=== PATIENT | male | born 1945 | race Caucasian/White ===

== ENCOUNTER 2017-07-13 17:01 | Emergency (ER) | payer MEDICARE, SELFPAY ==
[2017-07-13 17:13] VITALS: BP 105/83; PULSE 63; RESP 18; TEMP 36.6; O2SAT 96; BMI 29.0
--- NOTE | 2017-07-13 17:17 | HMH.EDUTC ---
[facility] [place] Impression: Upper respiratory infection Qualifiers: URI type: unspecified URI Qualified Code(s): J06.9 - Acute upper respiratory infection, unspecified Disposition: Home, Self-Care Condition on Discharge: Good Instructions: Sore Throat, Cough, DI for Nasal Congestion Additional Instructions: * Monitor Temp. Tylenol and/or Ibuprofen as needed. ER if fever is no less than 101 despite alternating Tylenol and Ibuprofen * Encourage fluids, water, Gatorade, powerade, pedialyte if infant/toddler/or child * Warm salt water gargles for throat irritation *Warm fluids *Sore throat lozenges *Sleep elevated *humidifier or vaporizer Lots of rest Increase fluids, water, Gatorade, powerade *Your throat swab was sent to lab for culture. Those results area typically sent to your primary care physician. Be sure to follow up in 2-3 days if no improvement so they can review those results and treat if necessary If you dont have primary care I recommend you get one, but in the mean time you will have to return to a walk in clinic Follow up IMMEDIATELY for new or worsening of symptoms OR no noticeable improvement over the next 48-72 hours. 911 immediately for any life threatening symptoms such as chest pain or difficulty breathing Prescriptions: Dextromethorphan Polistirex [Delsym] 10 ml PO Q12H #250 mary ann.er.12h Referrals: Sawyer Avina MD [Primary Care Provider] - Time of Disposition: 17:35 Medical Decision Making - Medical Records Medical records reviewed: Yes: I reviewed the patient's medical records. Vital Signs: 07/13/17 17:13 Temperature 97.9 F Temperature Source Temporal Artery Scan Pulse Rate [Left Brachial] 63 Respiratory Rate 18 Blood Pressure [Left Arm] 105/83 Blood Pressure Mean [Left Arm] 90 Blood Pressure Source [Left Arm] Automatic Cuff Blood Pressure Position [Left Arm] Sitting 02 Sat by Pulse Oximetry 96 Oxygen Delivery Method Room Air - Lab Data Lab Results 07/13/17 17:13: Influenza Type A Ag Negative, Influenza Type B Ag Negative, Strep Scn Rapid Clinic Negative Orders (Tests/Meds): ED MEDICATIONS Discontinued Medications Generic Name Dose Route Start Last Admin Trade Name Freq PRN Reason Stop Dose Admin Ceftriaxone Sodium 1 gm 07/13/17 17:21 07/13/17 17:34 Rocephin 1gm Vial IM 07/13/17 17:22 1 gm ONCE ONE Administration Lidocaine HCl 0 ml 07/13/17 17:21 07/13/17 17:34 Lidocaine 1% 10ml Mdv IM 07/13/17 17:22 2.1 ml ONCE ONE Administration ORDERS Category Date Time Status Strep Screen Confirmation Stat Micro 07/13/17 17:13 Received - Manny Inquiry Pt receiving controlled substance: No Manny was queried for this patient: No [facility] [place] - General Stated complaint: Fever, Congestion, Shaking Mode of Arrival: Ambulatory Source of Information: Patient Limitations: No Limitations Description of Symptoms (Recalled from Triage Doc. by RN): C/O aches, chills, congestion HEENT Symptoms (Recalled from RN notes): No Resp Symptoms (Recalled from RN notes): Yes (congestion, cough) Skin Symptoms (Recalled from RN notes): No MS Symptoms (Recalled from RN notes): Yes (aches) Functional Status (Recalled from RN notes): n/a - History of Present Illness Provider Complaint: Patient state that he has not felt well for several days but today he feels worse State that he is having sore throat, chills, body aches and nasal congestion State that he is having sinus pain and pressure and feeling like it is running down his throat State that he is coughing but not coughing anything up - Related Data Previous Rx's Medication Instructions Recorded Dextromethorphan Polistirex 10 ml PO Q12H #250 mary ann.er.12h 07/13/17 [Delsym] Allergies Allergy/AdvReac Type Severity Reaction Status Date / Time No Known Allergies Allergy Verified 07/13/17 17:17 - Worker's Comp Is this a Worker's Comp case?: No [facility] History I have reviewed the p
--- NOTE | 2017-07-13 17:20 | ED_ITS ---
[facility] [place] Disposition Clinical Impression: Upper respiratory infection Qualifiers: URI type: unspecified URI Qualified Code(s): J06.9 - Acute upper respiratory infection, unspecified Disposition: Home, Self-Care Condition on Discharge: Good Instructions: Sore Throat, Cough, DI for Nasal Congestion Additional Instructions: * Monitor Temp. Tylenol and/or Ibuprofen as needed. ER if fever is no less than 101 despite alternating Tylenol and Ibuprofen * Encourage fluids, water, Gatorade, powerade, pedialyte if infant/toddler/or child * Warm salt water gargles for throat irritation *Warm fluids *Sore throat lozenges *Sleep elevated *humidifier or vaporizer Lots of rest Increase fluids, water, Gatorade, powerade *Your throat swab was sent to lab for culture. Those results area typically sent to your primary care physician. Be sure to follow up in 2-3 days if no improvement so they can review those results and treat if necessary If you don? t have primary care I recommend you get one, but in the mean time you will have to return to a walk in clinic Follow up IMMEDIATELY for new or worsening of symptoms OR no noticeable improvement over the next 48-72 hours. 911 immediately for any life threatening symptoms such as chest pain or difficulty breathing Prescriptions: Dextromethorphan Polistirex [Delsym] 10 ml PO Q12H #250 mary ann.er.12h Referrals: Sawyer Avina MD [Primary Care Provider] - Time of Disposition: 17:35 Medical Decision Making - Medical Records Medical records reviewed: Yes: I reviewed the patient's medical records. Vital Signs: 07/13/17 17:13 Temperature 97.9 F Temperature Source Temporal Artery Scan Pulse Rate [Left Brachial] 63 Respiratory Rate 18 Blood Pressure [Left Arm] 105/83 Blood Pressure Mean [Left Arm] 90 Blood Pressure Source [Left Arm] Automatic Cuff Blood Pressure Position [Left Arm] Sitting 02 Sat by Pulse Oximetry 96 Oxygen Delivery Method Room Air - Lab Data Lab Results 07/13/17 17:13: Influenza Type A Ag Negative, Influenza Type B Ag Negative, Strep Scn Rapid Clinic Negative Orders (Tests/Meds): ED MEDICATIONS Discontinued Medications Generic Name Dose Route Start Last Admin Trade Name Freq PRN Reason Stop Dose Admin Ceftriaxone Sodium 1 gm 07/13/17 17:21 07/13/17 17:34 Rocephin 1gm Vial IM 07/13/17 17:22 1 gm ONCE ONE Administration Lidocaine HCl 0 ml 07/13/17 17:21 07/13/17 17:34 Lidocaine 1% 10ml Mdv IM 07/13/17 17:22 2.1 ml ONCE ONE Administration ORDERS Category Date Time Status Strep Screen Confirmation Stat Micro 07/13/17 17:13 Received - Manny Inquiry Pt receiving controlled substance: No Manny was queried for this patient: No [facility] [place] HPI - General Stated complaint: Fever, Congestion, Shaking Mode of Arrival: Ambulatory Source of Information: Patient Limitations: No Limitations Description of Symptoms (Recalled from Triage Doc. by RN): C/O aches, chills, congestion HEENT Symptoms (Recalled from RN notes): No Resp Symptoms (Recalled from RN notes): Yes (congestion, cough) Skin Symptoms (Recalled from RN notes): No MS Symptoms (Recalled from RN notes): Yes (aches) Functional Status (Recalled from RN notes): n/a - History of Present Illness Provider Complaint: Patient state that he has not felt well for several days
[2017-07-13 17:22] LABS: UTC Influenza A Antigen Negative (Negative); UTC Influenza B Antigen Negative (Negative); UTC Strep Screen (Rapid) Negative (Negative)
[2017-07-13 17:38] VITALS: BP 105/83; PULSE 63; RESP 18; TEMP 36.6; O2SAT 96
== END 2017-07-13 17:39 | disposition home or self-care (01) ==
PROVIDERS: Emergency Provider Nurse Practitioner; Family Provider Internal Medicine Adolescent Medicine; PCP Internal Medicine Adolescent Medicine
DX: J06.9 Acute upper respiratory infection, unspecified (principal); E78.5 Hyperlipidemia, unspecified; I10 Essential (primary) hypertension; Z90.49 Acquired absence of other specified parts of digestive tract; F17.210 Nicotine dependence, cigarettes, uncomplicated
CPT/HCPCS: G0463; 87804; 87880; 96372; 99201; 99202

== ENCOUNTER 2017-07-15 17:19 | Emergency (ER) | payer MEDICARE, SELFPAY ==
[2017-07-15 18:38] VITALS: BP 182/89; PULSE 106; RESP 20; TEMP 36.6; O2SAT 96; BMI 29.0
--- NOTE | 2017-07-15 19:09 | HMH.EDUTC ---
[facility] [place] Clinical Impression: Bleeding nose Sinusitis Qualifiers: Sinusitis location: maxillary Chronicity: acute Recurrence: not specified as recurrent Qualified Code(s): J01.00 - Acute maxillary sinusitis, unspecified Disposition: Home, Self-Care Condition on Discharge: Good Additional Instructions: Follow-up with Dr. Santoro If nosebleed returns or worsens return or be seen in the ER Antibiotics as ordered Afrin as ordered Prescriptions: cephALEXin [Keflex 500mg Cap] 500 mg PO BID 10 Days cap Oxymetazoline HCl [Afrin Nasal [place] 15mL] 0 ml IH Q12 3 Days #1 spray Referrals: Delmar Santoro MD [Staff Physician] - (call tomorrow for appointment) Time of Disposition: 19:15 Medical Decision Making Vital Signs: 07/15/17 18:38 Temperature 97.9 F Temperature Source Temporal Artery Scan Pulse Rate [Brachial] 106 H Respiratory Rate 20 Blood Pressure [Right Arm] 182/89 Blood Pressure Mean [Right Arm] 120 Blood Pressure Source [Right Arm] Automatic Cuff Blood Pressure Position [Right Arm] Sitting 02 Sat by Pulse Oximetry 96 Oxygen Delivery Method Room Air - Manny Inquiry Pt receiving controlled substance: No [facility] [place] H[place] - General Chief complaint: Urgent Treatment Center Stated complaint: nose bleed twice in two days Time Seen by Provider: 07/15/17 19:10 Mode of Arrival: Ambulatory Source of Information: Patient Limitations: No Limitations Description of Symptoms (Recalled from Triage Doc. by RN): BLEW HIS NOSE YESTERDAY AND IT STARTED BLEEDING AND TODAY WHEN HE BENT OVER IT STARTED BLEEDING AGAIN. HEENT Symptoms (Recalled from RN notes): Yes Resp Symptoms (Recalled from RN notes): No Skin Symptoms (Recalled from RN notes): No MS Symptoms (Recalled from RN notes): No Functional Status (Recalled from RN notes): NA - History of Present Illness Provider Complaint: 71-year-old male presents for nosebleed. Patient states he had a note yesterday but was able to have stopped and today bent over in nosebleed started. Was seen on Saturday diagnosed with a sinus infection was 2 shots and states he is no better. - Related Data Previous Rx's Medication Instructions Recorded Dextromethorphan Polistirex 10 ml PO Q12H #250 mary ann.er.12h 07/13/17 [Delsym] Oxymetazoline HCl [Afrin Nasal 0 ml IH Q12 3 Days #1 spray 07/15/17 [place] 15mL] cephALEXin [Keflex 500mg Cap] 500 mg PO BID 10 Days cap 07/15/17 Allergies Allergy/AdvReac Type Severity Reaction Status Date / Time No Known Allergies Allergy Verified 07/13/17 17:17 - Worker's Comp Is this a Worker's Comp case?: No [facility] History I have reviewed the patient's past medical history: Yes Medical History: Denies:: Cancer, Diabetes Mellitus Type 1, Diabetes Mellitus Type 2, MRSA Amputation: No Fractures: No - *Social History Smoking Status: Current every day smoker Tobacco Type: cigarettes Alcohol Intake: never - Psychiatric History Expresses thoughts of harming self/others: None Suicide Plan Description: No Plan ROS Obtained: Yes All systems reviewed & no additional complaints - Constitutional Constitutional: Reports system reviewed and no additional complaints, except as docu - Eyes Eyes: Reports system reviewed and no additional complaints, except as docu - ENT Ears, Nose, Mouth, and Throat: Reports system reviewed and no additional complaints, except as docu, Reports as per HPI, Reports epistaxis, Reports nasal discharge, Reports sinus pressure - Cardiovascular Cardiovascular: Reports system reviewed and no additional complaints, except as docu - Respiratory Respiratory: Yes system reviewed and no additional complaints, except as docu - Gastrointestinal Gastrointestingal: Reports: system reviewed and no additional complaints, except as docu - Musculoskeletal Musculoskeletal: Reports system reviewed and no additional complaints, except as docu - Integumentary/Breasts Skin/Breast: Reports system reviewed and no addit
--- NOTE | 2017-07-15 19:12 | ED_ITS ---
[facility] [place] Clinical Impression: Bleeding nose Sinusitis Qualifiers: Sinusitis location: maxillary Chronicity: acute Recurrence: not specified as recurrent Qualified Code(s): J01.00 - Acute maxillary sinusitis, unspecified Disposition: Home, Self-Care Condition on Discharge: Good Additional Instructions: Follow-up with Dr. Santoro If nosebleed returns or worsens return or be seen in the ER Antibiotics as ordered Afrin as ordered Prescriptions: cephALEXin [Keflex 500mg Cap] 500 mg PO BID 10 Days cap Oxymetazoline HCl [Afrin Nasal [place] 15mL] 0 ml IH Q12 3 Days #1 spray Referrals: Delmar Santoro MD [Staff Physician] - (call tomorrow for appointment) Time of Disposition: 19:15 Medical Decision Making Vital Signs: 07/15/17 18:38 Temperature 97.9 F Temperature Source Temporal Artery Scan Pulse Rate [Brachial] 106 H Respiratory Rate 20 Blood Pressure [Right Arm] 182/89 Blood Pressure Mean [Right Arm] 120 Blood Pressure Source [Right Arm] Automatic Cuff Blood Pressure Position [Right Arm] Sitting 02 Sat by Pulse Oximetry 96 Oxygen Delivery Method Room Air - Manny Inquiry Pt receiving controlled substance: No [facility] [place] - General Chief complaint: Urgent Treatment Center Stated complaint: nose bleed twice in two days Time Seen by Provider: 07/15/17 19:10 Mode of Arrival: Ambulatory Source of Information: Patient Limitations: No Limitations Description of Symptoms (Recalled from Triage Doc. by RN): BLEW HIS NOSE YESTERDAY AND IT STARTED BLEEDING AND TODAY WHEN HE BENT OVER IT STARTED BLEEDING AGAIN. HEENT Symptoms (Recalled from RN notes): Yes Resp Symptoms (Recalled from RN notes): No Skin Symptoms (Recalled from RN notes): No MS Symptoms (Recalled from RN notes): No Functional Status (Recalled from RN notes): NA - History of Present Illness Provider Complaint: 71-year-old male presents for nosebleed. Patient states he had a note yesterday but was able to have stopped and today bent over in nosebleed started. Was seen on Saturday diagnosed with a sinus infection was 2 shots and states he is no better. - Related Data Previous Rx's Medication Instructions Recorded Dextromethorphan Polistirex 10 ml PO Q12H #250 mary ann.er.12h 07/13/17 [Delsym] Oxymetazoline HCl [Afrin Nasal 0 ml IH Q12 3 Days #1 spray 07/15/17 [place] 15mL] cephALEXin [Keflex 500mg Cap] 500 mg PO BID 10 Days cap 07/15/17 Allergies Allergy/AdvReac Type Severity Reaction Status Date / Time No Known Allergies Allergy Verified 07/13/17 17:17 - Worker's Comp Is this a Worker's Comp case?: No H History I have reviewed the patient's past medical history: Yes Medical History: Denies:: Cancer, Diabetes Mellitus Type 1, Diabetes Mellitus Type 2, MRSA Amputation: No Fractures: No - *Social History Smoking Status: Current every day smoker Tobacco Type: cigarettes Alcohol Intake: never - Psychiatric History Expresses thoughts of harming self/others: None Suicide Plan Description: No Plan ROS Obtained: Yes All systems reviewed & no additional complaints - Constitutional Constitutional: Reports system reviewed and no additional complaints, except as docu - Eyes Eyes: Reports system reviewed and no additional complaints, except as docu - ENT Ears, Nose, Mouth, and Throat: Reports system r
== END 2017-07-15 19:23 | disposition home or self-care (01) ==
PROVIDERS: Emergency Provider Nurse Practitioner Family; Family Provider Internal Medicine Adolescent Medicine; PCP Internal Medicine Adolescent Medicine
DX: J45.901 Unspecified asthma with (acute) exacerbation (principal)
CPT/HCPCS: G0463; 99201

== ENCOUNTER → 2017-07-19 12:19 | Outpatient (CLI) | payer MEDICARE, SELFPAY ==
[2017-07-19 12:46] LABS: Basophils # 0.1 K/mm3 (0-0.2); Basophils % 0.6 % (0.1-2.0); Eosinophils # 0.1 K/mm3 (0.0-0.4); Eosinophils % 1.8 % (0.1-12.0); Hemoglobin 15.5 g/dL (14.1-18.0); Lymphocytes # 1.2 K/mm3 (0.7-4.5); Lymphocytes % 15.8 K/mm3 (10-50); Mean Corpuscular HGB Conc 34.5 g/dL (31.8-35.4); Mean Corpuscular Hemoglobin 30.6 pg (27.0-31.2); Mean Corpuscular Volume 88.8 fl (80-94); Mean Platelet Volume 8.1 fl (7.4-10.4); Monocytes # 0.5 K/mm3 (0.1-1.0); Monocytes % 5.9 % (1.7-9.3); Neutrophils # 5.7 K/mm3 (1.8-7.8); Neutrophils % 75.9 % (37.0-80.0); Platelet Count 233 K/mm3 (142-424); Red Blood Count 5.06 M/mm3 (4.60-6.20); Red Cell Distribution Width 12.2 % (11.5-17.5); White Blood Count 7.6 K/mm3 (4.8-10.8)
[2017-07-19 12:55] LABS: Activated Partial Thrombo Time 24.5 seconds (23.6-34.0); Prothrombin Time 10.8 seconds (9.4-11.8)
[2017-07-19 14:38] LABS: Alanine Aminotransferase 101 U/L (12-78); Albumin Level 3.7 gm/dL (3.4-5.0); Albumin/Globulin Ratio 1.3 (1.1-1.8); Alkaline Phosphatase 83 U/L (46-116); Anion Gap 14.8 mEq/L (5-15); Aspartate Amino Transferase 36 U/L (15-37); Bilirubin,Total 0.5 mg/dL (0.2-1.0); Blood Urea Nitrogen 22 mg/dL (7-18); Calcium 8.9 mg/dL (8.5-10.1); Carbon Dioxide 26 mmol/L (21.0-32.0); Chloride 101 mmol/L (98-107); Creatinine,Serum 1.63 mg/dL (0.70-1.30); Estimated Glomerular Filt Rate 42 ml/min (>60); GFR (African American) 51 ML/MIN (>60); Globulin 2.9 gm/dl (1.3-3.2); Glucose 150 mg/dL (74-106); Potassium 3.8 mmoL/L (3.5-5.1); Sodium 138 mmol/L (136-145); Total Protein,Serum 6.6 gm/dL (6.4-8.2)
== END ==
PROVIDERS: Family Provider Internal Medicine Adolescent Medicine; PCP Internal Medicine Adolescent Medicine; Visit Provider Otolaryngology
DX: R04.0 Epistaxis (principal)
CPT/HCPCS: 36415; 80053; 85025; 85610; 85730

== ENCOUNTER → 2017-07-26 07:57 | Outpatient (CLI) | payer MEDICARE, SELFPAY ==
[2017-07-26 09:34] LABS: Alanine Aminotransferase 72 U/L (12-78); Albumin Level 3.8 gm/dL (3.4-5.0); Albumin/Globulin Ratio 1.3 (1.1-1.8); Alkaline Phosphatase 78 U/L (46-116); Anion Gap 12.5 mEq/L (5-15); Aspartate Amino Transferase 27 U/L (15-37); Bilirubin,Total 0.5 mg/dL (0.2-1.0); Blood Urea Nitrogen 18 mg/dL (7-18); Calcium 9.3 mg/dL (8.5-10.1); Carbon Dioxide 31 mmol/L (21.0-32.0); Chloride 106 mmol/L (98-107); Creatinine,Serum 1.55 mg/dL (0.70-1.30); Estimated Glomerular Filt Rate 45 ml/min (>60); GFR (African American) 54 ML/MIN (>60); Globulin 2.9 gm/dl (1.3-3.2); Glucose 103 mg/dL (74-106); Phosphorous 3.2 mg/dL (2.4-4.9); Potassium 4.5 mmoL/L (3.5-5.1); Sodium 145 mmol/L (136-145); Total Protein,Serum 6.7 gm/dL (6.4-8.2)
[2017-07-26 11:32] LABS: Red Blood Count 4.59 M/mm3 (4.60-6.20)
[2017-07-26 11:33] LABS: Basophils % 0.9 % (0.1-2.0); Eosinophils # 0.3 K/mm3 (0.0-0.4); Eosinophils % 3.7 % (0.1-12.0); Hematocrit 41.5 % (42.0-52.0); Hemoglobin 14.2 g/dL (14.1-18.0); Lymphocytes # 1.9 K/mm3 (0.7-4.5); Mean Corpuscular HGB Conc 34.3 g/dL (31.8-35.4); Mean Corpuscular Volume 90.4 fl (80-94); Mean Platelet Volume 8.4 fl (7.4-10.4); Monocytes # 0.5 K/mm3 (0.1-1.0); Monocytes % 6.8 % (1.7-9.3); Neutrophils % 62.6 % (37.0-80.0); Platelet Count 271 K/mm3 (142-424); Red Cell Distribution Width 12.3 % (11.5-17.5)
[2017-07-26 11:34] LABS: Basophils # 0.1 K/mm3 (0-0.2)
[2017-07-26 13:54] LABS: Patient Height,Urine 75; Patient Weight,Urine 232
[2017-07-26 14:02] LABS: Collection Time,Urine 12 hours; Total Volume,Urine 1000 mL (250-2400)
[2017-07-26 15:01] LABS: Creatinine 24 Hour,Urine 1010 mg/24hr (630-2500); Creatinine,Urine Random 101 mg/dL (20-320)
[2017-07-27 19:10] LABS: Vitamin D 25 Hydroxy 34.7 ng/mL (30.0-100.0)
== END ==
PROVIDERS: PCP Internal Medicine Adolescent Medicine; Visit Provider Internal Medicine Adolescent Medicine
DX: R79.89 Other specified abnormal findings of blood chemistry (principal); N18.1 Chronic kidney disease, stage 1
CPT/HCPCS: 36415; 80053; 82575; 82652; 84100; 85025

== ENCOUNTER → 2017-07-30 13:12 | Outpatient (CLI) | payer MEDICARE, SELFPAY ==
--- NOTE | 2017-07-30 13:16 | US_ITS ---
US retroperitoneal comp HISTORY: ITS.REASON: STAGE 1 CHRONIC KIDNEY DISEASE ORDERING PHYSICIAN: Sawyer Avina MD PATIENT AGE: 71 years COMPARISON: None FINDINGS: The right kidney is 11 x 6 x 7 cm. No hydronephrosis. Small focus of increased echogenicity is present in the mid lower pole the right kidney with some posterior shadowing and could be due to a small nonobstructing stone. There is mild cortical thinning. The left kidney is 10 x 6 x 6 cm it has an unremarkable appearance. IMPRESSION: Possible right nephrolithiasis with mild right renal cortical thinning. No hydronephrosis
== END ==
PROVIDERS: Family Provider Internal Medicine Adolescent Medicine; PCP Internal Medicine Adolescent Medicine; Visit Provider Internal Medicine Adolescent Medicine
DX: N18.1 Chronic kidney disease, stage 1 (principal)
CPT/HCPCS: 76770

== ENCOUNTER → 2017-08-09 10:08 | Outpatient (CLI) | payer MEDICARE, SELFPAY ==
--- NOTE | 2017-08-09 10:09 | MR_ITS ---
MR lumbar spine wo con, MR 3-d myelogram/MRCP HISTORY: Low back pain with tingling and numbness in the left leg and hip ITS.REASON: LUMBAR RADICULOPATHY ORDERING PHYSICIAN: Ehsan Chua PATIENT AGE: 71 years COMPARISON: MRI of 08/21/2016 TECHNIQUE: Standard multiplanar multiecho sequences are performed without contrast. 3-D MIP and myelographic images are also rendered and reviewed FINDINGS: There is normal alignment. The spinal cord ends at the L1 level. There is mild disc desiccation from T12 to L5. T12-L1, L1-L2, and L2-L3 have an unremarkable appearance. L3-L4: There is minimal concentric bulging disc with mild facet and ligamentous hypertrophy with mild bilateral foraminal narrowing. L4-L5: Degenerative disc disease which is moderate to severe in nature with a Schmorl's node along the inferior endplate of L4 and type II endplate changes anteriorly. There is bulging disc disc with moderate right-sided foraminal narrowing and mild left-sided foraminal narrowing. The degenerative disc disease is slightly worse on today's exam with increasing bone marrow edema along the anterior endplates with a type II changes. There is mild facet and ligamentum flavum hypertrophy which contributes to the foraminal narrowing. L5-S1: Mild concentric bulging disc with minimal central disc protrusion with borderline canal stenosis. This is similar compared to the previous exam. IMPRESSION: 1. Mild spondylosis of the lumbar spine as described above with degenerative disc disease, bulging disc, and facet ligamentum flavum hypertrophy. Please above for detail. There is borderline canal stenosis at L5-S1 2. Degenerative disc disease with bulging disc at L4-5 with facet and ligamentum hypertrophy. There is moderate right-sided foraminal narrowing and mild left foraminal narrowing. The degenerative disc disease is slightly worse on today's exam compared to the previous study with increasing bone marrow edema of the anterior endplates. 3. Bulging disc with minimal central disc protrusion and borderline canal stenosis at L5-S1
--- NOTE | 2017-12-10 14:53 | PC.NURSE ---
Diclofenac 75mg po bid faxed with 2 refills to clinic pharmacy
== END ==
PROVIDERS: Family Provider Internal Medicine Adolescent Medicine; PCP Internal Medicine Adolescent Medicine; Visit Provider Neurological Surgery
DX: M54.16 Radiculopathy, lumbar region (principal)
CPT/HCPCS: 72148; 76376

== ENCOUNTER → 2017-08-21 11:56 | Outpatient (CLI) | payer MEDICARE, SELFPAY ==
[2017-08-21 14:39] LABS: Alanine Aminotransferase 63 U/L (12-78); Albumin Level 3.9 gm/dL (3.4-5.0); Albumin/Globulin Ratio 1.3 (1.1-1.8); Alkaline Phosphatase 75 U/L (46-116); Anion Gap 12.7 mEq/L (5-15); Aspartate Amino Transferase 31 U/L (15-37); Bilirubin,Total 0.5 mg/dL (0.2-1.0); Blood Urea Nitrogen 13 mg/dL (7-18); Calcium 9.3 mg/dL (8.5-10.1); Carbon Dioxide 27 mmol/L (21.0-32.0); Chloride 104 mmol/L (98-107); Creatinine,Serum 1.19 mg/dL (0.70-1.30); Estimated Glomerular Filt Rate 61 ml/min (>60); GFR (African American) 73 ML/MIN (>60); Glucose 106 mg/dL (74-106); Potassium 3.7 mmoL/L (3.5-5.1); Sodium 140 mmol/L (136-145); Total Protein,Serum 6.9 gm/dL (6.4-8.2)
== END ==
PROVIDERS: Visit Provider Internal Medicine Adolescent Medicine
DX: R97.20 Elevated prostate specific antigen [PSA] (principal); R79.89 Other specified abnormal findings of blood chemistry
CPT/HCPCS: 36415; 80053; 84153

== ENCOUNTER → 2017-09-11 07:18 | Outpatient (CLI) | payer MEDICARE, SELFPAY ==
[2017-09-11 08:40] LABS: Chol/HDL Ratio 3.2 (1-3.5); Cholesterol 194 mg/dL (140-200); HDL Cholesterol 60 mg/dL (27-67); LDL Cholesterol 110 mg/dL (0-130); Triglycerides 122 mg/dL (30-200); VLDL Cholesterol 24 mg/dL (0-40)
== END ==
PROVIDERS: Visit Provider Internal Medicine
DX: I11.9 Hypertensive heart disease without heart failure (principal); E78.5 Hyperlipidemia, unspecified; Z72.0 Tobacco use
CPT/HCPCS: 36415; 80061

== ENCOUNTER → 2017-09-16 08:56 | Outpatient (POV) | payer MEDICARE, SELFPAY ==
[2017-09-16 09:16] VITALS: BP 137/75; PULSE 79; RESP 16; O2SAT 95; BMI 29.0
--- NOTE | 2017-09-16 11:47 | HMH.PAINSOAP ---
[facility] Pain Management SOAP Note Subjective:: Patient is a 71-year-old white male who presents in our pain clinic for discussion on his low back pain. Patient has recently been seen by Dr. Chua in determined not to be a surgical candidate. Patient has already prepared for a second opinion from Dr. Chavez on September 26. Patient states that he is injective therapy has not been beneficial. Patient's gabapentin he is unable to take due to side effects. Patient is an avid golfer and wants to become more functional. Patient and I discussed intrathecal pain pump. Patient currently is not on any pain medication. Patient rates his pain a 7 out of 10 today. Patient's tried and failed physical therapy, medications, injections. ROS General: no recent weight change, no fever, no sleep disturbances Respiratory: no cough, no shortness of air, no recurring pulmonary infections Cardiovascular/Peripheral Vascular: No chest pain, No palpitations, no edema, no shortness of breath. Gastrointestinal: no incontinence, normal bowel movements reported Genitourinary: no incontinence Musculoskeletal: Back pain, bilateral leg pain Psychiatric: normal mood/ affect Neurological: [denies weakness in extremities], [denies balance issues] Objective:: Physical Exam General: Alert and oriented x3, no acute distress, pleasant and cooperative, [on room air] Lungs: Resps E/U, Symmetrical chest expansion, Eyes: PERRL Musculoskeletal: Flexion and extension of lumbar spine somewhat guarded secondary to pain, deep tendon reflexes normal, strength in upper and lower extremities [5/5], slightly antalgic gait noted, positive straight leg test bilaterally at 30? Neurological: speech clear, building carpenter equal, no gross sensory deficits Assessment:: Degenerative disc disease of the lumbar spine, lumbar spondylosis, disc bulge, lumbar radiculopathy Plan:: I gave this patient information on intrathecal pain pump. If patient would like to proceed with this after his consultation with Dr. Chavez we will go ahead and start the process of getting a psychological evaluation for him. This note was dictated using voice recognition software and may contain errors or omissions
--- NOTE | 2017-09-16 11:50 | P.CONS_ITS ---
[facility] Pain Management SOAP Note Subjective:: Patient is a 71-year-old white male who presents in our pain clinic for discussion on his low back pain. Patient has recently been seen by Dr. Chua in determined not to be a surgical candidate. Patient has already prepared for a second opinion from Dr. Chavez on September 26. Patient states that he is injective therapy has not been beneficial. Patient's gabapentin he is unable to take due to side effects. Patient is an avid golfer and wants to become more functional. Patient and I discussed intrathecal pain pump. Patient currently is not on any pain medication. Patient rates his pain a 7 out of 10 today. Patient's tried and failed physical therapy, medications, injections. ROS General: no recent weight change, no fever, no sleep disturbances Respiratory: no cough, no shortness of air, no recurring pulmonary infections Cardiovascular/Peripheral Vascular: No chest pain, No palpitations, no edema, no shortness of breath. Gastrointestinal: no incontinence, normal bowel movements reported Genitourinary: no incontinence Musculoskeletal: Back pain, bilateral leg pain Psychiatric: normal mood/ affect Neurological: [denies weakness in extremities], [denies balance issues] Objective:: Physical Exam General: Alert and oriented x3, no acute distress, pleasant and cooperative, [ on room air] Lungs: Resps E/U, Symmetrical chest expansion, Eyes: PERRL Musculoskeletal: Flexion and extension of lumbar spine somewhat guarded secondary to pain, deep tendon reflexes normal, strength in upper and lower extremities [5/5], slightly antalgic gait noted, positive straight leg test bilaterally at 30? Neurological: speech clear, manager asset management equal, no gross sensory deficits Assessment:: Degenerative disc disease of the lumbar spine, lumbar spondylosis, disc bulge, lumbar radiculopathy Plan:: I gave this patient information on intrathecal pain pump. If patient would like to proceed with this after his consultation with Dr. Chavez we will go ahead and start the process of getting a psychological evaluation for him. This note was dictated using voice recognition software and may contain errors or omissions
== END ==
PROVIDERS: Family Provider Internal Medicine Adolescent Medicine; PCP Internal Medicine Adolescent Medicine; Visit Provider Clinical Nurse Specialist Family Health
DX: M47.26 Other spondylosis with radiculopathy, lumbar region (principal)
CPT/HCPCS: 99212

== ENCOUNTER 2017-10-01 09:00 | Outpatient (RCR) | payer MEDICARE, SELFPAY ==
--- NOTE | 2017-09-17 08:50 | HMH.RHREAS ---
Rehab Reassessment Rehab OP Re-assessment Start: 09/17/17 08:05 Freq: Status: Active Protocol: Document 09/17/17 08:05 MJ (Rec: 09/17/17 08:50 MJ [id number]) Electronically Signed By Magdiel Zaidi, PT 09/17/17 08:05 Rehab Re-assessment Subjective Subjective Pt reports 3/10 L SH pain on VAS, and feels 80% better overall w/ L SH function since I EVAL. Pt reports no changes in LBP or L LE s/s, and has follow-up appts w/pain mngt and neurosx. Objective Objective Notes MMT:L SH FLX 4+/5, ABD 4-4+/5, IR 5/5, ER 4+/5 TTP: L SH ANT RTC 0/4, L SH POST RTC 0/4, LHB 1/4 MMT: L HIP FLX 4/5, HIP ABD 4- /5, HIP EXT AND ADD 4-/5 TTP: L VASTUS LATERALIS 3/4, L RECTUS FERMORIS 3/4 Assessment Progress Assessment Progressing as Expected Assessment Notes PT W/MARKED IMPROVEMENT W/ L SH STRENGTH AND TTP, HOWEVER, L LE S/S ARE RADICULAR IN NATURE AND HAVE NOT PROGRESSED SINCE I EVAL Patient goals met STGS 4/5 LTGS 3/7 Goals Not Met STGS 1/5, LTGS 4/7 Plan Plan Pt to continue w/skilled PT to make further improvements with strength and TTP to allow for optimal function Frequency of Therapy 1-2x/wk Duration of therapy 2-4 wks Time and Billing Re-Eval Time 15 Re-Eval Billing Units 1 PHYSICIAN CERTIFICATION: I certify the specified therapy services for Bobby Maddox are required, authorized, and reviewed every 30 days.
== END 2017-10-01 09:01 | disposition home or self-care (01) ==
LOC: PT 09:00
PROVIDERS: Family Provider Internal Medicine Adolescent Medicine; PCP Internal Medicine Adolescent Medicine; Visit Provider Internal Medicine Adolescent Medicine
DX: M54.5 Low back pain (principal); M25.512 Pain in left shoulder; S76.112A Strain of left quadriceps muscle, fascia and tendon, initial encounter
CPT/HCPCS: 97010; 97014; 97033; 97035; 97110; 97140; 97164; G0283

== ENCOUNTER → 2017-10-01 10:10 | Outpatient (POV) | payer MEDICARE, SELFPAY ==
[2017-10-01 10:28] VITALS: BP 118/61; PULSE 109; RESP 20; BMI 29.5
--- NOTE | 2017-10-01 12:47 | HMH.PAINSOAP ---
[facility] Pain Management SOAP Note Subjective:: Patient is a 71-year-old white male who presents today for follow-up after a second opinion from Dr. Chavez. Patient states that means that he is not a surgical candidate. Patient and I had talked about intrathecal pain pump in the past he is not interested in moving forward with this at this time. Patient states that his pain is a 7 out of 10 today. Patient's tried and failed physical therapy, medications, inflammatories. Patient is currently on Mobic and is wondering if he should try new anti-inflammatory. Patient would like to try a another lumbar epidural steroid injection after his recent visit with Dr. Chavez. Patient is having left leg pain stemming from his back. ROS General: no recent weight change, no fever, no sleep disturbances Respiratory: no cough, no shortness of air, no recurring pulmonary infections Cardiovascular/Peripheral Vascular: No chest pain, No palpitations, no edema, no shortness of breath. Gastrointestinal: no incontinence, normal bowel movements reported Genitourinary: no incontinence Musculoskeletal: Back pain, left leg pain Psychiatric: normal mood/ affect Neurological: [denies weakness in extremities], [denies balance issues] Objective:: Physical Exam General: Alert and oriented x3, no acute distress, pleasant and cooperative, [on room air] Lungs: Resps E/U, Symmetrical chest expansion, Eyes: PERRL Musculoskeletal: Flexion and extension of lumbar spine somewhat guarded secondary to pain, deep tendon reflexes normal, strength in upper and lower extremities [5/5], slightly antalgic gait noted, positive straight leg test on the left side at 30?. 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 I believe given his symptomology that this would be beneficial. Patient's tried and failed physical therapy, stretching therapy, medications, anti-inflammatories. We will also change his anti-inflammatory to diclofenac 75 mg 1 p.o. twice daily. Patient is that he cannot take this along with any other NSAIDs. At this time we will explore injective therapies prior to deciding on intrathecal pain pump. This note was dictated using voice recognition software and may contain errors or omissions
--- NOTE | 2017-10-01 12:50 | P.CONS_ITS ---
[facility] Pain Management SOAP Note Subjective:: Patient is a 71-year-old white male who presents today for follow-up after a second opinion from Dr. Chavez. Patient states that means that he is not a surgical candidate. Patient and I had talked about intrathecal pain pump in the past he is not interested in moving forward with this at this time. Patient states that his pain is a 7 out of 10 today. Patient's tried and failed physical therapy, medications, inflammatories. Patient is currently on Mobic and is wondering if he should try new anti-inflammatory. Patient would like to try a another lumbar epidural steroid injection after his recent visit with Dr. Chavez. Patient is having left leg pain stemming from his back. ROS General: no recent weight change, no fever, no sleep disturbances Respiratory: no cough, no shortness of air, no recurring pulmonary infections Cardiovascular/Peripheral Vascular: No chest pain, No palpitations, no edema, no shortness of breath. Gastrointestinal: no incontinence, normal bowel movements reported Genitourinary: no incontinence Musculoskeletal: Back pain, left leg pain Psychiatric: normal mood/ affect Neurological: [denies weakness in extremities], [denies balance issues] Objective:: Physical Exam General: Alert and oriented x3, no acute distress, pleasant and cooperative, [ on room air] Lungs: Resps E/U, Symmetrical chest expansion, Eyes: PERRL Musculoskeletal: Flexion and extension of lumbar spine somewhat guarded secondary to pain, deep tendon reflexes normal, strength in upper and lower extremities [5/5], slightly antalgic gait noted, positive straight leg test on the left side at 30?. 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 I believe given his symptomology that this would be beneficial. Patient's tried and failed physical therapy, stretching therapy, medications, anti-inflammatories. We will also change his anti-inflammatory to diclofenac 75 mg 1 p.o. twice daily. Patient is that he cannot take this along with any other NSAIDs. At this time we will explore injective therapies prior to deciding on intrathecal pain pump. This note was dictated using voice recognition software and may contain errors or omissions
--- NOTE | 2017-10-01 12:59 | PC.PHONENOTE ---
called in Rx for Diclofenac 75mg BID with 2 refills to pt's pharmacy
== END ==
PROVIDERS: Family Provider Internal Medicine Adolescent Medicine; PCP Internal Medicine Adolescent Medicine; Visit Provider Clinical Nurse Specialist Family Health
DX: M47.26 Other spondylosis with radiculopathy, lumbar region (principal)
CPT/HCPCS: 99212

== ENCOUNTER → 2017-10-21 14:39 | Outpatient (POV) | payer MEDICARE, SELFPAY ==
[2017-10-21 15:00] VITALS: BP 139/72; PULSE 91; RESP 18; TEMP 36.7; O2SAT 99; BMI 31.4
--- NOTE | 2017-10-21 15:30 | HMH.PAINSOAP ---
[facility] Pain Management SOAP Note Subjective:: This patient is a pleasant 71-year-old white male who presents today for follow-up after lumbar epidural steroid injection at the L4-L5. Patient states he is 90% better. Patient rates his pain a 1 out of 10 today. He also still taking his diclofenac 75 mg 1 p.o. twice daily. He states that this helps 60-70%. Patient is more active after his injection. Patient would like to go on a golf trip. ROS General: no recent weight change, no fever, no sleep disturbances Respiratory: no cough, no shortness of air, no recurring pulmonary infections Cardiovascular/Peripheral Vascular: No chest pain, No palpitations, no edema, no shortness of breath. Gastrointestinal: no incontinence, normal bowel movements reported Genitourinary: no incontinence Musculoskeletal: Back pain, bilateral leg pain Psychiatric: normal mood/ affect Neurological: [denies weakness in extremities], [denies balance issues] Objective:: Physical Exam General: Alert and oriented x3, no acute distress, pleasant and cooperative, [on room air] Lungs: Resps E/U, Symmetrical chest expansion, Eyes: PERRL Musculoskeletal: Flexion and extension of lumbar spine somewhat guarded secondary to pain, deep tendon reflexes normal, strength in upper and lower extremities [5/5], antalgic gait noted, positive straight leg raise test bilaterally at 30? Neurological: speech clear, staff radiologist equal, no gross sensory deficits Assessment:: degenerative disc disease of the lumbar spine with lumbar radiculopathy Plan:: We will follow-up with this patient and plan to do at L4-L5 lumbar epidural steroid injection in January. Patient is going to call if he needs assistance prior to this. Patient is to continue on his diclofenac. I will follow-up with the patient after his next injection. This note was dictated using voice recognition software and may contain errors or omissions
--- NOTE | 2017-10-21 15:33 | P.CONS_ITS ---
[facility] Pain Management SOAP Note Subjective:: This patient is a pleasant 71-year-old white male who presents today for follow- up after lumbar epidural steroid injection at the L4-L5. Patient states he is 90% better. Patient rates his pain a 1 out of 10 today. He also still taking his diclofenac 75 mg 1 p.o. twice daily. He states that this helps 60-70%. Patient is more active after his injection. Patient would like to go on a golf trip. ROS General: no recent weight change, no fever, no sleep disturbances Respiratory: no cough, no shortness of air, no recurring pulmonary infections Cardiovascular/Peripheral Vascular: No chest pain, No palpitations, no edema, no shortness of breath. Gastrointestinal: no incontinence, normal bowel movements reported Genitourinary: no incontinence Musculoskeletal: Back pain, bilateral leg pain Psychiatric: normal mood/ affect Neurological: [denies weakness in extremities], [denies balance issues] Objective:: Physical Exam General: Alert and oriented x3, no acute distress, pleasant and cooperative, [ on room air] Lungs: Resps E/U, Symmetrical chest expansion, Eyes: PERRL Musculoskeletal: Flexion and extension of lumbar spine somewhat guarded secondary to pain, deep tendon reflexes normal, strength in upper and lower extremities [5/5], antalgic gait noted, positive straight leg raise test bilaterally at 30? Neurological: speech clear, business control manager equal, no gross sensory deficits Assessment:: degenerative disc disease of the lumbar spine with lumbar radiculopathy Plan:: We will follow-up with this patient and plan to do at L4-L5 lumbar epidural steroid injection in January. Patient is going to call if he needs assistance prior to this. Patient is to continue on his diclofenac. I will follow-up with the patient after his next injection. This note was dictated using voice recognition software and may contain errors or omissions
== END ==
PROVIDERS: Family Provider Internal Medicine Adolescent Medicine; PCP Internal Medicine Adolescent Medicine; Visit Provider Clinical Nurse Specialist Family Health
DX: M54.16 Radiculopathy, lumbar region (principal)
CPT/HCPCS: 99212

== ENCOUNTER → 2017-11-20 11:45 | Outpatient (CLI) | payer MEDICARE, SELFPAY ==
[2017-11-20 12:20] LABS: Basophils # 0.1 K/mm3 (0-0.2); Basophils % 0.8 % (0.1-2.0); Eosinophils # 0.4 K/mm3 (0.0-0.4); Eosinophils % 5.3 % (0.1-12.0); Hematocrit 45.4 % (42.0-52.0); Hemoglobin 14.7 g/dL (14.1-18.0); Lymphocytes # 1.8 K/mm3 (0.7-4.5); Lymphocytes % 22.1 K/mm3 (10-50); Mean Corpuscular HGB Conc 32.5 g/dL (31.8-35.4); Mean Corpuscular Hemoglobin 29.9 pg (27.0-31.2); Mean Corpuscular Volume 92.2 fl (80-94); Mean Platelet Volume 8.1 fl (7.4-10.4); Monocytes # 0.4 K/mm3 (0.1-1.0); Monocytes % 4.3 % (1.7-9.3); Neutrophils # 5.5 K/mm3 (1.8-7.8); Neutrophils % 67.5 % (37.0-80.0); Platelet Count 273 K/mm3 (142-424); Red Blood Count 4.92 M/mm3 (4.60-6.20); Red Cell Distribution Width 12.8 % (11.5-17.5); White Blood Count 8.2 K/mm3 (4.8-10.8)
[2017-11-20 13:34] LABS: Alanine Aminotransferase 50 U/L (12-78); Albumin/Globulin Ratio 1.4 (1.1-1.8); Alkaline Phosphatase 77 U/L (46-116); Aspartate Amino Transferase 28 U/L (15-37); Bilirubin,Total 0.6 mg/dL (0.2-1.0); Blood Urea Nitrogen 15 mg/dL (7-18); Calcium 9.7 mg/dL (8.5-10.1); Carbon Dioxide 25 mmol/L (21.0-32.0); Chloride 105 mmol/L (98-107); Cholesterol 205 mg/dL (140-200); Creatinine,Serum 1.24 mg/dL (0.70-1.30); Estimated Glomerular Filt Rate 58 ml/min (>60); GFR (African American) 70 ML/MIN (>60); Globulin 2.9 gm/dl (1.3-3.2); Glucose 102 mg/dL (74-106); HDL Cholesterol 51 mg/dL (27-67); LDL Cholesterol 127 mg/dL (0-130); Magnesium 1.8 mg/dL (1.4-2.2); Sodium 141 mmol/L (136-145); Thyroid Stimulating Hormone 1.81 uIU/ml (0.358-3.740); Total Protein,Serum 6.9 gm/dL (6.4-8.2); Triglycerides 135 mg/dL (30-200); VLDL Cholesterol 27 mg/dL (0-40)
== END ==
PROVIDERS: Visit Provider Internal Medicine Adolescent Medicine
DX: E78.5 Hyperlipidemia, unspecified (principal); R00.0 Tachycardia, unspecified
CPT/HCPCS: 36415; 80053; 80061; 83735; 84443; 85025

== ENCOUNTER → 2018-02-03 10:06 | Outpatient (POV) | payer MEDICARE, SELFPAY ==
[2018-02-03 10:19] VITALS: BP 138/67; PULSE 71; RESP 18; O2SAT 97; BMI 29.3
--- NOTE | 2018-02-03 10:34 | P.CONS_ITS ---
[facility] Pain Management SOAP Note Subjective:: Patient is a pleasant 72-year-old white male who we are treating for low back pain with lumbar radiculopathy symptoms. Patient's following up after lumbar epidural steroid injection. Patient is doing extremely well. His pain a 1 out of 10 today. He states that the injections help him up to 90%. Patient still on diclofenac 75 mg 1 p.o. twice daily. Patient states that he has not had any side effects to this. ROS General: no recent weight change, no fever, no sleep disturbances Respiratory: no cough, no shortness of air, no recurring pulmonary infections Cardiovascular/Peripheral Vascular: No chest pain, No palpitations, no edema, no shortness of breath. Gastrointestinal: no incontinence, normal bowel movements reported Genitourinary: no incontinence Musculoskeletal: Back pain, leg pain Psychiatric: normal mood/ affect Neurological: [denies weakness in extremities], [denies balance issues] Objective:: Physical Exam General: Alert and oriented x3, no acute distress, pleasant and cooperative, [ on room air] Lungs: Resps E/U, Symmetrical chest expansion, Eyes: PERRL Musculoskeletal: Flexion and extension of lumbar spine somewhat guarded secondary to pain, deep tendon reflexes normal, strength in upper and lower extremities [5/5], slightly antalgic gait noted Neurological: speech clear, inventory accountant equal, no gross sensory deficits Assessment:: Degenerative disc disease lumbar spine with lumbar radiculopathy symptoms Plan:: We will follow-up with this patient on an as needed basis. He will continue on his diclofenac. Patient is going to call us if he wants any further injections. Patient is done extremely well with these. This note was dictated using voice recognition software and may contain errors or omissions
== END ==
PROVIDERS: Family Provider Internal Medicine Adolescent Medicine; PCP Internal Medicine Adolescent Medicine; Visit Provider Clinical Nurse Specialist Family Health
DX: M51.16 Intervertebral disc disorders with radiculopathy, lumbar region (principal)
CPT/HCPCS: 99213

== ENCOUNTER → 2018-03-18 10:43 | Outpatient (POV) | payer MEDICARE, SELFPAY ==
--- NOTE | 2018-03-18 11:15 | HMH.PAINSOAP ---
[facility] Pain Management SOAP Note Subjective:: Patient is a pleasant 72-year-old white male who presents today for follow-up. Patient has had a set of 3 epidurals in his back is doing better however today his main complaint is bilateral shoulder pain. Patient is having some decreased range of motion. Patient is interested in injective therapy. Patient's been treated by chiropractor with minimal relief. Patient on an anti-inflammatory daily. Patient is continuing a home stretching regimen. ROS General: no recent weight change, no fever, no sleep disturbances Respiratory: no cough, no shortness of air, no recurring pulmonary infections Cardiovascular/Peripheral Vascular: No chest pain, No palpitations, no edema, no shortness of breath. Gastrointestinal: no incontinence, normal bowel movements reported Genitourinary: no incontinence Musculoskeletal: Bilateral shoulder pain Psychiatric: normal mood/ affect Neurological: [denies weakness in extremities], [denies balance issues] Objective:: Physical Exam General: Alert and oriented x3, no acute distress, pleasant and cooperative, [on room air] Lungs: Resps E/U, Symmetrical chest expansion, Eyes: PERRL Musculoskeletal: Range of motion bilateral shoulders somewhat guarded secondary to pain, deep tendon reflexes normal, strength in upper and lower extremities [5/5], normal gait noted Neurological: speech clear, fluxer equal, no gross sensory deficits Assessment:: Bilateral shoulder pain, arthritis bilateral shoulders, degenerative disc disease of the lumbar spine with lumbar radiculopathy Plan:: We will set up bilateral intra-articular injections for the patient. I will follow-up with him after these injections. He is not on any anticoagulation therapy. This note was dictated using voice recognition software and may contain errors or omissions
[2018-03-18 11:16] VITALS: BP 137/72; PULSE 66; RESP 18; O2SAT 98; BMI 29.0
--- NOTE | 2018-03-18 11:18 | P.CONS_ITS ---
[facility] Pain Management SOAP Note Subjective:: Patient is a pleasant 72-year-old white male who presents today for follow-up. Patient has had a set of 3 epidurals in his back is doing better however today his main complaint is bilateral shoulder pain. Patient is having some decreased range of motion. Patient is interested in injective therapy. Patient's been treated by chiropractor with minimal relief. Patient on an anti-inflammatory daily. Patient is continuing a home stretching regimen. ROS General: no recent weight change, no fever, no sleep disturbances Respiratory: no cough, no shortness of air, no recurring pulmonary infections Cardiovascular/Peripheral Vascular: No chest pain, No palpitations, no edema, no shortness of breath. Gastrointestinal: no incontinence, normal bowel movements reported Genitourinary: no incontinence Musculoskeletal: Bilateral shoulder pain Psychiatric: normal mood/ affect Neurological: [denies weakness in extremities], [denies balance issues] Objective:: Physical Exam General: Alert and oriented x3, no acute distress, pleasant and cooperative, [on room air] Lungs: Resps E/U, Symmetrical chest expansion, Eyes: PERRL Musculoskeletal: Range of motion bilateral shoulders somewhat guarded secondary to pain, deep tendon reflexes normal, strength in upper and lower extremities [5/5], normal gait noted Neurological: speech clear, line assigner equal, no gross sensory deficits Assessment:: Bilateral shoulder pain, arthritis bilateral shoulders, degenerative disc disease of the lumbar spine with lumbar radiculopathy Plan:: We will set up bilateral intra-articular injections for the patient. I will fol low-up with him after these injections. He is not on any anticoagulation therapy. This note was dictated using voice recognition software and may contain errors or omissions
== END ==
PROVIDERS: Family Provider Internal Medicine Adolescent Medicine; PCP Internal Medicine Adolescent Medicine; Visit Provider Clinical Nurse Specialist Family Health
DX: M19.012 Primary osteoarthritis, left shoulder (principal); M19.011 Primary osteoarthritis, right shoulder; M51.16 Intervertebral disc disorders with radiculopathy, lumbar region
CPT/HCPCS: 99213

== ENCOUNTER → 2018-04-21 14:40 | Outpatient (POV) | payer MEDICARE, SELFPAY ==
[2018-04-21 15:00] VITALS: BP 152/89; PULSE 79; RESP 18; O2SAT 98; BMI 28.7
--- NOTE | 2018-04-22 08:19 | HMH.PAINSOAP ---
[facility] Pain Management SOAP Note Subjective:: Patient is a pleasant 72-year-old white male who presents today for follow-up after bilateral shoulder injection. Patient states he is gotten 85% relief of his symptoms. Patient states he is feeling great and does well at this time. Patient is asking me today about naltrexone cream. I discussed with him that I am not as familiar with this. Patient states he has a friend who receives it and it has helped. Patient is going to look into this. Patient rates in a 4 out of 10. ROS General: no recent weight change, no fever, no sleep disturbances Respiratory: no cough, no shortness of air, no recurring pulmonary infections Cardiovascular/Peripheral Vascular: No chest pain, No palpitations, no edema, no shortness of breath. Gastrointestinal: no incontinence, normal bowel movements reported Genitourinary: no incontinence Musculoskeletal: Shoulder pain at times, pain at times Psychiatric: normal mood/ affect, Neurological: [denies weakness in extremities], [denies balance issues] Objective:: Physical Exam General: Alert and oriented x3, no acute distress, pleasant and cooperative, [on room air] Lungs: Resps E/U, Symmetrical chest expansion, Eyes: PERRL Musculoskeletal: Flexion and extension of lumbar spine somewhat guarded secondary to pain, deep tendon reflexes normal, strength in upper and lower extremities [5/5], slightly antalgic gait noted Neurological: speech clear, dinkey locomotive operator equal, no gross sensory deficits Assessment:: Degenerative disc disease lumbar spine with lumbar radiculopathy along with bilateral shoulder pain and degenerative osteoarthritis bilateral shoulders Plan:: We will follow-up with the patient in 3 months and reassess his symptoms at that time. Patient's been in instructed to call the office if any issues prior to his next appointment. Patient is in a look into the naltrexone cream and provide the information to the office if he is interested in pursuing. This note was dictated using voice recognition software and may contain errors or omissions
== END ==
PROVIDERS: PCP Internal Medicine Adolescent Medicine; Visit Provider Clinical Nurse Specialist Family Health
DX: M51.16 Intervertebral disc disorders with radiculopathy, lumbar region (principal); M19.012 Primary osteoarthritis, left shoulder; M19.011 Primary osteoarthritis, right shoulder
CPT/HCPCS: 99213

== ENCOUNTER → 2018-05-15 06:13 | Outpatient (CLI) | payer MEDICARE, SELFPAY ==
--- NOTE | 2018-05-15 06:16 | NM_ITS ---
History and Indications: Hypertension, hyperlipidemia, tobacco use, chest pain and shortness of breath Procedure: Patient received 0.4 mg of intravenous Lexiscan, resting heart rate was 64 bpm resting blood pressure 135/77, with Lexiscan maximum heart rate achieved was 93 bpm which is less than 85% of the maximum predicted heart rate and a blood pressure was 140/73. With Lexiscan patient complained of shortness of breath and chest pressure. Electrocardiogram: Resting echocardiogram showed sinus rhythm, with Lexiscan there is less than 1.[address] segment depression noted from the baseline EKG. The EKG portion of the Lexiscan Myoview is nondiagnostic. Cardiac stress and resting SPECT images: Cardiac stress and resting SPECT images were obtained using technetium 99 Myoview 31.0 at stress and 10.8 mCi at rest, gated SPECT further analysis of segmental wall motion and calculation of the ejection fraction also done. Cardiac stress and rest SPECT images show uniform myocardial activity without segmental perfusion abnormality, computer derived ejection fraction is 59% with no regional wall motion abnormality, right ventricle is normal size and contractility. Conclusion: 1. The EKG portion of the Lexiscan Myoview is nondiagnostic. 2. No scintigraphic evidence of reversible ischemia seen, either derived ejection fraction is 39% with no regional wall motion abnormality, right ventricle is normal size and contractility. 3. Normal Lexiscan Myoview study.
--- NOTE | 2018-05-15 09:06 | HMH.ITSHM ---
Current Home Medications as stated by this patient Bobby Maddox or risk control field representative. [micardis metoprolol livalo diclofenac alfuzosin omeprazole asa trazodone ]
== END ==
PROVIDERS: PCP Internal Medicine Adolescent Medicine; Visit Provider Internal Medicine
DX: I20.9 Angina pectoris, unspecified (principal); R06.02 Shortness of breath; I11.9 Hypertensive heart disease without heart failure; E78.5 Hyperlipidemia, unspecified; F17.200 Nicotine dependence, unspecified, uncomplicated
CPT/HCPCS: 78452; 93017; A9502; J2785

== ENCOUNTER → 2018-05-26 12:42 | Outpatient (CLI) | payer MEDICARE, OTHER, SELFPAY ==
--- NOTE | 2018-05-26 12:43 | CA_ITS ---
PROCEDURE: 2-D M-mode and color Doppler study INDICATIONS FOR THE TEST: Chest pain COPD Heart Murmur Tobacco SmokingX Palpitations Fatigue Syncope Edema HypertensionXDiabetes Mellitus Rheumatic Fever SOBXDOEXObesity HyperlipidemiaX Family History HD Additional History CAD, ABN NUC GXT EF 39% PATIENT INFORMATION HEIGHT: 77 WEIGHT:240 GENDER: Male B/P:141/83 2-D/M-MODE INTERPRETATION: 2-D MEASUREMENTS OBSERVED VALUES IN CMS Right Ventricular Dimension (RVDd) 2.7 Interventricular Septum (Thickness)(IVsd) .9 Left Ventricular Internal Dimensions(LVIDd) 5.0 Left Ventricular Posterior Wall (Thickness)(LVPWd) 1.1 Aortic Root 3.5 Aortic Cusp Separation 2.1 Left Atrial Dimensions (LAD) 3.0 2D 1. Left atrium is mildly enlarged, left ventricle is normal size, there is mild concentric left ventricular hypertrophy, visually estimated ejection fraction 55% with no regional wall motion abnormality. 2. The right atrium and right ventricle are normal size and contractility. 3. The aortic valve is minimally thickened and fibrosed. 4. The mitral and tricuspid valve leaflets are minimally thickened. 5. The pulmonic valve is poorly visualized. 6. No significant pericardial effusion noted. DOPPLER INTERROGATION: Doppler interrogation of the aortic, mitral and tricuspid valvular presence of mild mitral and tricuspid regurgitation, tricuspid regurgitant velocity is inadequate for calculation of the right ventricular systolic pressure, grade 1 diastolic dysfunction seen without tissue Doppler evidence of raised left atrial pressure. CONCLUSION: 1. Mildly enlarged left atrium, normal left ventricular size, mild concentric left ventricular hypertrophy, visually estimated ejection fraction 55% with no regional wall motion abnormality. Grade 1 diastolic dysfunction seen without tissue Doppler evidence of raised left atrial pressure. 2. Mild mitral and tricuspid regurgitation 3. No significant pericardial effusion noted.
--- NOTE | 2018-05-26 12:43 | XR_ITS ---
XR chest 2V HISTORY: Shortness of air, cough, bronchitis ITS.REASON: x ORDERING PHYSICIAN: Ehsan Travis MD PATIENT AGE: 72 years COMPARISON: 01/02/2017 FINDINGS: The cardiomediastinal silhouette and pulmonary vascularity are within normal limits. The lungs are clear without infiltrates, suspicious nodules, or pleural effusions. There is a 6 mm nodular opacity overlying the right lower lung zone which may be due to nipple shadow No acute bony abnormalities. IMPRESSION: No change no acute finding
== END ==
PROVIDERS: PCP Internal Medicine Adolescent Medicine; Visit Provider Internal Medicine
DX: I25.10 Atherosclerotic heart disease of native coronary artery without angina pectoris (principal)
CPT/HCPCS: 71046; 93306

== ENCOUNTER → 2018-06-13 12:20 | Outpatient (CLI) | payer MEDICARE, OTHER, SELFPAY ==
[2018-06-13 13:43] LABS: Blood Urea Nitrogen 16 mg/dL (7-18); Creatinine,Serum 1.62 mg/dL (0.70-1.30); Estimated Glomerular Filt Rate 42 ml/min (>60); GFR (African American) 51 ML/MIN (>60)
== END ==
PROVIDERS: Urology; Visit Provider Internal Medicine
DX: R91.1 Solitary pulmonary nodule (principal)
CPT/HCPCS: 36415; 82565; 84520

== ENCOUNTER → 2018-06-18 14:20 | Outpatient (CLI) | payer MEDICARE, OTHER, SELFPAY ==
[2018-06-18 14:47] LABS: Blood Urea Nitrogen 10 mg/dL (7-18); Creatinine,Serum 1.35 mg/dL (0.70-1.30); Estimated Glomerular Filt Rate 52 ml/min (>60); GFR (African American) 63 ML/MIN (>60)
--- NOTE | 2018-06-18 15:30 | CT_ITS ---
CT chest w con HISTORY: Shortness of air, cough, pulmonary nodule, current smoker ITS.REASON: lung nodule ORDERING PHYSICIAN: Ehsan Travis MD PATIENT AGE: 72 years COMPARISON: 05/26/2018 TECHNIQUE: Axial images obtained following the administration of 75 mL of Isovue 370 . Sagittal, and coronal reformatted images are also generated and reviewed. All CT scans at the facility use one or more dose reduction, viz: automated exposure control, ma/kV adjustment per patient size (including targeted exams where dose is matched to indication, i.e. head), or iterative reconstruction technique. FINDINGS: No mediastinal or hilar mass or adenopathy. Coronary artery calcifications are present. Normal heart size. There is a 3 mm noncalcified nodule in the right lower lobe posteriorly image #61. Mild hyperinflation with attenuation of the peripheral pulmonary vessels. A calcified granuloma is present in the left lower lobe. No central obstructing lesions. No lobar consolidation or collapse. No effusions. No acute finding in the upper abdomen. No acute bony anomalies. No aortic aneurysm or central pulmonary embolus. There is some calcification of the aortic arch IMPRESSION: 1. No acute findings. No suspicious pulmonary nodules 2. Mild COPD. 3. Coronary artery calcifications
== END ==
PROVIDERS: Visit Provider Internal Medicine
DX: E78.5 Hyperlipidemia, unspecified (principal); F17.200 Nicotine dependence, unspecified, uncomplicated; I11.9 Hypertensive heart disease without heart failure; I25.10 Atherosclerotic heart disease of native coronary artery without angina pectoris; R20.0 Anesthesia of skin; R20.2 Paresthesia of skin; R53.83 Other fatigue; R91.1 Solitary pulmonary nodule; E78.49 Other hyperlipidemia
CPT/HCPCS: 36415; 71260; 82565; 84520; Q9967

== ENCOUNTER → 2018-07-21 10:43 | Outpatient (POV) | payer MEDICARE, OTHER, SELFPAY ==
[2018-07-21 11:14] VITALS: BP 151/76; PULSE 59; RESP 18; O2SAT 98; BMI 29.9
--- NOTE | 2018-07-21 12:25 | P.CONS_ITS ---
[facility] Pain Management SOAP Note Subjective:: 72-year-old white male who presents today for follow-up. Patient is doing very well rating his pain a 2 out of 10. Patient would like to set up a lumbar epidural steroid injection in September for himself. I do believe it would be beneficial he is gotten up to 85% relief of his symptoms for 3-4 months in the past. He is not on any anticoagulation therapy. Patient is continuing a home stretching program. Patient does have some arthritic pain. ROS General: no recent weight change, no fever, no sleep disturbances Respiratory: no cough, no shortness of air, no recurring pulmonary infections Cardiovascular/Peripheral Vascular: No chest pain, No palpitations, no edema, no shortness of breath. Gastrointestinal: no incontinence, normal bowel movements reported Genitourinary: no incontinence Musculoskeletal: Back pain, shoulder pain, joint pain Psychiatric: normal mood/ affect, Neurological: [denies weakness in extremities], [denies balance issues] Objective:: Physical Exam General: Alert and oriented x3, no acute distress, pleasant and cooperative, [on room air] Lungs: Resps E/U, Symmetrical chest expansion, Eyes: PERRL Musculoskeletal: Flexion and extension of lumbar spine somewhat guarded secondary to pain, deep tendon reflexes normal, strength in upper and lower extremities [5/5], [abnormal gait noted] Neurological: speech clear, solutions specialist equal, no gross sensory deficits Assessment:: Degenerative disc disease lumbar spine with lumbar radiculopathy, arthritis Plan:: We will set the patient up for an L4-L5 lumbar epidural steroid injection in September. Patient also requesting shoulder injections after this. I do believe that would be beneficial he is gotten relief from these in the past. We will set one up 2 weeks after his lumbar epidural steroid injection. We will also start him on a compounded pain cream to help with his arthritic joint pain. Patient has been instructed to call the office if he has any issues prior to his next appointment. Dr. Bassett has reviewed this note and agrees with this plan of care. This note was dictated using voice recognition software and may contain errors or omissions
== END ==
PROVIDERS: PCP Internal Medicine Adolescent Medicine; Visit Provider Clinical Nurse Specialist Family Health
DX: M51.16 Intervertebral disc disorders with radiculopathy, lumbar region (principal); M19.90 Unspecified osteoarthritis, unspecified site
CPT/HCPCS: 99213

== ENCOUNTER → 2018-10-08 08:24 | Outpatient (CLI) | payer MEDICARE, OTHER, SELFPAY ==
[2018-10-08 08:48] LABS: Basophils # 0.1 K/mm3 (0-0.2); Basophils % 0.6 % (0.1-2.0); Eosinophils # 0.3 K/mm3 (0.0-0.4); Eosinophils % 3.3 % (0.1-12.0); Hematocrit 43.3 % (42.0-52.0); Hemoglobin 14.7 g/dL (14.1-18.0); Lymphocytes # 2.6 K/mm3 (0.7-4.5); Lymphocytes % 30.5 % (10-50); Mean Corpuscular HGB Conc 33.9 g/dL (31.8-35.4); Mean Corpuscular Hemoglobin 30.8 pg (27.0-31.2); Mean Corpuscular Volume 91.1 fl (80-94); Mean Platelet Volume 7.6 fl (7.4-10.4); Monocytes # 0.5 K/mm3 (0.1-1.0); Monocytes % 5.5 % (1.7-9.3); Neutrophils # 5.1 K/mm3 (1.8-7.8); Neutrophils % 60.1 % (37.0-80.0); Platelet Count 253 K/mm3 (142-424); Red Blood Count 4.76 M/mm3 (4.60-6.20); Red Cell Distribution Width 12.8 % (11.5-17.5); White Blood Count 8.4 K/mm3 (4.8-10.8)
[2018-10-08 13:58] LABS: Alanine Aminotransferase 39 U/L (12-78); Albumin Level 3.6 gm/dL (3.4-5.0); Albumin/Globulin Ratio 1.2 (1.1-1.8); Alkaline Phosphatase 58 U/L (46-116); Anion Gap 13.4 mEq/L (5-15); Aspartate Amino Transferase 11 U/L (15-37); Bilirubin,Total 0.6 mg/dL (0.2-1.0); Blood Urea Nitrogen 19 mg/dL (7-18); Calcium 9.4 mg/dL (8.5-10.1); Carbon Dioxide 27 mmol/L (21.0-32.0); Chloride 103 mmol/L (98-107); Chol/HDL Ratio 3.4 (1-3.5); Cholesterol 193 mg/dL (140-200); Creatinine,Serum 1.45 mg/dL (0.70-1.30); Estimated Glomerular Filt Rate 48 ml/min (>60); GFR (African American) 58 ML/MIN (>60); Glucose 88 mg/dL (74-106); HDL Cholesterol 56 mg/dL (27-67); LDL Cholesterol 107 mg/dL (0-130); Potassium 4.4 mmoL/L (3.5-5.1); Prostate Specific Ag Screen 3.1 ng/mL (0.0-4.0); Sodium 139 mmol/L (136-145); Total Protein,Serum 6.6 gm/dL (6.4-8.2); Triglycerides 148 mg/dL (30-200); VLDL Cholesterol 30 mg/dL (0-40)
== END ==
PROVIDERS: Visit Provider Internal Medicine Adolescent Medicine
DX: E78.5 Hyperlipidemia, unspecified (principal); Z12.5 Encounter for screening for malignant neoplasm of prostate; M19.90 Unspecified osteoarthritis, unspecified site
CPT/HCPCS: 36415; 80053; 80061; 85025; G0103

== ENCOUNTER → 2018-10-14 13:55 | Outpatient (POV) | payer MEDICARE, OTHER, SELFPAY | PROVIDERS: Visit Provider Dermatology | DX: Z00.00 Encounter for general adult medical examination without abnormal findings (principal) ==

== ENCOUNTER → 2018-11-04 08:54 | Outpatient (POV) | payer MEDICARE, OTHER, SELFPAY ==
--- NOTE | 2018-11-04 09:15 | HMH.PAINSOAP ---
[facility] Pain Management SOAP Note Subjective:: This patient is a pleasant 72-year-old white male who is here today for follow-up for epidural injections and bilateral shoulder injections. He does report 80% relief from previous epidural injections. He rates his pain a 4 out of 10. The patient has had recent blood work done with his primary care, for which his physician has stopped his oral diclofenac due to concerns for renal function. He is currently complaining of bilateral knee pain. We will do topical diclofenac until he is able to resume his oral. We will schedule him for another epidural injection. ROS General: no recent weight change, no fever, no sleep disturbances Respiratory: no cough, no shortness of air, no recurring pulmonary infections Cardiovascular/Peripheral Vascular: No chest pain, No palpitations, no edema, no shortness of breath. Gastrointestinal: no incontinence, normal bowel movements reported Genitourinary: no incontinence Musculoskeletal: Back pain, leg pain Psychiatric: normal mood/ affect Neurological: [denies weakness in extremities], [denies balance issues] Objective:: Physical Exam General: Alert and oriented x3, no acute distress, pleasant and cooperative, [on room air] Lungs: Resps E/U, Symmetrical chest expansion, Eyes: PERRL Musculoskeletal: Flexion and extension of lumbar spine somewhat guarded secondary to pain, deep tendon reflexes normal, strength in upper and lower extremities [5/5], slightly antalgic gait noted Neurological: speech clear, insurance loss adjuster equal, no gross sensory deficits Assessment:: Degenerative disc disease lumbar spine with lumbar radiculopathy Plan:: We will schedule an L4-L5 lumbar epidural steroid injection for the end of November. Patient is continuing to golf as much as possible he is much more functional with his injections. Patient is not on any anticoagulation therapy. We will try him on topical anti-inflammatories. Patient continues a home stretching program. I will follow-up with the patient after his injection reassess his symptoms at that time. Dr. Bassett has reviewed this note and agrees with this plan of care. This note was dictated using voice recognition software and may contain errors or omissions
--- NOTE | 2018-11-04 09:21 | P.CONS_ITS ---
[facility] Pain Management SOAP Note Subjective:: This patient is a pleasant 72-year-old white male who is here today for follow- up for epidural injections and bilateral shoulder injections. He does report 80% relief from previous epidural injections. He rates his pain a 4 out of 10. The patient has had recent blood work done with his primary care, for which his physician has stopped his oral diclofenac due to concerns for renal function. He is currently complaining of bilateral knee pain. We will do topical diclofenac until he is able to resume his oral. We will schedule him for another epidural injection. ROS General: no recent weight change, no fever, no sleep disturbances Respiratory: no cough, no shortness of air, no recurring pulmonary infections Cardiovascular/Peripheral Vascular: No chest pain, No palpitations, no edema, no shortness of breath. Gastrointestinal: no incontinence, normal bowel movements reported Genitourinary: no incontinence Musculoskeletal: Back pain, leg pain Psychiatric: normal mood/ affect Neurological: [denies weakness in extremities], [denies balance issues] Objective:: Physical Exam General: Alert and oriented x3, no acute distress, pleasant and cooperative, [on room air] Lungs: Resps E/U, Symmetrical chest expansion, Eyes: PERRL Musculoskeletal: Flexion and extension of lumbar spine somewhat guarded secondary to pain, deep tendon reflexes normal, strength in upper and lower extremities [5/5], slightly antalgic gait noted Neurological: speech clear, mottler machine feeder equal, no gross sensory deficits Assessment:: Degenerative disc disease lumbar spine with lumbar radiculopathy Plan:: We will schedule an L4-L5 lumbar epidural steroid injection for the end of November. Patient is continuing to golf as much as possible he is much more functional with his injections. Patient is not on any anticoagulation therapy. We will try him on topical anti-inflammatories. Patient continues a home stretching program. I will follow-up with the patient after his injection reassess his symptoms at that time. Dr. Bassett has reviewed this note and agrees with this plan of care. This note was dictated using voice recognition software and may contain errors or omissions
[2018-11-04 09:27] VITALS: BP 185/85; PULSE 53; RESP 18; O2SAT 98; BMI 29.8
== END ==
PROVIDERS: PCP Internal Medicine Adolescent Medicine; Visit Provider Clinical Nurse Specialist Family Health
DX: M51.16 Intervertebral disc disorders with radiculopathy, lumbar region (principal)
CPT/HCPCS: 99212

== ENCOUNTER → 2018-11-11 15:16 | Outpatient (CLI) | payer MEDICARE, OTHER, SELFPAY ==
[2018-11-11 16:41] LABS: Anion Gap 15.8 mEq/L (5-15); Blood Urea Nitrogen 11 mg/dL (7-18); Calcium 9.2 mg/dL (8.5-10.1); Carbon Dioxide 24 mmol/L (21.0-32.0); Chloride 109 mmol/L (98-107); Creatinine,Serum 1.31 mg/dL (0.70-1.30); Estimated Glomerular Filt Rate 54 ml/min (>60); GFR (African American) 65 ML/MIN (>60); Glucose 109 mg/dL (74-106); Potassium 3.8 mmoL/L (3.5-5.1); Sodium 145 mmol/L (136-145)
== END ==
PROVIDERS: Visit Provider Internal Medicine Adolescent Medicine
DX: I10 Essential (primary) hypertension (principal)
CPT/HCPCS: 36415; 80048

== ENCOUNTER → 2019-01-02 09:00 | Outpatient (CLI) | payer MEDICARE, OTHER, SELFPAY ==
[2019-01-02 11:35] LABS: Anion Gap 13.7 mEq/L (5-15); Blood Urea Nitrogen 11 mg/dL (7-18); Calcium 9.3 mg/dL (8.5-10.1); Carbon Dioxide 25 mmol/L (21.0-32.0); Chloride 106 mmol/L (98-107); Estimated Glomerular Filt Rate 54 ml/min (>60); GFR (African American) 66 ML/MIN (>60); Glucose 95 mg/dL (74-106); Potassium 3.7 mmoL/L (3.5-5.1); Sodium 141 mmol/L (136-145)
== END ==
PROVIDERS: Visit Provider Internal Medicine Adolescent Medicine
DX: R79.89 Other specified abnormal findings of blood chemistry (principal)
CPT/HCPCS: 36415; 80048

== ENCOUNTER → 2019-01-12 14:36 | Outpatient (POV) | payer MEDICARE, SELFPAY ==
[2019-01-12 14:44] VITALS: BP 107/61; PULSE 73; RESP 19; O2SAT 94; BMI 29.0
--- NOTE | 2019-01-13 08:31 | P.CONS_ITS ---
[facility] Pain Management SOAP Note Subjective:: Patient is a pleasant 73-year-old white male who presents today for follow-up after lumbar epidural steroid injection. He states that his back pain is 90% relieved. Patient has been well maintained on a rotation of injections both in his shoulders and his low back. Overall doing well has not much more functional. He rates his pain a 3 out of 10 today. Patient does have a golf trip planned for February. He would like to have his another lumbar epidural steroid injection prior to this and prior to that a bilateral intra-articular shoulder injection. ROS General: no recent weight change, no fever, no sleep disturbances Respiratory: no cough, no shortness of air, no recurring pulmonary infections Cardiovascular/Peripheral Vascular: No chest pain, No palpitations, no edema, no shortness of breath. Gastrointestinal: no incontinence, normal bowel movements reported Genitourinary: no incontinence Musculoskeletal: Back pain, leg pain, shoulder pain Psychiatric: normal mood/ affect Neurological: [denies weakness in extremities], [denies balance issues] Objective:: Physical Exam General: Alert and oriented x3, no acute distress, pleasant and cooperative, [on room air] Lungs: Resps E/U, Symmetrical chest expansion, Eyes: PERRL Musculoskeletal: Flexion and extension of lumbar spine somewhat guarded secondary to pain, deep tendon reflexes normal, strength in upper and lower extremities [5/5], antalgic gait noted, limited range of motion bilateral shoulder secondary to pain Neurological: speech clear, international organizer equal, no gross sensory deficits Assessment:: Degenerative disc disease lumbar spine with lumbar radiculopathy, osteoarthritis bilateral shoulders Plan:: We will schedule the patient for bilateral shoulder injections beginning of February we will then also schedule an L4-L5 lumbar epidural steroid injection given the efficacy of this in the past. Patient is not on any anticoagulation therapy and is continuing a home stretching program. Dr. Bassett has reviewed this note and agrees with this plan of care. This note was dictated using voice recognition software and may contain errors or omissions
== END ==
PROVIDERS: PCP Internal Medicine Adolescent Medicine; Visit Provider Clinical Nurse Specialist Family Health
DX: M51.16 Intervertebral disc disorders with radiculopathy, lumbar region (principal); M19.011 Primary osteoarthritis, right shoulder; M19.012 Primary osteoarthritis, left shoulder
CPT/HCPCS: 99212

== ENCOUNTER → 2019-03-16 15:06 | Outpatient (POV) | payer MEDICARE, SELFPAY ==
[2019-03-16 15:20] VITALS: BP 157/65; PULSE 66; RESP 18; O2SAT 98; BMI 28.7
--- NOTE | 2019-03-17 08:18 | P.CONS_ITS ---
[facility] Pain Management SOAP Note Subjective:: Patient is a pleasant 73-year-old white male who we are treating for low back pain with lumbar radiculopathy. Patient is following up after epidural steroid injection. Patient denies any pain today he is doing extremely well. Patient gets about 90% relief with these injections up to 3 months. He would like to move forward with setting up an injection in September. He would also like to set up an injection for his shoulders at that time. ROS General: no recent weight change, no fever, no sleep disturbances Respiratory: no cough, no shortness of air, no recurring pulmonary infections Cardiovascular/Peripheral Vascular: No chest pain, No palpitations, no edema, no shortness of breath. Gastrointestinal: no incontinence, normal bowel movements reported Genitourinary: no incontinence Musculoskeletal: Back pain, leg pain, shoulder pain at times Psychiatric: normal mood/ affect Neurological: [denies weakness in extremities], [denies balance issues] Objective:: Physical Exam General: Alert and oriented x3, no acute distress, pleasant and cooperative, [on room air] Lungs: Resps E/U, Symmetrical chest expansion, Eyes: PERRL Musculoskeletal: Flexion and extension of lumbar spine somewhat guarded secondary to pain, deep tendon reflexes normal, strength in upper and lower extremities [5/5], antalgic gait noted Neurological: speech clear, triage licensed practical nurse equal, no gross sensory deficits Assessment:: Degenerative disc disease lumbar spine with lumbar radiculopathy along with bilateral osteoarthritis of the shoulders Plan:: We will follow-up with the patient in July reassess his symptoms at that time he is been instructed to call the office if he has any issues prior to his next appointment. Dr. Bassett has reviewed this note and agrees with this plan of care. This note was dictated using voice recognition software and may contain errors or omissions [facility] History I have reviewed the patient's past medical history: Yes Medical History: Reports:: Atherosclerotic Heart Disease, Coronary Artery Disease, Gastroesophageal Reflux Disease(GERD), Hyperlipidemia, Hypertension, Lung Disease (mild COPD) Denies:: Cancer, Diabetes Mellitus Type 1, Diabetes Mellitus Type 2, Internal Pacemaker, MRSA, Seizures *Have you ever received a pneumonia vaccine?: Yes *Have you received a flu vaccine this season?: Yes Other Medical History: Reports: Arthritis. Denies: Blood Transfusion Reaction Laterality Cases: Bilateral: Carpal Tunnel Release Other Surgeries: Yes: Angioplasty (2016), Appendectomy, Colonoscopy, Skin Cancer Excision. No: Pacemaker Amputation: No Fractures: No - *Social History Smoking Status: Current every day smoker Tobacco Type: cigarettes # Packs/Day (cigarettes): 1 Alcohol Intake: never Alcohol Intake Frequency:: holidays/special occasions only Substance Use Type: denies use *Occupational Status:: other Housing: house Household Members: significant other *Travel in the last 8 weeks: None Family Hx:: Cancer
== END ==
PROVIDERS: PCP Internal Medicine Adolescent Medicine; Visit Provider Clinical Nurse Specialist Family Health
DX: M51.16 Intervertebral disc disorders with radiculopathy, lumbar region (principal); M19.012 Primary osteoarthritis, left shoulder; M19.011 Primary osteoarthritis, right shoulder
CPT/HCPCS: 99212

== ENCOUNTER → 2019-05-04 09:36 | Outpatient (CLI) | payer MEDICARE, SELFPAY ==
[2019-05-04 10:33] LABS: Basophils # 0.1 K/mm3 (0-0.2); Basophils % 0.9 % (0.1-2.0); Eosinophils # 0.4 K/mm3 (0.0-0.4); Eosinophils % 4.6 % (0.1-12.0); Hematocrit 46.8 % (42.0-52.0); Hemoglobin 15.2 g/dL (14.1-18.0); Lymphocytes # 1.8 K/mm3 (0.7-4.5); Lymphocytes % 20.1 % (10-50); Mean Corpuscular HGB Conc 32.5 g/dL (31.8-35.4); Mean Corpuscular Hemoglobin 31.4 pg (27.0-31.2); Mean Corpuscular Volume 96.4 fl (80-94); Mean Platelet Volume 8.4 fl (7.4-10.4); Monocytes # 0.5 K/mm3 (0.1-1.0); Monocytes % 5.5 % (1.7-9.3); Neutrophils # 6.2 K/mm3 (1.8-7.8); Neutrophils % 68.7 % (37.0-80.0); Platelet Count 294 K/mm3 (142-424); Red Blood Count 4.85 M/mm3 (4.60-6.20); Red Cell Distribution Width 12.7 % (11.5-17.5)
[2019-05-04 11:51] LABS: Alanine Aminotransferase 25 U/L (12-78); Albumin Level 3.5 gm/dL (3.4-5.0); Albumin/Globulin Ratio 1.2 (1.1-1.8); Alkaline Phosphatase 80 U/L (46-116); Aspartate Amino Transferase 10 U/L (15-37); Bilirubin,Total 0.4 mg/dL (0.2-1.0); Blood Urea Nitrogen 9 mg/dL (7-18); Calcium 9.5 mg/dL (8.5-10.1); Carbon Dioxide 26 mmol/L (21.0-32.0); Chloride 105 mmol/L (98-107); Cholesterol 208 mg/dL (140-200); Creatinine,Serum 1.23 mg/dL (0.70-1.30); Estimated Glomerular Filt Rate 58 ml/min (>60); GFR (African American) 70 ML/MIN (>60); Glucose 116 mg/dL (74-106); HDL Cholesterol 52 mg/dL (27-67); LDL Cholesterol 108 mg/dL (0-130); Sodium 142 mmol/L (136-145); Total Protein,Serum 6.5 gm/dL (6.4-8.2); Triglycerides 239 mg/dL (30-200); VLDL Cholesterol 48 mg/dL (0-40)
== END ==
PROVIDERS: Visit Provider Internal Medicine Adolescent Medicine
DX: E78.5 Hyperlipidemia, unspecified (principal); M19.90 Unspecified osteoarthritis, unspecified site
CPT/HCPCS: 36415; 80053; 80061; 85025

== ENCOUNTER → 2019-08-10 14:49 | Outpatient (POV) | payer MEDICARE, SELFPAY ==
[2019-08-10 15:24] VITALS: BP 133/65; PULSE 68; RESP 18; O2SAT 99; BMI 41.5
--- NOTE | 2019-08-11 09:12 | P.CONS_ITS ---
[facility] Pain Management SOAP Note Subjective:: Patient is a pleasant 73-year-old white male who presents today for follow-up. Patient gets epidural injections with great relief of over 80%. Patient notices some differences in his pain where he begins to have a lot more weakness in his legs when standing. Patient notices that he has to bend forward to get relief. He has difficulty standing and walking for long periods of time. 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 We discussed doing an epidurogram at his next epidural to determine if he is a candidate for a mild procedure. Patient is interested in this. He rates his pain today a 6 out of 10. ROS General: no recent weight change, no fever, no sleep disturbances Respiratory: no cough, no shortness of air, no recurring pulmonary infections Cardiovascular/Peripheral Vascular: No chest pain, No palpitations, no edema, no shortness of breath. Gastrointestinal: no new onset incontinence, normal bowel movements reported Genitourinary: no new onset incontinence Musculoskeletal: Back pain, leg pain Psychiatric: normal mood/ affect, Neurological: [denies new onset weakness in extremities], [denies new onset balance issues] Objective:: Physical Exam General: Alert and oriented x3, no acute distress, pleasant and cooperative, [on room air] Lungs: Resps E/U, Symmetrical chest expansion, Eyes: PERRL Musculoskeletal: Flexion and extension of lumbar spine somewhat guarded secondary to pain, deep tendon reflexes normal, strength in upper and lower extremities [5/5], slightly antalgic gait noted Neurological: speech clear, speech lang path therapist equal, no gross sensory deficits Assessment:: Degenerative disc disease lumbar spine with lumbar radiculopathy along with 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 He has been instructed to call the office if he has any issues prior to his next appointment. He is not on any anticoagulation therapy. Dr. Bassett has reviewed this note and agrees with this plan of care. This note was dictated using voice recognition software and may contain errors or omissions [facility] History I have reviewed the patient's past medical history: Yes Medical History: Reports:: Atherosclerotic Heart Disease, Cancer, Coronary Artery Disease, Gastroesophageal Reflux Disease(GERD), Hyperlipidemia, Hypertension, Lung Disease (mild COPD) Denies:: Diabetes Mellitus Type 1, Diabetes Mellitus Type 2, Internal Pacemaker, MRSA, Seizures *Have you ever received a pneumonia vaccine?: Yes *Have you received a flu vaccine this season?: Yes Other Medical History: Reports: Arthritis. Denies: Blood Transfusion Reaction Laterality Cases: Bilateral: Carpal Tunnel Release Other Surgeries: Yes: Angioplasty (2016), Appendectomy, Colonoscopy, Skin Cancer Excision. No: Pacemaker Amputation: No Fractures: No - *Social History Smoking Status: Current every day smoker Tobacco Type: cigarettes # Packs/Day (cigarettes): 1 Alcohol Intake: never Alcohol Intake Frequency:: holidays/special occasions only Substance Use Type: denies use *Occupational Status:: other Housing: house Household Members: significant other *Travel in the last 8 weeks: None Family Hx:: Cancer
== END ==
PROVIDERS: PCP Internal Medicine Adolescent Medicine; Visit Provider Clinical Nurse Specialist Family Health
DX: M48.062 Spinal stenosis, lumbar region with neurogenic claudication (principal); M51.16 Intervertebral disc disorders with radiculopathy, lumbar region; M46.06 Spinal enthesopathy, lumbar region; Z85.820 Personal history of malignant melanoma of skin; I25.10 Atherosclerotic heart disease of native coronary artery without angina pectoris; E78.5 Hyperlipidemia, unspecified; I10 Essential (primary) hypertension; J44.9 Chronic obstructive pulmonary disease, unspecified; K21.9 Gastro-esophageal reflux disease without esophagitis; M19.90 Unspecified osteoarthritis, unspecified site; Z72.0 Tobacco use
CPT/HCPCS: 99212

== ENCOUNTER 2019-09-25 09:37 | Day surgery (SDC) | payer MEDICARE, SELFPAY ==
[2019-09-25 10:05] VITALS: BP 115/58; PULSE 78; RESP 18; TEMP 36.8; O2SAT 96; BMI 28.7
--- NOTE | 2019-09-25 10:28 | P.PCN_ITS ---
- Procedure Date: 09/25/19 Time: 10:29 Anesthesiologist:: aJnes Bassett MD Complications:: None Pre-procedure Diagnosis:: Active disc disease of the lumbar spine with lumbar spinal stenosis and neurogenic claudication symptoms Post-procedure Diagnosis:: Same Indications for Procedure:: This patient is a pleasant 73-year-old white male who we are treating for low back pain with lumbar spondylosis and neurogenic claudication with spinal stenosis of lumbar spine. Patient noticed that he has to bend forward to get relief. He has significant issues at the L4-L5 region. We will do a lumbar epidural steroid injection and epidurogram to assess stenosis. Patient is having some increasing pain which is affecting activities of daily living and his functionality. We will do an injection today to keep him out of the emergency room and off oral opioids. Procedure Details:: Lumbar epidural steroid injection under fluoroscopy Informed consent was obtained and the risk and benefits of the procedure was explained to the patient. The patient was taken to the procedure room. The patient was placed prone on the procedure table. The patient was prepped and dr aped in sterile fashion. C-arm fluoroscopy was used to view the lumbar spine. Skin and subcutaneous tissues were anesthetized using lidocaine. I placed an 18-gauge epidural needle and advanced into the L4-L5 interspace using fluoroscopic guidance and [id number] to air. After confirmation of needle placement in the epidural space with dye I injected 2 mL of lidocaine 1.5% with Depo-Medrol 80 mg. Patient tolerated the procedure well with no complications. Plan and Disposition:: We will follow-up with him in 2 months for a repeat lumbar epidural steroid inj ection. He does get significant relief for several months. We did do an epidurogram and did not see much stenosis at the L4-L5 region. I would like to assess how he does with a series of lumbar epidural steroid injections prior to pursuing minimally invasive lumbar decompression.
[2019-09-25 10:31] VITALS: BP 159/82; PULSE 82; RESP 18
[2019-09-25 10:33] VITALS: BP 158/85; PULSE 82; RESP 18; O2SAT 98
[2019-09-25 10:44] VITALS: BP 124/73; PULSE 89; RESP 20; O2SAT 96
== END 2019-09-25 10:45 | disposition home or self-care (01) ==
LOC: SC.PAINP 09:39
PROVIDERS: PCP Internal Medicine Adolescent Medicine; Visit Provider Anesthesiology
DX: M48.062 Spinal stenosis, lumbar region with neurogenic claudication (principal)
CPT/HCPCS: 62323; J1040; Q9966

== ENCOUNTER 2019-11-02 17:51 | Observation (INO) | payer MEDICARE, SELFPAY ==
--- NOTE | 2019-11-02 17:51 | ECG_ITS ---
APPROVED REPORT Exam: Resting ECG HR:83 bpm ECG Measurements Heart Rate 83 AXES IA 162 P 58 QRSd 80 QRS 69 QT 376 T 36 QTc 441 <Conclusion> Normal sinus rhythm Minor Non-specific ST Changes Otherwise a Normal ECG Electronically signed by : Bharat Zaman, 11/03/2019 08:51:59
[2019-11-02 17:52] VITALS: BP 171/79; PULSE 87; RESP 18; TEMP 37.4; O2SAT 96; BMI 28.7
--- NOTE | 2019-11-02 18:00 | XR_ITS ---
PROCEDURE: XR CHEST 2V CLINICAL HISTORY: cp Chest pain the a and long bone near the the COMPARISON: 07/13/2019 FINDINGS: The cardiomediastinal silhouette and pulmonary vascularity are within normal limits. The lungs are clear without infiltrates, suspicious nodules, or pleural effusions. No acute bony abnormalities. IMPRESSION: No acute findings. Dictated by: Abdulkadir Leary MD 11/02/2019 19:45 Electronically signed by Abdulkadir Leary MD in [place] 11/02/2019 19:45
--- NOTE | 2019-11-02 18:08 | PC.NURSE ---
pt to xray
[2019-11-02 18:22] LABS: Basophils # 0.1 K/mm3 (0-0.2); Eosinophils # 0.3 K/mm3 (0.0-0.4); Eosinophils % 3.5 % (0.1-12.0); Hematocrit 41.7 % (42.0-52.0); Lymphocytes # 2.8 K/mm3 (0.7-4.5); Lymphocytes % 30.7 % (10-50); Mean Corpuscular HGB Conc 33.6 g/dL (31.8-35.4); Mean Corpuscular Hemoglobin 30.2 pg (27.0-31.2); Mean Corpuscular Volume 89.8 fl (80-94); Mean Platelet Volume 8.1 fl (7.4-10.4); Monocytes # 0.6 K/mm3 (0.1-1.0); Monocytes % 6.1 % (1.7-9.3); Neutrophils # 5.4 K/mm3 (1.8-7.8); Neutrophils % 58.7 % (37.0-80.0); Platelet Count 292 K/mm3 (142-424); Red Blood Count 4.64 M/mm3 (4.60-6.20); Red Cell Distribution Width 13.1 % (11.5-17.5); White Blood Count 9.1 K/mm3 (4.8-10.8)
[2019-11-02 18:29] LABS: Alanine Aminotransferase 20 U/L (12-78); Albumin Level 4.3 g/dl (3.5-5.0); Albumin/Globulin Ratio 1.4 (1.1-1.8); Alkaline Phosphatase 81 U/L (38-126); Anion Gap 6.4 mEq/L (5-15); Aspartate Amino Transferase 22 U/L (17-59); Blood Urea Nitrogen 19 mg/dl (9-20); Calcium 9.9 mg/dl (8.4-10.2); Carbon Dioxide 28 mmol/L (22.0-30.0); Chloride 105 mmol/L (98-107); Creatinine Clearance Estimated 71 mL/min (50-200); Estimated Glomerular Filt Rate 50 ml/min (>60); GFR (African American) 60 ML/MIN (>60); Glucose 116 mg/dl (74-100); Potassium 3.4 mmoL/L (3.5-5.1); Sodium 136 mmol/L (136-145); Total Protein,Serum 7.3 g/dl (6.3-8.2)
[2019-11-02 18:40] LABS: Bilirubin,Total 0.1 mg/dl (0.2-1.3)
--- NOTE | 2019-11-02 18:46 | HMH.EDCP ---
ED Disposition Clinical Impression: Stable angina Clinical Impression: (Ruled Out): COPD with exacerbation Disposition: Admitted as Observation Condition on Discharge: Good Referrals: Provider,Referral, [Primary Care Provider] - - Critical Care Critical Care Time: No Attestation: On 11/02/19, the high probability of a clinically significant, sudden or life threatening deterioration of the following system(s) required my full and direct attention, intervention and personal management. The time I documented below is in addition to time spent performing reported procedures but includes the following listed in this critical care notation. Medical Decision Making - Medical Records Medical records reviewed: Yes: I reviewed the patient's medical records. - Manny Inquiry Pt receiving controlled substance: No Vital Signs: 11/02/19 17:52 11/02/19 18:52 Temperature 99.3 F Temperature Source Oral Pulse Rate [Right] 87 57 L Respiratory Rate 18 Blood Pressure [Right Arm] 171/79 H 146/70 H Blood Pressure Mean [Right Arm] 109 95 Blood Pressure Source [Right Arm] Automatic Cuff Blood Pressure Position [Right Arm] Supine 02 Sat by Pulse Oximetry 96 94 L Oxygen Delivery Method Room Air - Lab Data Lab results reviewed: Yes: I reviewed the patient's lab results. Lab Results 11/02/19 18:00: WBC 9.1, RBC 4.64, Hgb 14.0 L, Hct 41.7 L, MCV 89.8, MCH 30.2, MCHC 33.6, RDW 13.1, Plt Count 292, MPV 8.1, Neut % (Auto) 58.7, Lymph % (Auto) 30.7, [place] % (Auto) 6.1, Eos % (Auto) 3.5, Baso % (Auto) 1.0, Neut # (Auto) 5.4, Lymph # (Auto) 2.8, [place] # (Auto) 0.6, Eos # (Auto) 0.3, Baso # (Auto) 0.1 11/02/19 18:00: Sodium 136, Potassium 3.4 L, Chloride 105, Carbon Dioxide 28, Anion Gap 6.4, BUN 19, Creatinine 1.40 H, Estimated Creat Clear 71, Estimated GFR 50 L, Est GFR ( Amer) 60, Glucose 116 H, Calcium 9.9, Total Bilirubin 0.1 L, AST 22, ALT 20, Alkaline Phosphatase 81, Troponin I 0.01, Total Protein 7.3, Albumin 4.3, Globulin 3.0, Albumin/Globulin Ratio 1.4 Result diagrams: 11/02/19 18:00 11/02/19 18:00 Orders (Tests/Meds): ED MEDICATIONS Discontinued Medications Generic Name Dose Route Start Last Admin Trade Name Emiliano PRN Reason Stop Dose Admin Aspirin 324 mg 11/02/19 18:00 11/02/19 18:06 Aspirin 81mg Chewable Tablet PO 11/02/19 18:01 324 mg ONCE ONE Administration ORDERS Category Date Time Status XR chest 2V Stat Exams 11/02/19 18:00 Taken Troponin I Q3H Lab 11/02/19 21:00 Ordered Troponin I Q3H Lab 11/03/19 00:00 Ordered ECG Request by /Jasmin Stat Y 11/02/19 18:00 Ordered - Radiology Data #1 Image(s): Chest Preliminary Findings: Normal/NAD - ECG Data Tracing #1 I reviewed this ECG and interpreted as documented below: Normal Sinus Rhythm: Yes Medical Decision Narrative: Spoke to Dr. Zamarripa for admission Dr. Travis will consult and cath in the morning n.p.o. after midnight Chest Pain HPI - General Chief Complaint: Chest Pain Stated Complaint: chest pain Time Seen by Provider: 11/02/19 18:30 Mode of Arrival: Ambulatory Source of Information: Patient Limitations: No Limitations Description of Symptoms (Recalled from ER Triage Doc. by RN): C/O CP in the center of his chest when he has to any kind of physical avitivty, also c/o soa. - History of Present Illness HPI narrative: 73-year-old male comes in with acute onset of chest pain. He states that he is been having the chest pain for about 2 weeks but is progressively gotten worse with exertion really over the last 24 hours. He stated that when he was walking up his steps last night to go to bed he had sudden onset of chest pain which was relieved with rest. He describes the chest pain as substernal radiating to the left shoulder and complains of the pain at its crescendo at 6 out of 10 as a sharp pressure-like sensation. Exacerbating factors include movement alleviating factors include rest. Pa
--- NOTE | 2019-11-02 18:50 | PC.NURSE ---
DR AMARILYS KING
[2019-11-02 18:51] LABS: Troponin I 0.01 ng/ml (0.00-0.034)
[2019-11-02 18:52] VITALS: BP 146/70; PULSE 57; O2SAT 94
[2019-11-02 19:00] VITALS: BP 138/58; PULSE 74; RESP 17; O2SAT 95
[2019-11-02 19:35] VITALS: BP 138/58; PULSE 60; RESP 14; TEMP 37.4; O2SAT 95
--- NOTE | 2019-11-02 19:49 | PC.NURSE ---
PT ARRIVED TO FLOOR VIA W/C FROM ED @ 1950
[2019-11-02 19:50] VITALS: BP 156/72; PULSE 69; RESP 18; TEMP 36.9; O2SAT 96; BMI 30.7
[2019-11-02 20:00] VITALS: PULSE 70; O2SAT 95
[2019-11-02 21:29] LABS: Troponin I 0.01 ng/ml (0.00-0.034)
[2019-11-03] VITALS (17 sets, daily range): BP systolic 125–170; BP diastolic 56–81; PULSE 54–77; RESP 16–20; TEMP 36.6–37; O2SAT 90–96; BMI 30.7
[2019-11-03 00:50] LABS: Troponin I 0.01 ng/ml (0.00-0.034)
--- NOTE | 2019-11-03 01:30 | HMH.HP ---
*Admission Date: 11/02/19 *Chief complaint: chest pain *History of present illness: Mr. Maddox is a 73-year-old male comes in to the ER with acute onset of chest pain. He states that he is been having the chest pain for about 2 weeks but it has progressively gotten worse with exertion really over the last 24 hours. He stated that when he was walking up his steps last night to go to bed he had sudden onset of chest pain which was relieved with rest. He describes the chest pain as substernal radiating to the left shoulder and complains of the pain at its crescendo at 6 out of 10 as a sharp pressure-like sensation. Exacerbating factors include movement alleviating factors include rest. Patient had a cath done by Dr. Travis 4 years ago no intervention was done at that time due to mild CAD. In ER, initial troponin was negative. Cardiology was consulted. Given patient's risk for CAD, unstable Angina, recommended admission and assessment in AM for possible left heart cath in the morning. Admitted to Medicine for further management. Patient has smoked at least a pack a day for over 50 years. Had a cath 4 years ago with mild disease but nothing necessitating intervention. Other risk factors include hypertension, hyperlipidemia H History I have reviewed the patient's past medical history: Yes Medical History: Reports:: Atherosclerotic Heart Disease, Coronary Artery Disease, Gastroesophageal Reflux Disease(GERD), Hyperlipidemia, Hypertension, Lung Disease (mild COPD), Palpitations Denies:: Cancer, Diabetes Mellitus Type 1, Diabetes Mellitus Type 2, Internal Pacemaker, MRSA, Seizures *Have you ever received a pneumonia vaccine?: Yes *Have you received a flu vaccine this season?: Yes Other Medical History: Reports: Arthritis, Cataracts. Denies: Blood Transfusion Reaction Laterality Cases: Bilateral: Carpal Tunnel Release Other Surgeries: Yes: Angioplasty (2016), Appendectomy, Cardiac Catheterization, Cholecystectomy, Colonoscopy, EGD, Skin Cancer Excision. No: Pacemaker Amputation: No Fractures: No - *Social History Educational Level: Attended College Smoking Status: Current every day smoker Tobacco Type: cigarettes # Packs/Day (cigarettes): 1 Alcohol Intake: never Alcohol Intake Frequency:: holidays/special occasions only Substance Use Type: denies use *Occupational Status:: retired Housing: house Household Members: none *Travel in the last 8 weeks: None Family Hx:: Cancer Review of Systems - Review of Systems Review of systems:: pertinent systems reviewed and negative unless documented below (14 point review of systems performed, pertinent positives and negatives as per HPI) Meds Home Medications Medication Instructions Recorded Confirmed Type aspirin 81 mg tablet,delayed 81 mg PO DAILY tab 09/06/17 11/02/19 History release pitavastatin calcium 4 mg tablet 4 mg PO HS 02/04/18 11/03/19 History Albuterol Sulfate [Albuterol HFA 2 puffs IH Q6HP PRN #1 inh 09/19/18 11/02/19 Rx Inhaler] Zolpidem Tartrate [Ambien 10mg 10 mg PO HS 12/19/18 11/02/19 History tablet] bisoprolol fumarate 10 mg tablet 5 mg PO DAILY #45 tab 06/01/19 11/02/19 Rx Diclofenac Potassium [Diclofenac 50 mg PO BID 11/02/19 11/02/19 History 50mg Tab] Tamsulosin HCl [Flomax 0.4mg 0.4 mg PO HS 11/02/19 11/02/19 History capsule] Trazodone HCl [Desyrel 50mg tablet] 50 mg PO NEEDED PRN 11/02/19 11/02/19 History hydroCHLOROthiazide [HCTZ 25mg 12.5 mg PO DAILY 11/02/19 11/02/19 History tab] Telmisartan 80 mg PO DAILY 11/03/19 11/03/19 History Umeclidinium Brm/Vilanterol Tr 1 inh IH DAILY 11/03/19 11/03/19 History [Anoro Ellipta 62.5-25 Mcg INH] Allergies Allergy/AdvReac Type Severity Reaction Status Date / Time No Known Allergies Allergy Verified 06/03/19 10:37 Exam Vital signs and Labs for Last 24 Hours: Temp Pulse Resp BP Pulse Ox 98.4 F 60 18 132/56 L 95 11/03/19 00:00 11/03/19 00:00 05
--- NOTE | 2019-11-03 06:06 | PC.NURSE ---
BARON CANO NOTIFIED OF CONSULT
[2019-11-03 06:08] LABS: Basophils # 0.1 K/mm3 (0-0.2); Basophils % 0.7 % (0.1-2.0); Eosinophils # 0.3 K/mm3 (0.0-0.4); Hematocrit 39.7 % (42.0-52.0); Hemoglobin 12.8 g/dL (14.1-18.0); Lymphocytes # 2.9 K/mm3 (0.7-4.5); Lymphocytes % 33.3 % (10-50); Mean Corpuscular HGB Conc 32.3 g/dL (31.8-35.4); Mean Corpuscular Hemoglobin 29.5 pg (27.0-31.2); Mean Corpuscular Volume 91.2 fl (80-94); Monocytes # 0.6 K/mm3 (0.1-1.0); Monocytes % 6.8 % (1.7-9.3); Neutrophils # 4.7 K/mm3 (1.8-7.8); Neutrophils % 55.2 % (37.0-80.0); Platelet Count 254 K/mm3 (142-424); Red Blood Count 4.35 M/mm3 (4.60-6.20); Red Cell Distribution Width 13.1 % (11.5-17.5); White Blood Count 8.6 K/mm3 (4.8-10.8)
[2019-11-03 06:36] LABS: Alanine Aminotransferase 18 U/L (12-78); Albumin Level 3.6 g/dl (3.5-5.0); Albumin/Globulin Ratio 1.4 (1.1-1.8); Alkaline Phosphatase 64 U/L (38-126); Anion Gap 6.4 mEq/L (5-15); Aspartate Amino Transferase 31 U/L (17-59); Bilirubin,Total 0.2 mg/dl (0.2-1.3); Blood Urea Nitrogen 16 mg/dl (9-20); Calcium 9.4 mg/dl (8.4-10.2); Carbon Dioxide 27 mmol/L (22.0-30.0); Chloride 108 mmol/L (98-107); Creatinine Clearance Estimated 90 mL/min (50-200); Estimated Glomerular Filt Rate 60 ml/min (>60); GFR (African American) 72 ML/MIN (>60); Globulin 2.6 g/dL (1.3-3.2); Glucose 102 mg/dl (74-100); Potassium 3.4 mmoL/L (3.5-5.1); Sodium 138 mmol/L (136-145); Total Protein,Serum 6.2 g/dl (6.3-8.2)
--- NOTE | 2019-11-03 07:25 | HMH.PHAVTE ---
[facility] Pharmacy VTE Monitoring - Patient Demographics Admission date: 11/02/19 Report Date: 11/03/19 Time: 07:25 Allergies/Adverse Reactions: Patient Allergies No Known Allergies Allergy (Verified 06/03/19 10:37) Height: 1.91 m Weight: 112.122 kg Patient Problems: Current Active Problems COPD with exacerbation (Acute) Stable angina (Acute) - VTE Risk Labs: VTE Related Lab Results Hgb 12.8 g/dL (14.1-18.0) L 11/03/19 05:38 Hct 39.7 % (42.0-52.0) L 11/03/19 05:38 Plt Count 254 K/mm3 (142-424) 11/03/19 05:38 BUN 16 mg/dl (9-20) 11/03/19 05:38 Creatinine 1.20 mg/dl (0.66-1.25) 11/03/19 05:38 Estimated Creat Clear 90 mL/min (50-200) 11/03/19 05:38 Was VTE Risk Assessment Performed: Yes VTE Score: 5 VTE Risk Level: Low Risk Clinical Trial Participant: No - Prophylaxis VTE Prophylaxis Ordered?: Yes Types of VTE Prophylaxis: TEDS Knee High
--- NOTE | 2019-11-03 07:53 | PC.NURSE ---
Pt slept well over night. No complaints reported to staff. Pt was prepped and trimmed for cardiology consult in am. IV in left forearm infiltrated during the night, new access to left ac by ALVA Bella. Tele reads NISHA. TOM.
--- NOTE | 2019-11-03 08:28 | HMH.CNCARD ---
History of Present Illness Consult date: 11/03/19 Requesting physician: Yariel Zamarripa Consult reason: chest pain Chief complaint: chest pain Additional Medical History:: 1. Hypertension 2. Hyperlipidemia 3. Tobacco use, greater than 85-[id number] history A. Mild COPD 4. Coronary artery disease A. [facility], 2016, ostial proximal LAD 20 to 30% stenosis, nondominant circumflex is first OM with proximal 40% stenosis, RCA is dominant with proximal 50 to 60% stenosis followed by mid vessel 40 to 50% stenosis. LVEF, 75% LVEDP is 10 mmHg. 5. GERD History of present illness: Mr. Maddox is a 73-year-old male comes in to the ER with acute onset of chest pain. He states that he is been having the chest pain for about 2 weeks but it has progressively gotten worse with exertion really over the last 24 hours. He stated that when he was walking up his steps last night to go to bed he had sudden onset of chest pain which was relieved with rest. He describes the chest pain as substernal radiating to the left shoulder and complains of the pain at its crescendo at 6 out of 10 as a sharp pressure-like sensation. Exacerbating factors include movement alleviating factors include rest. Patient had a cath done by Dr. Travis 4 years ago no intervention was done at that time due to mild CAD. In ER, initial troponin was negative. Cardiology was consulted. Given patient's risk for CAD, unstable Angina, recommended admission and assessment in AM for possible left heart cath in the morning. Admitted to Medicine for further management. Patient has smoked at least a pack a day for over 50 years. Had a cath 4 years ago with mild to moderate disease but nothing necessitating intervention. Other risk factors include hypertension, hyperlipidemia. The above per Dr. Zamarripa Patient confirms 2 weeks of progressive exertional shortness of breath and substernal chest discomfort without radiation, diaphoresis, nausea, vomiting or diarrhea. He denies any recent fever, chills or productive cough. Patient does continue to smoke slightly less than a pack per day. Yesterday while taking the trash out (less than 50 yards) he developed the most significant episode of chest pain that took longer to resolve than normal. This prompted his visit to the emergency department and subsequent admission. Troponins overnight have returned normal. EKG is sinus with no acute ST segment changes. [facility] History Medical History: Reports:: Atherosclerotic Heart Disease, Coronary Artery Disease, Gastroesophageal Reflux Disease(GERD), Hyperlipidemia, Hypertension, Lung Disease (mild COPD), Palpitations Denies:: Cancer, Diabetes Mellitus Type 1, Diabetes Mellitus Type 2, Internal Pacemaker, MRSA, Seizures *Have you ever received a pneumonia vaccine?: Yes *Have you received a flu vaccine this season?: Yes Other Medical History: Reports: Arthritis, Cataracts. Denies: Blood Transfusion Reaction Laterality Cases: Bilateral: Carpal Tunnel Release Other Surgeries: Yes: Angioplasty (2016), Appendectomy, Cardiac Catheterization, Cholecystectomy, Colonoscopy, EGD, Skin Cancer Excision. No: Pacemaker Amputation: No Fractures: No - *Social History Educational Level: Attended College Smoking Status: Current every day smoker Tobacco Type: cigarettes # Packs/Day (cigarettes): 1 Alcohol Intake: never Alcohol Intake Frequency:: holidays/special occasions only Substance Use Type: denies use *Occupational Status:: retired Housing: house Household Members: none *Travel in the last 8 weeks: None Family Hx:: Cancer Meds Home Medications Medication Instructions Recorded Confirmed Type aspirin 81 mg tablet,delayed 81 mg PO DAILY tab 09/06/17 11/02/19 History release pitavastatin calcium 4 mg tablet 4 mg PO HS 02/04/18 11/03/19 History Albuterol Sulfate [Albuterol HFA 2 puffs IH Q6HP PRN #1 inh 09/19/18 11/02/19 Rx Inhaler] Zolpidem Tartrate [Ambien 10mg 10 mg PO HS 12/19/18 11/02/19 History table
--- NOTE | 2019-11-03 08:29 | IR_ITS ---
APPROVED REPORT [facility] Director: BUDDY Rodriguez RT (R) PROCEDURES Left heart catheterization Left ventriculogram Selective coronary angiogram Drug-eluting stent deployment to the proximal and mid dominant right coronary INDICATION Unstable angina, Coronary artery disease, Informed consent was obtained prior to the procedure. COMPLICATIONS None Estimated Blood Loss: Less than 10ml TECHNIQUE One percent lidocaine used to anesthetize the right anterior aspect of the wrist. The right radial artery was accessed via the Seldinger technique. A 6 Argentine sheath was placed in the right radial artery. 2.5 mg of verapamil, 800 mcg of nitroglycerin, 1mg Lidocaine and 5000 U Heparin were given through the arterial sheath. The trap catheter was also used to perform left heart catheterization, left ventriculogram and selective coronary angiogram. At the end of the diagnostic angiogram therapeutic heparin was administered giving a therapeutic ACT. And I Neisha right guide catheter was used to intubate the right coronary artery and a BMW wire was used to traverse the stenosis in the right coronary. A 3 mm x 38 mm resolute alberto stent was deployed at 30 sheba reducing the stenosis. A 3.5 x 30 mm resolute alberto stent was placed proximal to this first stent yet still overlapping it and deployed at 20 sheba. The balloon was advanced on 2 occasions into the mid right coronary artery and dilated at 20 sheba in order to post dilate the proximal and midportion of the 3 mm stent. Excellent angiographic results were obtained with BHAVYA-3 flow being present before and after the procedure. At the end of the procedure the apparatus was removed the sheath was removed good hemostasis was achieved using TR banding patient was transferred to the postop holding in stable condition ANGIOGRAPHIC RESULTS The left main artery Normal The left anterior descending artery Has proximal and mid vessel mild 10 to 20% stenoses The circumflex artery Is nondominant and has a 30 to 40% stenosis in the proximal 2.75 mm first obtuse marginal artery The right coronary artery Is a large dominant vessel and has proximal 50% stenosis in mid vessel 80% stenosis followed by a long 50% stenosis. The MEJIA ventriculogram reveals Normal 65% The left ventricular end-diastolic pressure 10 mmHg IMPRESSION Severe single-vessel coronary disease involving the proximal and mid dominant right coronary Successful stenting of the proximal and mid dominant right coronary artery severe disease reduced to 0% with 2 drug-eluting stents placed in a contiguous manner Normal ejection fraction Normal left ventricular end-diastolic pressure PLAN 1. Dual antiplatelet therapy 2. LDL less than 55 3. Cardiac rehabilitation 4. Avoidance of tobacco products 5. Risk factor modification Electronically signed by : Ehsan Travis, 11/03/2019 12:36:30
[2019-11-03 08:56] LABS: Chol/HDL Ratio 4.5 (1-3.5); Cholesterol 167 mg/dl (140-200); HDL Cholesterol 37 mg/dl (40-60); Triglycerides 222 mg/dl (30-150); VLDL Cholesterol 44 mg/dL (0-40)
[2019-11-03 09:07] LABS: Direct LDL Cholesterol 108.35 mg/dL (100-129)
--- NOTE | 2019-11-03 13:23 | HMH.DCSUM ---
General - General Admission date:: 11/02/19 Discharge date: 11/03/19 HPI HPI: Mr. Maddox is a 73-year-old male comes in to the ER with acute onset of chest pain. He states that he is been having the chest pain for about 2 weeks but it has progressively gotten worse with exertion really over the last 24 hours. He stated that when he was walking up his steps last night to go to bed he had sudden onset of chest pain which was relieved with rest. He describes the chest pain as substernal radiating to the left shoulder and complains of the pain at its crescendo at 6 out of 10 as a sharp pressure-like sensation. Exacerbating factors include movement alleviating factors include rest. Patient had a cath done by Dr. Travis 4 years ago no intervention was done at that time due to mild CAD. In ER, initial troponin was negative. Cardiology was consulted. Given patient's risk for CAD, unstable Angina, recommended admission and assessment in AM for possible left heart cath in the morning. Admitted to Medicine for further management. Patient has smoked at least a pack a day for over 50 years. Had a cath 4 years ago with mild disease but nothing necessitating intervention. Other risk factors include hypertension, hyperlipidemia Hospital Course Hospital Course: Patient admitted with unstable angina. Monitored overnight on telemetry with no events. Serial troponins within normal range. Cardiology consulted and given that angina was worse with exertion, known history of coronary artery disease, hyperlipidemia, extensive smoking history, patient was taken to the Executive Vice President Of Sales for further assessment. Required 2 stents in the RCA. Initiated on Brilinta. Tolerated procedure well with resolution of chest pain. Hemodynamically stable during admission and medically stable for discharge home on adjustment of his medical therapy. Will transition from a tab a statin to a high intensity statin. Initiate Lipitor 40 mg once a day. Will assess for tolerance in the outpatient setting prior to increasing to 80 mg. Counseled on tobacco cessation as this continues to complicate his risk factors. Treated with nicotine patch while admitted. Close follow-up in the outpatient setting in the next week. Objective Vital signs: Temp Pulse Resp BP Pulse Ox 97.9 F 62 17 146/72 H 95 11/03/19 08:00 11/03/19 13:10 11/03/19 13:10 11/03/19 13:10 11/03/19 13:10 Narrative: - Constitutional no acute distress, obese - *Routine HEENT Exam Head: Present: normocephalic Eye: Present: EOMI, PERRL ENT: Present: mucous membranes moist - *Routine Neck Exam Present: supple. Absent: lymphadenopathy - *Routine Respiratory Exam Present: CTA bilaterally. Absent: wheezes, crackles - *Routine Cardiovascular Exam Present: RRR - *Routine Abdominal Exam Present: soft, normoactive bowel sounds. Absent: tenderness - *Routine Extremities Exam Absent: cyanosis, clubbing, edema - *Routine Skin Exam Present: warm. Absent: rash - *Routine Neurological Exam Present: alert, oriented X3 Results Labs on day of discharge: Labs from last 24 hours 11/03/19 11/03/19 11/03/19 05:38 05:38 05:38 WBC 8.6 RBC 4.35 L Hgb 12.8 L Hct 39.7 L MCV 91.2 MCH 29.5 MCHC 32.3 RDW 13.1 Plt Count 254 MPV 8.0 Neut % (Auto) 55.2 Lymph % (Auto) 33.3 [place] % (Auto) 6.8 Eos % (Auto) 4.0 Baso % (Auto) 0.7 Neut # (Auto) 4.7 Lymph # (Auto) 2.9 [place] # (Auto) 0.6 Eos # (Auto) 0.3 Baso # (Auto) 0.1 Sodium 138 Potassium 3.4 L Chloride 108 H Carbon Dioxide 27 Anion Gap 6.4 BUN 16 Creatinine 1.20 Estimated Creat Clear 90 Estimated GFR 60 Est GFR ( Amer) 72 Glucose 102 H Calcium 9.4 Total Bilirubin 0.2 AST 31 D ALT 18 Alkaline Phosphatase 64 Troponin I Total Protein 6.2 L Albumin 3.6 D Globulin 2.6 Albumin/Globul
[2019-11-03 13:42] LABS: CATHL Activated Clotting Time 357 SEC (74-125)
--- NOTE | 2019-11-03 15:50 | HMH.PHACLD ---
Bobby Maddox has received discharge medication counseling on the following medications: PATIENT HAS ALREADY BEEN TAKING ASPIRIN 81 MG DAILY, BISOPROLOL 5 MG DAILY, TELMISARTAN 80 MG DAILY. MD ADDED BRILINTA 90 MG BID TO REGIMEN. ALSO MD STOPPING PITAVASTATIN 4 MG HS AND SWITCHING TO ATORVASTATIN 40 MG HS. PATIENT HAS PRESCRIPTIONS ALREADY FILLED FOR THE ATORVASTATIN AND BRILINTA IN HIS POSSESSION.
--- NOTE | 2019-11-03 16:52 | PC.NURSE ---
at 1530 per Cristina DRAPER, pt able to be d/c today on cardiology stand point.
== END 2019-11-03 16:40 | disposition home or self-care (01) ==
LOC: ER 18:50 → 2ND 19:51
PROVIDERS: Internal Medicine; Physician Assistant; Admitting Provider Internal Medicine Adolescent Medicine; Emergency Provider Family Medicine; PCP Internal Medicine Adolescent Medicine; Visit Provider Internal Medicine Adolescent Medicine
DX: I25.110 Atherosclerotic heart disease of native coronary artery with unstable angina pectoris (principal); I11.9 Hypertensive heart disease without heart failure; Z72.0 Tobacco use; J44.9 Chronic obstructive pulmonary disease, unspecified; Z79.899 Other long term (current) drug therapy; Z79.51 Long term (current) use of inhaled steroids; Z79.82 Long term (current) use of aspirin
CPT/HCPCS: 36415; 71046; 80053; 80061; 84484; 85025; 85347; 92928; 93005; 93458; 99152; 99153; 99284; C1725; C1769; C1876; C9600; G0378; J1644; Q9967

== ENCOUNTER → 2019-11-12 07:52 | Outpatient (CLI) | payer MEDICARE, SELFPAY ==
[2019-11-12 08:12] LABS: Hematocrit 42.8 % (42.0-52.0)
[2019-11-12 08:16] LABS: Chloride 105 mmol/L (98-107)
[2019-11-12 08:17] LABS: Anion Gap 9.8 mEq/L (5-15); Blood Urea Nitrogen 14 mg/dl (9-20); Calcium 9.7 mg/dl (8.4-10.2); Carbon Dioxide 28 mmol/L (22.0-30.0); Estimated Glomerular Filt Rate 54 ml/min (>60); GFR (African American) 66 ML/MIN (>60); Glucose 109 mg/dl (74-100); Potassium 3.8 mmoL/L (3.5-5.1); Sodium 139 mmol/L (136-145)
== END ==
PROVIDERS: Visit Provider Internal Medicine Adolescent Medicine
DX: I25.10 Atherosclerotic heart disease of native coronary artery without angina pectoris (principal); R06.09 Other forms of dyspnea
CPT/HCPCS: 36415; 80048; 85014; 85018

== ENCOUNTER → 2019-11-18 12:56 | Outpatient (CLI) | payer MEDICARE, SELFPAY ==
--- NOTE | 2019-11-18 13:01 | CA_ITS ---
APPROVED REPORT EXAM: Comprehensive 2D, Doppler, and color-flow Echocardiogram Professor Of Apologetics: Leslie Dwyer RVT Ht: 6 ft 4 in Wt: 243lbs BSA: 2.41 BP: 110/53 mmHg Indications: CAD,STENTS,SOA,SMOKER,HUNT,HLD,HTN 2D Dimensions LVOT 2.07 cm (M/F) 1.5-2.5 M-Mode Dimensions RVDd 3.19 cm (0.9-2.6) LVDd 5.18 cm (3.5-5.7) LVDs 2.76 cm (3.5-5.7) IVSd 0.81 cm (0.6-1.1) PWd 0.68 cm (0.6-1.1) EF (Teich) 77.80% FS 46.70% EDV (Teich) 128.40 mL ESV (Teich) 28.50 mL LV Diastology E/A Ratio 1.60 Mitral Valve MV A Velocity 62.00 (40-130 cm/s) Left Ventricle Left atrium is mildly enlarged, left ventricle is normal size, mild concentric left ventricular hypertrophy, visually estimated ejection fraction 55% with no regional wall motion abnormality. Grade 1 diastolic dysfunction seen without tissue Doppler evidence of raise left atrial pressure. Right Ventricle Right atrium and right ventricle are mildly enlarged with normal contractility. Aortic Valve Aortic valve is minimally thickened and fibrosed. There is no aortic stenosis or aortic insufficiency. Mitral Valve Mitral valve leaflets are minimally thickened, there is mild mitral regurgitation. Tricuspid Valve Tricuspid valve is grossly normal, there is mild tricuspid regurgitation. Tricuspid regurgitation jet velocity is inadequate for calculation of the right ventricular systolic pressure. Pulmonic Valve Pulmonic valve is poorly visualized. Great Vessels Aortic root is normal size. Pericardium No significant pericardial effusion noted. Conclusion 1. Mild biatrial enlargement, normal left ventricular size, visually estimated ejection fraction 55% with no regional wall motion abnormality, grade 1 diastolic dysfunction seen without tissue Doppler evidence of raise left atrial pressure. 2. Mildly enlarged right ventricle with normal contractility. 3. Mild mitral and tricuspid regurgitation. 4. No significant pericardial effusion noted. Electronically signed by : Julius Moss, 11/19/2019 11:47:28
== END ==
PROVIDERS: PCP Internal Medicine Adolescent Medicine; Visit Provider Internal Medicine Cardiovascular Disease
DX: I25.10 Atherosclerotic heart disease of native coronary artery without angina pectoris (principal)
CPT/HCPCS: 93306

== ENCOUNTER 2019-11-20 09:25 | Day surgery (SDC) | payer MEDICARE, SELFPAY ==
[2019-11-20 09:39] VITALS: BP 142/68; PULSE 71; RESP 18; O2SAT 97; BMI 29.0
[2019-11-20 10:11] VITALS: BP 135/78; PULSE 88
[2019-11-20 10:12] VITALS: BP 135/78; PULSE 88; RESP 18; O2SAT 99
--- NOTE | 2019-11-20 10:18 | HMH.PMPROC ---
- Procedure Date: 11/20/19 Time: 10:18 Anesthesiologist:: Janes Bassett MD Complications:: None Pre-procedure Diagnosis:: Degenerative disc disease of lumbar spine with lumbar radiculopathy symptoms and increasing low back pain myofascial in origin Post-procedure Diagnosis:: Same Indications for Procedure:: This patient is a pleasant 33-year-old white male who we have been treating for low back pain with lumbar radiculopathy symptoms. He previously had a lumbar epidural steroid injection with 80 to 90% relief in his pain symptoms. He was doing very well and was actually scheduled for repeat lumbar epidural steroid injection today however he had a cardiac cath done with stent placement approximately 2 weeks ago. He was placed on Plavix which he is not able to come off of. Says he does have some increasing low back pain we will plan on a series of trigger point injections to the lumbar paraspinous muscles bilaterally to help with his residual pain symptoms. Procedure Details:: Bilateral lumbar paraspinous trigger point injections x8 Informed consent was obtained risk and benefits of the procedure were explained to the patient. Patient was taken to the procedure room. The back was prepped using ChloraPrep. Approximately 8 trigger points were palpated and marked., 4 on each side. Each of these trigger points were injected with bupivacaine 0.25% 3 mL and Depo-Medrol 10 mg. We used a total of 80 mg Depo-Medrol for all 8 trigger points again 4 of these trigger points were on each side. The patient tolerated the procedure well with no complications. Plan and Disposition:: Patient is leaving for a golf trip tomorrow. We will follow-up with him in approximately 2 weeks when he returns
[2019-11-20 10:24] VITALS: BP 155/68; PULSE 62; RESP 18; O2SAT 97
== END 2019-11-20 10:25 | disposition home or self-care (01) ==
LOC: SC.PAINP 09:25
PROVIDERS: PCP Internal Medicine Adolescent Medicine; Visit Provider Anesthesiology
DX: M51.16 Intervertebral disc disorders with radiculopathy, lumbar region (principal); M79.18 Myalgia, other site; I25.10 Atherosclerotic heart disease of native coronary artery without angina pectoris; J44.9 Chronic obstructive pulmonary disease, unspecified; G43.909 Migraine, unspecified, not intractable, without status migrainosus; Z87.39 Personal history of other diseases of the musculoskeletal system and connective tissue; Z90.49 Acquired absence of other specified parts of digestive tract; Z85.828 Personal history of other malignant neoplasm of skin; I11.9 Hypertensive heart disease without heart failure; E78.5 Hyperlipidemia, unspecified; Z79.899 Other long term (current) drug therapy; Z79.82 Long term (current) use of aspirin
CPT/HCPCS: 20552; J1030

== ENCOUNTER 2019-12-07 12:56 | Outpatient (RCR) | payer MEDICARE, SELFPAY | END 2020-01-18 11:10 | disposition home or self-care (01) | LOC: PT 12:56 | PROVIDERS: Visit Provider Internal Medicine | DX: I25.10 Atherosclerotic heart disease of native coronary artery without angina pectoris (principal); I10 Essential (primary) hypertension; R06.00 Dyspnea, unspecified | CPT/HCPCS: 93798 ==

== ENCOUNTER → 2019-12-08 10:07 | Outpatient (POV) | payer MEDICARE, SELFPAY ==
[2019-12-08 11:02] VITALS: BP 164/78; PULSE 62; RESP 18; O2SAT 99; BMI 31.4
--- NOTE | 2019-12-08 12:56 | P.CONS_ITS ---
[facility] Pain Management SOAP Note Subjective:: Patient is a pleasant 74-year-old white male who presents today for follow-up after trigger point injections. He did get some relief with this. Patient states is not as beneficial as an epidural injection however he is recently been put on Plavix due to cardiac stent placement. He is unable to come off of this for 6 months. Patient and I had a discussion in regards to intrathecal therapy and neuro stimulation. Patient wants to hold off on any implantable devices at this time. Patient would like to repeat his trigger point prior to his next golf tournament in February. ROS General: no recent weight change, no fever, no sleep disturbances Respiratory: no cough, no shortness of air, no recurring pulmonary infections Cardiovascular/Peripheral Vascular: No chest pain, No palpitations, no edema, no shortness of breath. Gastrointestinal: no new onset incontinence, normal bowel movements reported Genitourinary: no new onset incontinence Musculoskeletal: Back pain, leg pain Psychiatric: normal mood/ affect Neurological: [denies new onset weakness in extremities], [denies new onset balance issues] Objective:: Physical Exam General: Alert and oriented x3, no acute distress, pleasant and cooperative, [on room air] Lungs: Resps E/U, Symmetrical chest expansion, Eyes: PERRL Musculoskeletal: Flexion and extension of lumbar spine somewhat guarded secondary to pain, deep tendon reflexes normal, strength in upper and lower extremities [5/5], [abnormal gait noted] palpable trigger points bilateral lumbar paraspinous muscles Neurological: speech clear, 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 We will follow-up with him after this reassess his symptoms at that time. He has been instructed to call the office if he has any issues prior to his next appointment. Dr. Bassett has reviewed this note and agrees with this plan of care. This note was dictated using voice recognition software and may contain errors or omissions [facility] History I have reviewed the patient's past medical history: Yes Medical History: Reports:: Atherosclerotic Heart Disease, Coronary Artery Disease, Gastroesophageal Reflux Disease(GERD), Hyperlipidemia, Hypertension, Lung Disease (mild COPD), Palpitations Denies:: Cancer, Diabetes Mellitus Type 1, Diabetes Mellitus Type 2, Internal Pacemaker, MRSA, Seizures *Have you ever received a pneumonia vaccine?: Yes *Have you received a flu vaccine this season?: Yes Other Medical History: Reports: Arthritis, Cataracts. Denies: Blood Transfusion Reaction Laterality Cases: Bilateral: Carpal Tunnel Release Other Surgeries: Yes: Angioplasty (2016), Appendectomy, Cardiac Catheterization, Cholecystectomy, Colonoscopy, EGD, Skin Cancer Excision. No: Pacemaker Amputation: No Fractures: No - *Social History Smoking Status: Current every day smoker Tobacco Type: cigarettes # Packs/Day (cigarettes): 1 Alcohol Intake: current Alcohol Intake Frequency:: holidays/special occasions only Substance Use Type: denies use *Occupational Status:: other Housing: house Household Members: none *Travel in the last 8 weeks: None Family Hx:: Cancer
== END ==
PROVIDERS: PCP Internal Medicine Adolescent Medicine; Visit Provider Clinical Nurse Specialist Family Health
DX: M51.16 Intervertebral disc disorders with radiculopathy, lumbar region (principal); M79.18 Myalgia, other site
CPT/HCPCS: 99212

== ENCOUNTER 2020-02-19 11:05 | Day surgery (SDC) | payer MEDICARE, SELFPAY ==
[2020-02-19 11:40] VITALS: BP 147/70; PULSE 60; RESP 18; TEMP 36.6; O2SAT 96; BMI 29.0
[2020-02-19 12:00] VITALS: BP 132/85; PULSE 85; RESP 18; O2SAT 98
[2020-02-19 12:01] VITALS: BP 138/89; PULSE 79; RESP 18; O2SAT 98
[2020-02-19 12:08] VITALS: BP 151/84; PULSE 63; RESP 18; O2SAT 96
--- NOTE | 2020-02-19 12:17 | HMH.PMPROC ---
- Procedure Date: 02/19/20 Time: 12:17 Anesthesiologist:: Janes Bassett MD Complications:: None Pre-procedure Diagnosis:: Degenerative disc disease of lumbar spine with lumbar radiculopathy symptoms and lumbago with myofascial pain bilateral lumbar paraspinous muscles Post-procedure Diagnosis:: Same Indications for Procedure:: Patient is a pleasant 74-year-old white male who we are treating for bilateral low back pain with lumbago and myofascial pain over both lumbar paraspinous muscles. He is currently on Plavix and not able to come off of his Plavix because of recent cardiac stent placement. This was done back in October. We have done trigger point injections to the lumbar paraspinous muscles in the past which gave him significant relief. This was done prior to the golf trip. He is leaving on another golf trip. He does have some increasing low back pain. We will do repeat bilateral lumbar paraspinous muscle trigger points again. Procedure Details:: Trigger point injections x8 to bilateral lumbar paraspinous muscles Informed consent was obtained the risk and benefits of the procedure were explained to the patient. Patient was taken to the procedure room. The back is prepped using ChloraPrep. A total of 8 trigger points, 4 on each side were injected with bupivacaine 0.25% 3 mL and Depo-Medrol 10 mg. We used a total of 80 mg Depo-Medrol for all 8 trigger points on both sides. The patient tolerated the procedure well with no complications. Plan and Disposition:: We will follow-up with him in 1 month. Will reevaluate symptoms at that time.
== END 2020-02-19 12:09 | disposition home or self-care (01) ==
LOC: SC.PAINP 11:06
PROVIDERS: PCP Internal Medicine Adolescent Medicine; Visit Provider Anesthesiology
DX: M51.16 Intervertebral disc disorders with radiculopathy, lumbar region (principal); M79.18 Myalgia, other site; I10 Essential (primary) hypertension; I25.10 Atherosclerotic heart disease of native coronary artery without angina pectoris; J44.9 Chronic obstructive pulmonary disease, unspecified; G43.909 Migraine, unspecified, not intractable, without status migrainosus; Z95.818 Presence of other cardiac implants and grafts; Z72.0 Tobacco use; Z79.82 Long term (current) use of aspirin; Z79.899 Other long term (current) drug therapy
CPT/HCPCS: 20552; J1030

== ENCOUNTER → 2020-03-10 12:59 | Outpatient (POV) | payer MEDICARE, SELFPAY ==
[2020-03-10 13:23] VITALS: BP 142/71; PULSE 87; RESP 18; O2SAT 98; BMI 28.5
--- NOTE | 2020-03-10 13:53 | HMH.PAINSOAP ---
[facility] Pain Management SOAP Note Subjective:: Patient is a pleasant 74-year-old white male who presents today for follow-up after trigger point injections to his bilateral lumbar paraspinous muscles. He has been treated for chronic low back pain with lumbar radiculopathy symptoms and lumbago with myofascial pain to his bilateral lumbar paraspinous muscles. Patient says he got about 80% relief following his injections. He says he was able to be more functional and enjoy golf following the injections. His pain is a 2 out of 10 today. He does feel that the pain is progressively coming back. Patient has had epidural steroid injections in the past, however, he is currently on Plavix therapy for recent cardiac stent placement. This was performed in October 2019. Patient would like to schedule repeat trigger point injections to his bilateral lumbar paraspinous muscles. Review of Systems General: No recent weight changes, no fever, no sleep disturbances Respiratory: No cough, no shortness of air, no recurring pulmonary infections Cardiovascular/peripheral vascular: No chest pain, no palpitations, no edema, no shortness of breath Gastrointestinal: No new onset incontinence, normal bowel movements reported Genitourinary: No new onset incontinence Musculoskeletal: Low back pain Psychiatric: Normal mood/affect Neurological: [Denies weakness in extremities], [denies balance issues] Objective:: Physical exam General: Alert and oriented x3, no acute distress, pleasant and cooperative, [on room air] Lungs: Respirations even and unlabored, symmetrical chest expansion Eyes: PERRL Musculoskeletal: Flexion and extension of lumbar spine somewhat guarded secondary to pain, deep tendon reflexes normal, strength in upper and lower extremities [5/5], [abnormal gait noted] Neurological: Speech clear, echocardiograph technician equal, no gross sensory deficit Assessment:: Degenerative disc disease lumbar spine with lumbar radiculopathy symptoms, lumbago with myofascial pain lumbar paraspinous muscles bilaterally Plan:: We will schedule the for repeat trigger point injections to his bilateral lumbar paraspinous muscles. We will see him back in the clinic afterwards to reassess his symptoms. Patient has been instructed to contact clinic if he has any concerns before his next appointment. The patient and I specifically discussed risk factors for COVID19. These risks include, but are not limited to age greater than 60, heart or lung disease, diabetes, immunosuppression, and travel. We also discussed NSAIDs may worsen COVID19 infection or symptoms. Patient should not use NSAIDs to treat COVID19 signs or symptoms. Patient was also informed that any type of corticosteroid of any form (oral or injection) will decrease the patient's immune system response and may increase the likelihood of COVID19 infection and symptoms[address] Dr. Bassett has reviewed this note and agrees with this plan of care. This note was dictated using voice recognition software and make contain errors or omissions. [facility] History I have reviewed the patient's past medical history: Yes Medical History: Reports:: Atherosclerotic Heart Disease, Cancer (skin), Coronary Artery Disease, Gastroesophageal Reflux Disease(GERD), Hyperlipidemia, Hypertension, Lung Disease (mild COPD), Palpitations Denies:: Diabetes Mellitus Type 1, Diabetes Mellitus Type 2, Internal Pacemaker, MRSA, Seizures *Have you ever received a pneumonia vaccine?: Yes *Have you received a flu vaccine this season?: Yes Other Medical History: Reports: Arthritis, Cataracts. Denies: Blood Transfusion Reaction Laterality Cases: Bilateral: Carpal Tunnel Release Other Surgeries: Yes: Angioplasty (2016), Appendectomy, Cardiac Catheterization, Cholecystectomy, Colonoscopy, EGD, Skin Cancer Excision. No: Pacemaker Amputation: No Fractures: No - *Social History Smoking Status: Current every day smoker Tobacco Type: cigarettes # Packs/Day (cigarettes): 1 Alcoho
== END ==
PROVIDERS: PCP Internal Medicine Adolescent Medicine; Visit Provider Clinical Nurse Specialist Family Health
DX: M51.16 Intervertebral disc disorders with radiculopathy, lumbar region (principal)
CPT/HCPCS: 99212

== ENCOUNTER → 2020-03-22 09:35 | Outpatient (CLI) | payer MEDICARE, SELFPAY ==
[2020-03-22 09:56] LABS: Basophils # 0.1 K/mm3 (0-0.2); Basophils % 0.9 % (0.1-2.0); Eosinophils # 0.4 K/mm3 (0.0-0.4); Hemoglobin 16.1 g/dL (14.1-18.0); Lymphocytes # 2.1 K/mm3 (0.7-4.5); Lymphocytes % 25.2 % (10-50); Mean Corpuscular HGB Conc 32.9 g/dL (31.8-35.4); Mean Corpuscular Hemoglobin 30.4 pg (27.0-31.2); Mean Corpuscular Volume 92.6 fl (80-94); Mean Platelet Volume 7.7 fl (7.4-10.4); Monocytes # 0.4 K/mm3 (0.1-1.0); Monocytes % 5.1 % (1.7-9.3); Neutrophils # 5.5 K/mm3 (1.8-7.8); Neutrophils % 63.9 % (37.0-80.0); Platelet Count 262 K/mm3 (142-424); Red Blood Count 5.29 M/mm3 (4.60-6.20); Red Cell Distribution Width 13.3 % (11.5-17.5); White Blood Count 8.5 K/mm3 (4.8-10.8)
[2020-03-22 11:06] LABS: Chloride 106 mmol/L (98-107); Sodium 140 mmol/L (136-145)
[2020-03-22 11:09] LABS: Alanine Aminotransferase 18 U/L (12-78); Albumin Level 3.9 g/dl (3.5-5.0); Albumin/Globulin Ratio 1.5 (1.1-1.8); Alkaline Phosphatase 71 U/L (38-126); Aspartate Amino Transferase 18 U/L (17-59); Bilirubin,Total 0.7 mg/dl (0.2-1.3); Blood Urea Nitrogen 12 mg/dl (9-20); Carbon Dioxide 28 mmol/L (22.0-30.0); Cholesterol 167 mg/dl (140-200); Estimated Glomerular Filt Rate 60 ml/min (>60); GFR (African American) 72 ML/MIN (>60); Globulin 2.6 g/dL (1.3-3.2); Glucose 108 mg/dl (74-100); Total Protein,Serum 6.5 g/dl (6.3-8.2); Triglycerides 146 mg/dl (30-150); VLDL Cholesterol 29 mg/dL (0-40)
[2020-03-22 11:10] LABS: Calcium 9.8 mg/dl (8.4-10.2); Chol/HDL Ratio 3.3 (1-3.5); HDL Cholesterol 50 mg/dl (40-60)
[2020-03-22 11:20] LABS: Direct LDL Cholesterol 92.74 mg/dL (100-129)
== END ==
PROVIDERS: Visit Provider Internal Medicine Adolescent Medicine
DX: I25.10 Atherosclerotic heart disease of native coronary artery without angina pectoris; R79.89 Other specified abnormal findings of blood chemistry
CPT/HCPCS: 36415; 80053; 80061; 85025

== ENCOUNTER 2020-06-03 09:31 | Day surgery (SDC) | payer MEDICARE, SELFPAY ==
[2020-06-03 09:57] VITALS: BP 159/76; PULSE 64; RESP 18; TEMP 36.6; O2SAT 98; BMI 28.7
[2020-06-03 10:47] VITALS: BP 142/74; PULSE 84; RESP 18; O2SAT 98
[2020-06-03 10:50] VITALS: BP 146/74; PULSE 85; RESP 18; O2SAT 98
--- NOTE | 2020-06-03 10:57 | HMH.PMPROC ---
- Procedure Date: 06/03/20 Time: 10:57 Anesthesiologist:: Janes Bassett MD Complications:: None Pre-procedure Diagnosis:: Degenerative disc disease of lumbar spine with low back pain and lumbago with myofascial pain lumbar paraspinous muscles Post-procedure Diagnosis:: Same Indications for Procedure:: This patient is a pleasant 74-year-old white male who we are treating for low back pain with lumbago and myofascial pain throughout the lumbar paraspinous area. He did very well after his last round of trigger point injections. He was able to play golf and this lasted several weeks. We will do repeat bilateral lumbar paraspinous trigger point injections today to help him with his returning pain symptoms. He continues to be on Plavix and we are unable to do epidural steroid injections. Procedure Details:: Bilateral lumbar paraspinous muscle trigger point injections x8 Form consent was obtained the risk and benefits of the procedure were explained to the patient. The back was prepped using ChloraPrep. Trigger points were palpated marked. Each of these trigger points were injected with bupivacaine 0.25% and Depo-Medrol 13 mg. Total of 8 mg Depo-Medrol for trigger point on both sides. Patient tolerated procedure well with no complications. Plan and Disposition:: We will follow-up with him in a month. Will reevaluate symptoms at that time. 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
[2020-06-03 11:04] VITALS: BP 157/69; PULSE 60; RESP 18; O2SAT 98
== END 2020-06-03 11:05 | disposition home or self-care (01) ==
LOC: SC.PAINP 09:33
PROVIDERS: PCP Internal Medicine Adolescent Medicine; Visit Provider Anesthesiology
DX: M79.18 Myalgia, other site (principal); M51.36 Other intervertebral disc degeneration, lumbar region; I10 Essential (primary) hypertension; I25.10 Atherosclerotic heart disease of native coronary artery without angina pectoris; J44.9 Chronic obstructive pulmonary disease, unspecified; E78.5 Hyperlipidemia, unspecified; N40.0 Benign prostatic hyperplasia without lower urinary tract symptoms; F41.9 Anxiety disorder, unspecified; G43.909 Migraine, unspecified, not intractable, without status migrainosus; Z85.828 Personal history of other malignant neoplasm of skin; Z79.82 Long term (current) use of aspirin; Z79.899 Other long term (current) drug therapy; Z72.0 Tobacco use
CPT/HCPCS: 20552; J1030

== ENCOUNTER → 2020-06-27 11:01 | Outpatient (POV) | payer MEDICARE, SELFPAY ==
[2020-06-27 11:29] VITALS: BP 133/79; PULSE 75; RESP 18; O2SAT 98; BMI 29.2
--- NOTE | 2020-06-27 11:38 | HMH.PAINSOAP ---
[facility] Pain Management SOAP Note Subjective:: Patient is a pleasant 74-year-old white male we are treating for low back pain with lumbar radicular symptoms. Patient does extremely well with lumbar epidural steroid injections. He gets up to 80% relief for several months. Patient would like to schedule a lumbar epidural steroid injection prior to a trip in October. Patient is on Plavix however he does have permission to come off prior to injection therapy. He rates his pain today 3 out of 10. Mostly in his low back and bilateral legs. ROS General: no recent weight change, no fever, no sleep disturbances Respiratory: no cough, no shortness of air, no recurring pulmonary infections Cardiovascular/Peripheral Vascular: No chest pain, No palpitations, no edema, no shortness of breath. Gastrointestinal: no new onset incontinence, normal bowel movements reported Genitourinary: no new onset incontinence Musculoskeletal: Back pain, leg pain Psychiatric: normal mood/ affect Neurological: [denies new onset weakness in extremities], [denies new onset balance issues] Objective:: Physical Exam General: Alert and oriented x3, no acute distress, pleasant and cooperative, [on room air] Lungs: Resps E/U, Symmetrical chest expansion, Eyes: PERRL Musculoskeletal: Flexion and extension of lumbar spine somewhat guarded secondary to pain, deep tendon reflexes normal, strength in upper and lower extremities [5/5], antalgic gait noted Neurological: speech clear, inspector metal fabricating equal, no gross sensory deficits Assessment:: Degenerative disc disease lumbar spine lumbar radiculopathy Plan:: We will schedule the patient for an L4-L5 lumbar epidural. We will ensure that we have permission for him to come off of his Plavix prior to this. I will follow-up with him after the injection reassess his symptoms at that time he has been instructed to call the office if he has any issues prior to his next appointment. Dr. Bassett has reviewed this note and agrees with this plan of care. This note was dictated using voice recognition software and may contain errors or omissions [facility] History I have reviewed the patient's past medical history: Yes Medical History: Reports:: Atherosclerotic Heart Disease, Coronary Artery Disease, Gastroesophageal Reflux Disease(GERD), Hyperlipidemia, Hypertension, Lung Disease, Palpitations Denies:: Cancer, Diabetes Mellitus Type 1, Diabetes Mellitus Type 2, Internal Pacemaker, MRSA, Seizures *Have you ever received a pneumonia vaccine?: Yes *Have you received a flu vaccine this season?: Yes Other Medical History: Reports: Arthritis, Cataracts. Denies: Blood Transfusion Reaction Laterality Cases: Bilateral: Carpal Tunnel Release Other Surgeries: Yes: Angioplasty (2016), Appendectomy, Cardiac Catheterization, Cholecystectomy, Colonoscopy, EGD, Skin Cancer Excision. No: Pacemaker Amputation: No Fractures: No - *Social History Smoking Status: Current every day smoker Tobacco Type: cigarettes # Packs/Day (cigarettes): 1 Alcohol Intake: never Alcohol Intake Frequency:: holidays/special occasions only Substance Use Type: denies use *Occupational Status:: other Housing: house Household Members: none *Travel in the last 8 weeks: None Family Hx:: Cancer
== END ==
PROVIDERS: PCP Internal Medicine Adolescent Medicine; Visit Provider Clinical Nurse Specialist Family Health
DX: M51.16 Intervertebral disc disorders with radiculopathy, lumbar region (principal)
CPT/HCPCS: 99212; G0463

== ENCOUNTER → 2020-09-30 08:10 | Outpatient (CLI) | payer MEDICARE, SELFPAY ==
[2020-09-30 08:16] LABS: MANUAL DIFFERENTIAL MANUAL DIFFERENTIAL (MANUAL DIFF)
[2020-09-30 08:36] LABS: Basophils # 0.1 K/mm3 (0-0.2); Basophils % 1.2 % (0.1-2.0); Eosinophils # 0.5 K/mm3 (0.0-0.4); Eosinophils % 4.8 % (0.1-12.0); Hematocrit 44.9 % (42.0-52.0); Hemoglobin 15.4 g/dL (14.1-18.0); Lymphocytes # 2.6 K/mm3 (0.7-4.5); Lymphocytes % 27.5 % (10-50); Mean Corpuscular HGB Conc 34.3 g/dL (31.8-35.4); Mean Corpuscular Hemoglobin 30.4 pg (27.0-31.2); Mean Corpuscular Volume 88.6 fl (80-94); Mean Platelet Volume 7.9 fl (7.4-10.4); Monocytes # 0.5 K/mm3 (0.1-1.0); Monocytes % 5.4 % (1.7-9.3); Neutrophils # 5.9 K/mm3 (1.8-7.8); Neutrophils % 61.1 % (37.0-80.0); Platelet Count 269 K/mm3 (142-424); Red Blood Count 5.07 M/mm3 (4.60-6.20); Red Cell Distribution Width 13.3 % (11.5-17.5); White Blood Count 9.6 K/mm3 (4.8-10.8)
[2020-09-30 10:04] LABS: Alanine Aminotransferase 17 U/L (12-78); Albumin Level 3.9 g/dl (3.5-5.0); Albumin/Globulin Ratio 1.6 (1.1-1.8); Alkaline Phosphatase 73 U/L (38-126); Anion Gap 9.9 mEq/L (5-15); Aspartate Amino Transferase 18 U/L (17-59); Bilirubin,Total 0.5 mg/dl (0.2-1.3); Blood Urea Nitrogen 13 mg/dl (9-20); Calcium 9.7 mg/dl (8.4-10.2); Carbon Dioxide 25 mmol/L (22.0-30.0); Chloride 109 mmol/L (98-107); Chol/HDL Ratio 4.1 (1-3.5); Cholesterol 180 mg/dl (140-200); Estimated Glomerular Filt Rate 60 ml/min (>60); GFR (African American) 72 ML/MIN (>60); Globulin 2.4 g/dL (1.3-3.2); Glucose 104 mg/dl (74-100); HDL Cholesterol 44 mg/dl (40-60); Potassium 3.9 mmoL/L (3.5-5.1); Sodium 140 mmol/L (136-145); Total Protein,Serum 6.3 g/dl (6.3-8.2); Triglycerides 197 mg/dl (30-150); VLDL Cholesterol 39 mg/dL (0-40)
[2020-09-30 10:15] LABS: Direct LDL Cholesterol 98.93 mg/dL (100-129)
[2020-09-30 10:36] LABS: Prostate Specific Ag Screen 2.4 ng/ml (0.0-4.0)
[2020-09-30 12:23] LABS: Eosinophils % 2 % (0-3); Lymphocytes % 29 % (10-50); Monocytes % 7 % (2-9); Neutrophils % 62 % (42-76); Platelet Estimate Normal; RBC Morphology Normal; Total Cells Counted 100
== END ==
PROVIDERS: Visit Provider Internal Medicine Adolescent Medicine
DX: I25.10 Atherosclerotic heart disease of native coronary artery without angina pectoris (principal); E78.5 Hyperlipidemia, unspecified; Z12.5 Encounter for screening for malignant neoplasm of prostate
CPT/HCPCS: 36415; 80053; 80061; 85007; 85014; 85018; 85048; 85049; G0103

== ENCOUNTER 2020-10-14 08:42 | Day surgery (SDC) | payer MEDICARE, SELFPAY ==
[2020-10-14 08:54] VITALS: BP 144/72; PULSE 79; RESP 18; TEMP 36.5; O2SAT 98; BMI 29.0
[2020-10-14 09:25] VITALS: BP 185/85; PULSE 78; RESP 18; O2SAT 98
[2020-10-14 09:26] VITALS: BP 180/82; PULSE 78; RESP 18; O2SAT 98
--- NOTE | 2020-10-14 09:33 | HMH.PMPROC ---
- Procedure Date: 10/14/20 Time: 09:45 Anesthesiologist:: Janes Bassett MD Complications:: None Pre-procedure Diagnosis:: Degenerative disc disease of lumbar spine with lumbar radiculopathy symptoms Post-procedure Diagnosis:: Same Indications for Procedure:: Patient is a pleasant 74-year-old white male who we have been treating for low back pain with lumbar radiculopathy symptoms. He has done very well with lumbar epidural steroid injections in the past. He gets up to 80% relief for several months. We were unable to do these injections because he was unable to come off of his blood thinners. Now he is able to be off of his Plavix. Is been off for 9 days. We will do a lumbar epidural steroid injection to help him with his pain symptoms. He is scheduled to go on another golf trip next week. Procedure Details:: Lumbar epidural steroid injection under fluoroscopy Informed consent was obtained and the risk and benefits of the procedure was explained to the patient. The patient was taken to the procedure room. The patient was placed prone on the procedure table. The patient was prepped and draped in sterile fashion. C-arm fluoroscopy was used to view the lumbar spine. Skin and subcutaneous tissues were anesthetized using lidocaine. I placed an 18-gauge epidural needle and advanced into the L4-L5 interspace using fluoroscopic guidance and [id number] to air. After confirmation of needle placement in the epidural space with dye I injected 2 mL of lidocaine 1.5% with Depo-Medrol 80 mg. Patient tolerated the procedure well with no complications. Plan and Disposition:: We will follow-up with him in 2 weeks. Will reevaluate his symptoms at that time.
[2020-10-14 09:45] VITALS: BP 148/69; PULSE 60; RESP 18; O2SAT 97
== END 2020-10-14 09:45 | disposition home or self-care (01) ==
LOC: SC.PAINP 08:43
PROVIDERS: PCP Internal Medicine Adolescent Medicine; Visit Provider Anesthesiology
DX: M51.16 Intervertebral disc disorders with radiculopathy, lumbar region (principal); E78.5 Hyperlipidemia, unspecified; I10 Essential (primary) hypertension; I25.10 Atherosclerotic heart disease of native coronary artery without angina pectoris; M19.90 Unspecified osteoarthritis, unspecified site; K21.9 Gastro-esophageal reflux disease without esophagitis; J44.9 Chronic obstructive pulmonary disease, unspecified; Z72.0 Tobacco use; Z85.828 Personal history of other malignant neoplasm of skin; Z79.02 Long term (current) use of antithrombotics/antiplatelets
CPT/HCPCS: 62323; J1040; Q9966

== ENCOUNTER → 2020-11-07 08:42 | Outpatient (POV) | payer MEDICARE, SELFPAY ==
[2020-11-07 08:54] VITALS: BP 152/72; PULSE 57; RESP 18; O2SAT 97; BMI 25.7
--- NOTE | 2020-11-07 09:02 | HMH.PAINSOAP ---
[facility] Pain Management SOAP Note Subjective:: Patient is a pleasant 74-year-old white male who presents today for follow-up after lumbar epidural steroid injection. He is being treated for pain secondary to degenerative disc disease lumbar spine and lumbar radiculopathy. Patient gets up to 3 months of 80% relief of his symptomology. He rates his pain a 3 out of 10 today. He is currently on Plavix however he is able to stop prior to injective therapy. He would like to schedule a return epidural steroid injection at the end of January. ROS General: no recent weight change, no fever, no sleep disturbances Respiratory: no cough, no shortness of air, no recurring pulmonary infections Cardiovascular/Peripheral Vascular: No chest pain, No palpitations, no edema, no shortness of breath. Gastrointestinal: no new onset incontinence, normal bowel movements reported Genitourinary: no new onset incontinence Musculoskeletal: Back pain, leg pain Psychiatric: normal mood/ affect, [denies depression], [denies anxiety] Neurological: [denies new onset weakness in extremities], [denies new onset balance issues] Objective:: Physical Exam General: Alert and oriented x3, no acute distress, pleasant and cooperative, [on room air] Lungs: Resps E/U, Symmetrical chest expansion, Eyes: PERRL Musculoskeletal: Flexion and extension of lumbar spine somewhat guarded secondary to pain, deep tendon reflexes normal, strength in upper and lower extremities [5/5], [abnormal gait noted] Neurological: speech clear, case management specialist equal, no gross sensory deficits Assessment:: Degenerative disc disease lumbar spine lumbar radiculopathy, back pain Plan:: We will schedule the patient for an L4-L5 lumbar epidural steroid injection at the end of January. He has been instructed to call the office if he has any issues prior to his next appointment. He is allowed to come off of his Plavix prior to injective therapy. Dr. Bassett has reviewed this note and agrees with this plan of care. This note was dictated using voice recognition software and may contain errors or omissions [facility] History I have reviewed the patient's past medical history: Yes Medical History: Reports:: Atherosclerotic Heart Disease, Congenital Heart Disease, Coronary Artery Disease, Gastroesophageal Reflux Disease(GERD), Hyperlipidemia, Hypertension, Lung Disease, Palpitations Denies:: Cancer, Diabetes Mellitus Type 1, Diabetes Mellitus Type 2, Internal Pacemaker, MRSA, Seizures *Have you ever received a pneumonia vaccine?: Yes *Have you received a flu vaccine this season?: Yes Other Medical History: Reports: Arthritis, Cataracts. Denies: Blood Transfusion Reaction Laterality Cases: Bilateral: Carpal Tunnel Release Other Surgeries: Yes: Angioplasty (2016), Appendectomy, Cardiac Catheterization, Cholecystectomy, Colonoscopy, EGD, Skin Cancer Excision. No: Pacemaker Amputation: No Fractures: No - *Social History Smoking Status: Current every day smoker Tobacco Type: cigarettes # Packs/Day (cigarettes): 1 Alcohol Intake: never Alcohol Intake Frequency:: holidays/special occasions only Substance Use Type: denies use *Occupational Status:: retired Housing: house Household Members: other *Travel in the last 8 weeks: None Family Hx:: Cancer
== END ==
PROVIDERS: PCP Internal Medicine Adolescent Medicine; Visit Provider Clinical Nurse Specialist Family Health
DX: M51.16 Intervertebral disc disorders with radiculopathy, lumbar region (principal)
CPT/HCPCS: 99212; G0463

== ENCOUNTER 2021-02-03 13:46 | Day surgery (SDC) | payer MEDICARE, SELFPAY ==
[2021-02-03 14:07] VITALS: BP 135/74; BP 144/73; PULSE 63; PULSE 65; RESP 18; TEMP 36.7; O2SAT 98; BMI 28.7
[2021-02-03 14:44] VITALS: BP 171/79; PULSE 66; RESP 18; O2SAT 96
[2021-02-03 14:49] VITALS: BP 192/90; PULSE 73; RESP 18; O2SAT 95
--- NOTE | 2021-02-03 15:04 | HMH.PMPROC ---
- Procedure Date: 02/03/21 Time: 15:04 Anesthesiologist:: Janes Bassett MD Complications:: None Pre-procedure Diagnosis:: Degenerative disc disease of lumbar spine with lumbar radiculopathy symptoms Post-procedure Diagnosis:: Same Indications for Procedure:: This patient is a pleasant 74-year-old white male who we are treating for low back pain with lumbar radiculopathy symptoms. He does get couple months relief after epidural steroid injections however pain relief is not long-lasting. He is leaving on a golf trip next month so we will do repeat lumbar epidural steroid injection today. Is been off his Plavix for 7 days. We have talked about intrathecal therapy as a definitive therapy to give him long-term relief of his low back pain and leg pain allowing him to be active playing golf. Procedure Details:: Informed consent was obtained and the risk and benefits of the procedure was explained to the patient. The patient was taken to the procedure room. The patient was placed prone on the procedure table. The patient was prepped and draped in sterile fashion. C-arm fluoroscopy was used to view the lumbar spine. Skin and subcutaneous tissues were anesthetized using lidocaine. I placed an 18-gauge epidural needle and advanced into the L4-L5 interspace using fluoroscopic guidance and [id number] to air. After confirmation of needle placement in the epidural space with dye I injected 2 mL of lidocaine 1.5% with Depo-Medrol 80 mg. Patient tolerated the procedure well with no complications. Plan and Disposition:: We will follow-up with this patient when he gets back from his trip next month. We will also seek approval and plan on intrathecal pump trial to see if this will help him more to give him a definitive treatment to give him long-term relief of his back pain and leg pain allowing him to be more active and play golf.
== END 2021-02-03 15:05 | disposition home or self-care (01) ==
LOC: SC.PAINP 13:48
PROVIDERS: PCP Internal Medicine Adolescent Medicine; Visit Provider Anesthesiology
DX: M51.16 Intervertebral disc disorders with radiculopathy, lumbar region (principal); K21.9 Gastro-esophageal reflux disease without esophagitis; I11.0 Hypertensive heart disease with heart failure; I50.9 Heart failure, unspecified; E78.5 Hyperlipidemia, unspecified; M19.90 Unspecified osteoarthritis, unspecified site; Z72.0 Tobacco use; I25.10 Atherosclerotic heart disease of native coronary artery without angina pectoris; N40.0 Benign prostatic hyperplasia without lower urinary tract symptoms; Z90.49 Acquired absence of other specified parts of digestive tract
CPT/HCPCS: 62323; J1040; Q9966

== ENCOUNTER → 2021-03-09 08:37 | Outpatient (POV) | payer MEDICARE, SELFPAY ==
[2021-03-09 08:45] VITALS: BP 154/71; PULSE 82; RESP 18; O2SAT 96; BMI 28.6
--- NOTE | 2021-03-09 09:07 | HMH.PAINSOAP ---
[facility] Pain Management SOAP Note Subjective:: Patient is a 75-year-old white male who presents today for follow-up after a lumbar epidural steroid injection. Patient is being treated for degenerative disc disease lumbar spine with lumbar radiculopathy symptoms. He is very active and plays golf often. He is limited with mobility and his golfing due to significant pain in his low back and lower extremities. Patient's pain is a 4 out of 10 today. He has undergone multiple injections over his time in our clinic with 60 to 70% relief, however, only short-term up to 2 to 3 weeks. He has tried and failed conservative therapies of home stretching as well as physical therapy for greater than 6 weeks. He continues with chiropractic therapy at this time. He does take Plavix and is unable to take anti-inflammatories. He uses ice and heat therapies as well. He did discuss with Dr. Bassett intrathecal therapy as a long-term option to give him more definitive treatment and to allow him to be more active and play golf. He is here today to discuss the intrathecal pump. Review of Systems General: No recent weight changes, no fever, no sleep disturbances Respiratory: No cough, no shortness of air, no recurring pulmonary infections Cardiovascular/peripheral vascular: No chest pain, no palpitations, no edema, no shortness of breath Gastrointestinal: No new onset incontinence, normal bowel movements reported Genitourinary: No new onset incontinence Musculoskeletal: Low back pain with radiation into bilateral lower extremities Psychiatric: [Normal mood/affect] Neurological: [Denies weakness in extremities], [denies balance issues] Objective:: Physical exam General: Alert and oriented x3, no acute distress, pleasant and cooperative, [on room air] Lungs: Respirations even and unlabored, symmetrical chest expansion Eyes: PERRL Musculoskeletal: Flexion and extension of lumbar [spine] somewhat guarded secondary to pain, strength in upper and lower extremities [5/5], [antalgic gait noted] Neurological: Speech clear, [bag machine operator helper equal], no gross sensory deficit Assessment:: Degenerative disc disease lumbar spine with lumbar radiculopathy symptoms Plan:: Patient I discussed the intrathecal pump today. Approximately 40 minutes was spent with the patient discussing the pump today. He is scheduled for a psychological evaluation at 11 AM this morning. We will follow-up with him after her psychological evaluation to determine if he is an appropriate candidate. He was given educational information today. All his questions were answered. Patient has been instructed to contact the clinic with any concerns before the next appointment. Dr. Bassett has reviewed this note and agrees with this plan of care. This note was dictated using voice recognition software and make contain errors or omissions. [facility] History I have reviewed the patient's past medical history: Yes Medical History: Reports:: Atherosclerotic Heart Disease, Cancer (skin), Congenital Heart Disease, Coronary Artery Disease, Gastroesophageal Reflux Disease(GERD), Hyperlipidemia, Hypertension, Lung Disease, Palpitations Denies:: Diabetes Mellitus Type 1, Diabetes Mellitus Type 2, Internal Pacemaker, MRSA, Seizures *Have you ever received a pneumonia vaccine?: Yes *Have you received a flu vaccine this season?: No Other Medical History: Reports: Arthritis, Cataracts. Denies: Blood Transfusion Reaction Laterality Cases: Bilateral: Carpal Tunnel Release Other Surgeries: Yes: Angioplasty (2016), Appendectomy, Cardiac Catheterization, Cholecystectomy, Colonoscopy, EGD, Skin Cancer Excision. No: Pacemaker Amputation: No Fractures: No - *Social History Smoking Status: Current every day smoker Tobacco Type: cigarettes # Packs/Day (cigarettes): 1 Alcohol Intake: never Alcohol Intake Frequency:: holidays/special occasions only Substance Use Type: denies use *Occupational Status:: unemployed Housing: house Househ
== END ==
PROVIDERS: PCP Internal Medicine Adolescent Medicine; Visit Provider Clinical Nurse Specialist Family Health
DX: M51.16 Intervertebral disc disorders with radiculopathy, lumbar region (principal)
CPT/HCPCS: 99212; G0463

== ENCOUNTER 2021-04-05 08:33 | Day surgery (SDC) | payer MEDICARE, SELFPAY ==
[2021-04-05] VITALS (9 sets, daily range): BP systolic 125–160; BP diastolic 64–84; PULSE 65–76; RESP 18–20; TEMP 36.4; O2SAT 92–97; BMI 28.0
--- NOTE | 2021-04-05 10:41 | HMH.PMPROC ---
- Procedure Date: 04/05/21 Time: 10:41 Anesthesiologist:: Janes Bassett MD Complications:: None Pre-procedure Diagnosis:: Degenerative disc disease of lumbar spine with lumbar radiculopathy symptoms Post-procedure Diagnosis:: Same Indications for Procedure:: Patient is a pleasant 75-year-old white male who we are treating for low back pain with lumbar radiculopathy symptoms. Is increasing pain in his back rating down his legs. He has failed all previous conservative therapy including injections, oral medications, physical therapy and he is not a surgical candidate. He has been off his Plavix for 7 days. We do have a successful psychological evaluation. He presents for intrathecal pump trial today. Procedure Details:: Pain pump trial Informed consent was obtained and the risk and benefits of the procedure was explained to the patient. The patient was taken to the procedure room and placed prone on the procedure table. Patient was prepped and draped in sterile fashion. C-arm fluoroscopy was used to view the lumbar spine. The skin and subcutaneous tissues were anesthetized using lidocaine. I placed a 18-gauge spinal needle into the L4-5 interspace and advanced until clear CSF was obtained. After this intrathecal catheter was inserted and advanced very easily to the L1 vertebral body. The needle was withdrawn. We were able to freely withdraw clear CSF through the catheter. We then injected intrathecal fentanyl single shot bolus of 25 mcg followed by saline and followed by the previous CSF that was withdrawn. The needle and catheter were then removed and a Band-Aid was placed. Patient tolerated the procedure well with no complications. We reevaluated the patient after 30 minutes to 1 hour. She was also reassessed by physical therapy. Patient was 80 to 90% better. He was much more functional. He is able to stand longer and walk better. He is doing very well. He has minimal pain. He would like to play golf this afternoon. Overall he wants to proceed with permanent placement this was a successful intrathecal pump trial. We will plan on permanent placement with intrathecal morphine 5 mg/mL to start at 0.25 mg/day. Catheter tip will be at the L1 vertebral body. We will have him assessed by Dr. Sushant guzman for permanent pain pump evaluation. Plan and Disposition:: We will send him to Dr. Munguia for permanent pain pump evaluation. This will be with intrathecal morphine 5 mg/mL to start at 0.25 mg/day. Catheter tip will be at the L1 vertebral body.
--- NOTE | 2021-04-05 10:55 | PC.NURSE ---
0935-pt returned to bay, accompanied by nursing staff. VSS, no c/o pain. lumbar dressing c/d/i. pt set up with breakfast tray. no needs or concerns at this time 0950-pt resting in chair, tolerating PO intake. VSS, no c/o pain. lumbar dressing c/d/i. pt medicated for c/o itching by Thalia Cervantes RN. no other needs or concerns at this time 1005-pt resting in chair. VSS, no c/o pain. lumbar dressing c/d/i. continues to c/o itching. no other needs at this time. 1020-pt resting in chair. VSS, no c/o pain. lumbar dressing c/d/i. no needs or concerns at this time. 1030-pt ambulated to nurse's station. gait steady. no c/o pain 1035-pt standing in bay, VSS, no c/o pain. medicated with benadryl per MD order. no other needs or concerns at this time. 1038-Physical therapy at bedside for evaluation. 1045-VSS, no c/o pain. pt verbalized readiness for discharge. IV discontinued. site wnl.
== END 2021-04-05 10:45 | disposition home or self-care (01) ==
LOC: SC.PAINP 08:34
PROVIDERS: PCP Internal Medicine Adolescent Medicine; Visit Provider Anesthesiology
DX: M51.16 Intervertebral disc disorders with radiculopathy, lumbar region (principal); I10 Essential (primary) hypertension; I25.10 Atherosclerotic heart disease of native coronary artery without angina pectoris; Z72.0 Tobacco use; E78.5 Hyperlipidemia, unspecified; Z95.828 Presence of other vascular implants and grafts; J44.9 Chronic obstructive pulmonary disease, unspecified; M19.90 Unspecified osteoarthritis, unspecified site; Z90.49 Acquired absence of other specified parts of digestive tract
CPT/HCPCS: 62350; 96365

== ENCOUNTER → 2021-05-08 08:53 | Outpatient (CLI) | payer MEDICARE, SELFPAY ==
[2021-05-08 09:20] LABS: Basophils # 0.2 K/mm3 (0-0.2); Basophils % 1.7 % (0.1-2.0); Eosinophils # 0.7 K/mm3 (0.0-0.4); Eosinophils % 5.8 % (0.1-12.0); Hematocrit 45.6 % (42.0-52.0); Hemoglobin 15.7 g/dL (14.1-18.0); Lymphocytes # 3.1 K/mm3 (0.7-4.5); Lymphocytes % 25.8 % (10-50); Mean Corpuscular HGB Conc 34.5 g/dL (31.8-35.4); Mean Corpuscular Hemoglobin 30.9 pg (27.0-31.2); Mean Corpuscular Volume 89.7 fl (80-94); Mean Platelet Volume 8.6 fl (7.4-10.4); Monocytes # 0.7 K/mm3 (0.1-1.0); Monocytes % 6.1 % (1.7-9.3); Neutrophils # 7.2 K/mm3 (1.8-7.8); Neutrophils % 60.6 % (37.0-80.0); Platelet Count 308 K/mm3 (142-424); Red Blood Count 5.09 M/mm3 (4.60-6.20); Red Cell Distribution Width 12.8 % (11.5-17.5); White Blood Count 11.9 K/mm3 (4.8-10.8)
[2021-05-08 09:33] LABS: Benzodiazepines Screen,Urine Negative ng/ml (<200)
[2021-05-08 09:34] LABS: Amphetamine/Metha Screen,Urine Negative ng/ml (<1000); Barbiturates Screen,Urine Negative ng/ml (<200)
[2021-05-08 09:35] LABS: Cannabinoid Screen,Urine Negative ng/ml (<50); Cocaine Screen,Urine Negative ng/ml (<300)
[2021-05-08 09:36] LABS: Methadone Screen,Urine Negative ng/ml (<300)
[2021-05-08 09:37] LABS: Opiate Screen,Urine Negative ng/ml (<300)
[2021-05-08 09:38] LABS: Phencyclidine Screen,Urine Negative ng/ml (<25)
[2021-05-08 09:52] LABS: Anion Gap 10.8 mEq/L (5-15); Blood Urea Nitrogen 13 mg/dl (9-20); Calcium 9.6 mg/dl (8.4-10.2); Carbon Dioxide 28 mmol/L (22.0-30.0); Chloride 105 mmol/L (98-107); Estimated Glomerular Filt Rate 73 ml/min (>60); GFR (African American) 89 ML/MIN (>60); Glucose 116 mg/dl (74-100); Potassium 3.8 mmoL/L (3.5-5.1); Sodium 140 mmol/L (136-145)
== END ==
PROVIDERS: Visit Provider Anesthesiology
DX: Z01.812 Encounter for preprocedural laboratory examination (principal); Z11.52 Encounter for screening for COVID-19; M51.36 Other intervertebral disc degeneration, lumbar region
CPT/HCPCS: 36415; 80048; 80305; 85025; C9803; U0003; U0005

== ENCOUNTER 2021-05-10 11:35 | Day surgery (SDC) | payer MEDICARE, SELFPAY ==
[2021-05-02 13:06] VITALS: BMI 28.3
[2021-05-10 11:56] VITALS: BP 141/71; PULSE 78; RESP 18; TEMP 36.3; O2SAT 96
--- NOTE | 2021-05-10 13:15 | P.PN_ITS ---
[facility] Anesthesia Checklist - Patient Identification Patient Identification: Arm Band - Structural Data Admitted From: Home Planned Operative Procedure/s: Intrathecal pain pump placement Consent for Planned Operative Procedure(s) Verified: Yes - NPO Status Verified Time NPO: 00:00 - Additional verifications Anesthesia Reactions: No Hx Blood Transfusions: No Blood Transfusion Reaction: No - Airway Assessment C-Spine Mobility Assessed: Yes TMJ Mobility Assessed: Yes Dentition: Good Dentition - Neurological Assessment Level of Consciousness: Awake Hx Seizures: No Numbness or tingling in extremities: No - Anesthesia Plan Anesthesia Risk discussed: Yes Anesthesia Plan: Verified ASA Class: III Anesthesia Type: MAC [facility] History I have reviewed the patient's past medical history: Yes Medical History: Reports:: Atherosclerotic Heart Disease, Cancer (skin ca), Congenital Heart Disease, Coronary Artery Disease, Gastroesophageal Reflux Disease(GERD), Hyperlipidemia, Hypertension, Lung Disease, Palpitations Denies:: Diabetes Mellitus Type 1, Diabetes Mellitus Type 2, Internal Pacemaker, MRSA, Seizures *Have you ever received a pneumonia vaccine?: Yes *Have you received a flu vaccine this season?: Yes Other Medical History: Reports: Arthritis, Cataracts. Denies: Blood Transfusion Reaction Anesthesia experience/problems:: None Laterality Cases: Bilateral: Carpal Tunnel Release Other Surgeries: Yes: Angioplasty (2016), Appendectomy, Cardiac Catheterization, Cholecystectomy, Colonoscopy, EGD, Skin Cancer Excision. No: Pacemaker Amputation: No Fractures: No - *Social History Last grade of school completed: Some college Smoking Status: Current every day smoker Tobacco Type: cigarettes # Packs/Day (cigarettes): 1 Alcohol Intake: never Alcohol Intake Frequency:: holidays/special occasions only Substance Use Type: denies use *Occupational Status:: retired Housing: house Household Members: other *Travel in the last 8 weeks: None Family Hx:: Cancer
--- NOTE | 2021-05-10 14:56 | P.OP_ITS ---
Date of procedure: 05/10/21 Pre-op Diagnosis:: Disc disease of the lumbar spine with radiculopathy Post-op Diagnosis:: Same Procedure performed:: Placement of pain pump generator Surgeon:: Elliott Munguia MD FARE REGISTER REPAIRER:: John Gage, Eliezer Carrera, Tremaine Perez, Garcia Salazar, Roc Woodson, Eloy Kim, Other Anesthesia: MAC Estimated blood loss (mL): 5 Operative findings:: Not applicable Operative note:: Once adequate IV sedation was obtained utilizing anesthesia and local anesthesia was 1% Xylocaine with epinephrine the patient was placed prone on the operating table and back and flank regions prepped and draped in sterile fashion. Paraspinal incision was made by Dr. Bassett there which an intrathecal catheter was passed into the intrathecal space to the area desired by Dr. Bassett. The catheter was then fixed the paraspinal fascial with fixation devices and 2-0 Prolene suture. A left flank incision was then made after which made a pocket for placement of the generator. Both pockets irrigated with antibiotic solution.. Catheter was then brought from the paraspinal incision of the pocket incision utilizing tunneling device. The generator placed in the pocket and CSF was aspirated noting patency of the system. Subcutaneous tissues closed with 2-0 Vicryl and skin closed with stitches of 4-0 nylon. Wound VAC dressings binder applied to the wound. The patient taught procedure well was taken recovery in stabilization. Upon recovery the patient be discharged home will follow-up 1 week at a time to be determined. Antibiotic x1 week per protocol. The patient tolerated the procedure well Condition: stable Disposition: PACU Complications:: None
--- NOTE | 2021-05-10 15:25 | HMH.OPNOTE ---
Date of procedure: 05/10/21 Pre-op Diagnosis:: Degenerative disc disease of lumbar spine with lumbar radiculopathy symptoms Post-op Diagnosis:: Same Procedure performed:: Placement of intrathecal catheter with tunneling for placement of permanent intrathecal pain pump Surgeon:: Janes Bassett MD TELEHEALTH DIRECTOR:: Garcia Salazar Anesthesia: MAC Estimated blood loss (mL): 5 Clinical Note:: Patient is a pleasant 75-year-old white male who we have been treating for low back pain with lumbar radiculopathy symptoms. He has failed all previous conservative therapy including injections, oral medications, physical therapy and he is not a surgical candidate. He has had a successful psychological valuation. He is also had a successful intrathecal pump trial. He has been off his Plavix for at least 7 days. He presents for permanent placement of intrathecal pain pump today. Operative findings:: None Operative note:: Informed consent was obtained the risk and benefits of the procedure were explained to the patient. The patient was taken the procedure room. The patient was placed prone on the procedure table. He was prepped and draped in sterile fashion. C-arm fluoroscopy was used to view the lumbar spine adjacent to the L4-5 and L5-S1 interspace. I anesthetized the skin and subcutaneous tissues. I made an incision and dissected down to the lumbar paraspinous fascia. A 15-gauge spinal needle was inserted and advanced into the L5-S1 interspace until clear CSF was obtained. After this intrathecal catheter was inserted and advanced very easily to the T12 vertebral body. The stylette of the catheter and the needle were withdrawn. The catheter secured to the fascia with 2 anchoring devices and 2-0 Prolene. I prepared the pump with 20 mL of intrathecal morphine 5 mg/mL while Dr. Munguia prepared the pump pocket. I attached catheter to the pump. We were able to freely withdraw clear CSF through the side-port. Both incisions were irrigated with bacitracin solution. Both incisions were then closed with 2-0 Vicryl followed by 4-0 nylon. A wound VAC was placed over both incisions. The patient was placed in an abdominal binder and taken recovery in stable condition. Patient tolerated procedure well with no complications. The pump was programmed and started at 0.25 mg/day of intrathecal morphine. Patient was discharged home neurologically intact with good relief of pain symptoms. He was discharged with postop antibiotics. Plan and disposition: We will follow-up with this patient in 1 week for wound check and reprogramming. We will follow-up in 2 weeks for suture removal. If he has any problems or questions he is to call us back in the pain clinic. Condition: stable Disposition: PACU Complications:: None
[2021-05-10 15:26] VITALS: BP 154/64; PULSE 81; RESP 16; TEMP 36.7; O2SAT 93
[2021-05-10 15:41] VITALS: BP 129/61; PULSE 74; RESP 16; O2SAT 93
[2021-05-10 15:56] VITALS: BP 115/65; PULSE 72; RESP 18; O2SAT 97
[2021-05-10 16:26] VITALS: BP 119/65; PULSE 70; RESP 18; O2SAT 97
[2021-05-10 16:40] VITALS: BP 128/72; PULSE 66; RESP 18; TEMP 36.7; O2SAT 98
== END 2021-05-10 16:40 | disposition home or self-care (01) ==
PROVIDERS: PCP Internal Medicine Adolescent Medicine; Visit Provider Anesthesiology
DX: M51.16 Intervertebral disc disorders with radiculopathy, lumbar region (principal); I25.10 Atherosclerotic heart disease of native coronary artery without angina pectoris; I50.9 Heart failure, unspecified; K21.9 Gastro-esophageal reflux disease without esophagitis; E78.5 Hyperlipidemia, unspecified; I11.0 Hypertensive heart disease with heart failure; J84.9 Interstitial pulmonary disease, unspecified; R00.2 Palpitations; M19.90 Unspecified osteoarthritis, unspecified site; Z90.49 Acquired absence of other specified parts of digestive tract; Z85.828 Personal history of other malignant neoplasm of skin; Z79.899 Other long term (current) drug therapy
CPT/HCPCS: 62350; 62362; 96374; C1755; C1772; J3370

== ENCOUNTER → 2021-05-18 14:07 | Outpatient (POV) | payer MEDICARE, SELFPAY ==
[2021-05-18 14:18] VITALS: BP 134/68; PULSE 68; RESP 18; O2SAT 98; BMI 28.3
--- NOTE | 2021-05-18 14:36 | P.PCN_ITS ---
- Procedure Date: 05/18/21 Time: 14:36 Anesthesiologist:: Cristy Siddiqi APRN Complications:: None Pre-procedure Diagnosis:: Degenerative disc disease lumbar spine with lumbar radiculopathy symptoms Post-procedure Diagnosis:: Same Indications for Procedure:: Patient is a 75-year-old white male who presents today for intrathecal pain pump assessment and adjustment. He recently underwent implant of a flow [place] intrathecal pain pump. He rates his pain a 3 out of 10. He is complaining of urinary retention. Patient has taken Flomax in the past. He did contact the clinic earlier in the week to notify us of urinary retention. He was advised to increase his dose to 0.8 mg (2 tablets of the 0.4 mg dose) daily. The patient did not increase the dose. He is here today with continued complaints of urinary hesitancy and retention. Patient has been advised once again to increase his dose. He would like us to order a 0.8 mg tablet. We will order this for him today. [facility].4 mg daily for the patient. Otherwise, the patient is doing well with his intrathecal therapy. We will set up his PTC device today as well. Physical exam General: Alert and oriented x3, no acute distress, pleasant and cooperative Lungs: Respirations even and unlabored, symmetrical chest expansion Eyes: PERRL Musculoskeletal: Flexion and extension of lumbar [spine] somewhat guarded secondary to pain, [antalgic gait noted] Neurological: Speech clear, no gross sensory deficit Procedure Details:: Informed consent was obtained and the risk and benefits of the procedure were explained to the patient. Patient was taken to the procedure room where noninvasive monitoring was placed including noninvasive blood pressure cuff and pulse oximeter. Patient's pump was interrogated and was reprogrammed to morphine at 0.25 mg/day, PTC started at 0.025 mg up to 4 times daily. The patient tolerated the procedure well with no complications. Plan and Disposition:: Incision is well approximated, without redness, drainage, or edema to site. He has been advised to continue wearing his abdominal binder until further i nstruction. He will start Flomax 0.8 mg 1 tablet p.o. daily. We will see him back in 2 weeks for further evaluation and for suture removal. If he has any questions he can contact clinic. Patient has been instructed to contact the clinic with any concerns before the next appointment. Dr. Bassett has reviewed this note and agrees with this plan of care. This note was dictated using voice recognition software and make contain errors or omissions.
== END ==
PROVIDERS: Visit Provider Clinical Nurse Specialist Family Health
DX: M51.16 Intervertebral disc disorders with radiculopathy, lumbar region (principal); Z45.1 Encounter for adjustment and management of infusion pump
CPT/HCPCS: 62368

== ENCOUNTER → 2021-06-01 14:26 | Outpatient (POV) | payer MEDICARE, SELFPAY ==
[2021-06-01 14:54] VITALS: BP 152/73; PULSE 66; RESP 18; O2SAT 98; BMI 28.7
--- NOTE | 2021-06-01 14:59 | HMH.PMPROC ---
- Procedure Date: 06/01/21 Time: 14:59 Anesthesiologist:: Cristy Siddiqi APRN Complications:: None Pre-procedure Diagnosis:: Degenerative disc disease lumbar spine with lumbar radiculopathy symptoms Post-procedure Diagnosis:: Same Indications for Procedure:: Patient is a 75-year-old white male who presents today for follow-up. He is 3 weeks postoperative implant intrathecal pain pump. He does rate his pain 0 out of 10 today. He is continuing, however, to have urinary retention and swelling in bilateral lower extremities. Patient does take Flomax regularly and was advised to increase that dose. He says after increasing the dose he noted worsening urinary hesitancy. As result he has gone back to Flomax 0.4 mg 1 tablet p.o. daily. Patient says that he is able to void but does note the strength to be less. He says any is also noticing significant swelling in bilateral legs. Today, the patient is noted to have generalized edema, nonpitting. He is currently on morphine at 0.25 mg/day. Physical exam General: Alert and oriented x3, no acute distress, pleasant and cooperative Lungs: Respirations even and unlabored, symmetrical chest expansion Eyes: PERRL Musculoskeletal: Flexion and extension of lumbar [spine] nonguarded Neurological: Speech clear, no gross sensory deficit Integumentary: Incision well approximated, no redness, no drainage, no edema noted to site Procedure Details:: Informed consent was obtained and the risk and benefits of the procedure were explained to the patient. Patient was taken to the procedure room where noninvasive monitoring was placed including noninvasive blood pressure cuff and pulse oximeter. Patient's pump was interrogated and was reprogrammed to morphine at 0.24 mg a day. The patient tolerated the procedure well with no complications. Plan and Disposition:: Patient's dosing was decreased by 5% today. We will see if this helps with his urinary symptoms as well as the swelling lower extremities. He does have generalized edema bilateral legs and feet. The patient's pain is a 0 out of 10 today. His incision is well approximated without redness drainage or edema. He is continuing to wear his abdominal binder. Has been advised to continue wearing for 6 weeks. We will follow up with the patient in 2 weeks to see if his symptoms have improved. Patient has been instructed to contact the clinic with any concerns before the next appointment. Dr. Bassett has reviewed this note and agrees with this plan of care. This note was dictated using voice recognition software and make contain errors or omissions.
== END ==
PROVIDERS: Visit Provider Clinical Nurse Specialist Family Health
DX: M51.16 Intervertebral disc disorders with radiculopathy, lumbar region (principal); Z45.1 Encounter for adjustment and management of infusion pump
CPT/HCPCS: 62368; 99212; G0463

== ENCOUNTER → 2021-06-15 14:09 | Outpatient (POV) | payer MEDICARE, SELFPAY ==
[2021-06-15 14:27] VITALS: BP 158/78; PULSE 84; RESP 18; O2SAT 96; BMI 28.7
--- NOTE | 2021-06-16 08:32 | HMH.PAINSOAP ---
[facility] Pain Management SOAP Note Subjective:: Patient is a 75-year-old white male who presents today for follow-up. The patient was last seen in the clinic on 06/01/2021. He did have an intrathecal pain pump implanted with morphine at 0.25 mg/day. At last visit he was noted to have swelling to his lower extremities. We discussed changing the medication at that time, however the patient deferred on changing medication. He was uncertain it was medication related. He was very adamant he did not want his intrathecal medication decrease at that time. We did, however, decrease from morphine 0.25 mg/day to morphine 0.24 mg/day. He was getting significant relief with intrathecal therapy. He has had some urinary retention, with an increase in his daily Flomax dose. The patient says that his symptoms worsened when his dose was increased to Flomax 0.8 mg daily. As result, he decreased back to his normal dosage of 0.4 mg. He has returned today to the clinic with worsening symptoms. He does report his urinary symptoms have subsided, however, he is having worsening swelling to his bilateral lower extremities and hands. He says that he is having pain to his lower extremities and hands due to the swelling. He does feel that it is medication related. He does rate his pain a 3 out of 10 today. Review of Systems General: No recent weight changes, no fever, no sleep disturbances Respiratory: No cough, no shortness of air, no recurring pulmonary infections Cardiovascular/peripheral vascular: No chest pain, no palpitations, no shortness of breath, 3+ pitting edema bilateral lower extremities Gastrointestinal: No new onset incontinence, normal bowel movements reported Genitourinary: No new onset incontinence Musculoskeletal: Bilateral lower extremity pain Psychiatric: [Normal mood/affect] Neurological: [Denies weakness in extremities], [denies balance issues] Objective:: Physical exam General: Alert and oriented x3, no acute distress, pleasant and cooperative Lungs: Respirations even and unlabored, symmetrical chest expansion Eyes: PERRL Musculoskeletal: Flexion and extension of [] [spine] nonguarded, slightly antalgic gait noted, 3+ pitting edema bilateral lower extremities, generalized edema noted to bilateral upper extremities Neurological: Speech clear, no gross sensory deficit Assessment:: Degenerative disc disease lumbar spine with lumbar radiculopathy symptoms Plan:: We will plan to change the patient's medication to Dilaudid due to increased swelling and bilateral lower extremities and hands. Of note, the patient does have Ambien and clonazepam noted to his Manny report. Manny #[id number] has been reviewed. He reports that he takes Ambien 2.5 mg as needed for sleep. He has not had that medication refilled since April. He also reports that he takes clonazepam for panic attacks due to PTSD from the . He takes clonazepam at 0.25 mg as needed. That medication has not been refilled since 03/10/2021. Patient has been advised that he is at a high risk for oversedation with these medications with intrathecal therapy. He does not take these on a daily or weekly basis. We will order the patient Narcan to have available in his home due to his intrathecal therapy. He will see Dr. Bassett for change out of medication next visit. His current dose is his morphine at 0.24 mg/day. Risks and benefits of the medication have been explained in detail to the patient. The patient does understand the risk of dependence on the medication when given over a prolonged period. Patient has been advised of risks of oversedation with the prescribed medication. Narcan has been offered to the paitent in the event of oversedation. Patient has been advised that a family member should also be educated regarding administration of Narcan. The patient has been advised to consult with his/her primary care provider and pharmacist regarding drug-drug
== END ==
PROVIDERS: Visit Provider Clinical Nurse Specialist Family Health
DX: M51.16 Intervertebral disc disorders with radiculopathy, lumbar region (principal)
CPT/HCPCS: 99212; G0463

== ENCOUNTER 2021-06-21 12:55 | Day surgery (SDC) | payer MEDICARE, SELFPAY ==
[2021-06-21 13:11] VITALS: BP 144/63; PULSE 71; RESP 20; TEMP 36.8; O2SAT 97; BMI 28.2
[2021-06-21 13:24] VITALS: BP 176/71; PULSE 74; RESP 18; O2SAT 97
[2021-06-21 13:26] VITALS: PULSE 73; RESP 18; O2SAT 96
--- NOTE | 2021-06-21 13:49 | HMH.PMPROC ---
- Procedure Date: 06/21/21 Time: 13:49 Anesthesiologist:: Janes Bassett MD Complications:: None Pre-procedure Diagnosis:: Degenerative disc disease of lumbar spine with lumbar radiculopathy symptoms Post-procedure Diagnosis:: Same Indications for Procedure:: Patient is a pleasant 75-year-old white male who we are treating for low back pain with lumbar radiculopathy symptoms. He is doing very well with his intrathecal morphine pain pump however he has had increasing side effects with swelling of his legs. He has no pain. He is 100% better. However because he is at such a low dose with continued side effects with lower extremity edema we will switch him over to intrathecal Dilaudid to see if this will help him just as much with his pain symptoms and decrease the side effect profile. Procedure Details:: Informed consent was obtained and the risks and benefits of the procedure was explained to the patient. The patient was taken to the procedure room. The pump was interrogated. The area over the pump was prepped using ChloraPrep. The pump was accessed with a 22-gauge needle. Approximately 17 mL's of the intrathecal solution was withdrawn and discarded. The pump was then refilled with 20 mL's of intrathecal Dilaudid 1 mg/mL. After double catheter aspiration at the catheter aspiration port, the pump was interrogated and the infusion was started at 0.01 mg/day of intrathecal Dilaudid. The patient tolerated the procedure well with no complication. Plan and Disposition:: We will follow-up with him in 1 week. Will reevaluate symptoms at that time. We will make adjustments as needed. We will also prescribe him some Zofran prophylactically if he has any nausea.
[2021-06-21 14:01] VITALS: BP 156/68; PULSE 73; RESP 20; O2SAT 96
== END 2021-06-21 14:00 | disposition home or self-care (01) ==
PROVIDERS: PCP Internal Medicine Adolescent Medicine; Visit Provider Anesthesiology
DX: M51.16 Intervertebral disc disorders with radiculopathy, lumbar region (principal); Z45.1 Encounter for adjustment and management of infusion pump; I25.10 Atherosclerotic heart disease of native coronary artery without angina pectoris; E78.5 Hyperlipidemia, unspecified; I10 Essential (primary) hypertension; K21.9 Gastro-esophageal reflux disease without esophagitis; Z72.0 Tobacco use; J44.9 Chronic obstructive pulmonary disease, unspecified; M19.90 Unspecified osteoarthritis, unspecified site; Z85.828 Personal history of other malignant neoplasm of skin
CPT/HCPCS: 62370; C1772

== ENCOUNTER → 2021-06-22 11:31 | Day surgery (SDC) | payer MEDICARE, SELFPAY ==
[2021-06-22 11:50] VITALS: BP 169/92; PULSE 92; RESP 18; O2SAT 96; BMI 28.0
--- NOTE | 2021-06-22 12:19 | HMH.PMPROC ---
- Procedure Date: 06/22/21 Time: 12:19 Anesthesiologist:: Cristy Siddiqi APRN Complications:: None Pre-procedure Diagnosis:: Degenerative Disc Disease Lumbar spine with lumbar radiculopathy Post-procedure Diagnosis:: done Indications for Procedure:: Patient is returning today for follow up. He did undergo medication change out of medication in the pump due to sever swelling in the bilateral lower extremities. He did undergo changeout on 06/21/20. He now says his pain is 9/10. He reports his pain was better than medication changeout. He does says his swelling has improved. He is having some nausea, no vomiting or diarrhea. He had medication changed from Morphine 0.24 mg/day to dilaudid 0.01 mg/day. He would like an adjustment today. He denies side effects at this time. Physical exam General: Alert and oriented x3, no acute distress, pleasant and cooperative Lungs: Respirations even and unlabored, symmetrical chest expansion Eyes: PERRL Musculoskeletal: Flexion and extension of lumbar [spine] somewhat guarded secondary to pain, [antalgic gait noted] Neurological: Speech clear, no gross sensory deficit Procedure Details:: Informed consent was obtained and the risk and benefits of the procedure were explained to the patient. Patient was taken to the procedure room where noninvasive monitoring was placed including noninvasive blood pressure cuff and pulse oximeter. Patient's pump was interrogated and was reprogrammed to Dilaudid 0.02 mg/day. The patient tolerated the procedure well with no complications. Plan and Disposition:: Patient does have a follow-up appointment of next week. He has been advised if the medication is still not working for him he can return to the clinic on Saturday. Risks and benefits of the medication have been explained in detail to the patient. The patient does understand the risk of dependence on the medication when given over a prolonged period. Patient has been advised of risks of oversedation with the prescribed medication. Narcan has been offered to the paitent in the event of oversedation. Patient has been advised that a family member should also be educated regarding administration of Narcan. The patient has been advised to consult with his/her primary care provider and pharmacist regarding drug-drug interaction of medications currently prescribed. Patient has been prescribed a controlled substance after being counseled on the medication, medication safety, and possible side effects. SANDRA report has been obtained and reviewed prior to prescription and found to be appropriate. Opioid contract was reviewed and signed by the patient, and that they have agreed to all of the terms set forth by our compliance program. Patient has been instructed to contact the clinic with any concerns before the next appointment. Dr. Bassett has reviewed this note and agrees with this plan of care. This note was dictated using voice recognition software and make contain errors or omissions.
== END ==
PROVIDERS: PCP Internal Medicine Adolescent Medicine; Visit Provider Clinical Nurse Specialist Family Health
DX: M51.16 Intervertebral disc disorders with radiculopathy, lumbar region (principal); Z45.1 Encounter for adjustment and management of infusion pump
CPT/HCPCS: 62368

== ENCOUNTER → 2021-06-26 10:29 | Outpatient (POV) | payer MEDICARE, SELFPAY ==
[2021-06-26 10:41] VITALS: BP 182/89; PULSE 75; RESP 18; O2SAT 97; BMI 28.0
--- NOTE | 2021-06-26 11:47 | P.PCN_ITS ---
- Procedure Date: 06/26/21 Time: 11:47 Anesthesiologist:: Cristy Siddiqi APRN Complications:: None Pre-procedure Diagnosis:: Degenerative disc disease lumbar spine with lumbar radiculopathy symptoms Post-procedure Diagnosis:: Same Indications for Procedure:: Patient was seen in the clinic this previous week with complaints of worsening low back pain. He was recently changed from morphine to Dilaudid intrathecal therapy. He was started on 0.01 mg of Dilaudid. His pain was significant at an 8 out of 10. He was increased to Dilaudid 0.02 mg/day. He is back today with complaints of continued pain in his low back. His pain was a 0 out of 10 when on morphine, however, the patient had significant swelling bilateral lower extremities. He also had difficulty with urination. Patient would like an increase once again today. Physical exam General: Alert and oriented x3, no acute distress, pleasant and cooperative Lungs: Respirations even and unlabored, symmetrical chest expansion Eyes: PERRL Musculoskeletal: Flexion and extension of lumbar [spine] somewhat guarded secondary to pain, [antalgic gait noted] Neurological: Speech clear, no gross sensory deficit Procedure Details:: Informed consent was obtained and the risk and benefits of the procedure were explained to the patient. Patient was taken to the procedure room where noninva sive monitoring was placed including noninvasive blood pressure cuff and pulse oximeter. Patient's pump was interrogated and was reprogrammed to Dilaudid at 0.03 mg/day. The patient tolerated the procedure well with no complications. Plan and Disposition:: Patient was given bolus of Dilaudid at 0.01 mg x 2. He tolerated the boluses, but got no significant relief with the boluses while in clinic. We did change the patient to Dilaudid at 0.03 mg/day. We will plan to see him back this in the clinic to see if he has gotten relief. Risks and benefits of the medication have been explained in detail to the patient. The patient does understand the risk of dependence on the medication when given over a prolonged period. Patient has been advised of risks of oversedation with the prescribed medication. Narcan has been offered to the paitent in the event of oversedation. Patient has been advised that a family member should also be educated regarding administration of Narcan. The patient has been advised to consult with his/her primary care provider and pharmacist regarding drug-drug interaction of medications currently prescribed. Patient has been prescribed a controlled substance after being counseled on the medication, medication safety, and possible side effects. SANDRA report has been obtained and reviewed prior to prescription and found to be appropriate. Opioid contract was reviewed and signed by the patient, and that they have agreed to all of the terms set forth by our compliance program. Patient has been instructed to contact the clinic with any concerns before the next appointment. Dr. Bassett has reviewed this note and agrees with this plan of care. This note was dictated using voice recognition software and make contain errors or omissions.
== END ==
PROVIDERS: Visit Provider Clinical Nurse Specialist Family Health
DX: M51.16 Intervertebral disc disorders with radiculopathy, lumbar region (principal); Z45.1 Encounter for adjustment and management of infusion pump
CPT/HCPCS: 62368; 99212; G0463

== ENCOUNTER → 2021-06-29 11:22 | Outpatient (POV) | payer MEDICARE, SELFPAY ==
[2021-06-29 11:31] VITALS: BP 120/77; PULSE 92; RESP 18; O2SAT 96; BMI 28.0
--- NOTE | 2021-06-29 12:01 | P.PCN_ITS ---
- Procedure Date: 06/29/21 Time: 12:02 Anesthesiologist:: Cristy Siddiqi APRN Complications:: None Pre-procedure Diagnosis:: Degenerative disc disease lumbar spine with lumbar radiculopathy symptoms Post-procedure Diagnosis:: Same Indications for Procedure:: Patient is a 75-year-old white male who presents today for intrathecal pain pump adjustment. We have changed the patient from morphine to Dilaudid due to severe swelling and difficulty with urination. His swelling has improved, however, he does report to continue to have some generalized edema bilateral lower extremities. He says he did discuss possible physical therapy with a local therapist within the [facility]. He would like to begin physical therapy to see if this does help with the edema bilateral lower extremities. He is currently on Dilaudid at 0.03 mg/day. He does need an increase and does want to set up his PTC device today. Physical exam General: Alert and oriented x3, no acute distress, pleasant and cooperative Lungs: Respirations even and unlabored, symmetrical chest expansion Eyes: PERRL Musculoskeletal: Flexion and extension of lumbar [spine] somewhat guarded secon rachael to pain, [antalgic gait noted], generalized edema bilateral lower extremities Neurological: Speech clear, no gross sensory deficit Procedure Details:: Informed consent was obtained and the risk and benefits of the procedure were explained to the patient. Patient was taken to the procedure room where noninvasive monitoring was placed including noninvasive blood pressure cuff and pulse oximeter. Patient's pump was interrogated and was reprogrammed to Dilaudid at 0.035 mg/day, PTC at 0.003 mg up to 4 times daily.. The patient tolerated the procedure well with no complications. Plan and Disposition:: We will plan to see the patient back at his next refill or sooner if his symptoms continue. Patient has been instructed to contact the clinic with any concerns before the next appointment. Dr. Bassett has reviewed this note and agrees with this plan of care. This note was dictated using voice recognition software and make contain errors or omissions.
== END ==
PROVIDERS: Visit Provider Clinical Nurse Specialist Family Health
DX: M51.16 Intervertebral disc disorders with radiculopathy, lumbar region (principal); Z45.1 Encounter for adjustment and management of infusion pump
CPT/HCPCS: 62368; 99212; G0463

== ENCOUNTER → 2021-07-27 12:49 | Outpatient (POV) | payer MEDICARE, SELFPAY ==
[2021-07-27 13:12] VITALS: BP 189/79; PULSE 61; RESP 18; O2SAT 96; BMI 28.0
--- NOTE | 2021-07-31 15:30 | HMH.PMPROC ---
- Procedure Date: 07/31/21 Time: 11:15 Anesthesiologist:: Cristy Siddiqi APRN Complications:: None Pre-procedure Diagnosis:: Degenerative disc disease lumbar spine with lumbar radiculopathy symptoms Post-procedure Diagnosis:: Same Indications for Procedure:: Patient is a 75-year-old white male who presents today for intrathecal pain pump adjustment. The patient is currently on intrathecal therapy of Dilaudid at 0.035 mg/day. He would like an increase. He does rate his pain a 5 out of 10. We will increase him today see if he gets relief. He denies any side effects at this time. [facility] #[id number] has been reviewed and is appropriate. Drug screen is appropriate. Patient does take Ambien 5 mg at bedtime. He has been advised he is at a high risk for oversedation in conjunction with his intrathecal therapy. Patient says that his PCP is aware of his intrathecal therapy and has cleared him to continue with Ambien. Physical exam General: Alert and oriented x3, no acute distress, pleasant and cooperative Lungs: Respirations even and unlabored, symmetrical chest expansion Eyes: PERRL Musculoskeletal: Flexion and extension of lumbar [spine] somewhat guarded secondary to pain, [antalgic gait noted] Neurological: Speech clear, no gross sensory deficit Procedure Details:: Informed consent was obtained and the risk and benefits of the procedure were explained to the patient. Patient was taken to the procedure room where noninvasive monitoring was placed including noninvasive blood pressure cuff and pulse oximeter. Patient's pump was interrogated and was reprogrammed to Dilaudid at 0.042 mg/day. The patient tolerated the procedure well with no complications. Plan and Disposition:: We will see the patient back in the clinic at the next intrathecal refill. Patient has been instructed to contact the clinic with any concerns before the next appointment. Dr. Bassett has reviewed this note and agrees with this plan of care. This note was dictated using voice recognition software and make contain errors or omissions. Risks and benefits of the medication have been explained in detail to the patient. The patient does understand the risk of dependence on the medication when given over a prolonged period. Patient has been advised of risks of oversedation with the prescribed medication. Narcan has been offered to the paitent in the event of oversedation. Patient has been advised that a family member should also be educated regarding administration of Narcan. The patient has been advised to consult with his/her primary care provider and pharmacist regarding drug-drug interaction of medications currently prescribed. SANDRA report has been obtained and reviewed prior to prescription and found to be appropriate. Opioid contract was reviewed and signed by the patient, and that they have agreed to all of the terms set forth by our compliance program. Patient has been instructed to contact the clinic with any concerns before the next appointment. Dr. Bassett has reviewed this note and agrees with this plan of care. This note was dictated using voice recognition software and make contain errors or omissions.
== END ==
PROVIDERS: Visit Provider Clinical Nurse Specialist Family Health
DX: M51.16 Intervertebral disc disorders with radiculopathy, lumbar region (principal); Z45.1 Encounter for adjustment and management of infusion pump
CPT/HCPCS: 62368

== ENCOUNTER → 2021-08-10 10:53 | Outpatient (POV) | payer MEDICARE, SELFPAY ==
[2021-08-10 11:35] VITALS: BP 153/75; PULSE 66; RESP 18; O2SAT 96; BMI 28.0
--- NOTE | 2021-08-10 11:43 | HMH.PMPROC ---
- Procedure Date: 08/10/21 Time: 11:44 Anesthesiologist:: Preeti Montiel MD Complications:: None Pre-procedure Diagnosis:: Degenerative disease of lumbar spine with lumbar radiculopathy Post-procedure Diagnosis:: Same Indications for Procedure:: Patient is a very pleasant 75-year-old white male who presents today for intrathecal pump adjustment. He is currently being treated for degenerative disease of the lumbar spine lumbar radiculopathy. He has a pump of the flowonix system with intrathecal Dilaudid 1 mg/mL at 0.04 mg/day on constant flow and PTC. He states that his pain still remains uncontrolled at this time and is requesting an increase in his pump dose settings today. The plan for today is for the patient to undergo intrathecal pump analysis and reprogram with an increase of 20% to his constant flow rate. Procedure Details:: Analysis and reprogramming of intrathecal morphine pain pump Informed consent was obtained. The risk and benefits of the procedure were explained to the patient. Patient was taken to the procedure room. The pump was interrogated. Intrathecal Dilaudid infusion was paced by [20]% to 0.05 mg/day. Patient tolerated the procedure well with no complications. Plan and Disposition:: Follow-up with this patient in 2 weeks for reassessment of his chronic pain symptoms and possible pain pump adjustment if indicated. [facility] #[id number] and prior drug screens reviewed and appropriate.
== END ==
PROVIDERS: Visit Provider Anesthesiology Pain Medicine
DX: M51.16 Intervertebral disc disorders with radiculopathy, lumbar region (principal); Z45.1 Encounter for adjustment and management of infusion pump
CPT/HCPCS: 62368

== ENCOUNTER 2021-09-08 10:00 | Outpatient (RCR) | payer MEDICARE, SELFPAY ==
--- NOTE | 2021-07-05 09:33 | HMH.PTOPWND ---
Rehab Outpt Wound Evaluation Rehab OP Wound Evaluation Start: 07/05/21 08:58 Freq: Status: Active Protocol: Document 07/05/21 09:26 ADRIENNE (Rec: 07/05/21 09:33 PHORADHA [id number]) Electronically Signed By Dennis Goins, PT 07/05/21 09:26 Subjective/History History History Pt is 75 yowm who presents with c/o B LE edema for ~2 mos . He reports he had implanted pain pump procedure performed 05/10/21 and the medication resulted in significant acute onset edema. He reports intermittent tingling in B LE with increased edema, but no c /o pain. He had medication changed in his pump recently which reduced his edema quickly. He does continue to have mild increased edema at this time though. He has PMH of CAD with stents x 2, HTN, HL, appy, CCY, and skin cancer . Subjective Subjective He reports no pain at this time, but mild tenderness to palpation worse on the L lower leg. Mild erythema also noted to B LE in gaitor area. Lymphedema Eval Classification of Lymphedema Secondary Lymphedema Yes Stemmer's sign Stemmer's Sign no Stage of Lymphedema Lymphedema stages Stage I (Pitting edema, reduces w/ elevation, no fibrosis) Skin Changes Dry Skin Yes Redness Yes Discoloration of Skin Yes Pain Scale Pain Scale (0-10) 0 Affected Extremities Areas Affected by Lymphedema/Edema Right Lower Extremity,Left Lower Extremity Manual Lymphatic Drainage Treatment Area MLD Treatment Area Right Lower Extremity,Left Lower Extremity Wound Problems/Impairments Impairments Problems/Impairmments Palpation Tenderness,Impaired Gait Pattern,Impaired Walking, Impaired Standing,Impaired Dressing,Impaired Recreational Activities,Increased Edema, Lymphedema Present,Impaired Self Care/Self Management Prognosis Rehab Potential Good Clinical Impression Consistent with
--- NOTE | 2021-08-16 10:41 | HMH.RHREAS ---
Rehab Reassessment Rehab OP Re-assessment Start: 08/16/21 10:32 Freq: Status: Active Protocol: Document 08/16/21 10:33 ADRIENNE (Rec: 08/16/21 10:40 ADRIENNE [id number]) Electronically Signed By Dennis Goins, PT 08/16/21 10:33 Rehab Re-assessment Subjective Subjective Pt reports he continues to suffer from mild numbness/ tingling in B LE, but no pain. Objective Objective Notes Edema: no pitting edema noted at this time to either LE> Mild fibrotic edema noted to L LE in the gaitor area and ankle. Tenderness: 0/4 TTP on B LE this date. Assessment Progress Assessment Progressing as Expected Assessment Notes Pt has shown much improved palpation tenderness and edema with current treatment. He continues to have some edema which is worse with dependent positioning. Patient goals met ST,2,3 Goals Not Met LT,2,3,4 Revised Goals none Plan Plan Continue per initial POC Frequency of Therapy 2 x/wk Duration of therapy 4 wks Time and Billing Re-Eval Time 14 Re-Eval Billing Units 0 PHYSICIAN CERTIFICATION: I certify the specified therapy services for Bobby Maddox are required, authorized, and reviewed every 30 days.
== END 2021-09-08 11:00 | disposition home or self-care (01) ==
LOC: PT 10:00
PROVIDERS: PCP Internal Medicine Adolescent Medicine; Visit Provider Clinical Nurse Specialist Family Health
DX: R60.0 Localized edema (principal)
CPT/HCPCS: 97140; 97162; 97164

== ENCOUNTER 2021-09-23 08:59 | Emergency (ER) | payer MEDICARE, SELFPAY ==
[2021-09-23 09:12] VITALS: BP 169/66; PULSE 59; RESP 20; TEMP 36.7; O2SAT 94; BMI 26.9
--- NOTE | 2021-09-23 09:35 | HMH.EDUTC ---
[facility] [place] Clinical Impression: COPD exacerbation Sinusitis Qualifiers: Sinusitis location: unspecified location Chronicity: acute Recurrence: non-recurrent Qualified Code(s): J01.90 - Acute sinusitis, unspecified Disposition: Home, Self-Care Condition on Discharge: Good Instructions: Sinusitis, DI for Chronic Obstructive Pulmonary Disease, DI for Sinusitis Additional Instructions: Drink plenty of fluids. Take tylenol or ibuprofen for pain or fever. Take the medications as directed. Follow up with your regular doctor. GO TO THE ER FOR ANY WORSENING SYMPTOMS Don't start the oral steroids until tomorrow, since you had the shot here today. Prescriptions: Amoxicillin/Potassium Clav [Amox-Clav 875-125 mg Tablet] 1 tab PO BID #20 tab Transmission Status: Received by [facility] Benzonatate [Benzonatate 100mg cap] 100 mg PO TIDP PRN #30 cap PRN Reason: Cough Transmission Status: Received by [facility] predniSONE [Deltasone 10mg tablet] 10 mg PO DAILY 9 Days #21 tab Transmission Status: Received by [facility] guaiFENesin [Mucinex 600mg tablet] 1 - 2 tab PO BIDP PRN #30 tab PRN Reason: Congestion Transmission Status: Received by [facility] Referrals: Sawyer Avina MD [Primary Care Provider] - Time of Disposition: 09:54 Medical Decision Making - Medical Records Medical records reviewed: No: I reviewed the patient's medical records. - Manny Inquiry Pt receiving controlled substance: No Vital Signs: 09/23/21 09:12 09/23/21 10:22 Temperature 98.1 F 98.1 F Temperature Source Oral Pulse Rate 59 L Pulse Rate [Left] 59 L Respiratory Rate 20 20 Blood Pressure 169/66 H Blood Pressure [Right Arm] 169/66 H Blood Pressure Mean [Right Arm] 100 02 Sat by Pulse Oximetry 94 L Orders (Tests/Meds): ED MEDICATIONS Discontinued Medications Generic Name Dose Route Start Last Admin Trade Name Freq PRN Reason Stop Dose Admin Ceftriaxone Sodium 1 gm 09/23/21 09:40 09/23/21 10:01 Ceftriaxone 1gm Vial IM 09/23/21 09:41 1 gm ONCE ONE Administration Lidocaine HCl 0 ml 09/23/21 09:40 09/23/21 10:01 Lidocaine 1% 5ml Pf Vial IM 09/23/21 09:41 2 ml ONCE ONE Administration Methylprednisolone Sodium Succinate 125 mg 09/23/21 09:40 09/23/21 10:01 Methylprednisolone Sod Succ 125mg Vial IM 09/23/21 09:41 125 mg ONCE ONE Administration [facility] - General Stated complaint: sinus congestion Time Seen by Provider: 09/23/21 09:36 Mode of Arrival: Ambulatory Source of Information: Patient Limitations: No Limitations Description of Symptoms (Recalled from Triage Doc. by RN): pt c/o sinus congestion, pressure and drainage as well as a cough. HEENT Symptoms (Recalled from RN notes): Yes Resp Symptoms (Recalled from RN notes): Yes Skin Symptoms (Recalled from RN notes): No MS Symptoms (Recalled from RN notes): No Functional Status (Recalled from RN notes): wnl - History of Present Illness Provider Complaint: He states that for the past 3 days he has been having a cough, chest congestion, sinus congestion. He denies any fever or chills. - Related Data Home Medications Medication Instructions Recorded Confirmed aspirin 81 mg tablet,delayed 81 mg PO DAILY tab 09/06/17 06/21/21 release Zolpidem Tartrate [Ambien 10mg 5 mg PO HS 12/19/18 06/21/21 tablet] Trazodone HCl [Desyrel 50mg tablet] 50 mg PO NEEDED PRN 11/02/19 06/21/21 Umeclidinium Brm/Vilanterol Tr 1 inh IH DAILY 11/03/19 06/21/21 [Anoro Ellipta 62.5-25 Mcg INH] diclofenac potassium 50 mg tablet 50 mg PO BID PRN 11/12/19 06/21/21 atorvastatin 40 mg tablet 80 mg PO DAILY tab 12/22/20 06/21/21 hydroCHLOROthiazide [HCTZ 25mg 25 mg PO DAILY 05/02/21 06/21/21 tab] bisoproloL fumarate [Bisoprolol See Rx Instructions .ROUTE .COMPLEX 06/21/21 06/21/21 Fumarate] clonazePAM [Clonazepam] 0.25 mg PO DAILY 06/21/21 06/21/21 tamsu
[2021-09-23 10:22] VITALS: BP 169/66; PULSE 59; RESP 20; TEMP 36.7
== END 2021-09-23 10:22 | disposition home or self-care (01) ==
PROVIDERS: Emergency Provider Nurse Practitioner Family; PCP Internal Medicine Adolescent Medicine
DX: J44.1 Chronic obstructive pulmonary disease with (acute) exacerbation (principal); R07.9 Chest pain, unspecified; R00.2 Palpitations; I10 Essential (primary) hypertension; I25.119 Atherosclerotic heart disease of native coronary artery with unspecified angina pectoris; K21.9 Gastro-esophageal reflux disease without esophagitis; E78.5 Hyperlipidemia, unspecified; M19.90 Unspecified osteoarthritis, unspecified site; K64.9 Unspecified hemorrhoids; Q24.9 Congenital malformation of heart, unspecified; J98.4 Other disorders of lung; H26.9 Unspecified cataract; F17.210 Nicotine dependence, cigarettes, uncomplicated; Z79.51 Long term (current) use of inhaled steroids; Z79.52 Long term (current) use of systemic steroids; Z79.84 Long term (current) use of oral hypoglycemic drugs; Z79.899 Other long term (current) drug therapy; Z85.828 Personal history of other malignant neoplasm of skin
CPT/HCPCS: 96372; 99213; G0463; J0696

== ENCOUNTER 2021-10-09 14:45 | Day surgery (SDC) | payer MEDICARE, SELFPAY ==
[2021-10-09 14:52] VITALS: BP 151/77; BP 184/72; PULSE 57; PULSE 60; RESP 18; RESP 20; O2SAT 95; O2SAT 97; O2SAT 98
[2021-10-09 15:20] VITALS: BP 142/76; PULSE 62; RESP 20; TEMP 36.8; O2SAT 97; BMI 27.2
--- NOTE | 2021-10-09 15:26 | HMH.PMPROC ---
- Procedure Date: 10/09/21 Time: 15:26 Anesthesiologist:: Clark Kelly CRNA Complications:: None Pre-procedure Diagnosis:: Generative disc disease lumbar spine multilevels. Lumbar radicular symptoms. Post-procedure Diagnosis:: Same Indications for Procedure:: Very pleasant 75-year-old white male that we have been treating for quite some time for chronic low back pain secondary to degenerative disc disease lumbar spine multilevels. Lumbar radicular symptoms. He currently has intrathecal pain pump of Dilaudid 1 mg/mL at 0.05 mg/day. Patient reports for pain pump refill. She states pain is minimal. Pump seems to be doing very well at this current rate. Procedure Details:: Details of the procedure were explained to the patient. The patient was taken the procedure room placed in the sitting position on the fluoroscopy table. The area over the pump was cleansed using chlorhexidine as a cleansing solution. The pump was accessed using a 22-gauge needle. 14 cc of fluid was removed and discarded appropriately. The pump was then filled using Dilaudid 1 mg/mL. Patient tolerated procedure without difficulty. There were no complications. No changes in current rate. Plan and Disposition:: Patient was discharged without incident.
[2021-10-09 19:19] LABS: Barbiturates Screen,Urine Negative ng/ml (<200)
[2021-10-09 19:20] LABS: Benzodiazepines Screen,Urine Negative ng/ml (<200)
[2021-10-09 19:21] LABS: Cocaine Screen,Urine Negative ng/ml (<300)
[2021-10-09 19:22] LABS: Cannabinoid Screen,Urine Negative ng/ml (<50); Methadone Screen,Urine Negative ng/ml (<300)
[2021-10-09 19:23] LABS: Opiate Screen,Urine Negative ng/ml (<300)
[2021-10-09 19:24] LABS: Phencyclidine Screen,Urine Negative ng/ml (<25)
[2021-10-09 19:29] LABS: Amphetamine/Metha Screen,Urine Negative ng/ml (<1000)
[2021-10-21 23:08] LABS: Opiates Negative (Cutoff=100)
== END 2021-10-09 15:31 | disposition home or self-care (01) ==
LOC: SC.PAINP 14:46
PROVIDERS: PCP Internal Medicine Adolescent Medicine; Visit Provider Nurse Anesthetist, Certified Registered
DX: M51.16 Intervertebral disc disorders with radiculopathy, lumbar region (principal); Z45.1 Encounter for adjustment and management of infusion pump; I25.10 Atherosclerotic heart disease of native coronary artery without angina pectoris; K21.9 Gastro-esophageal reflux disease without esophagitis; I10 Essential (primary) hypertension; E78.5 Hyperlipidemia, unspecified; R00.2 Palpitations; J98.4 Other disorders of lung
CPT/HCPCS: 80305; 80361; 80365; 95991; G0480

== ENCOUNTER → 2021-10-20 07:19 | Outpatient (CLI) | payer MEDICARE, SELFPAY ==
--- NOTE | 2021-10-20 07:26 | CT_ITS ---
FINAL REPORT CLINICAL HISTORY: smoker. 1ppd x 48 years copd, 2 coronary stents FINDINGS: CTDI vol (mGy): 2.[address] images of the chest were obtained using the low-dose protocol for screening. There is no evidence of mediastinal or hilar mass or adenopathy. No axillary mass or adenopathy is identified. On the lung window images, no pulmonary mass or suspicious nodule is identified. There are small scattered calcified granulomas. IMPRESSION: Lung RADS category 1 . Recommend 12 month followup low-dose CT for further evaluation. Reviewed, Interpreted and Dictated by Dagoberto Schroeder MD Transcribed by Laura Harvey Authenticated by Dagoberto Schroeder MD on 10/20/2021 09:18:20 AM [facility]
== END ==
PROVIDERS: PCP Internal Medicine Adolescent Medicine; Visit Provider Internal Medicine Adolescent Medicine
DX: Z87.891 Personal history of nicotine dependence (principal); Z12.2 Encounter for screening for malignant neoplasm of respiratory organs
CPT/HCPCS: 71271

== ENCOUNTER 2021-12-26 12:56 | Day surgery (SDC) | payer MEDICARE, SELFPAY ==
[2021-12-26 13:10] VITALS: BP 172/70; PULSE 55; RESP 20; TEMP 36.6; O2SAT 95; BMI 26.9
[2021-12-26 13:18] VITALS: BP 179/74; PULSE 57; RESP 18; O2SAT 98
--- NOTE | 2021-12-26 13:26 | HMH.PMPROC ---
- Procedure Date: 12/26/21 Time: 13:26 Anesthesiologist:: Clark Kelly CRNA Complications:: None Pre-procedure Diagnosis:: Degenerative disease lumbar spine multilevels. Lumbar radiculopathy symptoms. Post-procedure Diagnosis:: Same Indications for Procedure:: Very pleasant 75-year-old male who comes our clinic for intrathecal pain pump refill. Patient is doing very well on his current settings of Dilaudid 1 mg/mL at 0.5 mg/day. Patient states the pump is allowing him to play golf, do outside chores. Patient is complaining of some low lumbar pain. Patient puts a finger on the spot that is giving him pain. This is located over the bilateral SI joints. He has extreme point tenderness over the bilateral SI joints. I discussed in detail with the patient regarding bilateral SI joint injections. He wishes to proceed. Patient would like to schedule this for February 13, 2022. He has a 1 week golf trip starting on . He would like to have the injections prior to the golf trip. Procedure Details:: Details of the procedure were explained to the patient. The patient taken the procedure room placed in the sitting position. The area over the intrathecal pain pump was cleaned using chlorhexidine as a cleansing solution. The pump was accessed with ease using a 22-gauge needle. 15 cc of fluid was removed and discarded appropriately. The pump was then filled with Dilaudid 1 mg/mL 20 cc. Needle was removed. Band-Aid applied. Patient tolerated procedure without difficulty. Plan and Disposition:: Patient was discharged without incident. We will schedule the patient for February 13 for bilateral SI joint injections.
[2021-12-26 13:30] VITALS: BP 154/64; PULSE 52; RESP 20; O2SAT 95
== END 2021-12-26 13:31 | disposition home or self-care (01) ==
LOC: SC.PAINP 12:57
PROVIDERS: PCP Internal Medicine Adolescent Medicine; Visit Provider Nurse Anesthetist, Certified Registered
DX: M51.16 Intervertebral disc disorders with radiculopathy, lumbar region (principal); N40.0 Benign prostatic hyperplasia without lower urinary tract symptoms; I10 Essential (primary) hypertension; I25.10 Atherosclerotic heart disease of native coronary artery without angina pectoris; J44.9 Chronic obstructive pulmonary disease, unspecified
CPT/HCPCS: 95991

== ENCOUNTER 2022-01-11 15:31 | Observation (INO) | payer MEDICARE, SELFPAY ==
[2022-01-11] VITALS (10 sets, daily range): BP systolic 151–169; BP diastolic 66–83; PULSE 50–64; RESP 16–17; TEMP 36.8; O2SAT 95–98; BMI 25.7; BMI 27.7
--- NOTE | 2022-01-11 15:31 | ECG_ITS ---
APPROVED REPORT Exam: Resting ECG HR:60 bpm ECG Measurements Heart Rate 60 AXES AZ 179 P 52 QRSd 96 QRS 69 QT 421 T 26 QTc 422 Conclusion SINUS RHYTHM NORMAL ECG UNCONFIRMED REPORT Electronically signed by : Sawyer Avina MD 01/12/2022 14:53:59
--- NOTE | 2022-01-11 15:43 | XR_ITS ---
FINAL REPORT CLINICAL HISTORY: CHEST PAIN, in middle of chest FINDINGS: A portable view of the chest was obtained. Comparison is made to a prior exam dated 11/02/2019. Cardiac and mediastinal silhouettes are within normal limits. There are new interstitial opacities which are basilar predominant. Interstitial pneumonia not excluded. There is no pleural effusion or pneumothorax. There is no acute osseous abnormality. IMPRESSION: New interstitial opacities. Interstitial pneumonia not excluded. Reviewed, Interpreted and Dictated by Mita Borrego MD Transcribed by Laura Harvey Authenticated and . [facility]
--- NOTE | 2022-01-11 15:51 | PC.NURSE ---
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
--- NOTE | 2022-01-11 15:55 | PC.NURSE ---
RADIOLOGY NOTIFIED OF PORT CHEST
--- NOTE | 2022-01-11 16:02 | PC.NURSE ---
PORT CHEST DONE
[2022-01-11 16:04] LABS: Chloride 105 mmol/L (98-107)
[2022-01-11 16:05] LABS: Basophils # 0.2 K/mm3 (0-0.2); Basophils % 1.7 % (0.1-2.0); Eosinophils # 0.5 K/mm3 (0.0-0.4); Eosinophils % 5.2 % (0.1-12.0); Hematocrit 44.8 % (42.0-52.0); Hemoglobin 14.9 g/dL (14.1-18.0); Lymphocytes % 34.2 % (10-50); Mean Corpuscular HGB Conc 33.2 g/dL (31.8-35.4); Mean Corpuscular Hemoglobin 30.9 pg (27.0-31.2); Mean Corpuscular Volume 92.9 fl (80-94); Mean Platelet Volume 8.6 fl (7.4-10.4); Monocytes # 0.6 K/mm3 (0.1-1.0); Monocytes % 7.3 % (1.7-9.3); Neutrophils # 4.5 K/mm3 (1.8-7.8); Neutrophils % 51.5 % (37.0-80.0); Platelet Count 227 K/mm3 (142-424); Potassium 3.6 mmoL/L (3.5-5.1); Red Blood Count 4.82 M/mm3 (4.60-6.20); Red Cell Distribution Width 13.1 % (11.5-17.5); Sodium 141 mmol/L (136-145); White Blood Count 8.7 K/mm3 (4.8-10.8)
[2022-01-11 16:08] LABS: Anion Gap 8.6 mEq/L (5-15); Blood Urea Nitrogen 14 mg/dl (9-20); Calcium 9.5 mg/dl (8.4-10.2); Carbon Dioxide 31 mmol/L (22.0-30.0); Creatinine Clearance Estimated 69 mL/min (50-200); Estimated Glomerular Filt Rate 59 ml/min (>60); GFR (African American) 72 ML/MIN (>60); Glucose 112 mg/dl (74-100)
--- NOTE | 2022-01-11 16:12 | PC.NURSE ---
PT GOING UP FOR ADMISSION
[2022-01-11 16:20] LABS: Troponin I 0.02 ng/ml (0.00-0.034)
--- NOTE | 2022-01-11 16:30 | HMH.EDCP ---
ED Disposition Clinical Impression: Unstable angina CAP (community acquired pneumonia) Qualifiers: Laterality: unspecified laterality Qualified Code(s): J18.9 - Pneumonia, unspecified organism Disposition: Admitted as Observation Condition on Discharge: Good Referrals: Sawyer Avina MD [Primary Care Provider] - - Critical Care Critical Care Time: No Attestation: On 01/11/22, the high probability of a clinically significant, sudden or life threatening deterioration of the following system(s) required my full and direct attention, intervention and personal management. The time I documented below is in addition to time spent performing reported procedures but includes the following listed in this critical care notation. Medical Decision Making - Medical Records Medical records reviewed: Yes: I reviewed the patient's medical records. - Manny Inquiry Pt receiving controlled substance: No Vital Signs: 01/11/22 15:42 Temperature 98.2 F Temperature Source Oral Pulse Rate [Left Radial] 60 Respiratory Rate 17 Blood Pressure [Right Arm] 167/81 H Blood Pressure Mean [Right Arm] 109 02 Sat by Pulse Oximetry 97 - Lab Data Lab Results 01/11/22 15:45: WBC 8.7, RBC 4.82, Hgb 14.9, Hct 44.8, MCV 92.9, MCH 30.9, MCHC 33.2, RDW 13.1, Plt Count 227, MPV 8.6, Neut % (Auto) 51.5, Lymph % (Auto) 34.2, [place] % (Auto) 7.3, Eos % (Auto) 5.2, Baso % (Auto) 1.7, Neut # (Auto) 4.5, Lymph # (Auto) 3.0, [place] # (Auto) 0.6, Eos # (Auto) 0.5 H, Baso # (Auto) 0.2 01/11/22 15:45: Sodium 141, Potassium 3.6, Chloride 105, Carbon Dioxide 31 H, Anion Gap 8.6, BUN 14, Creatinine 1.20, Estimated Creat Clear 69, Estimated GFR 59, Est GFR ( Amer) 72, Glucose 112 H, Calcium 9.5, Troponin I 0.02 Result diagrams: 01/11/22 15:45 01/11/22 15:45 Orders (Tests/Meds): ED MEDICATIONS Generic Name Dose Route Start Last Admin Trade Name Freq PRN Reason Stop Dose Admin Sodium Chloride 10 ml 01/11/22 15:43 Sodium Chloride 0.9% 10ml Flush Syringe IV 02/10/22 15:42 NEEDED PRN Maintain IV Site Discontinued Medications Generic Name Dose Route Start Last Admin Trade Name Emiliano PRN Reason Stop Dose Admin Aspirin 324 mg 01/11/22 15:44 01/11/22 15:50 Aspirin 81mg Chewable Tablet PO 01/11/22 15:45 324 mg ONCE ONE Administration Enoxaparin Sodium 90 mg 01/11/22 16:58 Enoxaparin 100mg/Ml Syringe SQ 01/11/22 16:59 ONCE ONE Nitroglycerin 1 gm 01/11/22 16:34 01/11/22 16:55 Nitroglycerin 1 Gm Ointment TD 01/11/22 16:35 1 gm ONCE ONE Administration Nitroglycerin 0.4 mg 01/11/22 16:34 01/11/22 16:48 Nitroglycerin 0.4mg Sl Tablet SL 01/11/22 16:35 0.4 mg ONCE ONE Administration ORDERS Category Date Time Status Rapid PCR Covid and Flu A/B Stat Lab 01/11/22 17:01 Ordered Troponin I Q3H Lab 01/11/22 18:45 Ordered Troponin I Q3H Lab 01/11/22 21:45 Ordered - ECG Data Tracing #1 I reviewed this ECG and interpreted as documented below: ekg by me nsr, qrs nml, no st elev Chest Pain HPI - General Chief Complaint: Chest Pain Stated Complaint: CHEST PAIN Time Seen by Provider: 01/11/22 16:30 Mode of Arrival: Ambulatory Limitations: No Limitations Description of Symptoms (Recalled from ER Triage Doc. by RN): pt to ed c/o chest pain. pt states he started having pain last night. pt states he is having left sided chest pain and c/o fluttering in his chest. pt states he has had shortness of breath associated. - History of Present Illness HPI narrative: chest pressure assoc with soa and palpitations for few days h/o known cad stents Onset (ago): day(s) Duration: constant, intermittent Quality: tightness Pain radiation: none Relieving factors: nothing Exacerbating factors: nothing - Related Data Home Medications Medication Instructions Recorded Confirmed aspirin 81 mg tablet,delayed 81 mg PO DAILY tab 09/06/17 12/20/21 release Zolpidem Tartrate
--- NOTE | 2022-01-11 16:52 | PC.NURSE ---
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 ahumada per ER request
--- NOTE | 2022-01-11 16:55 | PC.NURSE ---
LEVON FLORES speaking with Dr. Avina
--- NOTE | 2022-01-11 16:56 | PC.NURSE ---
PT STATES THE NTG HELPED WITH THE TIGHTNESS , FAMILY AT BS NITRO PASTE APPLIED
--- NOTE | 2022-01-11 16:58 | PC.NURSE ---
DR ORNELAS HAS AGREED TO ADMIT PT , DR FOX IN WITH PT UPDATING HIM
--- NOTE | 2022-01-11 17:20 | PC.NURSE ---
SUPPER TRAY ORDERED
--- NOTE | 2022-01-11 17:21 | PC.NURSE ---
called and spoke with dietary requesting a cardiac supper tray
--- NOTE | 2022-01-11 17:27 | PC.NURSE ---
COVID SWAB SENT TO LAB
[2022-01-11 17:35] LABS: Coronavirus 19, PCR Not Detected (NotDetected); Influenza A, PCR Not Detected (NotDetected); Influenza B, PCR Not Detected (NotDetected)
--- NOTE | 2022-01-11 19:43 | PC.NURSE ---
Report called to Paula Ward RN
--- NOTE | 2022-01-11 20:19 | PC.NURSE ---
pt arrivied to floor via wheel chair at this time
[2022-01-11 20:22] LABS: Troponin I 0.02 ng/ml (0.00-0.034)
--- NOTE | 2022-01-11 21:16 | PC.NURSE ---
Patient states he wants to be DNR. Educated patient went over paper work with patient. Paper work filled out and signed and filled to chart.
[2022-01-12] VITALS (18 sets, daily range): BP systolic 122–185; BP diastolic 54–87; PULSE 50–91; RESP 17–20; TEMP 36.5–37.1; O2SAT 94–100; BMI 27.9
--- NOTE | 2022-01-12 | IR_ITS ---
APPROVED REPORT Patient Location: Inpatient Inpatient PROCEDURES Left heart catheterization Left ventriculogram Selective coronary angiogram Drug-eluting stent deployment to the proximal mid to distal abdominal right coronary in a contiguous manner INDICATION Unstable angina, Coronary artery disease Informed consent was obtained prior to the procedure. COMPLICATIONS none Estimated Blood Loss: less than 10 ml TECHNIQUE One percent lidocaine used to anesthetize the right anterior aspect of the wrist. The right radial artery was accessed via the Seldinger technique. A 6 Thai sheath was placed in the right radial artery. 2.5 mg of verapamil, 800 mcg of nitroglycerin, 1mg Lidocaine and 5000 U Heparin were given through the arterial sheath. The papa catheter was also used to perform left heart catheterization, left ventriculogram and selective coronary angiogram. At the end the diagnostic angiogram therapeutic heparin was administered giving a therapeutic ACT and the guide catheter was placed in the right coronary artery followed by a Choice PT extra-support wire. Two 3.5 x 38 mm resolute Sweeden stents were placed in a contiguous manner in the distal mid and proximal segment deployed at 20, 22 and 24 sheba distal to proximal and in respective manner. This reduce the severe stenosis to 0% giving excellent angiographic results. BHAVYA-3 flow was present before and after the procedure. At the end of the procedure the apparatus was removed the sheath was removed good hemostasis was achieved using TR banding patient was transferred to the postop putting in stable condition ANGIOGRAPHIC RESULTS The left main artery Normal The left anterior descending artery Has proximal 10 to 20% stenoses followed by a mid vessel 80% hazy stenosis immediately distal to a large first diagonal artery. Distal to this large first diagonal artery the LAD is approximately 2 to 2.5 mm in diameter in the LAD does not reach the apex but mostly tapers off. The diagonal artery is equal in size if not larger than the LAD once the LAD is distal to the first diagonal artery. The circumflex artery Is nondominant and has proximal and mid vessel 30 to 40% stenosis The right coronary artery Is a large dominant vessel and has a proximal concentric 60 to 70% stenosis followed by mid vessel 70% concentric stenosis. This represents in-stent restenosis with both lesions The MEJIA ventriculogram reveals Normal 65% The left ventricular end-diastolic pressure 30 mmHg IMPRESSION Severe mid LAD disease as described above Severe disease in the proximal mid dominant right coronary Successful stenting of proximal and dominant right coronary severe disease reduced to 0% with 2 contiguous drug-eluting stents Normal ejection fraction Severely elevated LVEDP PLAN 1. Dual antiplatelet therapy 2. LDL less than 55 3. At this point I favor medical management for the mid LAD. The mid LAD could be stented but would almost certainly require a bifurcating stent as it would cross this large diagonal artery. The LAD at the mid segment is not large and does not supply a large amount of myocardium. Ideally medical management is most warranted however if angina becomes recalcitrant revascularization could proceed 4. It is important to treat diastolic dysfunction which is unlikely contributing factor to patient's angina 5. Cardiac rehabilitation 6. Avoidance of tobacco products 7. And may be reasonable to proceed with stress testing in 1 month to determine the degree of ischemia from the LAD Electronically signed by : Ehsan Travis MD 01/12/2022 14:52:30
--- NOTE | 2022-01-12 04:38 | PC.NURSE ---
Patient admitted to floor. No complaints of chest pain since arrival to floor. Patient is sil at times on tele HR 50-64. Patient is a&o x4, able to ambulate independently to the restroom, and tolerated room air with sats above 90%.
[2022-01-12 06:34] LABS: Anion Gap 4.6 mEq/L (5-15); Basophils # 0.1 K/mm3 (0-0.2); Basophils % 1.5 % (0.1-2.0); Blood Urea Nitrogen 13 mg/dl (9-20); Calcium 8.7 mg/dl (8.4-10.2); Carbon Dioxide 28 mmol/L (22.0-30.0); Chloride 109 mmol/L (98-107); Creatinine Clearance Estimated 94 mL/min (50-200); Eosinophils # 0.4 K/mm3 (0.0-0.4); Eosinophils % 5.5 % (0.1-12.0); Estimated Glomerular Filt Rate 73 ml/min (>60); GFR (African American) 88 ML/MIN (>60); Glucose 91 mg/dl (74-100); Hematocrit 39.1 % (42.0-52.0); Lymphocytes % 38.5 % (10-50); Mean Corpuscular HGB Conc 33.2 g/dL (31.8-35.4); Mean Corpuscular Hemoglobin 30.4 pg (27.0-31.2); Mean Corpuscular Volume 91.6 fl (80-94); Mean Platelet Volume 8.6 fl (7.4-10.4); Monocytes # 0.6 K/mm3 (0.1-1.0); Monocytes % 7.9 % (1.7-9.3); Neutrophils # 3.6 K/mm3 (1.8-7.8); Neutrophils % 46.6 % (37.0-80.0); Platelet Count 212 K/mm3 (142-424); Potassium 3.6 mmoL/L (3.5-5.1); Red Blood Count 4.27 M/mm3 (4.60-6.20); Sodium 138 mmol/L (136-145); White Blood Count 7.7 K/mm3 (4.8-10.8)
--- NOTE | 2022-01-12 07:29 | P.CONPHA_ITS ---
[facility] Pharmacy VTE Monitoring - Patient Demographics Admission date: 01/12/22 Report Date: 01/12/22 Time: 07:29 Allergies/Adverse Reactions: Patient Allergies No Known Allergies Allergy (Verified 12/20/21 10:56) Height: 1.91 m Weight: 102.058 kg Patient Problems: Current Active Problems Unstable angina (Acute) CAP (community acquired pneumonia) (Acute) - VTE Risk Labs: VTE Related Lab Results Hgb 13.0 g/dL (14.1-18.0) L D 01/12/22 06:07 Hct 39.1 % (42.0-52.0) L 01/12/22 06:07 Plt Count 212 K/mm3 (142-424) 01/12/22 06:07 BUN 13 mg/dl (9-20) 01/12/22 06:07 Creatinine 1.00 mg/dl (0.66-1.25) 01/12/22 06:07 Estimated Creat Clear 94 mL/min (50-200) 01/12/22 06:07 Was VTE Risk Assessment Performed: Yes VTE Score: 3 VTE Risk Level: Low Risk Clinical Trial Participant: No - Prophylaxis VTE Prophylaxis Ordered?: Yes Types of VTE Prophylaxis: TEDS Knee High
--- NOTE | 2022-01-12 08:14 | HMH.HP ---
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 The pain does not resolve with rest and he came to the emergency department where the pain resolved with nitroglycerin and aspirin. In the ER he was also noted to have an interstitial infiltrate pattern on chest x-ray and was admitted to hospital for rule out [place]/chest pain work-up and community-acquired pneumonia on ceftriaxone and azithromycin. This morning he feels good, has no pain in his chest and his breathing is at baseline. [facility] History I have reviewed the patient's past medical history: Yes Medical History: Reports:: Atherosclerotic Heart Disease, Cancer (skin cancer), Carotid Stenosis, Congenital Heart Disease, Coronary Artery Disease, Gastroesophageal Reflux Disease(GERD), Hyperlipidemia, Hypertension, Lung Disease, Palpitations Denies:: Diabetes Mellitus Type 1, Diabetes Mellitus Type 2, Internal Pacemaker, MRSA, Seizures *Have you ever received a pneumonia vaccine?: Yes *Have you received a flu vaccine this season?: Yes Other Medical History: Reports: Arthritis, Cataracts. Denies: Blood Transfusion Reaction Laterality Cases: Bilateral: Carpal Tunnel Release Other Surgeries: Yes: Angioplasty (2016), Appendectomy, Cardiac Catheterization, Cholecystectomy, Colonoscopy, Coronary Stent, EGD, Hernia Repair, Skin Cancer Excision, Other. No: Pacemaker Amputation: No Fractures: Yes (left arm; both wrists) - *Social History Last grade of school completed: Some college Smoking Status: Current every day smoker Tobacco Type: cigarettes # Packs/Day (cigarettes): 1 Alcohol Intake: current Alcohol Intake Frequency:: holidays/special occasions only Substance Use Type: denies use *Occupational Status:: retired Housing: house Household Members: none *Travel in the last 8 weeks: None Family Hx:: Other Review of Systems - Review of Systems Review of systems:: pertinent systems reviewed and negative unless documented below Meds Home Medications Medication Instructions Recorded Confirmed Type aspirin 81 mg tablet,delayed 81 mg PO DAILY tab 09/06/17 01/11/22 History release Albuterol Sulfate [Ventolin HFA 2 puffs IH Q6HP PRN #1 inh 09/19/18 01/11/22 Rx Inhaler] Zolpidem Tartrate [Ambien 10mg 5 mg PO HS 12/19/18 01/11/22 History tablet] Trazodone HCl [Desyrel 50mg tablet] 50 mg PO HSP PRN 11/02/19 01/12/22 History Umeclidinium Brm/Vilanterol Tr 1 inh IH DAILY 11/03/19 01/11/22 History [Anoro Ellipta 62.5-25 Mcg INH] diclofenac potassium 50 mg tablet 50 mg PO BIDP PRN 11/12/19 01/12/22 History bisoproloL fumarate [Bisoprolol 5 mg PO DAILY 06/21/21 01/12/22 History Fumarate] tamsulosin 0.4 mg capsule 0.4 mg PO HS cap 06/21/21 01/11/22 History clonazepam 0.25 mg disintegrating 0.25 mg PO DAILYP PRN 12/20/21 01/12/22 History tablet hydrochlorothiazide 25 mg tablet 12.5 mg PO DAILY tab 12/20/21 01/11/22 History methocarbamoL [Methocarbamol] 750 mg PO NEEDED PRN 01/11/22 01/11/22 History Atorvastatin Calcium [Lipitor 80mg 80 mg PO HS 01/12/22 01/12/22 History Tab] Fluticasone Propionate [24 Hour 1 spray NS DAILY 01/12/22 01/12/22 History Allergy Relief] Hyoscyamine Sulfate 0.125 mg PO DAILYP PRN 01/12/22 01/12/22 History Allergies Allergy/AdvReac Type Severity Reaction Status Date / Time No Known Allergies Allergy Verified 12/20/21 10:56 Exam Vital signs and Labs for Last 24 Hours: Temp Pulse Resp BP Pulse Ox 98.1 F 51 L 17 147/65 H 97 01/12/22 07:53 01/12/22 07:53 01/12/22 07:53 01/12/22 07:5
--- NOTE | 2022-01-12 09:42 | HMH.CNCARD ---
History of Present Illness Consult date: 01/12/22 Requesting physician: Ehsan Travis Consult reason: chest pain, shortness of breath Chief complaint: SOA, CP, palpitations Additional Medical History:: 1. Hypertension 2. Hyperlipidemia 3. Tobacco use, greater than [id number] history A. Mild COPD 4. Coronary artery disease A. [facility], 2016, moderate disease, medical therapy. B. [facility] for [facility], 10/2019, [place] to RCA C. [facility], 01/12/2022 5. 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 The pain does not resolve with rest and he came to the emergency department where the pain resolved with nitroglycerin and aspirin. In the ER he was also noted to have an interstitial infiltrate pattern on chest x-ray and was admitted to hospital for rule out [place]/chest pain work-up and community-acquired pneumonia on ceftriaxone and azithromycin. This morning he feels good, has no pain in his chest and his breathing is at baseline. The above per Dr. Avina. Events confirmed by patient as noted above. He is very concerned about the palpitations and possible recurrent CAD since he continues to smoke. He lives alone and is anxious about going home without having his heart evaluated. EKG is sinus rhythm with no acute ST segment changes. Troponins are normal x2. Telemetry shows no significant arrhythmias. [facility] History Medical History: Reports:: Atherosclerotic Heart Disease, Cancer (skin cancer), Carotid Stenosis, Congenital Heart Disease, Coronary Artery Disease, Gastroesophageal Reflux Disease(GERD), Hyperlipidemia, Hypertension, Lung Disease, Palpitations Denies:: Diabetes Mellitus Type 1, Diabetes Mellitus Type 2, Internal Pacemaker, MRSA, Seizures *Have you ever received a pneumonia vaccine?: Yes *Have you received a flu vaccine this season?: Yes Other Medical History: Reports: Arthritis, Cataracts. Denies: Blood Transfusion Reaction Laterality Cases: Bilateral: Carpal Tunnel Release Other Surgeries: Yes: Angioplasty (2015), Appendectomy, Cardiac Catheterization, Cholecystectomy, Colonoscopy, Coronary Stent, EGD, Hernia Repair, Skin Cancer Excision, Other. No: Pacemaker Amputation: No Fractures: Yes (left arm; both wrists) - *Social History Last grade of school completed: Some college Smoking Status: Current every day smoker Tobacco Type: cigarettes # Packs/Day (cigarettes): 1 Alcohol Intake: current Alcohol Intake Frequency:: holidays/special occasions only Substance Use Type: denies use *Occupational Status:: retired Housing: house Household Members: none *Travel in the last 8 weeks: None Family Hx:: Other Meds Home Medications Medication Instructions Recorded Confirmed Type aspirin 81 mg tablet,delayed 81 mg PO DAILY tab 09/06/17 01/11/22 History release Zolpidem Tartrate [Ambien 10mg 5 mg PO HS 12/19/18 01/11/22 History tablet] Trazodone HCl [Desyrel 50mg tablet] 50 mg PO HSP PRN 11/02/19 01/12/22 History Umeclidinium Brm/Vilanterol Tr 1 inh IH DAILY 11/03/19 01/11/22 History [Anoro Ellipta 62.5-25 Mcg INH] diclofenac potassium 50 mg tablet 50 mg PO BIDP PRN 11/12/19 01/12/22 History bisoproloL fumarate [Bisoprolol 5 mg PO DAILY 06/21/21 01/12/22 History Fumarate] tamsulosin 0.4 mg capsule 0.4 mg PO HS cap 06/21/21 01/11/22 History clonazepam 0.25 mg disintegrating 0.25 mg PO DAILYP PRN 12/20/21 01/12/22 History tablet hydrochlorothiazide 25 mg tablet 12.5 mg PO DAILY tab 12/20/21 01/11/22 History methocarbamoL [Methocarbamol] 750 mg PO NEEDED PRN 01/11/22 01/11/22 History Albuterol Sulfate [Ventolin HFA 2 puffs IH Q6HP PRN 01/12/22 01/11/22 Histor
--- NOTE | 2022-01-12 10:36 | HMH.PHAINT ---
home medication list verified using list from outpatient pharmacy and cardiology office and PCP office
--- NOTE | 2022-01-12 14:36 | SUR.PHASEII ---
[facility] to beds [facility] and Franco pamphlet attached to the front of patients chart.
--- NOTE | 2022-01-12 14:42 | SUR.PHASEII ---
pt switched to Plavix due to previous intolerance of Brilinta.
[2022-01-12 14:44] LABS: CATHL Activated Clotting Time 383 SEC (74-125)
--- NOTE | 2022-01-12 15:11 | PC.NURSE ---
patient arrived back from cathlab. currently sitting up and asleep in bed.
--- NOTE | 2022-01-12 16:37 | HMH.DCSUM ---
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 The pain does not resolve with rest and he came to the emergency department where the pain resolved with nitroglycerin and aspirin. In the ER he was also noted to have an interstitial infiltrate pattern on chest x-ray and was admitted to hospital for rule out [place]/chest pain work-up and community-acquired pneumonia on ceftriaxone and azithromycin. This morning he feels good, has no pain in his chest and his breathing is at baseline. Hospital Course Hospital Course: Patient was admitted, cardiology was consulted and recommended left heart cath. Results are noted below: IMPRESSION Severe mid LAD disease as described above Severe disease in the proximal mid dominant right coronary Successful stenting of proximal and dominant right coronary severe disease reduced to 0% with 2 contiguous drug-eluting stents Normal ejection fraction Severely elevated LVEDP PLAN 1. Dual antiplatelet therapy 2. LDL less than 55 3. At this point I favor medical management for the mid LAD. The mid LAD could be stented but would almost certainly require a bifurcating stent as it would cross this large diagonal artery. The LAD at the mid segment is not large and does not supply a large amount of myocardium. Ideally medical management is most warranted however if angina becomes recalcitrant revascularization could proceed 4. It is important to treat diastolic dysfunction which is unlikely contributing factor to patient's angina 5. Cardiac rehabilitation 6. Avoidance of tobacco products 7. And may be reasonable to proceed with stress testing in 1 month to determine the degree of ischemia from the LAD Electronically signed by : Ehsan Travis MD 01/12/2022 14:52:30 Patient did well with post stent monitoring and felt good. Wished to be discharged home. Plan will be to adjust medications as per cardiology recommendations to help with afterload reduction. He will follow-up with a basic metabolic panel in 1 week and appointment with cardiology in 2 weeks. Objective Vital signs: Temp Pulse Resp BP Pulse Ox 97.7 F 91 H 18 160/80 H 97 01/12/22 11:14 01/12/22 14:40 01/12/22 14:40 01/12/22 14:40 01/12/22 14:40 no acute distress - *Routine HEENT Exam Head: Present: normocephalic Eye: Present: EOMI, PERRL ENT: Present: mucous membranes moist - *Routine Neck Exam Present: supple - *Routine Respiratory Exam Present: CTA bilaterally - *Routine Cardiovascular Exam Present: RRR - *Routine Abdominal Exam Present: soft, normoactive bowel sounds. Absent: tenderness - *Routine Extremities Exam Absent: cyanosis, clubbing, edema - *Routine Skin Exam Present: warm. Absent: rash - Detailed Eye Exam Eyelids: Bilateral normal inspection Results Labs on day of discharge: Labs from last 24 hours 01/12/22 01/12/22 01/12/22 14:01 06:07 06:07 WBC 7.7 RBC 4.27 L Hgb 13.0 L D Hct 39.1 L MCV 91.6 MCH 30.4 MCHC 33.2 RDW 13.0 Plt Count 212 MPV 8.6 Neut % (Auto) 46.6 Lymph % (Auto) 38.5 [place] % (Auto) 7.9 Eos % (Auto) 5.5 Baso % (Auto) 1.5 Neut # (Auto) 3.6 Lymph # (Auto) 3.0 [place] # (Auto) 0.6 Eos # (Auto) 0.4 Baso # (Auto) 0.1 Activated Clotting Time 383 H* Sodium 138 Potassium 3.6 Chloride 109 H Carbon Dioxide 28 Anion Gap 4.6 L BUN 13 Creatinine 1.00 Estimated Creat Clear 94 Estimated GFR 73 Est GFR ( Amer) 88 D Glucose 91 Calcium 8.7 Trop
--- NOTE | 2022-01-13 14:17 | HMH.PHACLD ---
Bobby Maddox has received discharge medication counseling on the following medications: PATIENT DISCHARGED ON BRILINTA 90 MG BID, ATORVASTATIN 80 MG HS, ASPIRIN 81 MG DAILY, BISOPROLOL 5 MG DAILY, AND IRBESARTAN 75 MG DAILY.
--- NOTE | 2022-01-15 13:38 | CARE MANAGER ---
Spoke with patient in post-discharge phone interview, patient was confused on the diuretics he was supposed to be taking, I read him the cardiology note and he voiced understanding. He has a follow-up appointment and knows when it is and that he needs bloodwork prior.
== END 2022-01-12 18:54 | disposition home or self-care (01) ==
LOC: ER 17:04 → 2ND 21:26
PROVIDERS: Internal Medicine; Admitting Provider Internal Medicine Adolescent Medicine; Emergency Provider Emergency Medicine; PCP Internal Medicine Adolescent Medicine; Visit Provider Internal Medicine Adolescent Medicine
DX: I25.110 Atherosclerotic heart disease of native coronary artery with unstable angina pectoris (principal); Z79.899 Other long term (current) drug therapy; Z95.5 Presence of coronary angioplasty implant and graft; I11.9 Hypertensive heart disease without heart failure; F17.210 Nicotine dependence, cigarettes, uncomplicated; R07.9 Chest pain, unspecified; Z20.822 Contact with and (suspected) exposure to COVID-19
CPT/HCPCS: G0378; 36415; 71045; 80048; 84484; 85025; 85347; 92928; 93005; 93458; 99152; 99153; 99285; C1725; C1769; C1876; C9600; C9803; J0456; J0696; J1644; Q9967; U0003; U0005

== ENCOUNTER 2022-01-16 13:47 | Observation (INO) | payer MEDICARE, SELFPAY ==
[2022-01-16] VITALS (26 sets, daily range): BP systolic 115–179; BP diastolic 44–91; PULSE 44–63; RESP 12–20; TEMP 36.7–36.9; O2SAT 94–99; BMI 26.4; BMI 38.9
--- NOTE | 2022-01-16 | IR_ITS ---
APPROVED REPORT Patient Location: Emergent Unix System Administrator: BUDDY Da Silva RT (R) PROCEDURES 1. PTCA/stent to the left anterior descending INDICATION 1. Unstable angina, 2. Coronary artery disease SCAI INDICATION Patient is a 76-year-old white male with known coronary artery disease who presented this past Saturday and underwent stenting of the right coronary artery. At that time he also had a severe stenosis in the left anterior descending. Medications were tried prior to intervention on that vessel but he has subsequently failed them. He also had dynamic changes on the EKG which were not present when he first came in, developed, and then resolved again. Stuttering chest pain despite nitroglycerin. Secondary to this referred for intervention to the left anterior descending Informed consent was obtained prior to the procedure. COMPLICATIONS None Estimated Blood Loss: Less than 10 mls TECHNIQUE One percent lidocaine was used to anesthetize the right groin. The right femoral artery was accessed via the Seldinger technique. 6 Macanese sheath was used. Catheter used for the procedure was an EBU 3.5 guide catheter. ANGIOGRAPHIC RESULTS The left main artery Angiographically normal The left anterior descending artery Complex 80% stenosis at the level of a moderate size diagonal branch The circumflex artery Mild luminal irregularities The right coronary artery Previously evaluated on the study on Saturday The MEJIA ventriculogram reveals Not performed I started with an EBU 3.5 guide catheter. Angiography of the left coronary system was performed. Best view that showed good focal stenosis in the left anterior descending was the LUIS ANTONIO cranial. Wired with a Choice PT wire. Primary stenting was done first with a 2.75 resolute drug-eluting stent. There was some plaque shift just distal and therefore I placed 1 other stent. This was also a 2.75. The stents did cross the diagonal branch but there was no pinching of the diagonal branch. There was excellent flow into the diagonal branch as well as the distal left anterior descending when the procedure was complete Right, retrograde femoral arteriogram performed. Sheath placed in the right common femoral artery. Secondary to this an Angio-Seal device was deployed without difficulty IMPRESSION 1. Critical stenosis noted in the mid left anterior descending 2. Successful angioplasty and stenting of the mid left anterior descending with resolute Clay drug-eluting stents resulting in 0% residual stenosis 3. Successful placement of an Angio-Seal device in the right common femoral artery PLAN 1. Patient has been having significant shortness of breath on Brilinta. We will switch to Plavix. 600 mg x 1 and then 75 mg daily. Aspirin daily. Aggressive risk factor modification. Follow-up in cardiology clinic in 1 to 2 weeks for further evaluation and treatment Electronically signed by : Juancho Matute MD 01/16/2022 18:01:10
--- NOTE | 2022-01-16 13:55 | ECG_ITS ---
APPROVED REPORT Exam: Resting ECG HR:59 bpm ECG Measurements Heart Rate 59 AXES ID 161 P 56 QRSd 95 QRS 64 QT 431 T 40 QTc 430 Conclusion SINUS BRADYCARDIA BORDERLINE ECG UNCONFIRMED REPORT Electronically signed by : Sawyer Avina MD 01/17/2022 21:03:39
--- NOTE | 2022-01-16 14:03 | HMH.EDGENADL ---
ED Disposition Clinical Impression: Angina pectoris Disposition: Still a Patient Condition on Discharge: Good - Critical Care Critical Care Time: No Attestation: On 01/16/22, the high probability of a clinically significant, sudden or life threatening deterioration of the following system(s) required my full and direct attention, intervention and personal management. The time I documented below is in addition to time spent performing reported procedures but includes the following listed in this critical care notation. Medical Decision Making - Medical Records Medical records reviewed: Yes: I reviewed the patient's medical records. MR Comment: Reviewed cardiac cath report, see below. - Manny Inquiry Pt receiving controlled substance: No Vital Signs: 01/16/22 13:48 01/16/22 14:09 01/16/22 14:31 Temperature 98.4 F Temperature Source Oral Pulse Rate 54 L 53 L Pulse Rate [Radial] 60 Respiratory Rate 20 18 12 Blood Pressure 141/58 H 141/58 H Blood Pressure [Right Arm] 179/74 H Blood Pressure Mean 102 Blood Pressure Mean [Right Arm] 109 Blood Pressure Source [Right Arm] Automatic Cuff Blood Pressure Position [Right Arm] Sitting 02 Sat by Pulse Oximetry 99 97 98 Oxygen Delivery Method Room Air Room Air 01/16/22 15:00 01/16/22 15:31 01/16/22 16:00 Temperature Temperature Source Pulse Rate 52 L 59 L 55 L Pulse Rate [Radial] Respiratory Rate 12 18 18 Blood Pressure 137/66 160/76 H 146/70 H Blood Pressure [Right Arm] Blood Pressure Mean 98 104 96 Blood Pressure Mean [Right Arm] Blood Pressure Source [Right Arm] Blood Pressure Position [Right Arm] 02 Sat by Pulse Oximetry 96 97 98 Oxygen Delivery Method 01/16/22 16:31 Temperature Temperature Source Pulse Rate 51 L Pulse Rate [Radial] Respiratory Rate 12 Blood Pressure 137/70 Blood Pressure [Right Arm] Blood Pressure Mean 92 Blood Pressure Mean [Right Arm] Blood Pressure Source [Right Arm] Blood Pressure Position [Right Arm] 02 Sat by Pulse Oximetry 96 Oxygen Delivery Method - Lab Data Lab Results 01/16/22 14:00: WBC 10.7, RBC 4.82, Hgb 14.7, Hct 44.4, MCV 92.2, MCH 30.5, MCHC 33.1, RDW 12.8, Plt Count 275, MPV 8.5, Neut % (Auto) 64.2, Lymph % (Auto) 24.0, [place] % (Auto) 6.9, Eos % (Auto) 3.2, Baso % (Auto) 1.6, Neut # (Auto) 6.9, Lymph # (Auto) 2.6, [place] # (Auto) 0.7, Eos # (Auto) 0.4, Baso # (Auto) 0.2 01/16/22 14:00: Sodium 139, Potassium 3.8, Chloride 104, Carbon Dioxide 31 H, Anion Gap 7.8, BUN 18, Creatinine 1.40 H, Estimated Creat Clear 63, Estimated GFR 50 L, Est GFR ( Amer) 60, Glucose 118 H, Calcium 9.5, Troponin I 0.08 H 01/16/22 15:19: SARS-CoV-2 (PCR) Not detected, Influenza A Untype (PCR) Not detected, Influenza Type B (PCR) Not detected Result diagrams: 01/16/22 14:00 01/16/22 14:00 Orders (Tests/Meds): ED MEDICATIONS Generic Name Dose Route Start Last Admin Trade Name Freq PRN Reason Stop Dose Admin Acetaminophen 650 mg 01/16/22 18:12 Acetaminophen 325mg Tab PO 02/15/22 18:11 Q4HP PRN Fever or Mild Pain Aspirin 81 mg 01/17/22 09:00 Aspirin Ec 81mg Tablet PO 02/16/22 08:59 DAILY [facility] Clopidogrel Bisulfate 75 mg 01/17/22 09:00 Clopidogrel 75mg Tab PO 02/16/22 08:59 DAILY [facility] Docusate Sodium 100 mg 01/17/22 09:00 Docusate Sodium 100 Mg Capsule PO 02/16/22 08:59 DAILY [facility] Fentanyl Citrate 25 mcg 01/16/22 17:09 Fentanyl 100mcg/2ml Vial IV 01/17/22 17:09 Q3MINP PRN Moderate to Severe Pain Fentanyl Citrate 50 mcg 01/16/22 17:09 01/16/22 17:16 Fentanyl 100mcg/2ml Vial IV 01/17/22 17:09 75 mcg Q3MINP PRN Administration Moderate to Severe Pain Fentanyl Citrate 25 mcg 01/16/22 17:09 Fentanyl 250mcg/5ml Vial IV 01/17/22 17:09 Q3MINP PRN Moderate to Severe Pain Fentanyl Citrate 50 mcg 01/16/22 17:09 Fentanyl 250mcg/5ml Vial IV 01/17/22 17:09 Q3MINP PRN Mode
--- NOTE | 2022-01-16 14:09 | PC.NURSE ---
DR JACOBSON AND TRINITY GRIJALVA FROM CARDIOLOGY IN WITH PT
[2022-01-16 14:13] LABS: Basophils # 0.2 K/mm3 (0-0.2); Basophils % 1.6 % (0.1-2.0); Eosinophils # 0.4 K/mm3 (0.0-0.4); Eosinophils % 3.2 % (0.1-12.0); Hematocrit 44.4 % (42.0-52.0); Hemoglobin 14.7 g/dL (14.1-18.0); Lymphocytes # 2.6 K/mm3 (0.7-4.5); Mean Corpuscular HGB Conc 33.1 g/dL (31.8-35.4); Mean Corpuscular Hemoglobin 30.5 pg (27.0-31.2); Mean Corpuscular Volume 92.2 fl (80-94); Mean Platelet Volume 8.5 fl (7.4-10.4); Monocytes # 0.7 K/mm3 (0.1-1.0); Monocytes % 6.9 % (1.7-9.3); Neutrophils # 6.9 K/mm3 (1.8-7.8); Neutrophils % 64.2 % (37.0-80.0); Platelet Count 275 K/mm3 (142-424); Red Blood Count 4.82 M/mm3 (4.60-6.20); Red Cell Distribution Width 12.8 % (11.5-17.5); White Blood Count 10.7 K/mm3 (4.8-10.8)
--- NOTE | 2022-01-16 14:15 | PC.NURSE ---
Teodoro BLACK, GEOTECHNICAL FIELD TECHNICIAN AT BEDSIDE TO EVALUATE PT
[2022-01-16 14:22] LABS: Anion Gap 7.8 mEq/L (5-15); Blood Urea Nitrogen 18 mg/dl (9-20); Calcium 9.5 mg/dl (8.4-10.2); Carbon Dioxide 31 mmol/L (22.0-30.0); Chloride 104 mmol/L (98-107); Creatinine Clearance Estimated 63 mL/min (50-200); Estimated Glomerular Filt Rate 50 ml/min (>60); GFR (African American) 60 ML/MIN (>60); Glucose 118 mg/dl (74-100); Potassium 3.8 mmoL/L (3.5-5.1); Sodium 139 mmol/L (136-145)
--- NOTE | 2022-01-16 14:33 | XR_ITS ---
FINAL REPORT CLINICAL HISTORY: chest pain COMPARISON: 01/11/2022 FINDINGS: SINGLE-VIEW CHEST The heart size is normal. The mediastinum is normal. The lungs are clear. There is no pneumothorax. IMPRESSION: No acute cardiopulmonary process. Reviewed, Interpreted and Dictated by Vito Chase III, MD Transcribed by Rosetta Ashford Authenticated and [facility]
[2022-01-16 14:34] LABS: Troponin I 0.08 ng/ml (0.00-0.034)
--- NOTE | 2022-01-16 14:35 | PC.NURSE ---
ROUNDED ON PT AT THIS TIME, NO NEEDS VOICED. CALL LIGHT WITHIN REACH
--- NOTE | 2022-01-16 14:38 | PC.NURSE ---
XR AT BEDSIDE
--- NOTE | 2022-01-16 14:43 | HMH.CNCARD ---
History of Present Illness Consult date: 01/16/22 Requesting physician: Basil Ayers Consult reason: chest pain Chief complaint: chest heaviness History of present illness: This is a 76-year-old white gentleman who presented to the emergency department with complaints of chest pain. The patient states he woke up this morning with substernal chest pressure that was associated with shortness of breath and a couple episodes of diaphoresis. The patient states that this did not radiate. He rates it an 8 out of 10 in intensity. The patient states that sometimes this is worse with exertion and is increases with taking a deep breath. The patient went to see his primary care provider today and had an EKG which showed some new changes in leads V1, V2 and V3. The patient was advised to come to the emergency department after the EKG was reviewed in the cardiology clinic because of the EKG changes. Once in the emergency department his EKG was back to baseline but he continued to have chest pressure. The patient had recent cardiac catheterization on Saturday where he had 2 stents placed to his right coronary artery and he had severe disease to his LAD which would require bifurcating stents. This was left alone for medical management and only to be stented if the patient was having recalcitrant angina. The patient has presented to the emergency department today with recalcitrant angina he states that it continues to worsen. He is very anxious and states that he feels as if something is wrong and he is very anxious about this right now. He denies any edema. He denies any fever, chills, nausea, vomiting, diarrhea, PND or orthopnea. [facility] History I have reviewed the patient's past medical history: Yes Medical History: Reports:: Atherosclerotic Heart Disease, Cancer (skin cancer), Carotid Stenosis, Congenital Heart Disease, Coronary Artery Disease, Gastroesophageal Reflux Disease(GERD), Hyperlipidemia, Hypertension, Lung Disease, Palpitations Denies:: Diabetes Mellitus Type 1, Diabetes Mellitus Type 2, Internal Pacemaker, MRSA, Seizures *Have you ever received a pneumonia vaccine?: Yes *Have you received a flu vaccine this season?: Yes Other Medical History: Reports: Arthritis, Cataracts. Denies: Blood Transfusion Reaction Laterality Cases: Bilateral: Carpal Tunnel Release Other Surgeries: Yes: Angioplasty (2016), Appendectomy, Cardiac Catheterization, Cholecystectomy, Colonoscopy, Coronary Stent, EGD, Hernia Repair, Skin Cancer Excision, Other. No: Pacemaker Amputation: No Fractures: Yes (left arm; both wrists) - *Social History Smoking Status: Current every day smoker Tobacco Type: cigarettes # Packs/Day (cigarettes): 1 Alcohol Intake: current Alcohol Intake Frequency:: holidays/special occasions only Substance Use Type: denies use *Occupational Status:: retired Housing: house Household Members: none *Travel in the last 8 weeks: None Family Hx:: Other Meds Home Medications Medication Instructions Recorded Confirmed Type aspirin 81 mg tablet,delayed 81 mg PO DAILY tab 09/06/17 01/16/22 History release Trazodone HCl [Desyrel 50mg tablet] 50 mg PO HSP PRN 11/02/19 01/16/22 History bisoproloL fumarate [Bisoprolol 5 mg PO DAILY 06/21/21 01/16/22 History Fumarate] tamsulosin 0.4 mg capsule 0.4 mg PO HS cap 06/21/21 01/16/22 History clonazepam 0.25 mg disintegrating 0.25 mg PO TIDP PRN 12/20/21 01/16/22 History tablet methocarbamoL [Methocarbamol] 750 mg PO NEEDED PRN 01/11/22 01/16/22 History Albuterol Sulfate [Ventolin HFA 2 puffs IH Q6HP PRN 01/12/22 01/16/22 History Inhaler] Atorvastatin Calcium [Lipitor 80mg 80 mg PO HS 01/12/22 01/16/22 History Tab] Fluticasone Propionate [24 Hour 1 spray NS DAILY 01/12/22 01/16/22 History Allergy Relief] Hyoscyamine Sulfate 0.125 mg PO DAILYP PRN 01/12/22 01/16/22 History Furosemide [Lasix 40mg tablet] 40 mg PO DAILY 01/16/22 01/16/22 History Irbesartan [Avapro 75mg 75 mg PO KURT
--- NOTE | 2022-01-16 14:46 | PC.NURSE ---
WARM BLANKET PROVIDED AT THIS TIME
--- NOTE | 2022-01-16 15:05 | PC.NURSE ---
1500 Teodoro BLACK BANK OPERATIONS OFFICER CALLED TO INFORM STAFF PT WILL BE TAKEN FOR HEART CATH IN ABOUT 1 HOUR [address] PANDA FOR ADMISSION
--- NOTE | 2022-01-16 15:15 | PC.NURSE ---
1515 Teodoro BLACK NP AT BEDSIDE TO DISCUSS POC WITH PT AND FAMILY.
--- NOTE | 2022-01-16 15:16 | PC.NURSE ---
Talked with [place] in wharf laborer who states they are going to cath the pt
--- NOTE | 2022-01-16 15:20 | PC.NURSE ---
1520 CONSENT SIGNED FOR HEART CATH AT THIS TIME
--- NOTE | 2022-01-16 15:20 | PC.NURSE ---
pt updated on poc and unhooked to go the bathroom
--- NOTE | 2022-01-16 15:20 | PC.NURSE ---
pt returned to room and instructed to get undressed and get into a hospital gown and hooked to the monitor
--- NOTE | 2022-01-16 15:21 | PC.NURSE ---
Maggie Walton at bs
[2022-01-16 15:23] LABS: Coronavirus 19, PCR Not Detected (NotDetected); Influenza A, PCR Not Detected (NotDetected); Influenza B, PCR Not Detected (NotDetected)
--- NOTE | 2022-01-16 15:48 | PC.NURSE ---
Talked with family and pt about his past cath last week. PT denies needing anything at this time. Educated pt about upcoming cath
--- NOTE | 2022-01-16 15:51 | PC.NURSE ---
DR. PANDA UPDATED AT THIS TIME ON PT STATUS, WILL BE HAVING HEART CATH. NOTIFY IF PT NEEDS ADMISSION
--- NOTE | 2022-01-16 16:15 | PC.NURSE ---
PT UPDATED AT THIS TIME, TALKING WITH FAMILY. DENIES NEEDS AT THIS TIME
--- NOTE | 2022-01-16 16:40 | PC.NURSE ---
HS updated on poc with admission, no need at this time until after cath report
--- NOTE | 2022-01-16 16:55 | PC.NURSE ---
[place] from cardiac cath technician here to take pt
--- NOTE | 2022-01-16 16:56 | PC.NURSE ---
PT TO HOUSE BUILDER AT THIS TIME. REPORT GIVEN TO Kay JOLLEY RN
--- NOTE | 2022-01-16 18:25 | HMH.HP ---
*Admission Date: 01/16/22 *Chief complaint: chest pain, soa *History of present illness: 76 year old male with h/o HTN, HLD, tobacco use and known CAD who underwent LHC with 2 stents to RCA last week presented to PCP office with chest pain and exertional shortness of breath. Patient reported feeling well until today. He has been resting since discharge with little activity until this morning. EKG showed some ST changes in V1-V3, cardiology noted and patient was sent to ED for further evaluation. In the ED, troponin 0.08. LHC last week also revealed bifurcating lesion in LAD which was treated medically. Given his recurrent angina and elevated trop he was taken back to the labeling specialist with successful stenting of LAD with 2 DAVIS. Admitting patient overnight for observation with plan to discharge home in the morning. [facility] History I have reviewed the patient's past medical history: Yes Medical History: Reports:: Atherosclerotic Heart Disease, Cancer (skin cancer), Carotid Stenosis, Congenital Heart Disease, Coronary Artery Disease, Gastroesophageal Reflux Disease(GERD), Hyperlipidemia, Hypertension, Lung Disease, Palpitations Denies:: Diabetes Mellitus Type 1, Diabetes Mellitus Type 2, Internal Pacemaker, MRSA, Seizures *Have you ever received a pneumonia vaccine?: Yes *Have you received a flu vaccine this season?: Yes Other Medical History: Reports: Arthritis, Cataracts. Denies: Blood Transfusion Reaction Laterality Cases: Bilateral: Carpal Tunnel Release Other Surgeries: Yes: Angioplasty (2016), Appendectomy, Cardiac Catheterization, Cholecystectomy, Colonoscopy, Coronary Stent, EGD, Hernia Repair, Skin Cancer Excision, Other. No: Pacemaker Amputation: No Fractures: Yes (left arm; both wrists) - *Social History Smoking Status: Current every day smoker Tobacco Type: cigarettes # Packs/Day (cigarettes): 1 Alcohol Intake: current Alcohol Intake Frequency:: holidays/special occasions only Substance Use Type: denies use *Occupational Status:: retired Housing: house Household Members: none *Travel in the last 8 weeks: None Family Hx:: Other Review of Systems - Review of Systems Review of systems:: pertinent systems reviewed and negative unless documented below - Constitutional Reports malaise - *Cardiovascular Reports chest pain, Reports chest pain with activity, Reports shortness of breath - *Respiratory Reports cough Meds Home Medications Medication Instructions Recorded Confirmed Type aspirin 81 mg tablet,delayed 81 mg PO DAILY tab 09/06/17 01/16/22 History release Trazodone HCl [Desyrel 50mg tablet] 50 mg PO HSP PRN 11/02/19 01/16/22 History bisoproloL fumarate [Bisoprolol 5 mg PO DAILY 06/21/21 01/16/22 History Fumarate] tamsulosin 0.4 mg capsule 0.4 mg PO HS cap 06/21/21 01/16/22 History clonazepam 0.25 mg disintegrating 0.25 mg PO TIDP PRN 12/20/21 01/16/22 History tablet methocarbamoL [Methocarbamol] 750 mg PO NEEDED PRN 01/11/22 01/16/22 History Albuterol Sulfate [Ventolin HFA 2 puffs IH Q6HP PRN 01/12/22 01/16/22 History Inhaler] Atorvastatin Calcium [Lipitor 80mg 80 mg PO HS 01/12/22 01/16/22 History Tab] Fluticasone Propionate [24 Hour 1 spray NS DAILY 01/12/22 01/16/22 History Allergy Relief] Hyoscyamine Sulfate 0.125 mg PO DAILYP PRN 01/12/22 01/16/22 History Furosemide [Lasix 40mg tablet] 40 mg PO DAILY 01/16/22 01/16/22 History Irbesartan [Avapro 75mg 75 mg PO DAILY 01/16/22 01/16/22 History tablet] Spironolactone [Aldactone 25mg 25 mg PO DAILY 01/16/22 01/16/22 History Tab] Zolpidem Tartrate [Ambien 5mg 5 mg PO HS 01/16/22 01/16/22 History tablet] Allergies Allergy/AdvReac Type Severity Reaction Status Date / Time ticagrelor [From Brilinta] Allergy Verified 01/16/22 13:58 Exam Vital signs and Labs for Last 24 Hours: Temp Pulse Resp BP Pulse Ox 98.0 F 51 L 20 139/75 95 01/16/22 16:56 01/16/22 17:50 01/16/22 17:50 01/16/22 17:50 08
[2022-01-17] VITALS (7 sets, daily range): BP systolic 106–118; BP diastolic 43–71; PULSE 40–57; RESP 14–17; TEMP 36.8–37.3; O2SAT 93–97
--- NOTE | 2022-01-17 05:25 | PC.NURSE ---
Pt a + o x4. Pt has not voiced any complaints to staff. Cath site dsg to right femoral is CDI. Pt tolerating RA well with sats >90%. Pt has been sinus sil with freq PAVs t/o shift. HR has stayed between 35-55 for majority of shift. MD aware. Call light within reach.
[2022-01-17 06:16] LABS: Chloride 106 mmol/L (98-107); Sodium 136 mmol/L (136-145)
[2022-01-17 06:17] LABS: Potassium 3.5 mmoL/L (3.5-5.1)
[2022-01-17 06:19] LABS: Anion Gap 6.5 mEq/L (5-15); Blood Urea Nitrogen 17 mg/dl (9-20); Carbon Dioxide 27 mmol/L (22.0-30.0); Creatinine Clearance Estimated 83 mL/min (50-200); Estimated Glomerular Filt Rate 65 ml/min (>60); GFR (African American) 79 ML/MIN (>60)
[2022-01-17 06:20] LABS: Calcium 8.8 mg/dl (8.4-10.2); Glucose 121 mg/dl (74-100)
[2022-01-17 06:21] LABS: Basophils # 0.1 K/mm3 (0-0.2); Basophils % 1.1 % (0.1-2.0); Eosinophils # 0.4 K/mm3 (0.0-0.4); Eosinophils % 4.1 % (0.1-12.0); Hematocrit 37.8 % (42.0-52.0); Lymphocytes # 2.3 K/mm3 (0.7-4.5); Lymphocytes % 26.3 % (10-50); Mean Corpuscular HGB Conc 33.6 g/dL (31.8-35.4); Mean Corpuscular Hemoglobin 30.6 pg (27.0-31.2); Mean Corpuscular Volume 91.1 fl (80-94); Mean Platelet Volume 8.7 fl (7.4-10.4); Monocytes # 0.8 K/mm3 (0.1-1.0); Monocytes % 9.6 % (1.7-9.3); Neutrophils # 5.1 K/mm3 (1.8-7.8); Neutrophils % 58.9 % (37.0-80.0); Platelet Count 242 K/mm3 (142-424); Red Blood Count 4.15 M/mm3 (4.60-6.20); Red Cell Distribution Width 12.9 % (11.5-17.5); White Blood Count 8.6 K/mm3 (4.8-10.8)
[2022-01-17 06:28] LABS: Hemoglobin 12.7 g/dL (14.1-18.0)
--- NOTE | 2022-01-17 07:19 | P.CONPHA_ITS ---
[facility] Pharmacy VTE Monitoring - Patient Demographics Admission date: 01/16/22 Report Date: 01/17/22 Time: 07:19 Allergies/Adverse Reactions: Patient Allergies ticagrelor [From Brilinta] Allergy (Verified 01/16/22 13:58) Height: 1.6 m Weight: 99.592 kg Patient Problems: Current Active Problems Tobacco abuse (Chronic) Unstable angina (Acute) COPD (chronic obstructive pulmonary disease) (Chronic) Angina pectoris (Acute) Elevated troponin (Acute) Hyperlipidemia (Chronic) Hypertensive heart disease without heart failure (Chronic) - VTE Risk Labs: VTE Related Lab Results Hgb 12.7 g/dL (14.1-18.0) L D 01/17/22 05:37 Hct 37.8 % (42.0-52.0) L 01/17/22 05:37 Plt Count 242 K/mm3 (142-424) 01/17/22 05:37 BUN 17 mg/dl (9-20) 01/17/22 05:37 Creatinine 1.10 mg/dl (0.66-1.25) D 01/17/22 05:37 Estimated Creat Clear 83 mL/min (50-200) 01/17/22 05:37 - Prophylaxis VTE Prophylaxis Ordered?: Yes Types of VTE Prophylaxis: TEDS Knee High Location of Applied Device: Bilateral Lower Extremeties
--- NOTE | 2022-01-17 07:27 | HMH.PHAINT ---
MEDICATION RECONCILIATION COMPLETED ON PATIENT USING EXTERNAL FILL HISTORY FROM PHARMACY AND LIST FROM PREVIOUS ADMISSION. -FRANKY SNEEDD
--- NOTE | 2022-01-17 08:27 | HMH.DCSUM ---
General - General Admission date:: 01/16/22 Discharge date: 01/17/22 HPI HPI: 76 year old male with h/o HTN, HLD, tobacco use and known CAD who underwent LHC with 2 stents to RCA last week presented to PCP office with chest pain and exertional shortness of breath. Patient reported feeling well until today. He has been resting since discharge with little activity until this morning. EKG showed some ST changes in V1-V3, cardiology noted and patient was sent to ED for further evaluation. In the ED, troponin 0.08. LHC last week also revealed bifurcating lesion in LAD which was treated medically. Given his recurrent angina and elevated trop he was taken back to the lab rn with successful stenting of LAD with 2 DAVIS. Admitting patient overnight for observation with plan to discharge home in the morning. Hospital Course Hospital Course: Patient was admitted, evaluated by cardiology and taken to the [facility] where the LAD was stented. Patient did very nicely with the procedure and he recovered uneventfully. Overnight has had no angina, has felt well, has tolerated his dual antiplatelet therapy without problems. Of note, patient has significant allergic reactions to Brilinta and we will send him home on aspirin, Plavix, high-dose statin and his blood pressure control. He has been an intermittent smoker but vows to completely quit. He will follow-up with cardiology next week and with me in 2 weeks. Objective Vital signs: Temp Pulse Resp BP Pulse Ox 99.1 F 57 L 17 118/54 L 97 01/17/22 08:00 01/17/22 08:00 01/17/22 08:00 01/17/22 08:00 01/17/22 08:00 no acute distress - *Routine HEENT Exam Head: Present: normocephalic Eye: Present: EOMI, PERRL ENT: Present: mucous membranes moist - *Routine Neck Exam Present: supple - *Routine Respiratory Exam Present: CTA bilaterally - *Routine Cardiovascular Exam Present: RRR - *Routine Abdominal Exam Present: soft, normoactive bowel sounds. Absent: tenderness - *Routine Extremities Exam Absent: cyanosis, clubbing, edema - *Routine Skin Exam Present: warm. Absent: rash - Detailed Eye Exam Eyelids: Bilateral normal inspection Results Labs on day of discharge: Labs from last 24 hours 01/17/22 01/17/22 01/16/22 05:37 05:37 15:19 WBC 8.6 RBC 4.15 L Hgb 12.7 L D Hct 37.8 L MCV 91.1 MCH 30.6 MCHC 33.6 RDW 12.9 Plt Count 242 MPV 8.7 Neut % (Auto) 58.9 Lymph % (Auto) 26.3 [place] % (Auto) 9.6 H Eos % (Auto) 4.1 Baso % (Auto) 1.1 Neut # (Auto) 5.1 Lymph # (Auto) 2.3 [place] # (Auto) 0.8 Eos # (Auto) 0.4 Baso # (Auto) 0.1 Sodium 136 Potassium 3.5 Chloride 106 Carbon Dioxide 27 Anion Gap 6.5 BUN 17 Creatinine 1.10 D Estimated Creat Clear 83 Estimated GFR 65 Est GFR ( Amer) 79 D Glucose 121 H Calcium 8.8 Troponin I SARS-CoV-2 (PCR) Not detected Influenza A Untype (PCR) Not detected Influenza Type B (PCR) Not detected 01/16/22 01/16/22 14:00 14:00 WBC 10.7 RBC 4.82 Hgb 14.7 Hct 44.4 MCV 92.2 MCH 30.5 MCHC 33.1 RDW 12.8 Plt Count 275 MPV 8.5 Neut % (Auto) 64.2 Lymph % (Auto) 24.0 [place] % (Auto) 6.9 Eos % (Auto) 3.2 Baso % (Auto) 1.6 Neut # (Auto) 6.9 Lymph # (Auto) 2.6 [place] # (Auto) 0.7 Eos # (Auto) 0.4 Baso # (Auto) 0.2 Sodium 139 Potassium 3.8 Chloride 104 Carbon Dioxide 31 H Anion Gap 7.8 BUN 18 Creatinine 1.40 H Estimated Creat Clear 63 Estimated GFR 50 L Est GFR ( Amer) 60 Glucose 118 H Calcium 9.5 Troponin I 0.08 H SARS-CoV-2 (PCR) Influenza A Untype (PCR) Influenza Type B (PCR) DS: Diagnosis - Discharge Diagnosis (1) Elevated troponin Status: Acute (2) Unstable angina Status: Acute (3) Hyperlipidemia Status: Chronic (4) Hypertensive heart disease without heart failure Status: Chron
--- NOTE | 2022-01-17 08:44 | HMH.PNCARD ---
Subjective Date: 01/17/22 Time: 08:10 Principal diagnosis: CAD, elevated troponin Interval history: This is a 76-year-old white gentleman who presented to the emergency department complaints of chest pain. The patient had an elevated troponin 0.08 and was having symptoms consistent with unstable angina. The patient was taken back to the cardiac catheterization laboratory yesterday and had 2 stents placed to his LAD for critical LAD disease without difficulty. The patient tolerated the procedure well. He will remain on Plavix and aspirin for dual antiplatelet therapy. This morning he denies any chest pain or pressure. He denies any shortness of breath or edema. He denies any fever, chills, nausea, vomiting, diarrhea, PND or orthopnea. He states that he is feeling much better and is ready to be discharged home today. Exam Vital signs and Labs for Last 24 Hours: Temp Pulse Resp BP Pulse Ox 99.1 F 57 L 17 118/54 L 97 01/17/22 08:00 01/17/22 08:00 01/17/22 08:00 01/17/22 08:00 01/17/22 08:00 Laboratory Results - last 24 hr 01/16/22 14:00: WBC 10.7, RBC 4.82, Hgb 14.7, Hct 44.4, MCV 92.2, MCH 30.5, MCHC 33.1, RDW 12.8, Plt Count 275, MPV 8.5, Neut % (Auto) 64.2, Lymph % (Auto) 24.0, [place] % (Auto) 6.9, Eos % (Auto) 3.2, Baso % (Auto) 1.6, Neut # (Auto) 6.9, Lymph # (Auto) 2.6, [place] # (Auto) 0.7, Eos # (Auto) 0.4, Baso # (Auto) 0.2 01/16/22 14:00: Sodium 139, Potassium 3.8, Chloride 104, Carbon Dioxide 31 H, Anion Gap 7.8, BUN 18, Creatinine 1.40 H, Estimated Creat Clear 63, Estimated GFR 50 L, Est GFR ( Amer) 60, Glucose 118 H, Calcium 9.5, Troponin I 0.08 H 01/16/22 15:19: SARS-CoV-2 (PCR) Not detected, Influenza A Untype (PCR) Not detected, Influenza Type B (PCR) Not detected 01/17/22 05:37: WBC 8.6, RBC 4.15 L, Hgb 12.7 L D, Hct 37.8 L, MCV 91.1, MCH 30.6, MCHC 33.6, RDW 12.9, Plt Count 242, MPV 8.7, Neut % (Auto) 58.9, Lymph % (Auto) 26.3, [place] % (Auto) 9.6 H, Eos % (Auto) 4.1, Baso % (Auto) 1.1, Neut # (Auto) 5.1, Lymph # (Auto) 2.3, [place] # (Auto) 0.8, Eos # (Auto) 0.4, Baso # (Auto) 0.1 01/17/22 05:37: Sodium 136, Potassium 3.5, Chloride 106, Carbon Dioxide 27, Anion Gap 6.5, BUN 17, Creatinine 1.10 D, Estimated Creat Clear 83, Estimated GFR 65, Est GFR ( Amer) 79 D, Glucose 121 H, Calcium 8.8 I & O for Last 24 hours: Intake & Output 01/14/22 01/15/22 01/16/22 01/17/22 23:59 23:59 23:59 23:59 Intake Total 240 / 240 Output Total 0 / 0 Balance 240 / 240 Weight 219 lb 9 oz Narrative: Telemetry strip shows sinus bradycardia with a rate of 56 bpm. - Constitutional no acute distress, obese - *Routine HEENT Exam Head: Present: normocephalic, atraumatic Eye: Present: EOMI, PERRL ENT: Present: mucous membranes moist - *Routine Neck Exam Present: supple, full ROM, normal carotid upstroke. Absent: JVD, carotid bruit, lymphadenopathy - *Routine Respiratory Exam Present: CTA bilaterally - *Routine Cardiovascular Exam Present: RRR, Normal S1, Normal S2, bradycardia - *Routine Abdominal Exam Present: soft, normoactive bowel sounds. Absent: tenderness, distended - *Routine Extremities Exam Present: full ROM, pulses intact, normal capillary refill. Absent: cyanosis, clubbing, edema - *Routine Skin Exam Present: intact, warm. Absent: erythema, rash - *Routine Neurological Exam Present: alert, oriented X3, CN II-XII intact. Absent: sensory deficit, motor deficit Progress Note: A&P (1) Coronary arteriosclerosis Status: Chronic (2) Elevated troponin Status: Acute (3) Unstable angina Status: Resolved (4) Hyperlipidemia Status: Chronic (5) Hypertensive heart disease without heart failure Status: Chronic (6) Tobacco abuse Status: Chronic (7) CAP (community acquired pneumonia) Status: Ruled-out (8) COPD (chronic obstructive pulmonary disease) Status: Chronic Assessment and Plan for All Diagnoses:: Plan: 1. The patient presented to the em
--- NOTE | 2022-01-17 08:58 | HMH.PHACLD ---
Bobby Maddox has received discharge medication counseling on the following medications: -ASPIRIN -PLAVIX -ATORVASTATIN -BISOPROLOL -IRBESARTAN PATIENT ASKED WHO HE NEEDED TO CONTACT FOR REFILLS, ADVISED TO ASK AT HIS CARDIOLOGY APPOINTMENT NEXT WEEK AND IF THEY DON'T HANDLE THAT PARTICULAR MEDICATION THEN TO FOLLOW UP WITH PRIMARY CARE. PATIENT VERBALIZED NO FURTHER QUESTIONS.
--- NOTE | 2022-01-18 14:56 | CARE MANAGER ---
Contacted patient related to discharge from hospital. States he is feeling much better and denies any questions or concerns. He is aware of follow up appointments. ALVA Mehta
== END 2022-01-17 09:50 | disposition home or self-care (01) ==
LOC: ER 15:18 → 2ND 18:06
PROVIDERS: Internal Medicine Cardiovascular Disease; Admitting Provider Internal Medicine Adolescent Medicine; Emergency Provider Emergency Medicine; PCP Nurse Practitioner Family; Visit Provider Internal Medicine Adolescent Medicine
DX: I25.110 Atherosclerotic heart disease of native coronary artery with unstable angina pectoris (principal); F17.210 Nicotine dependence, cigarettes, uncomplicated; I11.9 Hypertensive heart disease without heart failure; E78.5 Hyperlipidemia, unspecified; J44.9 Chronic obstructive pulmonary disease, unspecified; I65.23 Occlusion and stenosis of bilateral carotid arteries; Z95.5 Presence of coronary angioplasty implant and graft; Z20.822 Contact with and (suspected) exposure to COVID-19; Z79.899 Other long term (current) drug therapy
CPT/HCPCS: G0378; 36415; 71045; 80048; 84484; 85025; 92928; 93005; 99152; 99285; C1725; C1760; C1769; C1876; C1894; C9600; C9803; J1644; Q9967; U0003; U0005

== ENCOUNTER → 2022-01-22 08:57 | Outpatient (CLI) | payer MEDICARE, SELFPAY ==
[2022-01-22 09:31] LABS: Basophils # 0.1 K/mm3 (0-0.2); Basophils % 1.2 % (0.1-2.0); Eosinophils # 0.5 K/mm3 (0.0-0.4); Hematocrit 41.4 % (42.0-52.0); Hemoglobin 13.2 g/dL (14.1-18.0); Lymphocytes # 2.3 K/mm3 (0.7-4.5); Lymphocytes % 21.6 % (10-50); Mean Corpuscular Hemoglobin 29.8 pg (27.0-31.2); Mean Corpuscular Volume 93.1 fl (80-94); Monocytes # 0.6 K/mm3 (0.1-1.0); Monocytes % 5.5 % (1.7-9.3); Neutrophils % 66.7 % (37.0-80.0); Platelet Count 286 K/mm3 (142-424); Red Blood Count 4.44 M/mm3 (4.60-6.20); Red Cell Distribution Width 12.8 % (11.5-17.5); White Blood Count 10.4 K/mm3 (4.8-10.8)
[2022-01-22 10:27] LABS: Anion Gap 6.8 mEq/L (5-15); Blood Urea Nitrogen 16 mg/dl (9-20); Calcium 9.2 mg/dl (8.4-10.2); Carbon Dioxide 28 mmol/L (22.0-30.0); Chloride 108 mmol/L (98-107); Estimated Glomerular Filt Rate 65 ml/min (>60); GFR (African American) 79 ML/MIN (>60); Glucose 118 mg/dl (74-100); Potassium 3.8 mmoL/L (3.5-5.1); Sodium 139 mmol/L (136-145)
== END ==
PROVIDERS: Physician Assistant; PCP Internal Medicine Adolescent Medicine; Visit Provider Internal Medicine Adolescent Medicine
DX: E78.5 Hyperlipidemia, unspecified (principal); F17.200 Nicotine dependence, unspecified, uncomplicated; I11.9 Hypertensive heart disease without heart failure; I25.10 Atherosclerotic heart disease of native coronary artery without angina pectoris
CPT/HCPCS: 36415; 80048; 85025

== ENCOUNTER 2022-01-25 12:58 | Outpatient (RCR) | payer MEDICARE, SELFPAY | END 2022-04-06 13:00 | disposition home or self-care (01) | LOC: PT 12:58 | PROVIDERS: Visit Provider Internal Medicine | DX: I25.10 Atherosclerotic heart disease of native coronary artery without angina pectoris (principal); Z95.5 Presence of coronary angioplasty implant and graft | CPT/HCPCS: 93798 ==

== ENCOUNTER 2022-02-06 12:01 | Day surgery (SDC) | payer MEDICARE, SELFPAY ==
[2022-02-06 12:10] VITALS: BP 166/55; PULSE 64; RESP 20; TEMP 36.6; O2SAT 95; BMI 26.4
--- NOTE | 2022-02-06 12:40 | HMH.PMPROC ---
- Procedure Date: 02/06/22 Time: 12:40 Anesthesiologist:: Janes Bassett MD Complications:: None Pre-procedure Diagnosis:: Sacroiliitis Post-procedure Diagnosis:: Same Indications for Procedure:: The patient is a pleasant 76-year-old white male who we are treating for bilateral hip pain and low back pain with lumbar radicular symptoms. He is doing well with his intrathecal Dilaudid pain pump at 0.5 mg/day. He is tender over both SI joints. Is positive Jacey's test bilaterally. Is positive [place]'s test bilaterally. Is positive SI joint compression test bilaterally. We will plan on bilateral SI joint injections under fluoroscopy today. Procedure Details:: B/L SI joint injection under fluoroscopy Informed consent was obtained and the risks and benefits of the procedure was explained to the patient. The patient was taken to the procedure room and placed prone on the procedure table. The patient was prepped using ChloraPrep. The skin and subcutaneous tissues overlying the SI joints were anesthetized using lidocaine. I placed a 22-gauge needle first in the left SI joint and second in the right SI joint. Needle placement was confirmed with dye. After this we injected 5 mL bupivacaine 0.25% and Depo-Medrol 40 mg into each SI joint. Patient tolerated the procedure well with no complication. Plan and Disposition:: We will follow-up with him in 2 weeks. Will reevaluate his symptoms at that time.
[2022-02-06 12:41] VITALS: BP 160/56; PULSE 61; RESP 20; O2SAT 97
== END 2022-02-06 12:41 | disposition home or self-care (01) ==
LOC: SC.PAINP 12:02
PROVIDERS: PCP Internal Medicine Adolescent Medicine; Visit Provider Anesthesiology
DX: M46.1 Sacroiliitis, not elsewhere classified (principal)
CPT/HCPCS: 27096; G0260; J1040; Q9966

== ENCOUNTER 2022-02-07 08:08 | Emergency (ER) | payer MEDICARE, SELFPAY ==
[2022-02-07 10:37] VITALS: BP 131/86; PULSE 76; RESP 19; TEMP 36.6; O2SAT 98; BMI 26.7
[2022-02-07 10:41] VITALS: BP 132/95; PULSE 94; RESP 16; TEMP 36.7
== END 2022-02-07 10:42 | disposition home or self-care (01) ==
PROVIDERS: Emergency Provider Nurse Practitioner; PCP Internal Medicine Adolescent Medicine
DX: Z20.822 Contact with and (suspected) exposure to COVID-19 (principal)
CPT/HCPCS: 99212; C9803; G0463; U0003; U0005

== ENCOUNTER 2022-02-18 20:40 | Observation (INO) | payer MEDICARE, SELFPAY ==
[2022-02-18] VITALS (7 sets, daily range): BP systolic 144–184; BP diastolic 63–80; PULSE 48–59; RESP 16–20; TEMP 36.4–36.7; O2SAT 96–99; BMI 26.4
--- NOTE | 2022-02-18 20:55 | XR_ITS ---
PROCEDURE INFORMATION: Exam: XR Chest Exam date and time: 02/18/2022 9:15 PM Age: 76 years old Clinical indication: Sternal or substernal pain; Additional info: Chest pain TECHNIQUE: Imaging protocol: Radiologic exam of the chest. Views: 4 or more views. COMPARISON: CR XR CHEST PORTABLE 01/16/2022 2:47 PM FINDINGS: Lungs: Mild pulmonary hyperinflation. Pleural spaces: Unremarkable. No pleural effusion. No pneumothorax. Heart/Mediastinum: Unremarkable. No cardiomegaly. Bones/joints: Unremarkable. IMPRESSION: Mild pulmonary hyperinflation.
--- NOTE | 2022-02-18 20:56 | ECG_ITS ---
APPROVED REPORT Exam: Resting ECG HR:57 bpm ECG Measurements Heart Rate 57 AXES [place] 166 P 73 QRSd 89 QRS 83 QT 427 T 69 QTc 421 Conclusion SINUS BRADYCARDIA BORDERLINE ECG UNCONFIRMED REPORT Electronically signed by : Sawyer Avina MD 02/19/2022 17:17:16
[2022-02-18 21:12] LABS: Basophils # 0.1 K/mm3 (0-0.2); Basophils % 0.7 % (0.1-2.0); Eosinophils # 0.2 K/mm3 (0.0-0.4); Hemoglobin 14.3 g/dL (14.1-18.0); Lymphocytes # 2.3 K/mm3 (0.7-4.5); Lymphocytes % 15.3 % (10-50); Mean Corpuscular HGB Conc 31.8 g/dL (31.8-35.4); Mean Corpuscular Hemoglobin 30.1 pg (27.0-31.2); Mean Corpuscular Volume 94.5 fl (80-94); Mean Platelet Volume 7.9 fl (7.4-10.4); Monocytes # 0.9 K/mm3 (0.1-1.0); Monocytes % 5.6 % (1.7-9.3); Neutrophils # 11.8 K/mm3 (1.8-7.8); Neutrophils % 77.3 % (37.0-80.0); Platelet Count 334 K/mm3 (142-424); Red Blood Count 4.76 M/mm3 (4.60-6.20); Red Cell Distribution Width 13.3 % (11.5-17.5); White Blood Count 15.2 K/mm3 (4.8-10.8)
[2022-02-18 21:13] LABS: MANUAL DIFFERENTIAL MANUAL DIFFERENTIAL (MANUAL DIFF)
[2022-02-18 21:17] LABS: Alanine Aminotransferase 17 U/L (12-78); Albumin Level 4.1 g/dl (3.5-5.0); Albumin/Globulin Ratio 1.6 (1.1-1.8); Alkaline Phosphatase 107 U/L (38-126); Anion Gap 5.8 mEq/L (5-15); Aspartate Amino Transferase 21 U/L (17-59); Bilirubin,Total 0.3 mg/dl (0.2-1.3); Blood Urea Nitrogen 22 mg/dl (9-20); Calcium 9.5 mg/dl (8.4-10.2); Carbon Dioxide 34 mmol/L (22.0-30.0); Chloride 103 mmol/L (98-107); Creatinine Clearance Estimated 80 mL/min (50-200); Estimated Glomerular Filt Rate 65 ml/min (>60); GFR (African American) 79 ML/MIN (>60); Globulin 2.6 g/dL (1.3-3.2); Glucose 116 mg/dl (74-100); Potassium 3.8 mmoL/L (3.5-5.1); Sodium 139 mmol/L (136-145); Total Protein,Serum 6.7 g/dl (6.3-8.2)
[2022-02-18 21:18] LABS: Alanine Aminotransferase 17 U/L (12-78); Albumin Level 4.1 g/dl (3.5-5.0); Alkaline Phosphatase 106 U/L (38-126); Anion Gap 5.7 mEq/L (5-15); Aspartate Amino Transferase 23 U/L (17-59); Bilirubin,Direct 0.1 mg/dl (0.0-0.4); Bilirubin,Indirect 0.2 mg/dL (0.0-0.9); Bilirubin,Total 0.3 mg/dl (0.2-1.3); Bilirubin,Unconjugated 0.1 mg/dL (0.0-1.1); Blood Urea Nitrogen 21 mg/dl (9-20); Calcium 9.5 mg/dl (8.4-10.2); Carbon Dioxide 34 mmol/L (22.0-30.0); Chloride 103 mmol/L (98-107); Creatinine Clearance Estimated 88 mL/min (50-200); Estimated Glomerular Filt Rate 73 ml/min (>60); GFR (African American) 88 ML/MIN (>60); Glucose 116 mg/dl (74-100); Potassium 3.7 mmoL/L (3.5-5.1); Sodium 139 mmol/L (136-145); Total Protein,Serum 6.8 g/dl (6.3-8.2)
--- NOTE | 2022-02-18 21:21 | PC.NURSE ---
Pt says he didnt notice a difference in pain after nitro administration.
[2022-02-18 21:32] LABS: Troponin I 0.21 ng/ml (0.00-0.034)
--- NOTE | 2022-02-18 21:34 | PC.NURSE ---
paging cardiology at this time
[2022-02-18 21:35] LABS: Lymphocytes % 27 % (10-50); Monocytes % 2 % (2-9); Neutrophils % 71 % (42-76); Total Cells Counted 100
[2022-02-18 21:36] LABS: Acanthocytes 1+; Ovalocytes 1+
[2022-02-18 21:37] LABS: Platelet Estimate Normal
--- NOTE | 2022-02-18 21:57 | PC.NURSE ---
[id number] Vela speaking with Thaddeus at this time
--- NOTE | 2022-02-18 22:11 | PC.NURSE ---
paging neus at this time
--- NOTE | 2022-02-18 22:14 | PC.NURSE ---
MD Kevin speaking to MD olamide at this time
[2022-02-18 22:19] LABS: Coronavirus 19, PCR Not Detected (NotDetected); Influenza A, PCR Not Detected (NotDetected); Influenza B, PCR Not Detected (NotDetected)
--- NOTE | 2022-02-18 22:53 | PC.NURSE ---
Report given to Zeny at this time.
--- NOTE | 2022-02-18 23:07 | PC.NURSE ---
PT ARRIVED TO FLOOR VIA W/C @ [id number]
[2022-02-19] VITALS: PULSE 45; PULSE 55
[2022-02-19 00:42] LABS: Troponin I 0.35 ng/ml (0.00-0.034)
--- NOTE | 2022-02-19 00:48 | PC.NURSE ---
MD notified of critical troponin 0.35 and bradycardia. Pt HR declining to 40s. No new orders at this time.
[2022-02-19 03:48] LABS: Troponin I 0.37 ng/ml (0.00-0.034)
[2022-02-19 04:00] VITALS: BP 140/75; PULSE 50; RESP 16; TEMP 36.8; O2SAT 97
--- NOTE | 2022-02-19 04:05 | HMH.EDCP ---
Discharge Plan Disposition Patient Disposition: Admitted as Observation Condition: Good Clinical Impressions Clinical Impression: Acute angina Discharge ED Provider: Brandy Brown Chest Pain HPI General Chief Complaint: Chest Pain Stated Complaint: CP Time Seen by Provider: 02/18/22 22:00 Mode of Arrival: Ambulatory Source of Information: Patient Limitations: No Limitations Description of Symptoms (Recalled from ER Triage Doc. by RN): Pt reports sharp, intermittent chest pain that stays in the center of his chest. Pt says he had an episode around noon today with sharp pain he rated at 7/10. pt says pain subsided and then came back about 45 min ago. pain is worse with exertion. he denies SOA, N/V, cough, fever, abd pain, or radiating pain. Pt had 4 sents placed last month by Thaddeus. History of Present Illness MD complaint: chest pain indicative of cardiac Time: 12:00 Duration: intermittent Activity at onset: during rest and during exertion Pain location: substernal Severity: severe Severity scale (1-10): 5 Quality: tightness Pain radiation: none Relieving factors: nothing Exacerbating factors: exertion Context: recent illness and other (Recent cath 4 weeks prior x4 stents) Associated symptoms: diaphoresis Risk Factors for CAD: Hypertension, Hypercholesterolemia, Family Hx of CAD and Diabetes Treatments prior to or on arrival for Cardiac Chest Pain: none ALYSON Score for Non-Stemi Age of Patient: 70-79 years old Heart Rate: <50 bpm Systolic Blood Pressure: 100-119 mmHg Serum Creatinine: 0.40-0.79 mg/dl CHF [place] Class: I-No CHF Other Risk Factors: None Non-Stemi Risk Score: 122 Related Data Home Medications Medication Instructions Recorded Confirmed aspirin 81 mg tablet,delayed 81 mg PO DAILY Heart disease 09/06/17 02/18/22 release (Adult Low Dose Aspirin) bisoprolol fumarate 10 mg tablet 5 mg PO DAILY High blood pressure 06/21/21 02/18/22 tamsulosin 0.4 mg capsule 0.4 mg PO HS prostate 06/21/21 02/18/22 methocarbamol 750 mg tablet 750 mg PO NEEDED PRN pain 01/11/22 02/18/22 albuterol sulfate 90 mcg/actuation 2 puffs inhalation Q6HP PRN 01/12/22 02/18/22 aerosol inhaler Shortness Of Breath atorvastatin 80 mg tablet 80 mg PO HS Cholesterol 01/12/22 02/18/22 fluticasone propionate 50 1 spray intranasal DAILY Allergy 01/12/22 02/18/22 mcg/actuation nasal symptoms spray,suspension hyoscyamine sulfate 0.125 mg 0.125 mg PO DAILYP PRN stomach pain 01/12/22 02/18/22 disintegrating tablet furosemide 40 mg tablet 40 mg PO DAILY Fluid 01/16/22 02/18/22 irbesartan 75 mg tablet 75 mg PO DAILY Hypertension 01/16/22 02/18/22 spironolactone 25 mg tablet 25 mg PO DAILY Fluid 01/16/22 02/18/22 zolpidem 5 mg tablet 5 mg PO HSP PRN Insomnia 01/16/22 02/18/22 Previous Rx's Medication Instructions Recorded clopidogrel 75 mg tablet 75 mg PO DAILY Cholesterol #90 tabs 01/24/22 Allergies Allergy/AdvReac Type Severity Reaction Status Date / Time ticagrelor [From Brilinta] Allergy Verified 01/24/22 10:09 [facility] Medical History Angina, class III Chest pain History of heart attack Hyperlipidemia Hypertension Social History Smoking Status: Light tobacco smoker tobacco type: cigars second hand exposure: No alcohol intake: never substance use type: denies use current occupational status: other Travel in the last 8 weeks: None household members: none housing: house current occupational exposures/hazards: No caffeine: Yes ROS Obtained: Yes All systems reviewed & no additional complaints except as documented Physical Exam General General appearance: alert and in no apparent distress Head Head exam: atraumatic, normocephalic and normal inspection Eye Eye exam: Present normal appearance and EOMI ENT ENT exam: Present normal exam, normal oropharynx and mucous membranes moist Neck Nec
[2022-02-19 04:59] LABS: Anion Gap 5.7 mEq/L (5-15); Blood Urea Nitrogen 19 mg/dl (9-20); Calcium 8.8 mg/dl (8.4-10.2); Carbon Dioxide 29 mmol/L (22.0-30.0); Chloride 106 mmol/L (98-107); Creatinine Clearance Estimated 89 mL/min (50-200); Estimated Glomerular Filt Rate 82 ml/min (>60); GFR (African American) 100 ML/MIN (>60); Glucose 97 mg/dl (74-100); Potassium 3.7 mmoL/L (3.5-5.1); Sodium 137 mmol/L (136-145)
[2022-02-19 05:00] VITALS: BMI 26.4
[2022-02-19 05:00] LABS: Basophils # 0.1 K/mm3 (0-0.2); Basophils % 0.7 % (0.1-2.0); Eosinophils # 0.3 K/mm3 (0.0-0.4); Hematocrit 38.8 % (42.0-52.0); Lymphocytes % 23.2 % (10-50); Mean Corpuscular HGB Conc 31.8 g/dL (31.8-35.4); Mean Corpuscular Hemoglobin 30.1 pg (27.0-31.2); Mean Corpuscular Volume 94.8 fl (80-94); Monocytes # 0.7 K/mm3 (0.1-1.0); Monocytes % 5.2 % (1.7-9.3); Neutrophils # 8.9 K/mm3 (1.8-7.8); Platelet Count 282 K/mm3 (142-424); Red Blood Count 4.09 M/mm3 (4.60-6.20); Red Cell Distribution Width 13.4 % (11.5-17.5)
[2022-02-19 05:04] LABS: Hemoglobin 12.3 g/dL (14.1-18.0)
[2022-02-19 08:00] VITALS: BP 177/73; PULSE 50; PULSE 60; RESP 23; TEMP 36.6; O2SAT 95
--- NOTE | 2022-02-19 08:19 | EXP.HPDC ---
General Admission date:: 02/18/22 *Admission Date: 02/18/22 *Chief complaint: chest pain *History of present illness: Mr. Maddox is a 76 yo male w/ PMH for HTN, HLD, CAD and recent x4 stents 01/2022 Who presented to the emergency room with onset of chest pain. Worse with exertion, better at rest. Patient was at a golf outing in [place] and was unable to play due to weather. While exerting himself however he developed some chest discomfort that was classified as a 3 out of 10. Denied syncope, shortness of breath, palpitations. Drove back to [place] to seek care. On arrival to the ER, EKG obtained showing sinus bradycardia with no ST elevations, depressions, or acute abnormalities/signs of ischemia. Labs relatively unremarkable except for detectable troponin. Dr. Travis was contacted and recommended admission for observation. Patient admitted to medicine for further management. On interview this morning, his chest pain had returned with severely elevated blood pressure. Resolved after treating his blood pressure. Able to walk around the halls without any discomfort. Review of his cath report shows numerous stents (4) that likely trapped some small insignificant branch arteries. Conversation with cardiology, they feel his symptoms may be related to sequela of his cath. As he has no ST abnormalities, and troponins plateaued, will medically manage at this time. stable on RA. no N/V/D, SOA, KIRKPATRICK. PFSH PFSH Medical History Angina, class III CAP (community acquired pneumonia) Chest pain COPD (chronic obstructive pulmonary disease) COPD with exacerbation Coronary arteriosclerosis Elevated troponin Heart palpitations History of heart attack Hyperlipidemia Hyperlipidemia Hypertension Hypertensive heart disease without heart failure Lung nodule Non-STEMI (non-ST elevated myocardial infarction) Tobacco dependence syndrome Surgical History (Updated 02/20/22 @ 11:26 by Maggei Walton APRN) History of coronary artery stent placement Social History Smoking Status: Light tobacco smoker tobacco type: cigars second hand exposure: No alcohol intake: never substance use type: denies use current occupational status: other Travel in the last 8 weeks: None household members: none housing: house current occupational exposures/hazards: No caffeine: Yes Review of Systems Review of Systems Review of systems (narrative): 14 point review of systems performed, pertinent positives and negatives as per HPI. Exam Data for Last 24 hours Vital signs and Labs for Last 24 Hours: Temp Pulse Resp BP Pulse Ox 98.2 F 50 L 16 140/75 97 02/19/22 04:00 02/19/22 04:00 02/19/22 04:00 02/19/22 04:00 02/19/22 04:00 Laboratory Results - last 24 hr 02/18/22 20:47: WBC 15.2 H, RBC 4.76, Hgb 14.3, Hct 45.0, MCV 94.5 H, MCH 30.1, MCHC 31.8, RDW 13.3, Plt Count 334, MPV 7.9, Neut % (Auto) 77.3, Lymph % (Auto) 15.3, [place] % (Auto) 5.6, Eos % (Auto) 1.0, Baso % (Auto) 0.7, Neut # (Auto) 11.8 H, Lymph # (Auto) 2.3, [place] # (Auto) 0.9, Eos # (Auto) 0.2, Baso # (Auto) 0.1, Total Counted 100, Neutrophils % (Manual) 71, Lymphocytes % (Manual) 27, Monocytes % (Manual) 2, Platelet Estimate Normal, Ovalocytes 1+, Acanthocytes (Spur) 1+ 02/18/22 20:47: Sodium 139, Potassium 3.8, Chloride 103, Carbon Dioxide 34 H, Anion Gap 5.8, BUN 22 H, Creatinine 1.10, Estimated Creat Clear 80, Estimated GFR 65, Est GFR ( Amer) 79, Glucose 116 H, Calcium 9.5, Total Bilirubin 0.3, AST 21, ALT 17, Alkaline Phosphatase 107, Troponin I 0.21 H, Total Protein 6.7, Albumin 4.1, Globulin 2.6, Albumin/Globulin Ratio 1.6 02/18/22 20:47: Sodium 139, Potassium 3.7, Chloride 103, Carbon Dioxide 34 H, Anion Gap 5.7, BUN 21 H, Creatinine 1.00, Estimated Creat Clear 88, Estimated GFR 73, Est GFR ( Amer) 88, Glucose 116 H, Calcium 9.5, Total Bilirubin 0.3, Direct Bilirubin 0.1, Conjugated Bilirubin 0.0,
--- NOTE | 2022-02-19 08:48 | ECG_ITS ---
APPROVED REPORT Exam: Resting ECG HR:55 bpm ECG Measurements Heart Rate 55 AXES [place] 172 P 65 QRSd 91 QRS 79 QT 429 T 69 QTc 417 Conclusion SINUS BRADYCARDIA BORDERLINE ECG UNCONFIRMED REPORT Electronically signed by : Sawyer Avina MD 02/19/2022 17:15:35
--- NOTE | 2022-02-19 09:03 | PC.NURSE ---
Patient c/o chest pain 03/26 provider on floor restarted BP meds, ordered EKG, and gave 1 nitro. Patient states after 1 nitro pain has decreased to 5/10 BP now 156/72; all AM medications have been ordered - provider in room. Per patient pain increases with exertion. Per provider continue to monitor patient for increase in pain with exertion - up to chair, walking to bathroom and hallway. Patient shows no s/s of acute distress no SOA noted. Call light in reach, bed at lowest level for safety; will continue to monitor.
--- NOTE | 2022-02-19 09:38 | EXP.PHA.VTE ---
[facility] Pharmacy VTE Monitoring Patient Demographics Admission date: 02/18/22 Report Date: 02/19/22 Time: 09:38 Patient Allergies ticagrelor [From Brilinta] Allergy (Verified 01/24/22 10:09) Height: 1.91 m Weight: 96.672 kg Current Active Problems (Updated 02/18/22 @ 23:24 by Zeny Gutierrez RN) Acute angina (Acute) VTE Risk Labs: VTE Related Lab Results Hgb 12.3 g/dL (14.1-18.0) L D 02/19/22 03:10 Hct 38.8 % (42.0-52.0) L 02/19/22 03:10 Plt Count 282 K/mm3 (142-424) 02/19/22 03:10 BUN 19 mg/dl (9-20) 02/19/22 03:10 Creatinine 0.90 mg/dl (0.66-1.25) 02/19/22 03:10 Estimated Creat Clear 89 mL/min (50-200) 02/19/22 03:10 Clinical Trial Participant: No Prophylaxis VTE Prophylaxis Ordered?: Yes Types of VTE Prophylaxis: TEDS Knee High
--- NOTE | 2022-02-19 09:44 | HMH.PHAINT1 ---
Pharmacy Intervention Comments: home medication list verified using list from cardiology office and patient's outpatient pharmacy
[2022-02-19 12:00] VITALS: PULSE 50
--- NOTE | 2022-02-20 13:11 | CARE MANAGER ---
Spoke with patient related to hospital discharge. Patient states they are trying to get heart cath approved for tomorrow. He is aware of appointments.
== END 2022-02-19 12:40 | disposition home or self-care (01) ==
LOC: ER 21:06 → 2ND 23:21
PROVIDERS: Admitting Provider Family Medicine; Emergency Provider Student in an Organized Health Care Education/Training Program; PCP Internal Medicine Adolescent Medicine; Visit Provider Internal Medicine Adolescent Medicine
DX: I21.4 Non-ST elevation (NSTEMI) myocardial infarction; Z95.5 Presence of coronary angioplasty implant and graft; J44.9 Chronic obstructive pulmonary disease, unspecified; F17.210 Nicotine dependence, cigarettes, uncomplicated; E78.2 Mixed hyperlipidemia; I11.9 Hypertensive heart disease without heart failure; I25.110 Atherosclerotic heart disease of native coronary artery with unstable angina pectoris; Z20.822 Contact with and (suspected) exposure to COVID-19
CPT/HCPCS: G0378; 36415; 71045; 80048; 80053; 80076; 84484; 85007; 85025; 93005; 99285; C9803; U0003; U0005

== ENCOUNTER 2022-02-21 10:17 | Day surgery (SDC) | payer MEDICARE, SELFPAY ==
[2022-02-21] VITALS (11 sets, daily range): BP systolic 106–162; BP diastolic 47–75; PULSE 45–58; RESP 18; O2SAT 95–99; BMI 26.2
--- NOTE | 2022-02-21 07:32 | IR_ITS ---
APPROVED REPORT Patient Location: Outpatient Cook Fry: BUDDY Rodriguez RT (R) PROCEDURES Left heart catheterization Left ventriculogram Selective coronary angiogram Intravascular ultrasound the proximal LAD INDICATION Coronary artery disease, Recent elevation of troponin, Hypertension, Intermittent angina pectoris Informed consent was obtained prior to the procedure. COMPLICATIONS NONE Estimated Blood Loss: LESS THAN 10 ML TECHNIQUE One percent lidocaine used to anesthetize the right anterior aspect of the wrist. The right radial artery was accessed via the Seldinger technique. A 6 [place] sheath was placed in the right radial artery. 2.5 mg of verapamil, 800 mcg of nitroglycerin, 1mg Lidocaine and 5000 U Heparin were given through the arterial sheath. The papa catheter was also used to perform left heart catheterization, left ventriculogram and selective coronary angiogram. At the end the diagnostic angiogram therapeutic Was administered giving a therapeutic ACT and the guide catheter was placed in left main artery followed by a Choice PT extra-support wire. Intravascular ultrasound probe was advanced in the proximal LAD had an MLA in the greatest stenosis of 4.4 mm???. Given this did not meet hemodynamic significance the apparatus was removed the sheath was removed and hemostasis was achieved using TR banding patient was transferred to the postop putting in stable addition ANGIOGRAPHIC RESULTS The left main artery Normal The left anterior descending artery Has proximal calcification but is patent. There is angiographic ambiguity suggesting a possible high-grade stenosis. Intravascular ultrasound probe proved this lesion was 4.4 mm??? therefore making it a 40% stenosis. The stent in the midportion is widely patent with minimal in-stent restenosis The circumflex artery Nondominant yet still a large system with proximal tandem 30% stenosis The right coronary artery Is a large dominant vessel with stents in the proximal to mid segment which is a which are widely patent free of in-stent restenosis with excellent ostial and distal transitioning. The MEJIA ventriculogram reveals Hyperdynamic 75 to 80% The left ventricular end-diastolic pressure 20 mmHg IMPRESSION Coronary disease as described above Hyperdynamic ventricle with elevated LVEDP all secondary to hypertensive heart disease which is etiology for patient's angina PLAN 1. Increase antianginal medications with better control of hypertension 2. Continue risk factor modification 3. I suspect the elevated troponin all stems from poorly controlled hypertension. The ejection fraction is hyperdynamic and requires better negative inotropes Electronically signed by : Ehsan Travis MD 02/22/2022 15:26:25
== END 2022-02-21 15:30 | disposition home or self-care (01) ==
LOC: CATHLAB 10:18
PROVIDERS: PCP Internal Medicine Adolescent Medicine; Visit Provider Internal Medicine
DX: I25.118 Atherosclerotic heart disease of native coronary artery with other forms of angina pectoris; R77.8 Other specified abnormalities of plasma proteins; I10 Essential (primary) hypertension; Z95.5 Presence of coronary angioplasty implant and graft; F17.210 Nicotine dependence, cigarettes, uncomplicated; Z79.899 Other long term (current) drug therapy
CPT/HCPCS: 92978; 93458; 99152; C1725; C1769; J1644; Q9967

== ENCOUNTER → 2022-02-28 13:55 | Outpatient (CLI) | payer MEDICARE, SELFPAY ==
[2022-02-28 15:36] LABS: Anion Gap 11.4 mEq/L (5-15); Blood Urea Nitrogen 20 mg/dl (9-20); Calcium 9.3 mg/dl (8.4-10.2); Carbon Dioxide 26 mmol/L (22.0-30.0); Chloride 104 mmol/L (98-107); Estimated Glomerular Filt Rate 50 ml/min (>60); GFR (African American) 60 ML/MIN (>60); Glucose 105 mg/dl (74-100); Potassium 4.4 mmoL/L (3.5-5.1); Sodium 137 mmol/L (136-145)
[2022-02-28 15:43] LABS: NT Pro Brain Natriuretic Pep. 234 pg/mL (0-125)
== END ==
PROVIDERS: PCP Internal Medicine Adolescent Medicine; Visit Provider Physician Assistant
DX: I21.4 Non-ST elevation (NSTEMI) myocardial infarction (principal); E66.9 Obesity, unspecified; E78.2 Mixed hyperlipidemia; I11.9 Hypertensive heart disease without heart failure; I25.118 Atherosclerotic heart disease of native coronary artery with other forms of angina pectoris; J44.9 Chronic obstructive pulmonary disease, unspecified; Z72.0 Tobacco use; Z95.5 Presence of coronary angioplasty implant and graft; R06.09 Other forms of dyspnea; Z68.26 Body mass index [BMI] 26.0-26.9, adult
CPT/HCPCS: 36415; 80048; 83880

== ENCOUNTER → 2022-04-13 11:14 | Day surgery (SDC) | payer MEDICARE, SELFPAY ==
[2022-04-13 11:30] VITALS: BP 143/59; PULSE 70; RESP 18; TEMP 36.5; O2SAT 98; BMI 27.1
[2022-04-13 11:51] VITALS: BP 173/100; PULSE 62; RESP 18; O2SAT 96
[2022-04-13 11:53] VITALS: BP 132/61; PULSE 69; RESP 18; O2SAT 97
--- NOTE | 2022-04-13 15:02 | EXP.PAIN.PRO ---
Procedure Date: 04/13/22 Time: 15:02 Anesthesiologist:: Janes Bassett MD Complications:: None Pre-procedure Diagnosis:: Degenerative disc disease of lumbar spine with lumbar radiculopathy symptoms Post-procedure Diagnosis:: Same Indications for Procedure:: This patient is a pleasant 76-year-old white male who we are treating for low back pain with lumbar radiculopathy symptoms. He also has pain over both SI joints. He is doing very well after his SI joint injections. He is currently on an intrathecal Dilaudid pain pump going at 0.05 mg/day. He is doing well at this dose. We will refill his pump today. Manny and drug screen are all appropriate. He does have an antalgic gait. Motor strength of lower extremities is 5/5. There is no gross sensory deficit. Procedure Details:: Informed consent was obtained and the risks and benefits of the procedure was explained to the patient. The patient was taken to the procedure room. The pump was interrogated. The area over the pump was prepped using ChloraPrep. The pump was accessed with a 22-gauge needle. Approximately 14 mL's of the intrathecal solution was withdrawn and discarded. The pump was then refilled with 20 mL's of intrathecal Dilaudid 1 mg/mL. The pump was interrogated and the infusion was continued at 0.05 mg/day. . The patient tolerated the procedure well with no complication. Plan and Disposition:: We will follow-up with this patient at his next pump refill. We will try to stretch his pump refill out to 4 months. If he has any problems questions she is to call us back in the pain clinic.
== END | disposition home or self-care (01) ==
PROVIDERS: PCP Internal Medicine Adolescent Medicine; Visit Provider Nurse Anesthetist, Certified Registered
DX: M51.16 Intervertebral disc disorders with radiculopathy, lumbar region (principal)
CPT/HCPCS: 95991

== ENCOUNTER 2022-08-07 12:42 | Day surgery (SDC) | payer MEDICARE, SELFPAY ==
[2022-08-07 12:57] VITALS: BP 169/75; PULSE 74; RESP 18; TEMP 36.9; O2SAT 98; BMI 27.1
[2022-08-07 13:07] VITALS: BP 143/80; PULSE 79; RESP 18; O2SAT 97
[2022-08-07 13:08] VITALS: BP 143/80; PULSE 79; RESP 18; O2SAT 97
--- NOTE | 2022-08-07 13:17 | EXP.PAIN.PRO ---
Procedure Date: 08/07/22 Time: 13:00 Anesthesiologist:: Clark Kelly CRNA Complications:: None Pre-procedure Diagnosis:: Degenerative disc disease lumbar spine multilevels. Lumbar radiculopathy Post-procedure Diagnosis:: Same. Indications for Procedure:: Patient is a very pleasant 76-year-old male that comes our clinic today for intrathecal pain pump interrogation refill. Patient currently being managed with intrathecal Dilaudid 1 mg/mL. He is currently at a rate of 0.05 mg/day. Patient had bilateral sacroiliac joint injections back in January 2022. He is requesting a repeat of these injections in the near future. I think this is appropriate. Seem to help him significantly in terms of his bilateral low lumbar pain. Procedure Details:: Details of the procedure were explained to the patient. The patient was taken the procedure room placed in sitting position. The pump was interrogated. The area over the pump was cleaned using chlorhexidine as a cleansing solution. The pump was accessed with ease using a 22-gauge inch and half needle. 13.5 mL of solution was withdrawn and discarded appropriately. The pump was then filled with 20 mL of Dilaudid 1 mg/mL. The right was continued at 0.05 mg/day. Patient will return in 4 months for his next refill. Plan and Disposition:: Patient was discharged without incident. We will set up bilateral sacroiliac joint injections for him in the near future.
[2022-08-07 13:26] VITALS: BP 146/72; PULSE 64; RESP 18; O2SAT 96
== END 2022-08-07 13:26 | disposition home or self-care (01) ==
PROVIDERS: PCP Internal Medicine Adolescent Medicine; Visit Provider Nurse Anesthetist, Certified Registered
DX: Z45.1 Encounter for adjustment and management of infusion pump (principal); M51.16 Intervertebral disc disorders with radiculopathy, lumbar region; F17.200 Nicotine dependence, unspecified, uncomplicated
CPT/HCPCS: 95991

== ENCOUNTER → 2022-10-05 08:02 | Outpatient (CLI) | payer MEDICARE, SELFPAY ==
[2022-10-05 08:50] LABS: Basophils # 0.1 K/mm3 (0-0.2); Basophils % 0.7 % (0.1-2.0); Eosinophils # 0.7 K/mm3 (0.0-0.4); Hematocrit 41.7 % (42.0-52.0); Lymphocytes # 2.8 K/mm3 (0.7-4.5); Lymphocytes % 29.2 % (10-50); Mean Corpuscular HGB Conc 33.7 g/dL (31.8-35.4); Mean Corpuscular Hemoglobin 30.1 pg (27.0-31.2); Mean Corpuscular Volume 89.4 fl (80-94); Mean Platelet Volume 7.9 fl (7.4-10.4); Monocytes # 0.7 K/mm3 (0.1-1.0); Monocytes % 6.8 % (1.7-9.3); Neutrophils # 5.4 K/mm3 (1.8-7.8); Neutrophils % 56.4 % (37.0-80.0); Platelet Count 288 K/mm3 (142-424); Red Blood Count 4.66 M/mm3 (4.60-6.20); Red Cell Distribution Width 12.5 % (11.5-17.5); White Blood Count 9.6 K/mm3 (4.8-10.8)
[2022-10-05 09:12] LABS: Alanine Aminotransferase 14 U/L (12-78); Albumin Level 3.8 g/dl (3.5-5.0); Albumin/Globulin Ratio 1.7 (1.1-1.8); Alkaline Phosphatase 81 U/L (38-126); Anion Gap 10.1 mEq/L (5-15); Aspartate Amino Transferase 17 U/L (17-59); Bilirubin,Total 0.6 mg/dl (0.2-1.3); Blood Urea Nitrogen 17 mg/dl (9-20); Calcium 8.9 mg/dl (8.4-10.2); Carbon Dioxide 24 mmol/L (22.0-30.0); Chloride 106 mmol/L (98-107); Chol/HDL Ratio 3.1 (1-3.5); Cholesterol 153 mg/dl (140-200); Estimated Glomerular Filt Rate 59 ml/min (>60); GFR (African American) 72 ML/MIN (>60); Globulin 2.3 g/dL (1.3-3.2); Glucose 101 mg/dl (74-100); HDL Cholesterol 49 mg/dl (40-60); Potassium 4.1 mmoL/L (3.5-5.1); Sodium 136 mmol/L (136-145); Total Protein,Serum 6.1 g/dl (6.3-8.2); Triglycerides 99 mg/dl (30-150); VLDL Cholesterol 20 mg/dL (0-40)
[2022-10-05 09:23] LABS: Direct LDL Cholesterol 82.32 mg/dL (100-129)
[2022-10-05 09:41] LABS: Prostate Specific Ag Screen 2.1 ng/ml (0.0-4.0)
== END ==
PROVIDERS: PCP Internal Medicine Adolescent Medicine; Visit Provider Internal Medicine Adolescent Medicine
DX: I25.110 Atherosclerotic heart disease of native coronary artery with unstable angina pectoris (principal); E78.5 Hyperlipidemia, unspecified; N40.1 Benign prostatic hyperplasia with lower urinary tract symptoms; Z12.5 Encounter for screening for malignant neoplasm of prostate
CPT/HCPCS: 36415; 80053; 80061; 85025; G0103

== ENCOUNTER 2022-10-23 08:20 | Day surgery (SDC) | payer MEDICARE, SELFPAY ==
[2022-10-23 08:34] VITALS: BP 146/53; PULSE 76; RESP 18; TEMP 36.9; O2SAT 96; BMI 27.1
[2022-10-23 09:06] VITALS: BP 167/92; PULSE 87; RESP 18; O2SAT 96
[2022-10-23 09:07] VITALS: BP 167/92; PULSE 87; RESP 18; O2SAT 96
[2022-10-23 09:17] VITALS: BP 161/47; PULSE 75; RESP 18; O2SAT 96
--- NOTE | 2022-10-23 09:36 | P.PCN_ITS ---
Procedure Date: 10/23/22 Time: 09:10 Anesthesiologist:: Clark Kelly CRNA Complications:: None Pre-procedure Diagnosis:: Degenerative disc disease lumbar spine multilevels. Lumbar radiculopathy. Lumbar spondylosis. Bilateral sacroiliitis. Post-procedure Diagnosis:: Same Indications for Procedure:: Patient is a very pleasant 76-year-old male that we have been treating for quite some time with chronic pain due to degenerative disc lumbar spine. Lumbar radiculopathy. Lumbar postlaminectomy syndrome. Today presents for bilateral sacroiliac joint injections. Patient has extreme point tenderness over the bilateral sacroiliac joints. Procedure Details:: Procedure: Bilateral sacroiliac joint injections under fluoroscopy Informed consent was obtained and the risks and benefits of the procedure were explained to the patient.~ The patient was taken to the procedure room and noninvasive monitors were placed including a noninvasive blood pressure cuff and pulse oximeter.~ The patient was placed prone on the procedure table. Both hips were cleansed using Betadine as a cleansing solution. C-arm fluoroscopy was used to view the right sacroiliac joint.~ The skin and subcutaneous tissues were anesthetized using lidocaine 1.5% and a 25-gauge needle.~ After this, a 22-gauge spinal needle was inserted under fluoroscopic guidance into the inferior aspect of the right sacroiliac joint.~ Omnipaque dye was injected and good spread was seen throughout the joint.~ After this, approximately 5 mL of bupivacaine, 0.25% and Depo-Medrol, 40 mg was incrementally injected into the right sacroiliac joint. We then moved to the left sacroiliac joint.~ The skin and subcutaneous tissues were anesthetized using lidocaine 1.5% and a 25-gauge needle.~ After this, a 22- gauge spinal needle was inserted under fluoroscopic guidance into the inferior aspect of the left sacroiliac joint.~ Omnipaque dye was injected and good spread was seen throughout the joint. After this, approximately 5 mL of bupivacaine, 0.25% and Depo-Medrol, 40 mg was incrementally injected into the left sacroiliac joint.~ The patient tolerated the procedure well with no complications. The patient was observed in the Pain Clinic and then was discharged home neurologically intact. Plan and Disposition:: Patient was discharged without incident.
== END 2022-10-23 09:17 | disposition home or self-care (01) ==
LOC: SC.PAINP 08:21
PROVIDERS: PCP Internal Medicine Adolescent Medicine; Visit Provider Nurse Anesthetist, Certified Registered
DX: M46.1 Sacroiliitis, not elsewhere classified (principal); M51.16 Intervertebral disc disorders with radiculopathy, lumbar region; M47.26 Other spondylosis with radiculopathy, lumbar region
CPT/HCPCS: 27096; G0260; J1040

== ENCOUNTER 2022-10-26 07:46 | Emergency (ER) | payer MEDICARE, SELFPAY ==
[2022-10-26] VITALS (9 sets, daily range): BP systolic 128–178; BP diastolic 55–89; PULSE 58–101; RESP 13–18; TEMP 37.1; O2SAT 95–98; BMI 27.1
--- NOTE | 2022-10-26 07:47 | ECG_ITS ---
APPROVED REPORT Exam: Resting ECG HR:104 bpm ECG Measurements Heart Rate 104 AXES GA 168 P 64 QRSd 85 QRS 74 QT 331 T 53 QTc 391 Conclusion SINUS TACHYCARDIA MODERATE ST DEPRESSION [0.05+ mV ST DEPRESSION] ABNORMAL ECG UNCONFIRMED REPORT Electronically signed by : Sawyer Avina MD 10/26/2022 15:00:17
--- NOTE | 2022-10-26 07:59 | XR_ITS ---
FINAL REPORT CLINICAL HISTORY: CP, SOA w tightness x days. Smoker, dx COPD COMPARISON: 02/18/2022 FINDINGS: There is no evidence of effusion or other pleural disease. The mediastinum has a normal appearance. The cardiac silhouette is unremarkable. IMPRESSION: Unremarkable chest exam. Reviewed, Interpreted and Dictated by Cristina Mcneal MD Transcribed by Rosetta Ashford Authenticated and [facility]
[2022-10-26 08:07] LABS: Basophils # 0.1 K/mm3 (0-0.2); Basophils % 0.6 % (0.1-2.0); Chloride 98 mmol/L (98-107); Eosinophils # 0.4 K/mm3 (0.0-0.4); Eosinophils % 3.4 % (0.1-12.0); Hematocrit 42.6 % (42.0-52.0); Hemoglobin 14.2 g/dL (14.1-18.0); Lymphocytes # 2.9 K/mm3 (0.7-4.5); Lymphocytes % 24.8 % (10-50); Mean Corpuscular HGB Conc 33.3 g/dL (31.8-35.4); Mean Corpuscular Hemoglobin 29.9 pg (27.0-31.2); Mean Corpuscular Volume 89.7 fl (80-94); Mean Platelet Volume 7.8 fl (7.4-10.4); Monocytes # 0.7 K/mm3 (0.1-1.0); Monocytes % 5.7 % (1.7-9.3); Neutrophils # 7.6 K/mm3 (1.8-7.8); Neutrophils % 65.5 % (37.0-80.0); Platelet Count 348 K/mm3 (142-424); Red Blood Count 4.75 M/mm3 (4.60-6.20); Red Cell Distribution Width 12.8 % (11.5-17.5); White Blood Count 11.6 K/mm3 (4.8-10.8)
[2022-10-26 08:08] LABS: Sodium 137 mmol/L (136-145)
[2022-10-26 08:10] LABS: Blood Urea Nitrogen 19 mg/dl (9-20); Creatinine Clearance Estimated 75 mL/min (50-200); Estimated Glomerular Filt Rate 59 ml/min (>60); GFR (African American) 72 ML/MIN (>60)
[2022-10-26 08:11] LABS: Calcium 9.3 mg/dl (8.4-10.2); Carbon Dioxide 29 mmol/L (22.0-30.0); Glucose 127 mg/dl (74-100)
--- NOTE | 2022-10-26 08:19 | PC.NURSE ---
Patient going to X-ray
[2022-10-26 08:31] LABS: Troponin I < 0.01 ng/ml (0.00-0.034)
--- NOTE | 2022-10-26 09:14 | PC.NURSE ---
Gave pt a warm blanket when rounded on him, adjusted his light , call light at bs
--- NOTE | 2022-10-26 09:19 | HMH.EDGENADL ---
Discharge Plan Disposition Patient Disposition: Home, Self-Care Condition: Fair Prescriptions Prescriptions: No Action aspirin [Adult Low Dose Aspirin] 81 mg tablet,delayed release (DR/EC) 81 mg PO DAILY tamsulosin 0.4 mg capsule 0.4 mg PO HS isosorbide mononitrate 60 mg tablet extended release 24 hr 60 mg PO DAILY Qty: 30 2RF furosemide 40 MG tablet 40 mg PO DAILY spironolactone 25 MG tablet 25 mg PO DAILY zolpidem 5 MG tablet 5 mg PO HSP PRN (Reason: Insomnia) irbesartan 75 mg tablet 150 mg PO DAILY metoprolol succinate [Toprol XL] 25 mg tablet extended release 24 hr 12.5 mg PO BID methocarbamol 750 MG tablet 750 mg PO NEEDED PRN (Reason: pain) Rx Instructions: take as needed when plays golf hyoscyamine sulfate 0.125 MG tablet,disintegrating 0.125 mg PO DAILYP PRN (Reason: stomach pain) fluticasone propionate 15.8 ML spray,suspension 1 spray NS DAILY atorvastatin 80 MG tablet 80 mg PO HS albuterol sulfate 18 GM HFA aerosol inhaler 2 puffs IH Q6HP PRN (Reason: Shortness Of Breath) clopidogrel 75 mg tablet 75 mg PO DAILY Label Comments: TAKE ONE TABLET BY MOUTH EVERY DAY omeprazole 20 mg capsule,delayed release(DR/EC) 20 mg PO DAILY Label Comments: TAKE ONE CAPSULE BY MOUTH EVERY DAY nitroglycerin [Nitrostat] 0.4 mg Tablet, Sublingual 0.4 mg sublingual Q5MINP PRN (Reason: Chest Pain) 30 Days Qty: 30 1RF Referrals Follow up/Referrals: Sawyer Avina MD [Primary Care Provider] - See instructions Clinical Impressions Clinical Impression: Angina at rest Instructions Patient Instructions: Angina Discharge ED Provider: Magdiel Hoyos General Adult HPI General Chief complaint: Chest Pain Stated complaint: chest pain Time Seen by Provider: 10/26/22 08:00 Mode of Arrival: Ambulatory Source of Information: Patient Limitations: No Limitations Description of Symptoms (Recalled from ER Triage Doc. by RN): pt to the ED with intermitten chest pain since saturday night. pt describes it as a midsternal discomfort on exertion that is resolved when he takes a SL nitro. pt rates his pain a 2 at this time but was a 6 when exercising this morning. History of Present Illness HPI narrative: Patient is a 76-year-old male with a past medical history of CAD status post stent placement, hyperlipidemia, hypertension, COPD who presents with concern for chest pain. He says that over the last few days he has had intermittent episodes of midsternal chest discomfort. He says that he was at the wellness center earlier today when he got a cute onset of chest discomfort. He took a nitro and it helped to resolve his symptoms. He states that his other symptoms occurred at rest which is what worried him. He denies any shortness of breath. Denies any recent illnesses. Denies any nausea or diaphoresis. Related Data Home Medications Medication Instructions Recorded Confirmed aspirin 81 mg tablet,delayed 81 mg PO DAILY Heart disease 09/06/17 10/23/22 release (Adult Low Dose Aspirin) tamsulosin 0.4 mg capsule 0.4 mg PO HS prostate 06/21/21 10/23/22 methocarbamol 750 mg tablet 750 mg PO NEEDED PRN pain 01/11/22 10/23/22 albuterol sulfate 90 mcg/actuation 2 puffs inhalation Q6HP PRN 01/12/22 10/23/22 aerosol inhaler Shortness Of Breath atorvastatin 80 mg tablet 80 mg PO HS Cholesterol 01/12/22 10/23/22 fluticasone propionate 50 1 spray intranasal DAILY Allergy 01/12/22 10/23/22 mcg/actuation nasal symptoms spray,suspension hyoscyamine sulfate 0.125 mg 0.125 mg PO DAILYP PRN stomach pain 01/12/22 10/23/22 disintegrating tablet furosemide 40 mg tablet 40 mg PO DAILY Heart disease 01/16/22 10/23/22 spironolactone 25 mg tablet 25 mg PO DAILY Heart disease 01/16/22 10/23/22 zolpidem 5 mg tablet 5 mg PO HSP PRN Insomnia 01/16/22 10/23/22 clopidogrel 75 mg tablet 75 mg PO DAILY Heart disease 02/19/22
--- NOTE | 2022-10-26 09:38 | EXP.CARD.CON ---
History of Present Illness History of Present Illness Consult date: 10/26/22 Requesting physician: Magdiel Hoyos Consult reason: chest pain Chief complaint: chest pain History of present illness: 76-year-old white male with past medical history significant for coronary artery disease, hypertension, hyperlipidemia, COPD and tobacco use presented to emergency department this morning with concerns for chest pain. Patient reports has had intermittent episodes of chest pain since Saturday. He reports pain is pressure-like in nature, non-radiating, and denies associated symptoms of shortness of breath, nausea, vomiting. Patient reports all episodes he has taken nitro and got relief. Patient reports pain started this morning again when he started to work out prompting him to come to ER. Of note patient had KAILYN placed 01/2022 and was taken back to the [facility] 02/2022 for ongoing angina. LHC 02/2022 showed a hyperdynamic ventricle with elevated LVEDP secondary to hypertensive heart disease likely etiology for patient's angina. Upon presentation to emergency department EKG was negative for acute ischemic changes and labs were essentially unremarkable. Troponin was negative. Patient is currently chest pain-free. [facility] Disclaimer: The information contained in this section may have been updated after the patient was seen, as this information can be updated by other users. Medical History Angina, class III CAP (community acquired pneumonia) Chest pain COPD (chronic obstructive pulmonary disease) COPD with exacerbation Coronary arteriosclerosis Elevated troponin Heart palpitations History of heart attack Hyperlipidemia Hyperlipidemia Hypertension Hypertensive heart disease without heart failure Lung nodule Non-STEMI (non-ST elevated myocardial infarction) NSTEMI (non-ST elevated myocardial infarction) Palpitations Tobacco dependence syndrome Surgical History History of coronary artery stent placement KAILYN JAN 2022 Family History Other No significant family history Social History Smoking Status: Current every day smoker tobacco type: cigars second hand exposure: No alcohol intake: never substance use type: denies use current occupational status: retired and other Travel in the last 8 weeks: None household members: none housing: house current occupational exposures/hazards: No caffeine: Yes Review of Systems Review of Systems Review of systems:: pertinent systems reviewed and negative unless documented below Constitutional Constitutional: Reports system reviewed and no additional complaints, except as documented *Cardiovascular Cardiovascular: Reports system reviewed and no additional complaints, except as documented and Reports chest pain *Respiratory Respiratory: Reports system reviewed and no additional complaints, except as documented *Gastrointestinal Gastrointestinal: Reports system reviewed and no additional complaints, except as documented *Neurologic Neurologic: Reports system reviewed and no additional complaints, except as documented and Denies confusion Psychiatric Psychiatric: Reports system reviewed and no additional complaints, except as documented and Denies confusion Exam Data for Last 24 hours Vital signs and Labs for Last 24 Hours: Temp Pulse Resp BP Pulse Ox 98.8 F 58 L 13 128/56 L 96 10/26/22 07:46 10/26/22 09:30 10/26/22 09:30 10/26/22 09:30 10/26/22 09:30 Laboratory Results - last 24 hr 10/26/22 07:50: WBC 11.6 H, RBC 4.75, Hgb 14.2, Hct 42.6, MCV 89.7, MCH 29.9, MCHC 33.3, RDW 12.8, Plt Count 348, MPV 7.8, Neut % (Auto) 65.5, Lymph % (Auto) 24.8, [place] % (Auto) 5.7, Eos % (Auto) 3.4, Baso % (Auto) 0.6, Neut # (Auto) 7.6, Lymph # (Auto) 2.9, [place] # (Auto) 0.7, Eos # (Auto) 0.4, Baso # (Auto)
--- NOTE | 2022-10-26 09:56 | PC.NURSE ---
Rounded on patient and family member. nothing needed at this time; call light within reach of patient
--- NOTE | 2022-10-26 10:14 | PC.NURSE ---
Rosetta Stahl at bedside rounding on patient this time.
--- NOTE | 2022-10-26 10:20 | PC.NURSE ---
rounded on pt no complaints at this time, at bs
[2022-10-26 10:29] LABS: Troponin I < 0.01 ng/ml (0.00-0.034)
== END 2022-10-26 10:54 | disposition home or self-care (01) ==
PROVIDERS: Emergency Provider Student in an Organized Health Care Education/Training Program; PCP Internal Medicine Adolescent Medicine
DX: I20.9 Angina pectoris, unspecified (principal); I11.9 Hypertensive heart disease without heart failure; F17.290 Nicotine dependence, other tobacco product, uncomplicated
CPT/HCPCS: 71046; 80048; 84484; 85025; 93005; 99285

== ENCOUNTER 2022-11-07 20:45 | Inpatient (IN) | payer MEDICARE, SELFPAY ==
[2022-11-07] VITALS (7 sets, daily range): BP systolic 163–194; BP diastolic 81–99; PULSE 50–61; RESP 13–20; TEMP 36.6–36.9; O2SAT 97; BMI 26.9; BMI 27.1
--- NOTE | 2022-11-07 20:44 | ECG_ITS ---
APPROVED REPORT Exam: Resting ECG HR:61 bpm ECG Measurements Heart Rate 61 AXES VT 173 P 66 QRSd 86 QRS 87 QT 408 T 79 QTc 411 Conclusion SINUS RHYTHM NORMAL ECG UNCONFIRMED REPORT Electronically signed by : Sawyer Avina MD 11/08/2022 17:13:02
--- NOTE | 2022-11-07 20:48 | XR_ITS ---
PROCEDURE INFORMATION: Exam: XR Chest Exam date and time: 11/07/2022 8:51 PM Age: 76 years old Clinical indication: Sternal or substernal pain; Additional info: Chest pain TECHNIQUE: Imaging protocol: Radiologic exam of the chest. Views: 2 views. COMPARISON: CR XR CHEST 2V 10/26/2022 8:12 AM FINDINGS: Lungs: Unremarkable. No consolidation. Pleural spaces: Unremarkable. No pleural effusion. No pneumothorax. Heart/Mediastinum: Coronary artery stent noted. No cardiomegaly. Bones/joints: Unremarkable. IMPRESSION: No acute findings.
[2022-11-07 21:07] LABS: Basophils # 0.1 K/mm3 (0-0.2); Basophils % 0.7 % (0.1-2.0); Eosinophils # 0.4 K/mm3 (0.0-0.4); Eosinophils % 3.6 % (0.1-12.0); Hematocrit 43.3 % (42.0-52.0); Hemoglobin 14.1 g/dL (14.1-18.0); Lymphocytes # 2.3 K/mm3 (0.7-4.5); Lymphocytes % 22.3 % (10-50); Mean Corpuscular HGB Conc 32.5 g/dL (31.8-35.4); Mean Corpuscular Volume 92.3 fl (80-94); Mean Platelet Volume 7.7 fl (7.4-10.4); Monocytes # 0.6 K/mm3 (0.1-1.0); Monocytes % 5.6 % (1.7-9.3); Neutrophils # 6.9 K/mm3 (1.8-7.8); Neutrophils % 67.8 % (37.0-80.0); Platelet Count 331 K/mm3 (142-424); Red Blood Count 4.69 M/mm3 (4.60-6.20); Red Cell Distribution Width 13.1 % (11.5-17.5); White Blood Count 10.2 K/mm3 (4.8-10.8)
[2022-11-07 21:13] LABS: Activated Partial Thrombo Time 27.6 seconds (22.8-30.6); Prothrombin Time 10.8 seconds (10.1-12.5)
[2022-11-07 21:16] LABS: Chloride 99 mmol/L (98-107)
[2022-11-07 21:17] LABS: Potassium 3.9 mmoL/L (3.5-5.1); Sodium 137 mmol/L (136-145)
[2022-11-07 21:19] LABS: Blood Urea Nitrogen 17 mg/dl (9-20); Creatinine Clearance Estimated 75 mL/min (50-200); Estimated Glomerular Filt Rate 59 ml/min (>60); GFR (African American) 72 ML/MIN (>60)
[2022-11-07 21:20] LABS: Alanine Aminotransferase 23 U/L (12-78); Albumin Level 4.2 g/dl (3.5-5.0); Albumin/Globulin Ratio 1.6 (1.1-1.8); Alkaline Phosphatase 95 U/L (38-126); Anion Gap 14.9 mEq/L (5-15); Aspartate Amino Transferase 44 U/L (17-59); Bilirubin,Total 0.5 mg/dl (0.2-1.3); Calcium 9.2 mg/dl (8.4-10.2); Carbon Dioxide 27 mmol/L (22.0-30.0); Globulin 2.6 g/dL (1.3-3.2); Glucose 143 mg/dl (74-100); Total Protein,Serum 6.8 g/dl (6.3-8.2)
[2022-11-07 21:30] LABS: NT Pro Brain Natriuretic Pep. 1350 pg/mL (0-125)
[2022-11-07 21:44] LABS: Troponin I 3.26 ng/ml (0.00-0.034)
--- NOTE | 2022-11-07 21:44 | PC.NURSE ---
notified jake of critical 3.26
--- NOTE | 2022-11-07 21:50 | PC.NURSE ---
jake on phone with dr mccrary
--- NOTE | 2022-11-07 21:55 | PC.NURSE ---
called lab spoke with maria ines Lugo swab will be ready in 25 mins
--- NOTE | 2022-11-07 21:55 | PC.NURSE ---
paged dr ahumada @ this time
[2022-11-07 21:56] LABS: Coronavirus 19, PCR Not Detected (NotDetected); Influenza A, PCR Not Detected (NotDetected); Influenza B, PCR Not Detected (NotDetected)
--- NOTE | 2022-11-07 21:56 | PC.NURSE ---
ER at bedside speaking with pt at this time
--- NOTE | 2022-11-07 22:01 | PC.NURSE ---
Patient admitted to [address] vAina with admitting dx of NSTEMI.
--- NOTE | 2022-11-07 22:29 | PC.NURSE ---
pt arrived to the floor at 22:22
--- NOTE | 2022-11-07 23:15 | HMH.EDCP ---
Discharge Plan Disposition Patient Disposition: Admitted As Inpatient Condition: Good Clinical Impressions Clinical Impression: NSTEMI (non-ST elevated myocardial infarction) Discharge ED Provider: Albertina (ED)Eloy Chest Pain HPI General Chief Complaint: Chest Pain Stated Complaint: cp Time Seen by Provider: 11/07/22 20:55 Mode of Arrival: Ambulatory Source of Information: Patient and Medical Record Limitations: No Limitations Description of Symptoms (Recalled from ER Triage Doc. by RN): 76 M presents with c/o midsternal chest pain that started approximately 2014 this evening while at rest. He took 1 sublingual Nitro at 2030 with a little relief. He sees Dr. Travis here, and last months was diagnosed with Angina. Yesterday, while in [place] and at rest he began having the same chest pain. It lasted for approximately 8 hours and went away. Patient denies pain that radiates, SOA, or dizziness. History of Present Illness HPI narrative: pt with known cad with chest pain yesterday and today - pain lasted 8 hrs yesterday MD complaint: chest pain indicative of cardiac Onset (ago): hour(s) Duration: now resolved Activity at onset: during rest Pain location: left chest Severity: similar to previous episodes Quality: tightness Associated symptoms: dyspnea Risk Factors for CAD: Family Hx of CAD Treatments prior to or on arrival for Cardiac Chest Pain: nitroglycerin ALYSON Score for Non-Stemi Age of Patient: 70-79 years old Heart Rate: 50-69 bpm Systolic Blood Pressure: 160-199 mmHg Serum Creatinine: 1.20-1.59 mg/dl CHF Killip Class: II-Pulmonary Rales or Jug Other Risk Factors: Elevated Cardiac Enzymes or Biomarkers Non-Stemi Risk Score: 132 Risk Stratification: 109-140 = Intermediate Ri Related Data Prior Cardiac Testing/Procedures: Stenting and Cardiac Angiogram Home Medications Medication Instructions Recorded Confirmed aspirin 81 mg tablet,delayed 81 mg PO DAILY Heart disease 09/06/17 11/07/22 release (Adult Low Dose Aspirin) tamsulosin 0.4 mg capsule 0.4 mg PO HS prostate 06/21/21 11/07/22 methocarbamol 750 mg tablet 750 mg PO NEEDED PRN pain 01/11/22 11/07/22 albuterol sulfate 90 mcg/actuation 2 puffs inhalation Q6HP PRN 01/12/22 11/07/22 aerosol inhaler Shortness Of Breath atorvastatin 80 mg tablet 80 mg PO HS Cholesterol 01/12/22 11/07/22 fluticasone propionate 50 1 spray intranasal DAILY Allergy 01/12/22 11/07/22 mcg/actuation nasal symptoms spray,suspension hyoscyamine sulfate 0.125 mg 0.125 mg PO DAILYP PRN stomach pain 01/12/22 11/07/22 disintegrating tablet furosemide 40 mg tablet 40 mg PO DAILY Heart disease 01/16/22 11/07/22 spironolactone 25 mg tablet 25 mg PO DAILY Heart disease 01/16/22 11/07/22 zolpidem 5 mg tablet 5 mg PO HSP PRN Insomnia 01/16/22 11/07/22 clopidogrel 75 mg tablet 75 mg PO DAILY Heart disease 02/19/22 11/07/22 omeprazole 20 mg capsule,delayed 20 mg PO DAILY acid reflux 02/19/22 11/07/22 release irbesartan 75 mg tablet 150 mg PO DAILY . 02/21/22 11/07/22 metoprolol succinate 25 mg 12.5 mg PO BID htn 04/13/22 11/07/22 tablet,extended release 24 hr (Toprol XL) isosorbide mononitrate 60 mg 60 mg PO DAILY CHF 11/07/22 11/07/22 tablet,extended release 24 hr Previous Rx's Medication Instructions Recorded nitroglycerin 0.4 mg sublingual 0.4 mg sublingual Q5MINP PRN Chest 02/19/22 tablet (Nitrostat) Pain 30 days #30 tabs Allergies Allergy/AdvReac Type Severity Reaction Status Date / Time ticagrelor [From Brilinta] AdvReac Intermediate Difficulty Verified 11/07/22 20:59 Breathing PFSH [facility] Disclaimer: The information contained in this section may have been updated after the patient was seen, as this information can be updated by other users. Medical History Angina, class III CAP (community acquired pneumonia) Chest pain COPD (chronic obstructive pulmonary disease) COPD with exacerbation Coronary arteriosclerosis Elevated troponin Heart palpi
[2022-11-08] VITALS (23 sets, daily range): BP systolic 113–194; BP diastolic 51–90; PULSE 50–78; RESP 16–20; TEMP 36.1–36.9; O2SAT 92–97; BMI 26.9
--- NOTE | 2022-11-08 | IR_ITS ---
APPROVED REPORT Patient Location: Inpatient Trouble Shooting Mechanic: BUDDY Rodriguez RT (R) PROCEDURES Selective coronary angiogram Drug-eluting stent deployment to the proximal LAD Drug-eluting stent deployment to the proximal and mid circumflex artery INDICATION Acute non-ST elevation myocardial infarction, Coronary artery disease, Informed consent was obtained prior to the procedure. COMPLICATIONS None Estimated Blood Loss: Less than 10 ml TECHNIQUE One percent lidocaine used to anesthetize the right anterior aspect of the wrist. The right radial artery was accessed via the Seldinger technique. A 6 German sheath was placed in the right radial artery. 150 mg magnesium sulfate, 800 mcg of nitroglycerin, 1mg Lidocaine and 5000 U Heparin were given through the arterial sheath. The papa catheter was also used to perform selective coronary angiography. At the end of the diagnostic angiogram therapeutic heparin was administered giving a therapeutic ACT and the guide catheter was placed in left main artery. Choice PT extra-support wire was placed proximally in the LAD and a 3 mm x 15 mm Andrei frontier stent was deployed at 20 sheba reducing the stenosis. There was a focal stenosis in the proximal circumflex artery therefore a wire was placed in the circumflex artery and a 2.5 x 26 mm Andrei frontier stent was deployed at 20 sheba reducing the stenosis. It was difficult to ascertain the actual infarct vessel causing the non-STEMI. There was a defect in the proximal LAD however there was a significant focality in the proximal circumflex artery. After achieving BHAVYA-3 flow down the vessel before and after the procedure the apparatus was removed the sheath was removed good hemostasis was achieved using TR banding patient was transferred to the postop putting in stable condition ANGIOGRAPHIC RESULTS The left main artery Normal The left anterior descending artery Is a high-grade hazy stenosis ostial to proximal stenosis followed by a stent in the mid vessel which is patent without significant in-stent restenosis. The circumflex artery Is a nondominant vessel and has a proximal to mid vessel stenosis which appears severe in 1 particular image. The right coronary artery Is a dominant vessel and has stents in the proximal mid and distal segment which are widely patent with minimal in-stent restenosis accompanied by BHAVYA-3 flow The MEJIA ventriculogram reveals Not performed The left ventricular end-diastolic pressure Not measured IMPRESSION Acute non-ST elevation myocardial infarction in which the culprit vessel was difficult to ascertain however there appeared to be a high-grade culprit stenosis in both the LAD and circumflex artery. The ostial proximal LAD was successfully revascularized using 1 drug-eluting stent as was the proximal to mid circumflex artery. The culprit stenosis in the vessel were reduced to 0% with 1 drug-eluting stent in the LAD and 1 drug-eluting stent to circumflex artery Widely patent stents throughout the dominant right coronary PLAN 1. Dual antiplatelet therapy 2. LDL less than 55 to be achieved with high intensity statin 3. Avoidance of tobacco product 4. Cardiac rehabilitation 5. Aggressive risk factor modification Electronically signed by : Ehsan Travis MD 11/08/2022 17:57:56
[2022-11-08 01:19] LABS: Troponin I 2.98 ng/ml (0.00-0.034)
--- NOTE | 2022-11-08 02:58 | PC.NURSE ---
Pt. is aox4, up astol, 97% on RA, no c/o pain during the night, 20g L ac with NS @ 50ML /HR, npo after mn and plan for cath in am.
[2022-11-08 03:39] LABS: Troponin I 2.66 ng/ml (0.00-0.034)
[2022-11-08 06:32] LABS: Basophils # 0.1 K/mm3 (0-0.2); Basophils % 0.6 % (0.1-2.0); Eosinophils # 0.5 K/mm3 (0.0-0.4); Eosinophils % 5.2 % (0.1-12.0); Hematocrit 37.2 % (42.0-52.0); Lymphocytes # 2.8 K/mm3 (0.7-4.5); Lymphocytes % 30.7 % (10-50); Mean Corpuscular HGB Conc 33.5 g/dL (31.8-35.4); Mean Corpuscular Hemoglobin 30.7 pg (27.0-31.2); Mean Corpuscular Volume 91.6 fl (80-94); Monocytes # 0.6 K/mm3 (0.1-1.0); Neutrophils # 5.3 K/mm3 (1.8-7.8); Neutrophils % 57.5 % (37.0-80.0); Platelet Count 277 K/mm3 (142-424); Red Blood Count 4.06 M/mm3 (4.60-6.20); White Blood Count 9.2 K/mm3 (4.8-10.8)
[2022-11-08 06:39] LABS: Blood Urea Nitrogen 15 mg/dl (9-20); Calcium 8.3 mg/dl (8.4-10.2); Carbon Dioxide 26 mmol/L (22.0-30.0); Chloride 102 mmol/L (98-107); Creatinine Clearance Estimated 81 mL/min (50-200); Estimated Glomerular Filt Rate 65 ml/min (>60); GFR (African American) 79 ML/MIN (>60); Glucose 90 mg/dl (74-100); Sodium 136 mmol/L (136-145)
[2022-11-08 06:54] LABS: Hemoglobin 12.5 g/dL (14.1-18.0)
--- NOTE | 2022-11-08 08:20 | EXP.HP ---
History of Present Illness *Admission Date: 11/07/22 *Reason for visit:: Angina/elevated troponin *History of present illness: 77-year-old with history of coronary disease and stent placement in the fall 2021 has been doing well, he was on a trip to [place] playing golf when he began to have chest pain. He thought it was his routine angina, did not take nitro tablets because he is currently on long-acting Imdur, and proceeded to drive back to [place]. He felt a little better but then last night began to have some further pain, came to the emergency department Found to have elevated troponins consistent with non-STEMI. Admitted to hospital for further evaluation and cardiology consultation. [facility] Disclaimer: The information contained in this section may have been updated after the patient was seen, as this information can be updated by other users. Medical History Angina, class III CAP (community acquired pneumonia) Chest pain COPD (chronic obstructive pulmonary disease) COPD with exacerbation Coronary arteriosclerosis Elevated troponin Heart palpitations History of heart attack Hyperlipidemia Hyperlipidemia Hypertension Hypertensive heart disease without heart failure Lung nodule Non-STEMI (non-ST elevated myocardial infarction) NSTEMI (non-ST elevated myocardial infarction) Palpitations Tobacco dependence syndrome Surgical History History of carpal tunnel release of both wrists History of coronary artery stent placement Family History Other No significant family history Social History (Updated 11/07/22 @ 22:48 by Ketan Delatorre RN) Smoking Status: Never smoker second hand exposure: No alcohol intake: never substance use type: denies use current occupational status: retired and other Travel in the last 8 weeks: None household members: none housing: house current occupational exposures/hazards: No caffeine: Yes Meds Home Medications and Allergies Home Medications Medication Instructions Recorded Confirmed Type aspirin 81 mg tablet,delayed 81 mg PO DAILY Heart disease 09/06/17 11/07/22 History release (Adult Low Dose Aspirin) tamsulosin 0.4 mg capsule 0.4 mg PO HS prostate 06/21/21 11/07/22 History methocarbamol 750 mg tablet 750 mg PO NEEDED PRN pain 01/11/22 11/07/22 History albuterol sulfate 90 mcg/actuation 2 puffs inhalation Q6HP PRN 01/12/22 11/07/22 History aerosol inhaler Shortness Of Breath atorvastatin 80 mg tablet 80 mg PO HS Cholesterol 01/12/22 11/07/22 History fluticasone propionate 50 1 spray intranasal DAILY Allergy 01/12/22 11/07/22 History mcg/actuation nasal symptoms spray,suspension hyoscyamine sulfate 0.125 mg 0.125 mg PO DAILYP PRN stomach pain 01/12/22 11/07/22 History disintegrating tablet furosemide 40 mg tablet 40 mg PO DAILY Heart disease 01/16/22 11/07/22 History spironolactone 25 mg tablet 25 mg PO DAILY Heart disease 01/16/22 11/07/22 History zolpidem 5 mg tablet 5 mg PO HSP PRN Insomnia 01/16/22 11/07/22 History clopidogrel 75 mg tablet 75 mg PO DAILY Heart disease 02/19/22 11/07/22 History nitroglycerin 0.4 mg sublingual 0.4 mg sublingual Q5MINP PRN Chest 02/19/22 11/07/22 Rx tablet (Nitrostat) Pain 30 days #30 tabs omeprazole 20 mg capsule,delayed 20 mg PO DAILY acid reflux 02/19/22 11/07/22 History release irbesartan 75 mg tablet 75 mg PO DAILY Heart disease 02/21/22 11/08/22 History metoprolol succinate 25 mg 12.5 mg PO BID Heart disease 04/13/22 11/07/22 History tablet,extended release 24 hr (Toprol XL) isosorbide mononitrate 60 mg 60 mg PO DAILY Heart disease 11/07/22 11/07/22 History tablet,extended release 24 hr New Prescriptions to Start Prescriptions: Allergies Allergy/AdvReac Type Severity Reaction Status Date / Time ticagrelor [From Brilinta] AdvReac Intermediate Difficulty Ve
--- NOTE | 2022-11-08 08:55 | HMH.PHAINT1 ---
Pharmacy Intervention Comments: Home medication list verified through list from outside pharmacy and list from Dr. Avina's office.
--- NOTE | 2022-11-08 09:09 | EXP.CARD.CON ---
History of Present Illness History of Present Illness Consult date: 11/08/22 Requesting physician: Sawyer Avina Consult reason: chest pain Chief complaint: chest pain History of present illness: This is a 77-year-old white gentleman who presented to the emergency department complaints of chest pain. The patient does have known coronary artery disease with stenting, hypertension, hyperlipidemia and COPD. The patient states that he was on a trip to [place] when he had sudden onset of chest pain while eating dinner. He states that the chest pain persisted for approximately 8 hours. He did not want to go to the emergency department out of town so he drove back to [place] and the chest pain had resolved then the following evening his chest pain reoccurred around 6 PM last night he decided to come into the emergency department. He describes this as a pressure sensation in the substernal aspect of his chest. It radiates to his bilateral upper arms. He has no associated symptoms. He rates this an 8-10 out of 10 in intensity. He states that he did not take any sublingual nitroglycerin at home because he was started on long-acting isosorbide mononitrate and did not think he could take both of them at the same time. The patient does have Nitropaste in place today and states that his chest pain is much better than it was but he is still having some chest pain intermittently. He denies any shortness of breath or edema. He denies any fever, chills, nausea, vomiting, diarrhea, PND orthopnea. The patient was found to have an elevated troponin in the emergency department and was admitted to the hospital secondary to his non-STEMI. [facility] Disclaimer: The information contained in this section may have been updated after the patient was seen, as this information can be updated by other users. Medical History Angina, class III CAP (community acquired pneumonia) Chest pain COPD (chronic obstructive pulmonary disease) COPD with exacerbation Coronary arteriosclerosis Diastolic dysfunction Elevated troponin Heart palpitations History of heart attack Hyperlipidemia Hyperlipidemia Hypertension Hypertensive heart disease without heart failure Lung nodule Non-STEMI (non-ST elevated myocardial infarction) NSTEMI (non-ST elevated myocardial infarction) Palpitations Tobacco dependence syndrome Surgical History History of carpal tunnel release of both wrists History of coronary artery stent placement Family History Other No significant family history Social History (Updated 11/07/22 @ 22:48 by Ketan Delatorre RN) Smoking Status: Never smoker second hand exposure: No alcohol intake: never substance use type: denies use current occupational status: retired and other Travel in the last 8 weeks: None household members: none housing: house current occupational exposures/hazards: No caffeine: Yes Review of Systems Review of Systems Review of systems:: pertinent systems reviewed and negative unless documented below Constitutional Constitutional: Reports system reviewed and no additional complaints, except as documented Eyes Eyes: Reports system reviewed and no additional complaints, except as documented ENT Ears, Nose, Mouth, and Throat: Reports system reviewed and no additional complaints, except as documented *Cardiovascular Cardiovascular: Reports system reviewed and no additional complaints, except as documented, Reports chest pain, Reports chest pain at rest, Reports chest pain with activity, Reports diaphoresis, Denies dyspnea and Reports radiating jaw, neck or arm pain *Respiratory Respiratory: Reports system reviewed and no additional complaints, except as documented and Denies dyspnea *Gastrointestinal Gastrointestinal: Reports system reviewed and no additional complaints, except as documented *Genitouri
--- NOTE | 2022-11-08 18:37 | PC.NURSE ---
A&OX4. TOLERATING RA WELL. PT HAS RESTED T/O DAY. UP INDEPENDENTLY IN ROOM. DID HAVE AN EPISODE OF INCONTINENCE, (BM). NO C/O CHEST PAIN T/O SHIFT. PT BACK TO FLOOR FROM CART ATTENDANT, R RADIAL SITE CDI. RADIAL BAND IN PLACE AT THIS TIME. PT DID C/O SOME CHEST PAIN ONCE ARRIVED TO FLOOR, KERVIN AWARE PER CATHLAB STAFF JORJE. NNO AT THIS TIME. VSS.
--- NOTE | 2022-11-08 18:47 | PC.NURSE ---
rounded on patient earlier in shift. no complaints noted.
[2022-11-08 19:24] LABS: CATHL Activated Clotting Time > 400 SEC (74-125)
[2022-11-09] VITALS (8 sets, daily range): BP systolic 131–146; BP diastolic 58–72; PULSE 55–76; RESP 18; TEMP 36.5–36.7; O2SAT 96; BMI 26.5
--- NOTE | 2022-11-09 00:45 | PC.NURSE ---
0030 PATIENT WOKE UP AND SCRATCHED HIS HEAD AND NOTICED HIS RIGHT WRIST DRSG WAS BLOODY. PRESSURE APPLIED TO RIGHT WRIST BY LICHA X 10 MIN. THROMBIX HEMASTATIC DRSG APPLIED AND SECURED WITH TEGADERM. PLACED ON ARM BOARD TO REMIND PATIENT NOT TO BEND OR USE RIGHT WRIST AT THIS TIME.
--- NOTE | 2022-11-09 02:29 | PC.NURSE ---
RIGHT WRIST CATH INSERTION SITE CHECKED EVERY HOUR. TERESAG C/D/I. REMAINS ON ARM BOARD.
[2022-11-09 06:24] LABS: Basophils # 0.1 K/mm3 (0-0.2); Basophils % 0.5 % (0.1-2.0); Eosinophils # 0.3 K/mm3 (0.0-0.4); Eosinophils % 2.5 % (0.1-12.0); Hematocrit 38.3 % (42.0-52.0); Hemoglobin 13.1 g/dL (14.1-18.0); Lymphocytes % 16.1 % (10-50); Mean Corpuscular HGB Conc 34.1 g/dL (31.8-35.4); Mean Corpuscular Volume 90.8 fl (80-94); Monocytes # 0.8 K/mm3 (0.1-1.0); Monocytes % 6.3 % (1.7-9.3); Neutrophils % 74.6 % (37.0-80.0); Platelet Count 297 K/mm3 (142-424); Red Blood Count 4.22 M/mm3 (4.60-6.20); White Blood Count 12.1 K/mm3 (4.8-10.8)
--- NOTE | 2022-11-09 06:37 | PC.NURSE ---
patient has not had any more bleeding at the cath site right wrist. Has bruising at that site. Reports tenderness at the insertion site.
[2022-11-09 06:38] LABS: Anion Gap 15.2 mEq/L (5-15); Blood Urea Nitrogen 16 mg/dl (9-20); Calcium 8.3 mg/dl (8.4-10.2); Carbon Dioxide 24 mmol/L (22.0-30.0); Chloride 103 mmol/L (98-107); Creatinine Clearance Estimated 79 mL/min (50-200); Estimated Glomerular Filt Rate 65 ml/min (>60); GFR (African American) 79 ML/MIN (>60); Glucose 87 mg/dl (74-100); Potassium 4.2 mmoL/L (3.5-5.1); Sodium 138 mmol/L (136-145)
--- NOTE | 2022-11-09 08:26 | EXP.DC.SUM ---
General Admission date:: 11/07/22 Discharge date: 11/09/22 HPI HPI HPI: 77-year-old with history of coronary disease and stent placement in the fall 2021 has been doing well, he was on a trip to [place] playing golf when he began to have chest pain. He thought it was his routine angina, did not take nitro tablets because he is currently on long-acting Imdur, and proceeded to drive back to [place]. He felt a little better but then last night began to have some further pain, came to the emergency department Found to have elevated troponins consistent with non-STEMI. Admitted to hospital for further evaluation and cardiology consultation. Hospital Course Hospital Course Hospital Course: Patient was admitted, ruled in for non-STEMI. Taken to Retail Sales Associate Season[facility] yesterday. Please see notes below regarding cardiology intervention and procedure. ANGIOGRAPHIC RESULTS The left main artery Normal The left anterior descending artery Is a high-grade hazy stenosis ostial to proximal stenosis followed by a stent in the mid vessel which is patent without significant in-stent restenosis. The circumflex artery Is a nondominant vessel and has a proximal to mid vessel stenosis which appears severe in 1 particular image. The right coronary artery Is a dominant vessel and has stents in the proximal mid and distal segment which are widely patent with minimal in-stent restenosis accompanied by BHAVYA-3 flow The MEJIA ventriculogram reveals Not performed The left ventricular end-diastolic pressure Not measured IMPRESSION Acute non-ST elevation myocardial infarction in which the culprit vessel was difficult to ascertain however there appeared to be a high-grade culprit stenosis in both the LAD and circumflex artery.? The ostial proximal LAD was successfully revascularized using 1 drug-eluting stent as was the proximal to mid circumflex artery.? The culprit stenosis in the vessel were reduced to 0% with 1 drug-eluting stent in the LAD and 1 drug-eluting stent to circumflex artery Widely patent stents throughout the dominant right coronary PLAN 1. Dual antiplatelet therapy 2. LDL less than 55 to be achieved with high intensity statin 3. Avoidance of tobacco product 4. Cardiac rehabilitation 5. Aggressive risk factor modification Electronically signed by : Ehsan Travis MD? 11/08/2022 17:57:56 Patient did well overnight after cath. This morning felt well, exam remained normal. No further pains. Labs were monitored, EKGs were monitored also. Patient wished to go home and is stable. Patient be discharged home on DAPT therapy, high-dose statin, follow-up with me on November 14 at 10 AM. Follow-up with cardiology as scheduled. Exam Data for Last 24 hours Vital signs and Labs for Last 24 Hours: Temp Pulse Resp BP Pulse Ox 98.1 F 66 18 142/66 H 96 11/09/22 07:50 11/09/22 07:50 11/09/22 07:50 11/09/22 07:50 11/09/22 07:50 Laboratory Results - last 24 hr 11/08/22 17:23: Activated Clotting Time > 400 H* 11/09/22 06:00: WBC 12.1 H D, RBC 4.22 L, Hgb 13.1 L, Hct 38.3 L, MCV 90.8, MCH 31.0, MCHC 34.1, RDW 13.0, Plt Count 297, MPV 8.0, Neut % (Auto) 74.6, Lymph % (Auto) 16.1, Mathews % (Auto) 6.3, Eos % (Auto) 2.5, Baso % (Auto) 0.5, Neut # (Auto) 9.0 H, Lymph # (Auto) 2.0, Mathews # (Auto) 0.8, Eos # (Auto) 0.3, Baso # (Auto) 0.1 11/09/22 06:00: Sodium 138, Potassium 4.2, Chloride 103, Carbon Dioxide 24, Anion Gap 15.2 H, BUN 16, Creatinine 1.10, Estimated Creat Clear 79, Estimated GFR 65, Est GFR ( Amer) 79, Glucose 87, Calcium 8.3 L I & O for Last 24 hours: Intake & Output 11/06/22 11/07/22 11/08/22 11/09/22 11:59 11:59 11:59 11:59 Intake Total 1415 / 1415 Output Total 0 / 0 600 / 600 Balance 0 / 0 815 / 815 Weight 217 lb 0.016 oz 213 lb 8 oz Constitutional Constitutional: no acute distress and average body habitus *Routine HEENT Exam Head: Present normocephalic and atraumatic ENT: Present mucous membranes moist
--- NOTE | 2022-11-09 08:44 | P.CONPHA_ITS ---
PHA Master Technician Discharge Med Wood Engraver: Bobby Maddox has received discharge medication counseling on the following medications: -ASPIRIN (PATIENT ON PREVIOUSLY, NO QUESTIONS) -ATORVASTATIN (PATIENT ON PREVIOUSLY, NO QUESTIONS) -PLAVIX (PATIENT ON PREVIOUSLY, NO QUESTIONS) -IRBESARTAN (PATIENT ON PREVIOUSLY, NO QUESTIONS) -METOPROLOL (PATIENT ON PREVIOUSLY, NO QUESTIONS) PATIENT VERBALIZED NO QUESTIONS AT THIS TIME.
--- NOTE | 2022-11-09 10:10 | PC.NURSE ---
AT APPX 0915, PT WAS ABOUT TO BE DISCHARGED AND FOUND THAT HIS RIGHT RADIAL SITE WAS BLEEDING. DIRECTOR OF DIAGNOSTIC IMAGING NOTIFIED, HELD MANUAL PRESSURE FOR 15 MINUTES. AFTERWARDS, BLEEDING HAS STOPPED. DIRECTOR OF DIAGNOSTIC IMAGING NOTIFIED, INSTRUCTIONS GIVEN TO APPLY NEW PRESSURE DRESSING, AND THAT PATIENT WOULD BE GOOD TO GO ONCE BLEEDING HAS STOPPED. POST CATH INSTRUCTIONS GIVEN. DRESSING CDI. PT V/I OF INSTRUCTIONS.
--- NOTE | 2022-11-13 13:47 | CARE MANAGER ---
Spoke with patient for post-discharge phone interview, no issues noted.
== END 2022-11-09 10:10 | disposition home or self-care (01) | DRG 247 ==
LOC: ER 21:00 → 2ND 22:09
PROVIDERS: Internal Medicine; Admitting Provider Internal Medicine Adolescent Medicine; Emergency Provider Emergency Medicine; PCP Internal Medicine Adolescent Medicine; Visit Provider Internal Medicine Adolescent Medicine
PROC: 027135Z Dilation of Coronary Artery, Two Arteries with Two Drug-eluting Intraluminal Devices, Percutaneous Approach (ICD-10-PCS; principal; 2022-11-08 16:00)
DX: I21.4 Non-ST elevation (NSTEMI) myocardial infarction (principal); F17.210 Nicotine dependence, cigarettes, uncomplicated; Z95.5 Presence of coronary angioplasty implant and graft; I25.118 Atherosclerotic heart disease of native coronary artery with other forms of angina pectoris; I11.9 Hypertensive heart disease without heart failure; J44.9 Chronic obstructive pulmonary disease, unspecified; Z79.899 Other long term (current) drug therapy; I25.2 Old myocardial infarction; E78.2 Mixed hyperlipidemia
CPT/HCPCS: 36415; 71046; 80048; 80053; 83880; 84484; 85025; 85347; 85610; 85730; 87636; 92928; 93005; 93306; 93454; 99152; 99153; 99285; C1725; C1769; C1876; C9600; C9803; G0378; J1644; Q9967; U0003; U0005

== ENCOUNTER 2022-11-12 09:33 | Emergency (ER) | payer MEDICARE, SELFPAY ==
[2022-11-12] VITALS (9 sets, daily range): BP systolic 126–173; BP diastolic 54–83; PULSE 61–86; RESP 16–18; TEMP 36.6; O2SAT 95–98; BMI 27.1
--- NOTE | 2022-11-12 09:33 | ECG_ITS ---
APPROVED REPORT Exam: Resting ECG HR:83 bpm ECG Measurements Heart Rate 83 AXES NV 161 P 65 QRSd 89 QRS 78 QT 349 T 74 QTc 389 Conclusion SINUS RHYTHM MODERATE ST DEPRESSION [0.05+ mV ST DEPRESSION] ABNORMAL ECG UNCONFIRMED REPORT Electronically signed by : Sawyer Avina MD 11/13/2022 17:31:56
--- NOTE | 2022-11-12 09:36 | PC.NURSE ---
[id number] DR DUARTE AT BEDSIDE
--- NOTE | 2022-11-12 09:39 | HMH.EDGENADL ---
Discharge Plan Disposition Patient Disposition: Home, Self-Care Condition: Good Prescriptions Prescriptions: No Action aspirin [Adult Low Dose Aspirin] 81 mg tablet,delayed release (DR/EC) 81 mg PO DAILY tamsulosin 0.4 mg capsule 0.4 mg PO DAILY furosemide 40 MG tablet 40 mg PO DAILY spironolactone 25 MG tablet 25 mg PO DAILY zolpidem 5 MG tablet 5 mg PO HSP PRN (Reason: Insomnia) irbesartan 75 mg tablet 75 mg PO DAILY metoprolol succinate [Toprol XL] 25 mg tablet extended release 24 hr 12.5 mg PO BID fluticasone propionate 15.8 ML spray,suspension 1 spray NS DAILYP PRN (Reason: Allergies) atorvastatin 80 MG tablet 80 mg PO DAILY albuterol sulfate 18 GM HFA aerosol inhaler 2 puffs IH Q6HP PRN (Reason: Shortness Of Breath) clopidogrel 75 mg tablet 75 mg PO DAILY Label Comments: TAKE ONE TABLET BY MOUTH EVERY DAY omeprazole 20 mg capsule,delayed release(DR/EC) 20 mg PO DAILY Label Comments: TAKE ONE CAPSULE BY MOUTH EVERY DAY nitroglycerin [Nitrostat] 0.4 mg Tablet, Sublingual 0.4 mg sublingual Q5MINP PRN (Reason: Chest Pain) 30 Days Qty: 30 1RF isosorbide mononitrate 60 mg tablet extended release 24 hr 60 mg PO DAILY Referrals Follow up/Referrals: Sawyer Avina MD [Primary Care Provider] - See instructions Activity Restrictions/Add. Instructions Additional Instructions/Restrictions: Double your current isosorbide dosage and follow-up tomorrow at 11 AM with your chronometer assembler and adjuster. Avoid exertion. Clinical Impressions Clinical Impression: Chest pain in adult Instructions Patient Instructions: DI for Chest Pain Discharge ED Provider: Zachary Ornelas General Adult HPI General Chief complaint: Chest Pain Stated complaint: chest pain Time Seen by Provider: 11/12/22 09:38 History of Present Illness HPI narrative: Patient presents complaint of substernal chest pain that began earlier this morning while at rest. He did take a nitroglycerin tablet with partial relief and went from 8-4. He denies diaphoresis vomiting or dyspnea. He presently rates the pain at a 4. He did undergo cardiac catheterization with stent placement x2 vessels this past . Related Data Home Medications Medication Instructions Recorded Confirmed aspirin 81 mg tablet,delayed 81 mg PO DAILY [facility] 09/06/17 11/07/22 release (Adult Low Dose Aspirin) tamsulosin 0.4 mg capsule 0.4 mg PO DAILY Prostate 06/21/21 11/08/22 albuterol sulfate 90 mcg/actuation 2 puffs inhalation Q6HP PRN 01/12/22 11/07/22 aerosol inhaler Shortness Of Breath atorvastatin 80 mg tablet 80 mg PO DAILY Cholesterol 01/12/22 11/08/22 fluticasone propionate 50 1 spray intranasal DAILYP PRN 01/12/22 11/08/22 mcg/actuation nasal Allergies spray,suspension furosemide 40 mg tablet 40 mg PO DAILY Fluid 01/16/22 11/07/22 spironolactone 25 mg tablet 25 mg PO DAILY Fluid 01/16/22 11/07/22 zolpidem 5 mg tablet 5 mg PO HSP PRN Insomnia 01/16/22 11/07/22 clopidogrel 75 mg tablet 75 mg PO DAILY Blood thinner 02/19/22 11/07/22 omeprazole 20 mg capsule,delayed 20 mg PO DAILY Acid reflux 02/19/22 11/07/22 release irbesartan 75 mg tablet 75 mg PO DAILY High blood pressure 02/21/22 11/08/22 metoprolol succinate 25 mg 12.5 mg PO BID High blood pressure 04/13/22 11/07/22 tablet,extended release 24 hr (Toprol XL) isosorbide mononitrate 60 mg 60 mg PO DAILY Heart disease 11/07/22 11/07/22 tablet,extended release 24 hr Previous Rx's Medication Instructions Recorded nitroglycerin 0.4 mg sublingual 0.4 mg sublingual Q5MINP PRN Chest 02/19/22 tablet (Nitrostat) Pain 30 days #30 tabs Allergies Allergy/AdvReac Type Severity Reaction Status Date / Time ticagrelor [From Brilinta] AdvReac Intermediate Difficulty Verified 11/07/22 20:59 Breathing [facility] Disclaimer: The information contained in this section may have been updated after the pat
--- NOTE | 2022-11-12 10:02 | PC.NURSE ---
rounded on pt, pt sitting up in bed, visitor at BS. States no needs at this time. Notified pt we are waiting on lab work. Call rust in reach
--- NOTE | 2022-11-12 10:08 | XR_ITS ---
PROCEDURE INFORMATION: Exam: XR Chest Exam date and time: 11/12/2022 10:27 AM Age: 77 years old Clinical indication: Pain; Chest pressure; Additional info: Chest pain TECHNIQUE: Imaging protocol: Radiologic exam of the chest. Views: 1 view. COMPARISON: CR XR CHEST 2V 11/07/2022 8:51 PM FINDINGS: Lungs: Unremarkable for portable technique. No consolidation. Pleural spaces: Unremarkable. No pleural effusion. No pneumothorax. Heart/Mediastinum: Unremarkable. No cardiomegaly. Bones/joints: Unremarkable for age. IMPRESSION: Negative portable chest.
[2022-11-12 10:14] LABS: Basophils # 0.1 K/mm3 (0-0.2); Basophils % 0.5 % (0.1-2.0); Eosinophils # 0.3 K/mm3 (0.0-0.4); Eosinophils % 3.2 % (0.1-12.0); Hematocrit 43.8 % (42.0-52.0); Hemoglobin 14.1 g/dL (14.1-18.0); Lymphocytes # 1.5 K/mm3 (0.7-4.5); Lymphocytes % 14.3 % (10-50); Mean Corpuscular HGB Conc 32.2 g/dL (31.8-35.4); Mean Corpuscular Hemoglobin 29.6 pg (27.0-31.2); Mean Platelet Volume 7.9 fl (7.4-10.4); Monocytes # 0.6 K/mm3 (0.1-1.0); Neutrophils # 7.8 K/mm3 (1.8-7.8); Platelet Count 275 K/mm3 (142-424); Red Blood Count 4.75 M/mm3 (4.60-6.20); White Blood Count 10.3 K/mm3 (4.8-10.8)
[2022-11-12 10:15] LABS: Chloride 101 mmol/L (98-107); Sodium 137 mmol/L (136-145)
[2022-11-12 10:18] LABS: Alanine Aminotransferase 40 U/L (12-78); Albumin Level 3.9 g/dl (3.5-5.0); Albumin/Globulin Ratio 1.4 (1.1-1.8); Alkaline Phosphatase 69 U/L (38-126); Aspartate Amino Transferase 33 U/L (17-59); Bilirubin,Total 0.5 mg/dl (0.2-1.3); Blood Urea Nitrogen 23 mg/dl (9-20); Calcium 9.3 mg/dl (8.4-10.2); Carbon Dioxide 26 mmol/L (22.0-30.0); Creatinine Clearance Estimated 68 mL/min (50-200); Estimated Glomerular Filt Rate 54 ml/min (>60); GFR (African American) 65 ML/MIN (>60); Globulin 2.8 g/dL (1.3-3.2); Glucose 130 mg/dl (74-100); Total Protein,Serum 6.7 g/dl (6.3-8.2)
--- NOTE | 2022-11-12 10:22 | PC.NURSE ---
rad notified of cxr order
--- NOTE | 2022-11-12 10:31 | PC.NURSE ---
XR AT BEDSIDE
[2022-11-12 10:32] LABS: Troponin I 0.55 ng/ml (0.00-0.034)
--- NOTE | 2022-11-12 10:52 | PC.NURSE ---
water fabricator operator paging dr. mccrary
--- NOTE | 2022-11-12 11:06 | PC.NURSE ---
DR DUARTE SPEAKING WITH DR GALEANA
--- NOTE | 2022-11-12 11:09 | PC.NURSE ---
DR DUARTE AT BEDSIDE TO UPDATE PT AND FAMILY AT THIS TIME
--- NOTE | 2022-11-12 11:45 | PC.NURSE ---
DR DUARTE AT BEDSIDE TO UPDATE PT AND FAMILY
--- NOTE | 2022-11-12 12:12 | PC.NURSE ---
DIETARY NOTIFIED OF LUNCH TRAY REQUEST
[2022-11-12 13:08] LABS: Troponin I 0.53 ng/ml (0.00-0.034)
--- NOTE | 2022-11-12 13:08 | PC.NURSE ---
notified ER of critical troponin
== END 2022-11-12 13:18 | disposition home or self-care (01) ==
PROVIDERS: Emergency Provider Emergency Medicine; PCP Internal Medicine Adolescent Medicine
DX: R07.9 Chest pain, unspecified (principal); J44.9 Chronic obstructive pulmonary disease, unspecified; I11.9 Hypertensive heart disease without heart failure; I25.2 Old myocardial infarction
CPT/HCPCS: 71045; 80053; 84484; 85025; 93005; 99285

== ENCOUNTER → 2022-11-19 09:44 | Outpatient (POV) | payer MEDICARE, SELFPAY ==
--- NOTE | 2022-11-19 10:08 | EXP.PAIN.SOA ---
[facility] Pain Management SOAP Note Subjective:: Patient is a pleasant 77-year-old male who presents today for follow-up of bilateral SI injections on 10/23/2022. We are currently treating the patient for degenerative disc disease of the lumbar spine with lumbar radiculopathy symptoms, sacroiliitis. Today he rates his pain a 0 out of 10. Patient states that he had 100% improvement following these injections and feels like it is still continuing to provide additional relief. Patient has been able to increase his activity with decreased pain symptoms. He is currently managed with intrathecal Dilaudid 1 mg/mL with a daily dose of 0.05 mg/day. Patient denies any side effects from this medication. He is also managed with clonazepam 0.5 mg daily and Ambien 5 mg daily from an outside provider. Patient denies any side effects from these medications. He does state that [birth year] his birthday he did have a heart attack and had to have a cardiac cath where he had 2 additional stents placed. Patient does have a total of 8 stents. He denies any residual effects and states he is doing much better today. His Manny is [phone] with a morphine equivalent of 0. It has been reviewed and appropriate. Review of Systems: General: No recent weight changes, no fever, no sleep disturbances Respiratory: No cough, no shortness of air, no recurring pulmonary infections Cardiovascular/peripheral vascular: No chest pain, no palpitations, no edema, no shortness of breath Gastrointestinal: No new onset incontinence, normal bowel movements reported Genitourinary: No new onset incontinence Musculoskeletal: Low back pain Psychiatric: [Normal mood/affect] Neurological: [Denies weakness in extremities], [denies balance issues] Objective:: Physical Exam: General: Alert and oriented x3, no acute distress, pleasant and cooperative Lungs: Respirations even and unlabored, symmetrical chest expansion Eyes: PERRL Musculoskeletal: Flexion and extension of lumbar [spine] somewhat guarded secondary to pain, [antalgic gait noted] Neurological: Speech clear, no gross sensory deficit Assessment:: Degenerative disc disease of lumbar spine with lumbar radiculopathy symptoms, sacroiliitis Plan:: Patient has had significant improvement following his bilateral SI injections and does not require any additional injective therapy. We will see the patient back in the clinic at the next intrathecal refill. Patient has been instructed to contact the clinic with any concerns before the next appointment. Dr. Bassett has reviewed this note and agrees with this plan of care. This note was dictated using voice recognition software and make contain errors or omissions. -- It Is medically necessary for this patient to continue to have their intrathecal pump refilled at regular intervals. This patient had an intrathecal pain pump implanted after meeting criteria of chronic intractable pain for greater than 3 months and failing conservative treatments. Patient has committed and been compliant to the treatment plan and all planned follow up care. Since implantation of the intrathecal pain pump, the patient has had decreased pain and been more functional. Oral medications have been reduced including intake of oral opioids. Patient continues to do well with intrathecal therapy with decrease in pain symptoms and increase in functional status. Stopping intrathecal medications can lead to life threatening withdrawal, seizures, cardiac arrest, severe pain, and possible . Pumps that are not refilled at regular intervals can be damages and cause and need for replacement. We continually titrate dose and concentration to optimize pain relief and function. We are limited in concentration for certain drugs to safely deliver medications through the pump and stay within the recommendations from the Polyanalgesic Consensus Committee Guidelines. Depending on dose and concentration these pumps may need to be refilled sooner than 3 months as we titrate
[2022-11-19 11:35] VITALS: BP 152/60; PULSE 68; RESP 18; O2SAT 97; BMI 27.1
== END ==
PROVIDERS: PCP Internal Medicine Adolescent Medicine; Visit Provider Nurse Practitioner Family
DX: M51.16 Intervertebral disc disorders with radiculopathy, lumbar region (principal); M46.1 Sacroiliitis, not elsewhere classified
CPT/HCPCS: 99212; G0463

== ENCOUNTER 2022-12-04 12:37 | Day surgery (SDC) | payer MEDICARE, SELFPAY ==
[2022-12-04 12:48] VITALS: BP 144/54; BP 180/72; PULSE 62; PULSE 67; RESP 18; TEMP 36.3; O2SAT 97; O2SAT 98; BMI 27.1
--- NOTE | 2022-12-04 12:57 | EXP.PAIN.PRO ---
Procedure Date: 12/04/22 Time: 12:40 Anesthesiologist:: Clark Kelly CRNA Complications:: None Pre-procedure Diagnosis:: Degenerative disc disease lumbar spine multilevels. Lumbar radiculopathy. Post-procedure Diagnosis:: Same. Indications for Procedure:: Very pleasant 77-year-old male that comes our clinic today for intrathecal pain pump interrogation refill. Patient currently being managed with Dilaudid 1 mg/mL at 0.05 mg/day. Patient doing very well with his current intrathecal pain pump management. He does not complain any side effects or complications regarding the intrathecal medication. Procedure Details:: Details of the procedure explained to the patient. The patient taken procedure room placed in the sitting position. The area over the pump was cleansed using chlorhexidine as a cleansing solution. The pump was interrogated. The pump was accessed with ease using a 22-gauge inch and half needle. 30 mL of solution was withdrawn and discarded appropriately. The pump was then filled incrementally with 20 cc of Dilaudid 1 mg/mL. The rate will continue the same 0.05 mg/day. Patient tolerated procedure without difficulty. There were no complications. Plan and Disposition:: Patient was discharged without incident.
[2022-12-04 13:00] VITALS: BP 138/58; PULSE 56; RESP 16; O2SAT 97
== END 2022-12-04 13:00 | disposition home or self-care (01) ==
PROVIDERS: PCP Internal Medicine Adolescent Medicine; Visit Provider Nurse Anesthetist, Certified Registered
DX: M51.16 Intervertebral disc disorders with radiculopathy, lumbar region (principal)
CPT/HCPCS: 95991

== ENCOUNTER 2022-12-27 09:05 | Emergency (ER) | payer MEDICARE, SELFPAY ==
[2022-12-27] VITALS (9 sets, daily range): BP systolic 120–156; BP diastolic 54–84; PULSE 56–84; RESP 17–19; TEMP 36.9–37.1; O2SAT 94–97; BMI 27.1
--- NOTE | 2022-12-27 09:14 | CT_ITS ---
FINAL REPORT TECHNIQUE: Postcontrast axial images through the abdomen and pelvis were performed. This study was performed with techniques to keep radiation doses as low as reasonably achievable, (ALARA). Individualized dose reduction techniques using automated exposure control or adjustment of mA and/or kV according to the patient's size were employed. CLINICAL HISTORY: epigastric pain. abdominal distention FINDINGS: Abdomen: The lung bases are clear. The liver is normal in size and attenuation. The patient is status post cholecystectomy. The spleen is unremarkable. The adrenals are normal. The pancreas is unremarkable. The kidneys enhance appropriately. The aorta is normal in caliber. No free fluid or adenopathy is identified. No findings for mechanical bowel obstruction are identified. Pelvis: The appendix is not identified. There are small inguinal hernias containing fat. There is sigmoid diverticulosis without evidence of diverticulitis. The urinary bladder is unremarkable. No free fluid, free air, abscess or adenopathy is identified. IMPRESSION: Sigmoid diverticulosis without evidence of diverticulitis. Small inguinal hernias containing fat. Reviewed, Interpreted and Dictated by Vito Chase III, MD Transcribed by Rosetta Ashford Authenticated and [facility]
--- NOTE | 2022-12-27 09:29 | PC.NURSE ---
stefano provided for pt
--- NOTE | 2022-12-27 09:29 | PC.NURSE ---
pt aware of need for urine sample. urinal at the bedside
[2022-12-27 09:32] LABS: Basophils # 0.1 K/mm3 (0-0.2); Basophils % 0.6 % (0.1-2.0); Eosinophils # 0.4 K/mm3 (0.0-0.4); Eosinophils % 4.9 % (0.1-12.0); Hematocrit 42.1 % (42.0-52.0); Hemoglobin 14.1 g/dL (14.1-18.0); Lymphocytes # 1.9 K/mm3 (0.7-4.5); Mean Corpuscular HGB Conc 33.5 g/dL (31.8-35.4); Mean Corpuscular Hemoglobin 29.8 pg (27.0-31.2); Mean Corpuscular Volume 88.8 fl (80-94); Mean Platelet Volume 7.7 fl (7.4-10.4); Monocytes # 0.5 K/mm3 (0.1-1.0); Monocytes % 5.6 % (1.7-9.3); Neutrophils # 6.1 K/mm3 (1.8-7.8); Neutrophils % 67.9 % (37.0-80.0); Platelet Count 308 K/mm3 (142-424); Red Blood Count 4.74 M/mm3 (4.60-6.20); Red Cell Distribution Width 12.7 % (11.5-17.5)
[2022-12-27 09:41] LABS: Chloride 104 mmol/L (98-107); Potassium 3.8 mmoL/L (3.5-5.1); Sodium 140 mmol/L (136-145)
[2022-12-27 09:43] LABS: Lactic Acid 1.3 mmol/L (0.7-2.1); Lipase 50 U/L (23-300)
[2022-12-27 09:44] LABS: Alanine Aminotransferase 19 U/L (12-78); Albumin Level 4.3 g/dl (3.5-5.0); Albumin/Globulin Ratio 1.4 (1.1-1.8); Alkaline Phosphatase 93 U/L (38-126); Anion Gap 10.8 mEq/L (5-15); Aspartate Amino Transferase 23 U/L (17-59); Bilirubin,Total 0.4 mg/dl (0.2-1.3); Carbon Dioxide 29 mmol/L (22.0-30.0); Total Protein,Serum 7.3 g/dl (6.3-8.2)
[2022-12-27 09:45] LABS: Calcium 9.7 mg/dl (8.4-10.2); Glucose 133 mg/dl (74-100)
--- NOTE | 2022-12-27 09:53 | PC.NURSE ---
pt still unable to void at this time; pt given a warm blanket for comfort. Call rust within reach
[2022-12-27 10:01] LABS: Blood Urea Nitrogen 17 mg/dl (9-20); Creatinine Clearance Estimated 63 mL/min (50-200); Estimated Glomerular Filt Rate 49 ml/min (>60); GFR (African American) 60 ML/MIN (>60)
--- NOTE | 2022-12-27 10:20 | PC.NURSE ---
pt returned from radiology
--- NOTE | 2022-12-27 12:22 | HMH.EDGENADL ---
Discharge Plan Disposition Patient Disposition: Home, Self-Care Condition: Good Chief Complaint: Abdominal Pain Prescriptions Prescriptions: No Action aspirin [Adult Low Dose Aspirin] 81 mg tablet,delayed release (DR/EC) 81 mg PO DAILY tamsulosin 0.4 mg capsule 0.4 mg PO DAILY pantoprazole [Protonix] 40 mg tablet,delayed release (DR/EC) 40 mg PO DAILY Qty: 30 5RF isosorbide mononitrate 120 mg tablet extended release 24 hr 120 mg PO DAILY Qty: 30 2RF furosemide 40 MG tablet 40 mg PO DAILY spironolactone 25 MG tablet 25 mg PO DAILY zolpidem 5 MG tablet 5 mg PO HSP PRN (Reason: Insomnia) irbesartan 75 mg tablet 75 mg PO DAILY metoprolol succinate 50 mg tablet extended release 24 hr 50 mg PO DAILY fluticasone propionate 15.8 ML spray,suspension 1 spray NS DAILYP PRN (Reason: Allergies) atorvastatin 80 MG tablet 80 mg PO DAILY albuterol sulfate 18 GM HFA aerosol inhaler 2 puffs IH Q6HP PRN (Reason: Shortness Of Breath) clopidogrel 75 mg tablet 75 mg PO DAILY Patient Comments: TAKE ONE TABLET BY MOUTH EVERY DAY nitroglycerin [Nitrostat] 0.4 mg Tablet, Sublingual 0.4 mg sublingual Q5MINP PRN (Reason: Chest Pain) 30 Days Qty: 30 1RF Referrals Follow up/Referrals: Sawyer Avina MD [Primary Care Provider] - See instructions Activity Restrictions/Add. Instructions Additional Instructions/Restrictions: Home medication as directed. Stay well-hydrated. PCP follow-up in 1 to 2 days. Return to the ER for fever, worsening pain, nausea with vomiting Clinical Impressions Clinical Impression: Abdominal pain Qualifiers: Abdominal location: generalized Qualified Code(s): R10.84 - Generalized abdominal pain Instructions Patient Instructions: DI for Acute Abdominal Pain Discharge ED Provider: Luis Key General Adult [facility] General Chief complaint: Abdominal Pain Stated complaint: Abd pain Time Seen by Provider: 12/27/22 09:10 Mode of Arrival: Ambulatory Source of Information: Patient Limitations: No Limitations Description of Symptoms (Recalled from ER Triage Doc. by RN): 77 M presents from home with continued, but worsening epigastric pain that radiates throughout his abdomen. Patient reports being seen in our ED revently, diagnosed with too much acid, and was given medication to treat. Patient states nothing is helping now, and he cannot stand the pain. Patient has distension noted to his abdomen. Active bowel sounds. History of Present Illness HPI narrative: 77yo M presents to the ER secondary to epigastric pain and bloating. Reports taking home medication as directed. No history of bowel obstruction. Reports normal bowel movements. No fever. Related Data Home Medications Medication Instructions Recorded Confirmed aspirin 81 mg tablet,delayed 81 mg PO DAILY [facility] 09/06/17 12/05/22 release (Adult Low Dose Aspirin) tamsulosin 0.4 mg capsule 0.4 mg PO DAILY Prostate 06/21/21 12/05/22 albuterol sulfate 90 mcg/actuation 2 puffs inhalation Q6HP PRN 01/12/22 12/05/22 aerosol inhaler Shortness Of Breath atorvastatin 80 mg tablet 80 mg PO DAILY Cholesterol 01/12/22 12/05/22 fluticasone propionate 50 1 spray intranasal DAILYP PRN 01/12/22 12/05/22 mcg/actuation nasal Allergies spray,suspension furosemide 40 mg tablet 40 mg PO DAILY Fluid 01/16/22 12/05/22 spironolactone 25 mg tablet 25 mg PO DAILY Fluid 01/16/22 12/05/22 zolpidem 5 mg tablet 5 mg PO HSP PRN Insomnia 01/16/22 12/05/22 clopidogrel 75 mg tablet 75 mg PO DAILY Blood thinner 02/19/22 12/05/22 irbesartan 75 mg tablet 75 mg PO DAILY High blood pressure 02/21/22 12/05/22 metoprolol succinate 50 mg 50 mg PO DAILY BLOOD PRESSURE 11/19/22 12/05/22 tablet,extended release 24 hr Previous Rx's Medication Instructions Recorded nitroglycerin 0.4 mg sublingual 0.4 mg sublingual Q5MINP PRN Chest 02/19/22 tablet (Nitrostat) Pain 30 days #30 tabs isosor
== END 2022-12-27 12:58 | disposition home or self-care (01) ==
PROVIDERS: Emergency Provider Family Medicine; PCP Internal Medicine Adolescent Medicine
DX: R10.13 Epigastric pain; I25.118 Atherosclerotic heart disease of native coronary artery with other forms of angina pectoris; I11.9 Hypertensive heart disease without heart failure; J44.9 Chronic obstructive pulmonary disease, unspecified; E78.5 Hyperlipidemia, unspecified; I25.2 Old myocardial infarction; Z87.891 Personal history of nicotine dependence; K57.30 Diverticulosis of large intestine without perforation or abscess without bleeding
CPT/HCPCS: 74177; 80053; 83605; 83690; 85025; 96361; 96374; 96375; 99284; 99285; J2405; Q9967

== ENCOUNTER 2023-03-30 00:02 | Observation (INO) | payer MEDICARE, SELFPAY ==
[2023-03-30] VITALS (15 sets, daily range): BP systolic 99–178; BP diastolic 41–89; PULSE 43–76; RESP 12–20; TEMP 36.5–36.7; O2SAT 93–100; BMI 27.2; BMI 28.3
--- NOTE | 2023-03-30 00:10 | XR_ITS ---
PROCEDURE INFORMATION: Exam: XR Chest Exam date and time: 03/30/2023 12:13 AM Age: 77 years old Clinical indication: Chest wall pain; Additional info: Chest pain TECHNIQUE: Imaging protocol: Radiologic exam of the chest. Views: 2 views. Total images: 2 COMPARISON: CR XR CHEST PORTABLE 11/12/2022 10:27 AM FINDINGS: Lungs: Emphysema/COPD with flattened hemidiaphragms. Symmetric nodular densities both lung bases compatible with prominent nipple shadows. No acute infiltrate, airspace consolidation or vascular congestion. Pleural spaces: Unremarkable. No pleural effusion. No pneumothorax. Heart/Mediastinum: Status post coronary arterial stenting. Vasculature: Atherosclerotic aortic arch. Bones/joints: Mild degenerative changes thoracic spine and bilateral AC joints. IMPRESSION: 1. No radiographically acute cardiopulmonary process. 2. Stable chronic findings.
--- NOTE | 2023-03-30 00:19 | ECG_ITS ---
APPROVED REPORT Exam: Resting ECG HR:76 bpm ECG Measurements Heart Rate 76 AXES CA 166 P 72 QRSd 100 QRS 84 QT 379 T 64 QTc 409 Conclusion SINUS RHYTHM LOW QRS VOLTAGE IN PRECORDIAL LEADS [QRS DEFLECTION < 1.0 mV IN CHEST LEADS] ANTERIOR MYOCARDIAL INFARCTION , OF INDETERMINATE AGE [40+ ms Q WAVE AND/OR ST/T ABNORMALITY IN V3/V4] ABNORMAL ECG UNCONFIRMED REPORT Electronically signed by : Sawyer Avina MD 03/30/2023 11:01:36
--- NOTE | 2023-03-30 00:19 | HMH.EDGENADL ---
Discharge Plan Disposition Patient Disposition: Admitted Condition: Good Clinical Impressions Clinical Impression: Chest pain Discharge ED Provider: Cristina Priest General Adult HPI General Chief complaint: Chest Pain Stated complaint: chest pain Time Seen by Provider: 03/30/23 00:08 Mode of Arrival: Ambulatory Source of Information: Patient Limitations: No Limitations Description of Symptoms (Recalled from ER Triage Doc. by RN): Patient reports central chest pain 8/10 without radiating pain starting approximately 2330 accompanied by shortness of breath. Took 2 SL nitroglycerin with minimal relief. History of Present Illness HPI narrative: This patient is a 77-year-old male with a history of CAD status post recent stenting in October, angina, hypertension, hyperlipidemia, extensive smoking history with history of COPD, and chronic GERD presented to the emergency department for evaluation with concern for substernal chest pain. He reports that he got up to take his nightly medicine, and when he sat back down he was having severe 8 out of 10 substernal chest pain. This started approximately 11:30 PM. He notes mild associated shortness of breath. He took a nitroglycerin and felt some mild improvement, but the pain then returned. He took another nitroglycerin, but the pain seems to only be getting worse. He denies any recent fevers, chills, cough, congestion, abdominal pain, vomiting, changes bowel movements, or other concerns. He reports compliance with his home medications. Related Data Home Medications Medication Instructions Recorded Confirmed aspirin 81 mg tablet,delayed 81 mg PO DAILY [facility] 09/06/17 03/06/23 release (Adult Low Dose Aspirin) tamsulosin 0.4 mg capsule 0.4 mg PO DAILY Prostate 06/21/21 03/06/23 albuterol sulfate 90 mcg/actuation 2 puffs inhalation Q6HP PRN 01/12/22 03/06/23 aerosol inhaler Shortness Of Breath atorvastatin 80 mg tablet 80 mg PO DAILY Cholesterol 01/12/22 03/06/23 fluticasone propionate 50 1 spray intranasal DAILYP PRN 01/12/22 03/06/23 mcg/actuation nasal Allergies spray,suspension furosemide 40 mg tablet 40 mg PO DAILY Fluid 01/16/22 03/06/23 spironolactone 25 mg tablet 25 mg PO DAILY Fluid 01/16/22 03/06/23 zolpidem 5 mg tablet 5 mg PO HSP PRN Insomnia 01/16/22 03/06/23 clopidogrel 75 mg tablet 75 mg PO DAILY Blood thinner 02/19/22 03/30/23 metoprolol succinate 50 mg 50 mg PO DAILY BLOOD PRESSURE 11/19/22 03/06/23 tablet,extended release 24 hr irbesartan 75 mg tablet 75 mg PO DAILY 01/17/23 03/06/23 ezetimibe 10 mg tablet 10 mg PO DAILY 03/06/23 03/06/23 Previous Rx's Medication Instructions Recorded nitroglycerin 0.4 mg sublingual 0.4 mg sublingual Q5MINP PRN Chest 02/19/22 tablet (Nitrostat) Pain 30 days #30 tabs isosorbide mononitrate 120 mg 120 mg PO DAILY #30 tabs 12/05/22 tablet,extended release 24 hr pantoprazole 40 mg tablet,delayed 40 mg PO DAILY #30 tabs 12/05/22 release (Protonix) Allergies Allergy/AdvReac Type Severity Reaction Status Date / Time ticagrelor [From Brilinta] AdvReac Intermediate Difficulty Verified 03/30/23 04:12 Breathing PFSH PFS Disclaimer: The information contained in this section may have been updated after the patient was seen, as this information can be updated by other users. Medical History Angina, class III CAP (community acquired pneumonia) Chest pain COPD (chronic obstructive pulmonary disease) COPD with exacerbation Coronary arteriosclerosis Diastolic dysfunction Elevated troponin Heart palpitations History of heart attack Hyperlipidemia Hyperlipidemia Hypertension Hypertensive heart disease without heart failure Lung nodule Non-STEMI (non-ST elevated myocardial infarction) NSTEMI (non-ST elevated myocardial infarction) Palpitations Tobacco dependence syndrome Surgical History History of carpal tunnel release of both wrists History of cor
--- NOTE | 2023-03-30 00:20 | PC.NURSE ---
Posterior EKG performed.
--- NOTE | 2023-03-30 00:21 | PC.NURSE ---
patient gone to XRay at this time.
[2023-03-30 00:23] LABS: Alanine Aminotransferase 21 U/L (12-78); Albumin Level 4.4 g/dl (3.5-5.0); Albumin/Globulin Ratio 1.5 (1.1-1.8); Alkaline Phosphatase 81 U/L (38-126); Anion Gap 13.3 mEq/L (5-15); Aspartate Amino Transferase 26 U/L (17-59); Bilirubin,Total 0.3 mg/dl (0.2-1.3); Blood Urea Nitrogen 19 mg/dl (9-20); Calcium 9.3 mg/dl (8.4-10.2); Carbon Dioxide 28 mmol/L (22.0-30.0); Chloride 104 mmol/L (98-107); Creatinine Clearance Estimated 56 mL/min (50-200); Estimated Glomerular Filt Rate 42 ml/min (>60); GFR (African American) 51 ML/MIN (>60); Globulin 2.9 g/dL (1.3-3.2); Glucose 118 mg/dl (74-100); Potassium 4.3 mmoL/L (3.5-5.1); Sodium 141 mmol/L (136-145); Total Protein,Serum 7.3 g/dl (6.3-8.2)
--- NOTE | 2023-03-30 00:27 | PC.NURSE ---
patient back in room at this time
[2023-03-30 00:34] LABS: Basophils # 0.1 K/mm3 (0-0.2); Basophils % 0.8 % (0.1-2.0); Eosinophils # 0.7 K/mm3 (0.0-0.4); Eosinophils % 6.2 % (0.1-12.0); Hematocrit 38.9 % (42.0-52.0); Hemoglobin 13.7 g/dL (14.1-18.0); Lymphocytes # 3.8 K/mm3 (0.7-4.5); Lymphocytes % 36.1 % (10-50); Mean Corpuscular HGB Conc 35.2 g/dL (31.8-35.4); Mean Corpuscular Hemoglobin 31.4 pg (27.0-31.2); Mean Corpuscular Volume 89.4 fl (80-94); Mean Platelet Volume 8.1 fl (7.4-10.4); Monocytes # 0.7 K/mm3 (0.1-1.0); Monocytes % 6.3 % (1.7-9.3); Neutrophils # 5.3 K/mm3 (1.8-7.8); Neutrophils % 50.5 % (37.0-80.0); Platelet Count 255 K/mm3 (142-424); Red Blood Count 4.36 M/mm3 (4.60-6.20); Red Cell Distribution Width 12.9 % (11.5-17.5); White Blood Count 10.6 K/mm3 (4.8-10.8)
[2023-03-30 00:35] LABS: NT Pro Brain Natriuretic Pep. 289 pg/mL (0-450)
[2023-03-30 00:45] LABS: Troponin I < 0.01 ng/ml (0.00-0.034)
--- NOTE | 2023-03-30 01:16 | ECG_ITS ---
APPROVED REPORT Exam: Resting ECG HR:56 bpm ECG Measurements Heart Rate 56 AXES MA 182 P 67 QRSd 109 QRS 81 QT 432 T 70 QTc 423 Conclusion SINUS BRADYCARDIA WITH SINUS ARRHYTHMIA BORDERLINE ECG UNCONFIRMED REPORT Electronically signed by : Sawyer Avina MD 04/01/2023 17:23:45
--- NOTE | 2023-03-30 01:32 | PC.NURSE ---
Rounded on patient. Updated patient on plan of care. Patient reports pain improved to 1/10 at this time. Call light within reach, bed low locked position. No needs expressed at this time.
[2023-03-30 03:57] LABS: Troponin I 0.02 ng/ml (0.00-0.034)
--- NOTE | 2023-03-30 04:03 | PC.NURSE ---
in room talking with patient at this time
--- NOTE | 2023-03-30 04:04 | PC.NURSE ---
paged at this time.
--- NOTE | 2023-03-30 04:09 | PC.NURSE ---
o/p with who is environmental auditor for at this time.
--- NOTE | 2023-03-30 04:11 | PC.WOUNDNOTE ---
accepted patient at this time.
--- NOTE | 2023-03-30 04:11 | PC.NURSE ---
Unable to verify home medications, patient is unsure of home medications.
--- NOTE | 2023-03-30 04:12 | PC.NURSE ---
Talked to shop supervisor for patient to be admitted to 2nd floor at this time.
--- NOTE | 2023-03-30 04:17 | PC.NURSE ---
Admitting notified of admission. Laury Avina, Chest Pain, OBS, 208
--- NOTE | 2023-03-30 04:33 | PC.NURSE ---
Nurse to nurse report to Julissa CALLE.
--- NOTE | 2023-03-30 04:46 | PC.NURSE ---
Pt arrived to the floor via wheelchair @ 0939
[2023-03-30 08:17] LABS: Troponin I 0.06 ng/ml (0.00-0.034)
--- NOTE | 2023-03-30 09:14 | EXP.HPDC ---
General Admission date:: 03/30/23 Discharge date: 03/30/23 *Admission Date: 03/29/23 *Chief complaint: Chest pain *History of present illness: 77-year-old with known coronary disease and history of stable angina, with most recent heart cath in October of this year with stent in the proximal LAD, who has been doing well over the last months with good activity levels such as playing golf, doing some yard work with only rare episodes of angina that were controlled with 1 administration of sublingual nitroglycerin. Had a very active day yesterday including a round of golf and some up-and-down steps activity with some housework and felt good until last night when he was preparing to go to bed when he had the onset of angina. He stated that he waited a little bit longer than normal to take a sublingual nitro and when he did it took his pain away for about 5 or 10 minutes but then the pain came back. He administered a second nitroglycerin but then called a friend to bring him to the emergency department because of this unusual need for a second nitroglycerin. In the ER his initial EKG showed evidence of anteroseptal changes. The patient tells me that he is a little bit concerned about the accuracy of the EKG because there was some confusion among the techs about lead placement. Regardless, his second EKG about 10 minutes later was normal compared to his previous baselines. His initial troponin was undetectable, second troponin was 0.02 and because of this increase and his significant cardiac history he was admitted overnight for observation. The patient tells me that has been pain-free since admission. [facility] Disclaimer: The information contained in this section may have been updated after the patient was seen, as this information can be updated by other users. Medical History Angina, class III CAP (community acquired pneumonia) Carpal tunnel syndrome Chest pain Chronic back pain COPD (chronic obstructive pulmonary disease) COPD with exacerbation Coronary arteriosclerosis Diastolic dysfunction Elevated troponin Heart palpitations History of heart attack Hyperlipidemia Hyperlipidemia Hypertension Hypertensive heart disease without heart failure Lung nodule Non-STEMI (non-ST elevated myocardial infarction) NSTEMI (non-ST elevated myocardial infarction) Palpitations Tobacco dependence syndrome Surgical History (Updated 03/30/23 @ 05:31 by Zeny Gutierrez RN) History of appendectomy History of carpal tunnel release of both wrists History of coronary artery stent placement Hx of cholecystectomy Family History Other No significant family history Social History (Updated 03/30/23 @ 05:32 by Zeny Gutierrez RN) Smoking Status: Current every day smoker tobacco type: cigars years smoked: 50 second hand exposure: No alcohol intake: never substance use type: denies use current occupational status: retired Travel in the last 8 weeks: None household members: none housing: house current occupational exposures/hazards: No caffeine: Yes Review of Systems Review of Systems Review of systems:: other and pertinent systems reviewed and negative unless documented below Exam Data for Last 24 hours Vital signs and Labs for Last 24 Hours: Temp Pulse Resp BP Pulse Ox O2 Del Method 97.7 F 47 L 18 104/50 L 95 Room Air 03/30/23 08:00 03/30/23 08:00 03/30/23 08:00 03/30/23 08:00 03/30/23 08:00 03/30/23 08:00 Laboratory Results - last 24 hr 03/30/23 00:07: WBC 10.6, RBC 4.36 L, Hgb 13.7 L, Hct 38.9 L, MCV 89.4, MCH 31.4 H, MCHC 35.2, RDW 12.9, Plt Count 255, MPV 8.1, Neut % (Auto) 50.5, Lymph % (Auto) 36.1, Wetzel % (Auto) 6.3, Eos % (Auto) 6.2, Baso % (Auto) 0.8, Neut # (Auto) 5.3, Lymph # (Auto) 3.8, Wetzel # (Auto) 0.7, Eos # (Auto) 0.7 H, Baso # (Auto) 0.1, Sodium 141, Potassium 4.3, Chloride 104, Carbon Dioxide 28, Anion Gap 13.3, BUN 1
--- NOTE | 2023-03-30 09:56 | HMH.PHAINT1 ---
Pharmacy Intervention Comments: DISCHARGE MEDICATION COUNSELING PROVIDED. DISCUSSED NEW RX FOR NITROGLYCERIN AND RANOLAZINE (TWICE DAILY, FOR CHEST PAIN, SWALLOW WHOLE, HEADACHE, LOW BP, SLOWED HEART RATE POSSIBLE) PATIENT VERBALIZED NO QUESTIONS AT THIS TIME.
--- NOTE | 2023-04-02 14:03 | CARE MANAGER ---
Contacted patient related to hospital discharge. He states he is doing well and is aware of follow up appointments. He denies questions or concerns. ALVA Mehta
== END 2023-03-30 10:48 | disposition home or self-care (01) ==
LOC: ER 04:12 → 2ND 04:18
PROVIDERS: Admitting Provider Family Medicine; Emergency Provider Emergency Medicine; PCP Internal Medicine Adolescent Medicine; Visit Provider Internal Medicine Adolescent Medicine
DX: R07.9 Chest pain, unspecified (principal); I25.2 Old myocardial infarction; Z95.5 Presence of coronary angioplasty implant and graft; J44.9 Chronic obstructive pulmonary disease, unspecified; F17.210 Nicotine dependence, cigarettes, uncomplicated; Z79.899 Other long term (current) drug therapy; Z79.01 Long term (current) use of anticoagulants; R06.09 Other forms of dyspnea
CPT/HCPCS: 36415; 71046; 80053; 83880; 84484; 85025; 93005; 99285; G0378; J2405

== ENCOUNTER 2023-04-02 12:37 | Day surgery (SDC) | payer MEDICARE, SELFPAY ==
[2023-04-02 12:40] VITALS: BP 141/60; PULSE 53
[2023-04-02 12:48] VITALS: BP 154/65; PULSE 58; RESP 20; TEMP 36.4; O2SAT 97; BMI 27.2
--- NOTE | 2023-04-02 13:21 | EXP.PAIN.PRO ---
Procedure Date: 04/02/23 Time: 13:15 Anesthesiologist:: Clark Kelly CRNA Complications:: None Pre-procedure Diagnosis:: Degenerative disc lumbar spine multilevels. Lumbar radiculopathy. Lumbar postlaminectomy syndrome Post-procedure Diagnosis:: Same. Indications for Procedure:: Patient is a very pleasant 77-year-old male that comes our clinic today for intrathecal pain pump interrogation refill. Patient currently being managed with Dilaudid 1 mg/mL at 0.0500 mg/day. Patient doing very well with his current settings. Patient staying active. He reports minimal to no pain. Procedure Details:: Details of the procedure explained to the patient. Patient taken to procedure room placed in sitting position. The area over the pump was cleansed using chlorhexidine's cleansing solution. The pump was interrogated. The pump was accessed with ease using 22-gauge inch and half needle. 13 mL of solution was withdrawn discarded appropriate. The pump was then filled with 20 cc of solution containing Dilaudid 1 mg/mL. Patient tolerated procedure without difficulty. No complications. Plan and Disposition:: Patient was discharged without incident.
== END 2023-04-02 13:20 | disposition home or self-care (01) ==
LOC: SC.PAINP 12:37
PROVIDERS: PCP Internal Medicine Adolescent Medicine; Visit Provider Nurse Anesthetist, Certified Registered
DX: M51.16 Intervertebral disc disorders with radiculopathy, lumbar region (principal); M96.1 Postlaminectomy syndrome, not elsewhere classified; Z97.8 Presence of other specified devices
CPT/HCPCS: 95991

== ENCOUNTER 2023-08-06 10:38 | Day surgery (SDC) | payer MEDICARE, SELFPAY ==
[2023-08-06 10:50] VITALS: BP 130/69; PULSE 84; RESP 16; TEMP 36.4; O2SAT 97; BMI 27.1
[2023-08-06 10:53] VITALS: BP 99/58; PULSE 95; RESP 18; O2SAT 95
[2023-08-06 10:55] VITALS: BP 99/58; PULSE 95; RESP 18; O2SAT 95
[2023-08-06 11:05] VITALS: BP 138/62; PULSE 85; RESP 16; O2SAT 97
--- NOTE | 2023-08-06 11:06 | EXP.PAIN.PRO ---
Procedure Date: 08/06/23 Time: 11:00 Anesthesiologist:: Clark Kelly CRNA Complications:: None Pre-procedure Diagnosis:: Degenerative disc lumbar spine multilevels. Lumbar radiculopathy. Post-procedure Diagnosis:: Same. Indications for Procedure:: Patient is a very pleasant 77-year-old male comes our clinic today for intrathecal pain pump interrogation refill. Patient is currently being managed with Dilaudid 1 mg/mL at a rate of 0.0500 mg/day. He is doing very well with his current settings. He is not requesting changes. He does not report any side effects or complications. Procedure Details:: Details of the procedure explained to the patient. The patient taken procedure room placed sitting position. The area of the pump is cleansed using chlorhexidine as a cleansing solution. The pump was interrogated. The pump was accessed with ease using a 22-gauge inch and half needle. 13 mL of solution was withdrawn discarded appropriate. The pump was then filled with 20 cc of solution containing Dilaudid 1 mg/mL. The rate will stay the same. Patient tolerated procedure without difficulty. There are no complications. Plan and Disposition:: Patient patient was discharged without incident.
[2023-08-09 13:11] LABS: Acetone <.010 g/dL (0.000-0.010); Butalbital <1 ug/mL (1-10); Chlordiazepoxide <0.1 ug/mL (0.1-0.9); Diazepam <0.1 ug/mL (0.1-0.9); Ethanol <.010 g/dL (0.000-0.010); Isopropanol <.010 g/dL (0.000-0.010); Pentobarbital <1 ug/mL (1-5)
== END 2023-08-06 11:05 | disposition home or self-care (01) ==
PROVIDERS: Anesthesiology; PCP Internal Medicine Adolescent Medicine; Visit Provider Nurse Anesthetist, Certified Registered
DX: M51.16 Intervertebral disc disorders with radiculopathy, lumbar region (principal); Z97.8 Presence of other specified devices; Z45.1 Encounter for adjustment and management of infusion pump
CPT/HCPCS: 36415; 80306; 80307; 95991

== ENCOUNTER 2023-12-03 10:10 | Day surgery (SDC) | payer MEDICARE, SELFPAY ==
[2023-12-03 10:29] VITALS: BP 141/61; PULSE 60; RESP 18; TEMP 36.7; O2SAT 98; BMI 27.6
[2023-12-03 10:37] VITALS: BP 120/50; PULSE 62; RESP 18; O2SAT 97
[2023-12-03 10:38] VITALS: BP 120/50; PULSE 62; RESP 18; O2SAT 97
--- NOTE | 2023-12-03 10:52 | EXP.PAIN.PRO ---
Procedure Date: 12/03/23 Time: 10:30 Anesthesiologist:: Clark Kelly CRNA Complications:: None Pre-procedure Diagnosis:: Degenerative disc lumbar spine multilevels. Lumbar radiculopathy. Post-procedure Diagnosis:: Same. Indications for Procedure:: Patient very pleasant 78-year-old male comes our clinic today for intrathecal pain pump interrogation refill. Is currently being managed with Dilaudid 1 mg/mL at a rate of 0.0500 mg/day. Patient is not requesting any changes. He does not report any side effects or complications. Procedure Details:: Details of procedure explained to the patient. The patient taken procedure room placed in sitting position. They over the pumps cleansed using chlorhexidine's cleansing solution. The pump was interrogated. The pump was accessed with ease using a 22-gauge inch and half needle. 12 mL of solution was withdrawn discarded appropriately. The pump was then filled with 20 cc of solution containing Dilaudid 1 mg/mL. The rate will continue at 0.0500 mg/day. Patient tolerated procedure without difficulty. No complications. Plan and Disposition:: Patient was discharged without incident.
[2023-12-03 11:00] VITALS: BP 104/50; PULSE 54; RESP 18; O2SAT 97
== END 2023-12-03 11:02 | disposition home or self-care (01) ==
PROVIDERS: Anesthesiology; PCP Internal Medicine Adolescent Medicine; Visit Provider Nurse Anesthetist, Certified Registered
DX: M51.16 Intervertebral disc disorders with radiculopathy, lumbar region (principal); Z97.8 Presence of other specified devices; Z45.1 Encounter for adjustment and management of infusion pump
CPT/HCPCS: 36415; 95991

== ENCOUNTER 2024-01-20 08:24 | Outpatient (CLI) | payer MEDICARE, SELFPAY ==
[2024-01-20 08:30] LABS: Microscopic, Urine URINE MICROSCOPIC (MICROSCOPIC)
[2024-01-20 08:51] LABS: Hematocrit 34.7 % (42.0-52.0); Hemoglobin 11.9 g/dL (14.1-18.0); Mean Corpuscular HGB Conc 34.3 g/dL (31.8-35.4); Mean Corpuscular Hemoglobin 32.8 pg (27.0-31.2); Mean Corpuscular Volume 95.7 fl (80-94); Platelet Count 275 K/mm3 (142-424); Red Blood Count 3.63 M/mm3 (4.60-6.20); Red Cell Distribution Width 13.1 % (11.5-17.5); White Blood Count 10.2 K/mm3 (4.8-10.8)
[2024-01-20 10:15] LABS: Albumin Level 3.7 g/dl (3.5-5.0); Anion Gap 9.9 mEq/L (5-15); Blood Urea Nitrogen 20 mg/dl (9-20); Calcium 9.3 mg/dl (8.4-10.2); Carbon Dioxide 25 mmol/L (22.0-30.0); Chloride 108 mmol/L (98-107); Estimated Glomerular Filt Rate 35 ml/min (>60); GFR (African American) 42 ML/MIN (>60); Glucose 114 mg/dl (74-100); Phosphorous 3.1 mg/dl (2.5-4.5); Potassium 3.9 mmoL/L (3.5-5.1); Sodium 139 mmol/L (136-145)
[2024-01-20 10:31] LABS: 25-OH Vitamin D, Total 47.8 ng/mL (30-100)
[2024-01-20 11:26] LABS: Creatinine,Urine Random 200 mg/dL (Not Estab.)
[2024-01-20 11:32] LABS: Microalbumin < 6.000 mg/L (0-16.7)
[2024-01-20 11:50] LABS: Appearance,Urine CLEAR (Clear); Bilirubin,Urine Negative (Negative); Blood, Urine Negative (Negative); Color,Urine YELLOW (Yellow); Glucose,Urine (UA) Negative (Negative); Ketones,Urine Negative (Negative); Leukocyte Esterase,Urine Negative (Negative); Nitrate,Urine Negative (Negative); Protein,Urine Negative (Negative); Specific Gravity, Urine 1.025 (1.005-1.030)
[2024-01-20 12:01] LABS: Bacteria,Urine Trace /lpf; Hyaline Casts,Urine OCC #/lpf (0)
== END 2024-01-20 23:59 | disposition home or self-care (01) ==
LOC: LAB 08:25
PROVIDERS: PCP Internal Medicine Adolescent Medicine; Visit Provider Nurse Practitioner
DX: N18.30 Chronic kidney disease, stage 3 unspecified (principal)
CPT/HCPCS: 36415; 80069; 81001; 82043; 82306; 82570; 83970; 84156; 85014; 85018; 85048; 85049

== ENCOUNTER 2024-03-30 06:47 | Day surgery (SDC) | payer MEDICARE, SELFPAY ==
[2024-03-24 12:35] VITALS: BMI 27.5
[2024-03-30 07:10] VITALS: BP 172/82; PULSE 79; RESP 18; TEMP 36.4; O2SAT 98
--- NOTE | 2024-03-30 07:15 | EXP.ANES.CKL ---
[facility] Disclaimer: The information contained in this section may have been updated after the patient was seen, as this information can be updated by other users. Medical History Carpal tunnel syndrome Chronic back pain Diastolic dysfunction Palpitations NSTEMI (non-ST elevated myocardial infarction) Elevated troponin Non-STEMI (non-ST elevated myocardial infarction) Hyperlipidemia Hypertension History of heart attack CAP (community acquired pneumonia) COPD (chronic obstructive pulmonary disease) Lung nodule Chest pain COPD with exacerbation Angina, class III Heart palpitations Tobacco dependence syndrome Hyperlipidemia Hypertensive heart disease without heart failure Coronary arteriosclerosis Surgical History (Updated 03/24/24 @ 12:32 by Kimberly Brennan RN) History of colonoscopy with polypectomy History of appendectomy Hx of cholecystectomy History of carpal tunnel release of both wrists History of coronary artery stent placement Family History Other No significant family history Social History Smoking Status: Current every day smoker tobacco type: cigars years smoked: 50 second hand exposure: No alcohol intake: never substance use type: denies use current occupational status: retired Travel in the last 8 weeks: None household members: none housing: house current occupational exposures/hazards: No caffeine: Yes [facility] Anesthesia Checklist Patient Identification Patient Identification: Arm Band and Verbal (Name & ) Structural Data Admitted From: Home Planned Operative Procedure/s: Colonoscopy Consent for Planned Operative Procedure(s) Verified: Yes Verified Documents: Surgical Consent and History and Physical NPO Status Verified Time NPO: 22:00 Chart Verification Results Verified: CBC, BMP and Chest Xray Additional verifications Patient : No Anesthesia Reactions: No Hx Blood Transfusions: No Blood Transfusion Reaction: No Cardiovascular Assessment Heart Sounds: S1 & S2 Pulse Rhythm: Irregular Peripheral Edema: No Airway Assessment Mallampati Score:: Class II C-Spine Mobility Assessed: Yes TMJ Mobility Assessed: Yes Dentition: Poor Dentition (Many missing, Nothing loose per pt.) Neurological Assessment Level of Consciousness: Awake, Alert, Appropriate and Follows Commands Hx Seizures: No Numbness or tingling in extremities: No Anesthesia Plan Anesthesia Risk discussed: Yes Anesthesia Plan: N/A ASA Class: III Anesthesia Type: MAC
[2024-03-30] MEDS: LACTATED RINGERS 1000ML 1,000 ML 25 ML IV (07:21)
--- NOTE | 2024-03-30 07:32 | EXP.HP ---
History of Present Illness *Admission Date: 03/30/24 *Reason for visit:: Screening *History of present illness: Mr. Maddox is a 78-year-old gentleman who is here for screening colonoscopy. The examination is deemed medically necessary for screening. The patient has been seen, interviewed and examined prior to the procedure by both myself and the anesthesia provider. [facility] Disclaimer: The information contained in this section may have been updated after the patient was seen, as this information can be updated by other users. Medical History (Updated 03/30/24 @ 07:50 by Óscar Deshpande II, MD) Carpal tunnel syndrome Chronic back pain Diastolic dysfunction Palpitations NSTEMI (non-ST elevated myocardial infarction) Elevated troponin Non-STEMI (non-ST elevated myocardial infarction) Hyperlipidemia Hypertension History of heart attack CAP (community acquired pneumonia) COPD (chronic obstructive pulmonary disease) Lung nodule Chest pain COPD with exacerbation Angina, class III Heart palpitations Tobacco dependence syndrome Hyperlipidemia Hypertensive heart disease without heart failure Coronary arteriosclerosis Surgical History History of colonoscopy with polypectomy History of appendectomy Hx of cholecystectomy History of carpal tunnel release of both wrists History of coronary artery stent placement Family History Other No significant family history Social History (Updated 03/30/24 @ 07:21 by Ria Macisa RN) Smoking Status: Current every day smoker tobacco type: cigars years smoked: 50 second hand exposure: No alcohol intake: never substance use type: denies use current occupational status: retired Travel in the last 8 weeks: None household members: none housing: house current occupational exposures/hazards: No caffeine: Yes Other Medical History Have you received the Flu Vaccine for this season: No Have you received the Pneumonia Vaccine: Yes Review of Systems Review of Systems Review of systems (narrative): Negative *Cardiovascular Comments: Negative *Gastrointestinal Comments: Negative *Genitourinary Comments: Negative *Musculoskeletal Comments: Negative *Neurologic Comments: Negative Meds Home Medications and Allergies Home Medications ?Medication ?Instructions ?Recorded ?Confirmed ?Type aspirin 81 mg tablet,delayed 81 mg PO DAILY Heart health 09/06/17 03/30/24 History release (Adult Low Dose Aspirin) tamsulosin 0.4 mg capsule 0.4 mg PO HS Prostate 06/21/21 03/30/24 History albuterol sulfate 90 mcg/actuation 2 puffs inhalation Q6HP PRN 01/12/22 03/30/24 History aerosol inhaler Shortness Of Breath atorvastatin 80 mg tablet 80 mg PO DAILY Cholesterol 01/12/22 03/30/24 History fluticasone propionate 50 1 spray intranasal DAILYP PRN 01/12/22 03/30/24 History mcg/actuation nasal Allergies spray,suspension furosemide 40 mg tablet 40 mg PO DAILY Fluid 01/16/22 03/30/24 History spironolactone 25 mg tablet 25 mg PO DAILY Fluid 01/16/22 03/30/24 History zolpidem 5 mg tablet 5 mg PO HSP PRN Insomnia 01/16/22 03/30/24 History clopidogrel 75 mg tablet 75 mg PO DAILY Blood thinner 02/19/22 03/30/24 History pantoprazole 40 mg tablet,delayed 40 mg PO DAILY #30 tabs 12/05/22 03/30/24 Rx release (Protonix) irbesartan 75 mg tablet 75 mg PO DAILY 01/17/23 03/30/24 History ezetimibe 10 mg tablet 10 mg PO HS 03/06/23 03/30/24 History nitroglycerin 0.4 mg sublingual 0.4 mg sublingual Q5MINP PRN chest 03/30/23 03/30/24 Rx tablet pain #25 tabs nitroglycerin 0.4 mg sublingual 0.4 mg sublingual Q5MINP PRN Chest 03/30/23 03/30/24 Rx tablet (Nitrostat) Pain 30 days #30 tabs ranolazine 500 mg tablet,extended 500 mg PO BID #60 tabs 03/30/23 03/30/24 Rx release,12 hr isosorbide mononitrate 120 mg See Rx Instructions .Route 04/10/23 03/30/24 Rx tablet,extended release 24 hr .COMPLEX #30 tabs metoprolol succinate 50 mg See Rx Instructions .Route 05/13/23 03/30/24 Rx tablet,extended release 24 hr .COMPLEX #90 tabs sod picosulf 10 mg-magnes 3.5 175 ml PO DAILY Bowel Prep 2 doses 03/23/24 03/30/24 Rx gram-citric 12 gram/175 mL oral #350 mL solution (Clenpiq) New Prescriptions to Start Prescriptions: Allergies Allergy/AdvReac Type Severity Reaction Status Date / Time ticagrelor [From Brilinta] AdvReac Intermediate Difficulty Verified 03/30/24 07:02 Breathing Exam Data for Last 24 hours Vital signs and Labs for Last 24 Hours: Temp Pulse Resp BP Pulse Ox O2 Del Method 97.6 F 79 18 172/82 H 98 Nasal Cannula 03/30/24 07:10 03/30/24 07:10 03/30/24 07:10 03/30/24 07:10 03/30/24 07:10 03/30/24 07:10 *Routine HEENT Exam Head: Present normocephalic Eye: Present EOMI and PERRL ENT: Present mucous membranes moist *Routine Neck Exam Neck: Present supple *Routine Respiratory Exam Respiratory: Present CTA bilaterally *Routine Cardiovascular Exam Cardiovascular: Present RRR *Routine Abdominal Exam Abdominal: Present soft and normoactive bowel sounds; Absent tenderness *Routine Rectal Exam Rectal:: deferred *Routine Genitalia Exam Genitalia:: deferred *Routine Extremities Exam Extremities: Absent cyanosis, clubbing or edema *Routine Skin Exam Skin: Present warm; Absent rash *Routine Neurological Exam Neurological: Present alert and oriented X3 Assessment and Plan *Assessment and plan (1) Personal history of colon polyps, unspecified: Status: Acute Category: Medical Code(s): Z86.0100 - Personal history of colon polyps, unspecified (2) Screening for colon cancer: Status: Acute Category: Medical Code(s): Z12.11 - Encounter for screening for malignant neoplasm of colon Plan A/P: 1. Screening/personal history of colon polyps is the preprocedural diagnosis. The patient will be anesthetized/sedated using MAC sedation. The patient has been seen and examined. Cardiac and lung assessment prior to the examination is stable. Proceed with planned colonoscopy
[2024-03-30 07:51] VITALS: O2SAT 97
--- NOTE | 2024-03-30 07:51 | P.PCN_ITS ---
[facility] Procedure Note Date: 03/30/24 Time: 08:08 Procedure Note:: Colonoscopy Procedure Report: Colonoscopy Endoscopist: Óscar Deshpande II, MD Referring physician: Sawyer Avina M.D. Date of Procedure: March 30, 2024 Equipment: Olympus 190 variable stiffness pediatric colonoscope Sedation: MAC sedation Indication: Mr. Maddox is a 78-year-old gentleman who is here for surveillance colonoscopy secondary to a personal history of adenomatous colon polyps. This is the patient's fourth colonoscopy and his last colonoscopy was in December 2018 at which time a single polyp (tubular adenoma) was removed. He reports no abdominal pain, weight loss, change in his bowel habits or rectal bleeding. He reports no family history of colon cancer. Procedure: Prior to the procedure, a history and physical exam was performed, and patient's medications and allergies were reviewed. The risks, benefits and alternatives of the sedation and procedure were discussed with the patient. All questions were answered and informed consent was obtained. The patient was brought to the procedure room. Patient identification and proposed procedure were verified by the physician and the nurse. The patient was placed in a left lateral decubitus position and the scope was passed under direct vision. Throughout the procedure, the patient's blood pressure, pulse, and oxygen saturations were monitored continuously. The colonoscopy was accomplished without difficulty. The patient tolerated the procedure well. Findings: On digital rectal examination there was normal rectal tone. There were no external hemorrhoids. The colonoscope was introduced through the anal canal to the rectum and advanced to the cecum. The ileocecal valve and appendiceal orifice were identified. The scope was advanced a short distance into the ileum which appeared grossly normal. The scope was then withdrawn into the colon. The cecum, ascending, transverse, descending, sigmoid and rectum were grossly normal. There were no mucosal abnormalities identified. Upon retroflexion within the rectum there were grade 1-2 internal hemorrhoids.The preparation was fair throughout with [place] Preparation Score of 7 out of 9. The cecal time was 10 minutes. Impression: 1. Normal colonoscopy with intubation of the terminal ileum Plan: The patient will not require any further preventative/surveillance colonoscopy. I would continue the fiber bowel regimen (combined MiraLAX plus Citrucel) on a long-term daily maintenance basis.
[2024-03-30 08:10] VITALS: BP 113/55; PULSE 64; RESP 16; TEMP 36.6; O2SAT 93
[2024-03-30 08:20] VITALS: BP 121/70; PULSE 65; RESP 16; O2SAT 94
[2024-03-30 08:30] VITALS: BP 136/69; PULSE 64; RESP 18; O2SAT 96
[2024-03-30 08:40] VITALS: BP 139/67; PULSE 62; RESP 18; TEMP 36.2; O2SAT 98
== END 2024-03-30 08:40 | disposition home or self-care (01) ==
PROVIDERS: PCP Internal Medicine Adolescent Medicine; Visit Provider Internal Medicine Gastroenterology
PROC: 0DJD8ZZ Inspection of Lower Intestinal Tract, Via Natural or Artificial Opening Endoscopic (ICD-10-PCS; CPT 45378; principal; 2024-03-30 08:00)
DX: K64.8 Other hemorrhoids (principal); Z86.0100 Personal history of colon polyps, unspecified; Z12.11 Encounter for screening for malignant neoplasm of colon
CPT/HCPCS: G0121; J7120

== ENCOUNTER 2024-04-07 10:17 | Day surgery (SDC) | payer MEDICARE, SELFPAY ==
[2024-04-07 10:31] VITALS: BP 138/64; PULSE 59; RESP 16; O2SAT 97; BMI 27.2
[2024-04-07 11:08] VITALS: BP 142/78; PULSE 61; RESP 18; O2SAT 97
[2024-04-07 11:09] VITALS: BP 142/78; PULSE 61; RESP 18; O2SAT 97
[2024-04-07 11:35] VITALS: BP 99/51; PULSE 60; RESP 16; O2SAT 96
--- NOTE | 2024-04-07 12:51 | EXP.PAIN.PRO ---
Procedure Date: 04/07/24 Time: 11:00 Anesthesiologist:: Clark Kelly CRNA Complications:: None Pre-procedure Diagnosis:: Degenerative disc lumbar spine multilevels. Lumbar radiculopathy. Post-procedure Diagnosis:: Same. Indications for Procedure:: Patient is a very pleasant 78-year-old male who comes our clinic today for intrathecal pain pump interrogation and refill. Patient is currently being managed with Dilaudid 1 mg/mL at a rate of 0.0500 mg/day. He is doing very well with his current settings. He is not reporting any side effects or complications. He is not requesting any changes. He rates his pain 2/10. Patient is awake alert [place] x 3. In no acute distress. Flexion and extension of the lumbar spine somewhat guarded secondary to pain. Deep tendon reflexes upper lower extremities normal. Motor strength upper and lower extremities normal. There is no gross sensory deficit. Gait is normal. Procedure Details:: Details of the procedure explained to the patient. The patient taken procedure room placed in the sitting position. They over the pumps cleansed using chlorhexidine as a cleansing solution. The pump was interrogated. The pump was accessed with ease using a 22-gauge inch and half needle. 14 mL of solution was withdrawn and discarded appropriate. The pump was then filled with 20 cc of solution containing Dilaudid 1 mg/mL. No change in intrathecal pump rate. Patient tolerated procedure without difficulty. No complications. Plan and Disposition:: Patient was discharged without incident.
== END 2024-04-07 11:35 | disposition home or self-care (01) ==
LOC: SC.PAINP 10:17
PROVIDERS: PCP Internal Medicine Adolescent Medicine; Visit Provider Nurse Anesthetist, Certified Registered
DX: M51.16 Intervertebral disc disorders with radiculopathy, lumbar region (principal)
CPT/HCPCS: 95991

== ENCOUNTER 2024-06-19 13:46 | Emergency (ER) | payer MEDICARE, SELFPAY ==
[2024-06-19 15:10] VITALS: BP 137/65; PULSE 70; RESP 20; TEMP 36.7; O2SAT 97; BMI 27.6
--- NOTE | 2024-06-19 16:07 | ED_ITS ---
Discharge Plan Disposition Patient Disposition: Home, Self-Care Condition: Good Prescriptions Prescriptions: New doxycycline hyclate 100 mg tablet 100 mg PO BID 10 Days Qty: 20 0RF No Action irbesartan 75 mg tablet 75 mg PO DAILY aspirin [Adult Low Dose Aspirin] 81 mg tablet,delayed release (DR/EC) 81 mg PO DAILY tamsulosin 0.4 mg capsule 0.4 mg PO HS pantoprazole [Protonix] 40 mg tablet,delayed release (DR/EC) 40 mg PO DAILY Qty: 30 5RF ezetimibe 10 mg tablet 10 mg PO HS isosorbide mononitrate 120 mg tablet extended release 24 hr See Rx Instructions .ROUTE .COMPLEX Qty: 30 5RF Dose Instruction: TAKE ONE TABLET BY MOUTH EVERY DAY Rx Instructions: TAKE ONE TABLET BY MOUTH EVERY DAY metoprolol succinate 50 mg tablet extended release 24 hr See Rx Instructions .ROUTE .COMPLEX Qty: 90 4RF Dose Instruction: TAKE ONE TABLET BY MOUTH EVERY DAY Rx Instructions: TAKE ONE TABLET BY MOUTH EVERY DAY Clenpiq 10 mg-3.5 gram- 12 gram/175 mL solution 175 ml PO DAILY 0 Days Qty: 350 0RF Rx Instructions: take first dose at 5-9PM evening before colonoscopy; 2nd dose the next day approximately 5 hrs before colonoscopy furosemide 40 MG tablet 40 mg PO DAILY spironolactone 25 MG tablet 25 mg PO DAILY zolpidem 5 MG tablet 5 mg PO HSP PRN (Reason: Insomnia) fluticasone propionate 15.8 ML spray,suspension 1 spray NS DAILYP PRN (Reason: Allergies) atorvastatin 80 MG tablet 80 mg PO DAILY albuterol sulfate 18 GM HFA aerosol inhaler 2 puffs IH Q6HP PRN (Reason: Shortness Of Breath) clopidogrel 75 mg tablet 75 mg PO DAILY Patient Comments: TAKE ONE TABLET BY MOUTH EVERY DAY nitroglycerin [Nitrostat] 0.4 mg Tablet, Sublingual 0.4 mg sublingual Q5MINP PRN (Reason: Chest Pain) 30 Days Qty: 30 1RF nitroglycerin 0.4 mg tablet, sublingual 0.4 mg sublingual Q5MINP PRN (Reason: chest pain) Qty: 25 2RF ranolazine 500 mg tablet extended release 12 hr 500 mg PO BID Qty: 60 0RF Referrals Follow up/Referrals: Sawyer Avina MD [Primary Care Provider] - See instructions Activity Restrictions/Add. Instructions Additional Instructions/Restrictions: Take medication as prescribed. Follow up with PCP next week. Keep area clean and dry. Clinical Impressions Clinical Impression: Anal abscess Instructions Patient Instructions: DI for Anal Abscess Print Language Print Language: Nigerian Discharge ED Provider: Latoya Cahn [facility] HPI General Stated complaint: BOIL ON GROIN Mode of Arrival: Ambulatory Source of Information: Patient Limitations: No Limitations Time Seen by Provider: 06/19/24 16:06 Description of Symptoms (Recalled from Triage Doc. by RN): PATIENT C/O SORE SPOT TO BUTTOCK AREA THAT STARTED HURTING YESTERDAY HEENT Symptoms (Recalled from RN notes): No Resp Symptoms (Recalled from RN notes): No Skin Symptoms (Recalled from RN notes): Yes MS Symptoms (Recalled from RN notes): No Functional Status (Recalled from RN notes): WNL Related Data Home Medications ?Medication ?Instructions ?Recorded ?Confirmed aspirin 81 mg tablet,delayed 81 mg PO DAILY Heart health 09/06/17 04/07/24 release (Adult Low Dose Aspirin) tamsulosin 0.4 mg capsule 0.4 mg PO HS Prostate 06/21/21 04/07/24 albuterol sulfate 90 mcg/actuation 2 puffs inhalation Q6HP PRN 01/12/22 04/07/24 aerosol inhaler Shortness Of Breath atorvastatin 80 mg tablet 80 mg PO DAILY Cholesterol 01/12/22 04/07/24 fluticasone propionate 50 1 spray intranasal DAILYP PRN 01/12/22 04/07/24 mcg/actuation nasal Allergies spray,suspension furosemide 40 mg tablet 40 mg PO DAILY Fluid 01/16/22 04/07/24 spironolactone 25 mg tablet 25 mg PO DAILY Fluid 01/16/22 04/07/24 zolpidem 5 mg tablet 5 mg PO HSP PRN Insomnia 01/16/22 04/07/24 clopidogrel 75 mg tablet 75 mg PO DAILY Blood thinner 02/19/22 04/07/24 irbesartan 75 mg tablet 75 mg PO DAILY 01/17/23 04/07/24 ezetimibe 10 mg tablet 10 mg PO HS 03/06/23 04/07/24 Previous Rx's ?Medication ?Instructions ?Recorded pantoprazole 40 mg tablet,delayed 40 mg PO DAILY #30 tabs 12/05/22 release (Protonix) nitroglycerin 0.4 mg sublingual 0.4 mg sublingual Q5MINP PRN chest 03/30/23 tablet pain #25 tabs nitroglycerin 0.4 mg sublingual 0.4 mg sublingual Q5MINP PRN Chest 03/30/23 tablet (Nitrostat) Pain 30 days #30 tabs ranolazine 500 mg tablet,extended 500 mg PO BID #60 tabs 03/30/23 release,12 hr isosorbide mononitrate 120 mg See Rx Instructions .Route 04/10/23 tablet,extended release 24 hr .COMPLEX #30 tabs metoprolol succinate 50 mg See Rx Instructions .Route 05/13/23 tablet,extended release 24 hr .COMPLEX #90 tabs sod picosulf 10 mg-magnes 3.5 175 ml PO DAILY Bowel Prep 2 doses 03/23/24 gram-citric 12 gram/175 mL oral #350 mL solution (Clenpiq) doxycycline hyclate 100 mg tablet 100 mg PO BID 10 days #20 tabs 06/19/24 Allergies Allergy/AdvReac Type Severity Reaction Status Date / Time ticagrelor (From Brilinta) AdvReac Intermediate Difficulty Verified 03/30/24 07:02 Breathing Worker's Comp Is this a Worker's Comp case?: No [facility] Disclaimer: The information contained in this section may have been updated after the patient was seen, as this information can be updated by other users. Medical History (Updated 06/19/24 @ 16:21 by Latoya Chan APRN) Carpal tunnel syndrome Chronic back pain Diastolic dysfunction Palpitations NSTEMI (non-ST elevated myocardial infarction) Elevated troponin Non-STEMI (non-ST elevated myocardial infarction) Hyperlipidemia Hypertension History of heart attack CAP (community acquired pneumonia) COPD (chronic obstructive pulmonary disease) Lung nodule Chest pain COPD with exacerbation Angina, class III Heart palpitations Tobacco dependence syndrome Hyperlipidemia Hypertensive heart disease without heart failure Coronary arteriosclerosis Surgical History History of colonoscopy with polypectomy History of appendectomy Hx of cholecystectomy History of carpal tunnel release of both wrists History of coronary artery stent placement Family History Other No significant family history Social History Smoking Status: Current every day smoker tobacco type: cigars years smoked: 50 second hand exposure: No alcohol intake: never substance use type: denies use current occupational status: retired Travel in the last 8 weeks: None household members: none housing: house current occupational exposures/hazards: No caffeine: Yes Have you lived/traveled outside [place] in past 30 days?: No Contact w/someone who lives/traveled outside US past 30 days?: No Exposure to someone with infectious disease in past 14 days?: No Do you have a fever (greater than 100.4 F or 38 C)?: No Have you tested positive for COVID-19: No Exposed to someone with COVID-19 in past 14 days?: No Do you have a sore throat?: No Do you have a cough?: No Do you have any weakness?: No Do you have any diarrhea?: No Are you experiencing any unusual bleeding?: No Do you have any muscle aches/pain?: No Do you have any abdominal pain?: No Are you experiencing loss of taste or smell?: No ROS Obtained: Yes All systems reviewed & no additional complaints except as documented Constitutional Constitutional: Reports system reviewed and no additional complaints, except as documented Eyes Eyes: Reports system reviewed and no additional complaints, except as documented ENT Ears, Nose, Mouth, and Throat: Reports system reviewed and no additional complaints, except as documented Cardiovascular Cardiovascular: Reports system reviewed and no additional complaints, except as documented Respiratory Respiratory: Reports system reviewed and no additional complaints, except as documented Gastrointestinal Gastrointestingal: Reports system reviewed and no additional complaints, except as documented Genitourinary Male Genitourinary: Reports system reviewed and no additional complaints, except as documented Comments: anal sore Musculoskeletal Musculoskeletal: Reports system reviewed and no additional complaints, except as documented Integumentary/Breasts Skin/Breast: Reports system reviewed and no additional complaints, except as documented and Reports furuncle (anal) Neurologic Neurologic: Reports system reviewed and no additional complaints, except as documented Endocrine Endocrine: Reports system reviewed and no additional complaints, except as documented Hematologic/Lymphatic Henatologic/Lymphatic: Reports system reviewed and no additional complaints, except as documented Allergic/Immunologic Allergic/Immunologic: Reports system reviewed and no additional complaints, except as documented Physical Exam General General appearance: alert and in no apparent distress Head Head exam: atraumatic and normocephalic Eye Eye exam: Present normal appearance ENT ENT exam: Present normal exam and normal oropharynx Neck Neck exam: Present normal inspection Chest Chest inspection: Present normal inspection and symmetric chest wall rise Respiratory Respiratory exam: Present normal lung sounds bilaterally Cardiovascular Cardiovascular exam: Present regular rate and normal rhythm Abdominal Exam Abdominal exam: Present soft exam: Present other Expanded Exam Comment: anal abscess present. Ro Dave RN present during exam. Extremities Exam Extremities exam: Present normal inspection Back Exam Back exam: Present normal inspection Neurological Exam Neurological exam: Present alert and oriented X3 Psychiatric Psychiatric exam: Present normal affect and normal mood Skin Skin exam: Present warm, dry and intact Lymphatic Lymphatic Findings: no adenopathy Medical Decision Making Medical Records Screening: Per USPSTF and CDC recommendations, given the prevalence of disease in our region, it is our hospital?s policy to screen for HIV and viral Hepatitis for all patients aged 18 and over and those with ongoing risk factors. Manny Inquiry Pt receiving controlled substance: No Manny was queried for this patient: No Vital Signs: 06/19/24 15:10 Temperature 98.0 F Temperature Source Oral Pulse Rate [Left Brachial] 70 Respiratory Rate 20 Blood Pressure [Left Arm] 137/65 Blood Pressure Mean [Left Arm] 89 Blood Pressure Source [Left Arm] Automatic Cuff Blood Pressure Position [Left Arm] Sitting 02 Sat by Pulse Oximetry 97 Oxygen Delivery Method Room Air
[2024-06-19 16:20] VITALS: BP 137/65; PULSE 70; RESP 20; TEMP 36.7; O2SAT 97
== END 2024-06-19 16:24 | disposition home or self-care (01) ==
PROVIDERS: Emergency Provider Nurse Practitioner Family; PCP Internal Medicine Adolescent Medicine
DX: K61.0 Anal abscess (principal)
CPT/HCPCS: 99213; G0381

== ENCOUNTER 2024-07-24 08:37 | Day surgery (SDC) | payer MEDICARE, SELFPAY ==
[2024-07-24 09:00] VITALS: BP 137/62; PULSE 69; RESP 18; O2SAT 96; BMI 27.1
--- NOTE | 2024-07-24 09:08 | EXP.PAIN.PRO ---
Procedure Date: 07/24/24 Time: 09:14 Anesthesiologist:: Cristina Prater APRN Complications:: None Pre-procedure Diagnosis:: Degenerative disc disease of lumbar spine with lumbar radiculopathy symptoms Post-procedure Diagnosis:: Same Indications for Procedure:: Patient is a pleasant 78-year-old male who presents today for intrathecal refill and reprogram. Today he rates his pain a 0 out of 10. He denies any new injuries or trauma. Patient is currently managed with Dilaudid 1 mg/mL with a daily dose of 0.05 mg/day. He denies any side effects. His Manny has been reviewed and is appropriate. Physical Exam: General: Alert and oriented x3, no acute distress, pleasant and cooperative Lungs: Respirations even and unlabored, symmetrical chest expansion Eyes: PERRL Musculoskeletal: Flexion and extension of lumbar [spine] somewhat guarded secondary to pain, [antalgic gait noted] Neurological: Speech clear, no gross sensory deficit Procedure Details:: Informed consent was obtained and the risk and benefits of the procedure were explained to the patient. The patient had noninvasive monitoring placed including noninvasive blood pressure cuff and pulse oximeter. Patient's pump was interrogated. The area over the pump was cleansed with chlorhexidine as a cleansing solution. In sterile fashion the pump was accessed with a 22-gauge needle. Approximately 13.5 mls of the pump solution was removed and discarded appropriately. The pump was then refilled with 20 mL's of Dilaudid 1 mg/mL. The needle was withdrawn and a bandage was placed over the puncture site. The infusion rate was reprogrammed and continued at Dilaudid 0.05 mg/day. The patient tolerated well with no complication. Plan and Disposition:: Patient tolerated the procedure well with no complications and was discharged neurologically intact. I did discuss with the patient that it is we can always adjust the concentration so he does not have as much excess pump medication at his refills however at this time he would like to leave it the way it is. Patient will return to clinic on or before their next intrathecal refill date. We will see the patient back in the clinic at the next intrathecal refill. Patient has been instructed to contact the clinic with any concerns before the next appointment. Dr. Bassett has reviewed this note and agrees with this plan of care. This note was dictated using voice recognition software and make contain errors or omissions. -- It Is medically necessary for this patient to continue to have their intrathecal pump refilled at regular intervals. This patient had an intrathecal pain pump implanted after meeting criteria of chronic intractable pain for greater than 3 months and failing conservative treatments. Patient has committed and been compliant to the treatment plan and all planned follow up care. Since implantation of the intrathecal pain pump, the patient has had decreased pain and been more functional. Oral medications have been reduced including intake of oral opioids. Patient continues to do well with intrathecal therapy with decrease in pain symptoms and increase in functional status. Stopping intrathecal medications can lead to life threatening withdrawal, seizures, cardiac arrest, severe pain, and possible . Pumps that are not refilled at regular intervals can be damages and cause and need for replacement. We continually titrate dose and concentration to optimize pain relief and function. We are limited in concentration for certain drugs to safely deliver medications through the pump and stay within the recommendations from the Polyanalgesic Consensus Committee Guidelines. Depending on dose and concentration these pumps may need to be refilled sooner than 3 months as we titrate. A UDS is needed to verify patient's compliance with our office pain contract. This is ordered based off specific treatments related to chronic pain with the potential to abuse certain medications.
[2024-07-24 09:09] VITALS: BP 118/56; PULSE 70; RESP 18; O2SAT 95
[2024-07-24 09:11] VITALS: BP 118/56; PULSE 70; RESP 18; O2SAT 95
[2024-07-24 09:23] VITALS: BP 117/58; PULSE 62; RESP 16; O2SAT 93
== END 2024-07-24 09:23 | disposition home or self-care (01) ==
PROVIDERS: PCP Internal Medicine Adolescent Medicine; Visit Provider Nurse Practitioner Family
DX: M51.16 Intervertebral disc disorders with radiculopathy, lumbar region (principal)
CPT/HCPCS: 62370; 99212; G0463

== ENCOUNTER 2024-08-10 11:42 | Outpatient (CLI) | payer MEDICARE, SELFPAY ==
[2024-08-10 11:52] LABS: Microscopic, Urine URINE MICROSCOPIC (MICROSCOPIC)
[2024-08-10 12:12] LABS: Hematocrit 33.1 % (42.0-52.0); Hemoglobin 11.4 g/dL (14.1-18.0); Mean Corpuscular HGB Conc 34.4 g/dL (31.8-35.4); Mean Corpuscular Hemoglobin 31.7 pg (27.0-31.2); Mean Corpuscular Volume 91.9 fl (80-94); Platelet Count 224 K/mm3 (142-424); White Blood Count 9.4 K/mm3 (4.8-10.8)
[2024-08-10 13:21] LABS: Albumin Level 3.8 g/dl (3.5-5.0); Chloride 106 mmol/L (98-107); Potassium 4.4 mmoL/L (3.5-5.1); Sodium 137 mmol/L (136-145)
[2024-08-10 13:24] LABS: Anion Gap 9.4 mEq/L (5-15); Blood Urea Nitrogen 19 mg/dl (9-20); Carbon Dioxide 26 mmol/L (22.0-30.0); Estimated Glomerular Filt Rate 37 ml/min (>60); GFR (African American) 45 ML/MIN (>60); Iron 116 ug/dL (49-181)
[2024-08-10 13:25] LABS: Calcium 9.5 mg/dl (8.4-10.2); Glucose 110 mg/dl (74-100); Phosphorous 3.5 mg/dl (2.5-4.5)
[2024-08-10 13:35] LABS: Total Iron Binding Capacity 258 ug/dL (261-462)
[2024-08-10 13:50] LABS: Appearance,Urine CLEAR (Clear); Bilirubin,Urine Negative (Negative); Blood, Urine Negative (Negative); Color,Urine YELLOW (Yellow); Glucose,Urine (UA) Negative (Negative); Ketones,Urine Negative (Negative); Leukocyte Esterase,Urine TRACE (Negative); Nitrate,Urine Negative (Negative); Protein,Urine Negative (Negative); Specific Gravity, Urine 1.025 (1.005-1.030)
[2024-08-10 13:59] LABS: Ferritin 118 ng/ml (17.9-464)
[2024-08-10 14:04] LABS: Total Protein,Urine Random < 5.0 mg/dL (0.0-12.0)
[2024-08-10 14:06] LABS: 25-OH Vitamin D, Total 62.5 ng/mL (30-100); Microalbumin < 6.000 mg/L (0-16.7)
[2024-08-10 14:12] LABS: Squamous Epithelial Cell,Urine Occasional #/hpf (0-5)
[2024-08-10 16:21] LABS: Creatinine,Urine Random 178 mg/dL (Not Estab.)
== END 2024-08-10 23:59 | disposition home or self-care (01) ==
LOC: LAB 11:43
PROVIDERS: PCP Internal Medicine Adolescent Medicine; Visit Provider Nurse Practitioner
DX: I12.9 Hypertensive chronic kidney disease with stage 1 through stage 4 chronic kidney disease, or unspecified chronic kidney disease (principal); N18.32 Chronic kidney disease, stage 3b; D64.9 Anemia, unspecified; Z68.27 Body mass index [BMI] 27.0-27.9, adult; E66.3 Overweight; F17.290 Nicotine dependence, other tobacco product, uncomplicated
CPT/HCPCS: 36415; 80069; 81001; 82043; 82306; 82570; 82728; 83540; 83550; 83970; 84156; 85027

== ENCOUNTER 2024-12-04 08:41 | Day surgery (SDC) | payer MEDICARE, SELFPAY ==
--- NOTE | 2024-12-04 08:49 | P.HP_ITS ---
History of Present Illness *Admission Date: 12/04/24 *Reason for visit:: Intrathecal refill; DDD *History of present illness: Same [facility] Disclaimer: The information contained in this section may have been updated after the patient was seen, as this information can be updated by other users. Medical History (Updated 12/04/24 @ 08:52 by Cristina Prater APRN) Carpal tunnel syndrome Chronic back pain Diastolic dysfunction Palpitations NSTEMI (non-ST elevated myocardial infarction) Elevated troponin Non-STEMI (non-ST elevated myocardial infarction) Hyperlipidemia Hypertension History of heart attack CAP (community acquired pneumonia) COPD (chronic obstructive pulmonary disease) Lung nodule Chest pain COPD with exacerbation Angina, class III Heart palpitations Tobacco dependence syndrome Hyperlipidemia Hypertensive heart disease without heart failure Coronary arteriosclerosis Surgical History History of colonoscopy with polypectomy History of appendectomy Hx of cholecystectomy History of carpal tunnel release of both wrists History of coronary artery stent placement Family History Other No significant family history Social History Smoking Status: Current every day smoker tobacco type: cigars years smoked: 50 second hand exposure: No alcohol intake: never substance use type: denies use current occupational status: retired Travel in the last 8 weeks?: None household members: none housing: house current occupational exposures/hazards: No caffeine: Yes Have you lived/traveled outside [place] in past 30 days?: No Contact w/someone who lives/traveled outside US past 30 days?: No Exposure to someone with infectious disease in past 14 days?: No Do you have a fever (greater than 100.4 F or 38 C)?: No Have you tested positive for COVID-19?: No Exposed to someone with COVID-19 in past 14 days?: No Do you have a sore throat?: No Do you have a cough?: No Do you have any weakness?: No Do you have any diarrhea?: No Are you experiencing any unusual bleeding?: No Do you have any muscle aches/pain?: No Do you have any abdominal pain?: No Are you experiencing loss of taste or smell?: No Other Medical History Have you received the Flu Vaccine for this season: No Have you received the Pneumonia Vaccine: No Review of Systems Review of Systems Review of systems:: pertinent systems reviewed and negative unless documented below Review of systems (narrative): Review of Systems: General: No recent weight changes, no fever, no sleep disturbances Respiratory: No cough, no shortness of air, no recurring pulmonary infections Cardiovascular/peripheral vascular: No chest pain, no palpitations, no edema, no shortness of breath Gastrointestinal: No new onset incontinence, normal bowel movements reported Genitourinary: No new onset incontinence Musculoskeletal: Chronic back pain Psychiatric: [Normal mood/affect] Neurological: [Denies weakness in extremities], [denies balance issues] Meds Home Medications and Allergies Home Medications ?Medication ?Instructions ?Recorded ?Confirmed ?Type aspirin 81 mg tablet,delayed 81 mg PO DAILY Heart heal th 09/06/17 08/27/24 History release (Adult Low Dose Aspirin) tamsulosin 0.4 mg capsule 0.4 mg PO HS Prostate 08/27/24 History albuterol sulfate 90 mcg/actuation 2 puffs inhalation Q6HP PRN 01/12/22 08/27/24 History aerosol inhaler Shortness Of Breath atorvastatin 80 mg tablet 80 mg PO DAILY Cholesterol 0 01/12/22 08/27/24 History fluticasone propionate 50 1 spray intranasal DAILYP ID N 01/12/22 08/27/24 History mcg/actuation nasal Allergies spray,suspension furosemide 40 mg tablet 40 mg PO DAILY Fluid 2 08/27/24 History spironolactone 25 mg tablet 25 mg PO DAILY Fluid 01/1608/27/24 History zolpidem 5 mg tablet 5 mg PO HSP PRN Insomnia 08/0808/27/24 History clopidogrel 75 mg tablet 75 mg PO DAILY Blood thinner 02/19/22 08/27/24 History pantoprazole 40 mg tablet,delayed 40 mg PO DAILY #30 t abs 12/05/22 08/27/24 Rx release (Protonix) irbesartan 75 mg tablet 75 mg PO DAILY 01/17/2308/15 History ezetimibe 10 mg tablet 10 mg PO HS 03/06/23 5 History nitroglycerin 0.4 mg sublingual 0.4 mg sublingual Q5MI NITRILES LAB TECHNICIAN PRN chest 03/30/23 08/27/24 Rx tablet pain #25 tabs nitroglycerin 0.4 mg sublingual 0.4 mg sublingual Q5MI NITRILES LAB TECHNICIAN PRN Chest 03/30/23 08/27/24 Rx tablet (Nitrostat) Pain 30 days #30 tabs ranolazine 500 mg tablet,extended 500 mg PO BID #60 ta bs 03/30/23 08/27/24 Rx release,12 hr isosorbide mononitrate 120 mg See Rx Instructions .Rou te 04/10/23 08/27/24 Rx tablet,extended release 24 hr .COMPLEX #30 tabs metoprolol succinate 50 mg See Rx Instructions .Route 05/13/23 08/27/24 Rx tablet,extended release 24 hr .COMPLEX #90 tabs sod picosulf 10 mg-magnes 3.5 175 ml PO DAILY Bowel Pr ep 2 doses 03/23/24 08/27/24 Rx gram-citric 12 gram/175 mL oral #350 mL solution (Clenpiq) doxycycline hyclate 100 mg tablet 100 mg PO BID 10 day s #20 tabs 06/19/24 08/27/24 Rx ferrous fumarate 325 mg (106 mg 325 mg PO DAILY 08/27/24 History iron) tablet New Prescriptions to Start Prescriptions: Allergies Allergy/AdvReac Type Severity Reaction Status Date / Time ticagrelor (From Brilinta) AdvReac Intermediate Difficulty Verified 08/27/24 10:47 Breathing Exam Constitutional Constitutional: no acute distress *Routine HEENT Exam Head: Present normocephalic and atraumatic Eye: Present PERRL ENT: Present mucous membranes moist *Routine Neck Exam Neck: Present supple *Routine Respiratory Exam Respiratory: Present CTA bilaterally *Routine Cardiovascular Exam Cardiovascular: Present RRR *Routine Abdominal Exam Abdominal: Present soft *Routine Rectal Exam Rectal:: deferred *Routine Genitalia Exam Genitalia:: deferred Routine Back/Spine/Pelvis Exam Back/Spine: Present pain with flexion *Routine Skin Exam Skin: Present intact, dry and warm *Routine Neurological Exam Neurological: Present alert and oriented X3 Routine Psychiatric Exam Psychiatric: Present normal affect and normal thought process Assessment and Plan *Assessment and plan (1) Chronic back pain: Problem Comment: has pain pump Status: Acute Category: Medical Code(s): M54.9 - Dorsalgia, unspecified; G89.29 - Other chronic pain Plan Patient has been instructed to contact the clinic with any concerns before the next appointment. Dr. Bassett has reviewed this note and agrees with this plan of care. This note was dictated using voice recognition software and make contain errors or omissions. All injections are used with Lidocaine, Bupivacaine and dexamethasone. Occasionally urine drug screen is needed to verify patient's compliance with our office pain contract. This is ordered based off specific treatments related to chronic pain with the potential to abuse certain medications.
[2024-12-04 09:00] VITALS: BP 124/61; PULSE 66; RESP 18; TEMP 36.8; O2SAT 97; BMI 27.1
--- NOTE | 2024-12-04 09:00 | EXP.PAIN.PRO ---
Procedure Date: 12/04/24 Time: 09:06 Anesthesiologist:: Cristina Prater APRN Complications:: None Pre-procedure Diagnosis:: Degenerative disc disease of lumbar spine with lumbar radiculopathy symptoms, chronic pain syndrome Post-procedure Diagnosis:: Same Indications for Procedure:: Patient is a pleasant 79-year-old male who presents today for intrathecal refill and reprogram. He rates his pain today a 0 out of 10. He states he is doing really well overall and denies any new falls or injuries. Patient states he has not really been playing a lot of golf so is not even needed to use his bolus device.Patient is currently managed with Dilaudid 1 mg/mL with a daily dose of 0.05 mg/day. He denies any side effects. His Manny has been reviewed and is appropriate. Physical Exam: General: Alert and oriented x3, no acute distress, pleasant and cooperative Lungs: Respirations even and unlabored, symmetrical chest expansion Eyes: PERRL Musculoskeletal: Flexion and extension of lumbar [spine] somewhat guarded secondary to pain, [antalgic gait noted] Neurological: Speech clear, no gross sensory deficit Procedure Details:: Informed consent was obtained and the risk and benefits of the procedure were explained to the patient. The patient had noninvasive monitoring placed including noninvasive blood pressure cuff and pulse oximeter. Patient's pump was interrogated. The area over the pump was cleansed with chlorhexidine as a cleansing solution. In sterile fashion the pump was accessed with a 22-gauge needle. Approximately 12 mls of the pump solution was removed and discarded appropriately. The pump was then refilled with 20 mL's of Dilaudid 1 mg/mL. The needle was withdrawn and a bandage was placed over the puncture site. The infusion rate was reprogrammed and continued at its current dosage. The patient tolerated well with no complication. Plan and Disposition:: Patient tolerated the procedure well with no complications and was discharged neurologically intact. Patient will return to clinic on or before their next intrathecal refill date. We will see the patient back in the clinic at the next intrathecal refill. Patient has been instructed to contact the clinic with any concerns before the next appointment. Dr. Bassett has reviewed this note and agrees with this plan of care. This note was dictated using voice recognition software and make contain errors or omissions. -- It Is medically necessary for this patient to continue to have their intrathecal pump refilled at regular intervals. This patient had an intrathecal pain pump implanted after meeting criteria of chronic intractable pain for greater than 3 months and failing conservative treatments. Patient has committed and been compliant to the treatment plan and all planned follow up care. Since implantation of the intrathecal pain pump, the patient has had decreased pain and been more functional. Oral medications have been reduced including intake of oral opioids. Patient continues to do well with intrathecal therapy with decrease in pain symptoms and increase in functional status. Stopping intrathecal medications can lead to life threatening withdrawal, seizures, cardiac arrest, severe pain, and possible . Pumps that are not refilled at regular intervals can be damages and cause and need for replacement. We continually titrate dose and concentration to optimize pain relief and function. We are limited in concentration for certain drugs to safely deliver medications through the pump and stay within the recommendations from the Polyanalgesic Consensus Committee Guidelines. Depending on dose and concentration these pumps may need to be refilled sooner than 3 months as we titrate. A UDS is needed to verify patient's compliance with our office pain contract. This is ordered based off specific treatments related to chronic pain with the potential to abuse certain medications.
[2024-12-04 09:03] VITALS: BP 139/65; PULSE 62; RESP 18; O2SAT 95
[2024-12-04 09:22] VITALS: BP 122/64; PULSE 68; RESP 18; O2SAT 97
[2024-12-09 21:12] LABS: Amphetamines IA Negative ng/mL (Cutoff:50); Barbituates IA Negative ug/mL (Cutoff:0.1); Benzodiazepines IA Negative ng/mL (Cutoff:20); Cocaine & Metabolites IA Negative ng/mL (Cutoff:25); Fentanyl, IA Negative ng/mL (Cutoff:1.0); Meperidine, IA Negative ng/mL (Cutoff:100); Methadone IA Negative ng/mL (Cutoff:25); Opiates IA Negative ng/mL (Cutoff:5); Oxycodone IA Negative ng/mL (Cutoff:5); Phencyclidine IA Negative ng/mL (Cutoff:8); Propoxyphene IA Negative ng/mL (Cutoff:50); THC (marijauna) metabolite IA Negative ng/mL (Cutoff:5); Tramadol, IA Negative ng/mL (Cutoff:50)
== END 2024-12-04 09:22 | disposition home or self-care (01) ==
PROVIDERS: PCP Internal Medicine Adolescent Medicine; Visit Provider Nurse Practitioner Family
DX: Z45.1 Encounter for adjustment and management of infusion pump (principal); G89.4 Chronic pain syndrome; M51.16 Intervertebral disc disorders with radiculopathy, lumbar region; Z79.891 Long term (current) use of opiate analgesic; I11.0 Hypertensive heart disease with heart failure; I50.32 Chronic diastolic (congestive) heart failure; I25.2 Old myocardial infarction; E78.5 Hyperlipidemia, unspecified; J44.9 Chronic obstructive pulmonary disease, unspecified; I25.119 Atherosclerotic heart disease of native coronary artery with unspecified angina pectoris; Z95.5 Presence of coronary angioplasty implant and graft; F17.290 Nicotine dependence, other tobacco product, uncomplicated; Z79.899 Other long term (current) drug therapy; Z79.82 Long term (current) use of aspirin; Z88.8 Allergy status to other drugs, medicaments and biological substances
CPT/HCPCS: 36415; 62370; 80307

== ENCOUNTER 2025-02-01 09:18 | Outpatient (CLI) | payer MEDICARE, SELFPAY ==
--- OUTSIDE RECORDS SUMMARY | 2024-09-19 17:30 | XMS_ITS ---
Author Organization [facility] Address [address] [place] [address] [facility] [address] [place] [address] Care Team Providers Care Financial Accounting Analyst Name Role Phone Sawyer Avina Primary Care Provider [phone] Sawyer Avina Unavailable Unavailable Migration, Provider Unavailable Unavailable Allergies Allergen (clinical drug ingredient) Drug/Non Drug Allergy documented on EMR Reaction Allergy Type Onset Date Status BRILLINTA (uncoded) SOA Allergy Active REASON FOR VISIT [facility] To [facility] Conversion Encounter Medications Medication SIG (Take, Route, Frequency, Duration) Notes Start Date End Date Status Zithromax Z-Jann 250 MG 2 tablets on the first day, then 1 tablet daily for 4 days orally once a day; Duration: 5 days 09/18/2024 Active Ranolazine ER 500 MG 1 tab(s) orally 2 times a day; Duration: 30 days Active Promethazine-DM 6.25-15 MG/5ML 5 mL orally every 6 hours; Duration: 10 days 09/18/2024 Active Ezetimibe 10 MG 1 tab(s) orally once a day; Duration: 30 days Active predniSONE 10 MG 1 tab(s) orally once a day; Duration: 20 days 09/18/2024 Active Triamcinolone Acetonide 0.1 % 1 mayank applied topically daily; Duration: 7 days 04/01/2024 Active Plavix 75 MG 1 tab(s) orally once a day; Duration: 90 days Active Omeprazole 20 MG 1 cap(s) orally once a day; Duration: 30 day(s) 02/01/2022 Active Lasix 40 MG 1 tab(s) orally once a day; Duration: 90 days Active Spironolactone 25 MG 1/2 tab orally once a day; Duration: 90 days Active Ubrelvy 100 MG 1 tab(s) orally once as needed for Migraine; Duration: 30 day(s) 01/04/2020 Active Atorvastatin Calcium 80 MG 1 tab(s) orally once a day; Duration: 30 days Active ALBUTEROL (EQV-PROAIR HFA) 90 MCG/INH INHALE TWO PUFFS BY MOUTH FOUR TIMES DAILY NEEDED --SHAKE WELL BEFORE USE--; Duration: 25 *Please review for potential replacement for e-prescription and drug interaction check* Active Tamsulosin HCl 0.4 MG 1 cap(s) orally once a day; Duration: 30 day(s) Active Irbesartan 75 MG 1 tab(s) orally once a day; Duration: 90 days Active Diclofenac Sodium 75 MG 1 tab(s) orally 2 times a day prn Active Proctozone-HC 2.5 % apply topically to affected area(s) twice daily as needed; Duration: 30 days Active clonazePAM 0.5 MG 1 tab(s) orally 3 times a day prn Active traZODone HCl 50 MG 1 tab(s) orally QHS Active Flonase Allergy Relief 50 MCG/ACT 1 spray(s) intranasally qd prn Active dilTIAZem HCl 180 MG/24 HOURS 1 CAP(S) ORALLY ONCE A DAY; Duration: 30 DAY(S) *Please review and pick correct strength-formulati on from SnapLayout options. If intended option is not shown, discontinue and re-order from Quick Search* Active Isosorbide Mononitrate ER 60 MG 1 tab(s) orally once a day (in the morning) Active Metoprolol Succinate ER 25 MG 1 tab(s) orally at bedtime Active Ambien 5 MG 1/2 tab(s) orally once a day (at bedtime) Active Encounters Encounter Location Date Provider Diagnosis [facility] [address] [place] [address] 09/19/2024 Provider Migration Acute bronchitis, unspecified organism J20.9 and Spondylolisthesis of lumbar region M43.16 Assessments Encounter Date Diagnosis (ICD Code) Assessment Notes Treatment Notes Treatment Clinical Notes Section Notes 09/19/2024 Acute bronchitis, unspecified organism (ICD-10 - J20.9) 09/19/2024 Spondylolisthesis of lumbar region (ICD-10 - M43.16) Plan Of Treatment Medication Medication Name Sig Start Date Stop Date Notes Zithromax Z-Jann 250 MG 2 tablets on the first day, then 1 tablet daily for 4 days orally once a day; Duration: 5 days 09/18/2024 Promethazine-DM 6.25-15 MG/5ML 5 mL oral ly every 6 hours; Duration: 10 days 09/18/2024 predniSONE 10 MG 1 tab(s) orally once a day; Duration: 20 days 09/18/2024 Next Appt Details Provider Name:Sawyer Avina, 04/14/2025 10:30:00 AM, [address] [facility] [address] [facility], [address], [place], [address], Progress Notes * Bobby MADDOX EDOB:[birth year] (79 yo M)Acc No.[id number]:09/19/2024 Patient: Shanda Bobby REHMAN E Provider: Paulo Hood :1945 A ge:78 Y S ex:Male Date:09/19/2024 Address:[address] [place], [place] [id number] Pcp:Sawyer Avina Subjective: * Chief Complaints: * [facility] . [facility] En[facility]. * Medical History: * Medications: T aking dilTIAZem HCl 180 MG/24 HOURS CAPSULE, EXTENDED RELEASE 1 CAP(S) ORALLY ONCE A DAY , Notes to Pharmacist: *Please review and pick correct strength-formulation from [facility] options. If intended option is not shown, discontinue and re-order from Quick Search*, Taking Isosorbide Mononitrate ER 60 MG Tablet Extended Release 24 Hour 1 tab(s) orally once a day (in the morning) , Taking Metoprolol Succinate ER 25 MG Tablet Extended Release 24 Hour 1 tab(s) orally at bedtime , Taking Ambien 5 MG Tablet 1/2 tab(s) orally once a day (at bedtime) , Taking traZODone HCl 50 MG Tablet 1 tab(s) orally QHS , Taking Flonase Allergy Relief 50 MCG/ACT Suspension 1 spray(s) intranasally qd prn , Taking clonazePAM 0.5 MG Tablet 1 tab(s) orally 3 times a day prn , Taking Diclofenac Sodium 75 MG Tablet Delayed Release 1 tab(s) orally 2 times a day prn , Taking Proctozone-HC 2.5 % Cream apply topically to affected area(s) twice daily as needed , Taking Ubrelvy 100 MG Tablet 1 tab(s) orally once as needed for Migraine , Taking Atorvastatin Calcium 80 MG Tablet 1 tab(s) orally once a day , Taking ALBUTEROL (EQV-PROAIR HFA) 90 MCG/INH AEROSOL INHALE TWO PUFFS BY MOUTH FOUR TIMES DAILY NEEDED --SHAKE WELL BEFORE USE-- , Notes to Pharmacist: *Please review for potential replacement for e-prescription and drug interaction check*, Taking Tamsulosin HCl 0.4 MG Capsule 1 cap(s) orally once a day , Taking Irbesartan 75 MG Tablet 1 tab(s) orally once a day , Taking Spironolactone 25 MG Tablet 1/2 tab orally once a day , Taking Lasix 40 MG Tablet 1 tab(s) orally once a day , Taking Plavix 75 MG Tablet 1 tab(s) orally once a day , Taking Omeprazole 20 MG Capsule Delayed Release 1 cap(s) orally once a day , Taking Triamcinolone Acetonide 0.1 % Ointment 1 mayank applied topically daily , Taking Ranolazine ER 500 MG Tablet Extended Release 12 Hour 1 tab(s) orally 2 times a day , Taking Ezetimibe 10 MG Tablet 1 tab(s) orally once a day * Allergies: B RILLINTA: SOA. Objective: * Vitals: Assessment: * Assessment: 1. A cute bronchitis, unspecified organism - J20.9 (Primary) 2 . S pondylolisthesis of lumbar region - M43.16 Plan: * Treatment: 2. S pondylolisthesis of lumbar region Start predniSONE Tablet, 10 MG, 1 tab(s), orally, once a day, 20 days, 20 Tablet, Refills 0. ? * * Electronic signature of Prov ider Migration on 02/01/2025 at 09:22 AM EDT Sign off status: Pending * Provider: Paulo reich Migration Date: 0 09/19/2024 Generated for Melecio smith/Julian/Torresitting on: 0 02/01/2025 09:22 AM EDT
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
--- OUTSIDE RECORDS SUMMARY | 2025-02-01 09:22 | XMS_ITS | Patient Health Record ---
[place] [facility] [place] [address] [facility] [address] [place] [address] Care Team Providers Care Scheduler Maintenance Name Role Phone Sawyer Avina Primary Care Provider Sawyer Avina Unavailable Unavailable Migration, Provider Unavailable Unavailable Allergies Allergen (clinical drug ingredient) Drug/Non Drug Allergy documented on EMR Reaction Allergy Type Onset Date Status BRILLINTA (uncoded) SOA Allergy Active Results Component Value Reference Range Notes LIPID PANEL, STANDARD (7600) Reviewed date:07/22/2024 10:08:18 AM Interpretation: Performing Lab:BABITA YieldBuild Lucrecia-Ced Hslr7573 [facility], C[place] GonzalezSboqMY[address] Salvador Pepper Notes/Report: NON-FASTING; NON-FASTING; NON-FASTING; NON-FASTING; NON-FAST CHOLESTEROL, TOTAL 141 <200 mg/dL HDL CHOLESTEROL 53 > OR = 40 mg/dL TRIGLYCERIDES 146 <150 mg/dL LDL-CHOLESTEROL 65 Reference range: <100 Desirable range <100 mg/dL for primary prevention; <70 mg/dL for patients with CHD or diabetic patients with > or = 2 CHD risk factors. LDL-C is now calculated using the Yaa calculation, which is a validated novel method providing better accuracy than the Friedewald equation in the estimation of LDL-C. Reese SUAREZ et al. MANOJ. 2013;310(19): 7134-8366 (http://education.Make Works.com/faq/FAQ16 4) CHOL/HDLC RATIO 2.7 <5.0 (calc) NON HDL CHOLESTEROL 88 <130 mg/dL (calc) For patients with diabetes plus 1 major ASCVD risk factor, treating to a non-HDL-C goal of <100 mg/dL (LDL-C of <70 mg/dL) is considered a therapeutic option. COMPREHENSIVE METABOLIC PANE L (REFL) (59481) Reviewed date:01/15/2025 09:04:39 AM Interpretation: Performing Lab:BABITA Piqniq-Dianxin Kdvm2724 5151tuanteThe [address]ery [facility], [facility] CenterUlazHX[address] Salvador Pepper Notes/Report: NON-FASTING; NON-FASTING; NON-FASTING; NON-FASTING; [...] 10 10-35 U/L ALT 8 9-46 U/L COMPREHENSIVE METABOLIC PANE L (23064) Reviewed date:07/22/2024 10:08:18 AM Interpretation: Performing Lab:BABITA Piqniq-Dianxin Tcsw3593 5151tuantel [facility], [facility] CenterQcyuCB[address] Salvador Pepper Notes/Report: NON-FASTING; NON-FASTING; NON-FASTING; NON-FASTING; NON-FAST GLUCOSE 94 65-99 mg/dL Fasting reference interval UREA NITROGEN (BUN) 18 7-25 mg/dL CREATININE 1.91 0.70-1.28 mg/dL EGFR 36 > OR = 60 mL/min/1.73m2 BUN/CREATININE RATIO 9 6-22 (calc) SODIUM 139 135-146 mmol/L POTASSIUM 4.1 3.5-5.3 mmol/L CHLORIDE 104 98-110 mmol/L CARBON DIOXIDE 27 20-32 mmol/L CALCIUM 9.4 8.6-10.3 mg/dL PROTEIN, TOTAL 6.3 6.1-8.1 g/dL ALBUMIN 4.1 3.6-5.1 g/dL GLOBULIN 2.2 1.9-3.7 g/dL (calc) ALBUMIN/GLOBULIN RATIO 1.9 1.0-2.5 (calc) BILIRUBIN, TOTAL 0.5 0.2-1.2 mg/dL ALKALINE PHOSPHATASE 57 35-144 U/L AST 10 10-35 U/L ALT 8 9-46 U/L MAGNESIUM (622) Reviewed date:07/22/2024 10:08:18 AM Interpretation: Performing Lab:BABITA Piqniq-[place] Navigatione1355 5151tuanteDec[employer], [place] VintXL[address] Salvador Pepper Notes/Report: NON-FASTING; NON-FASTING; NON-FASTING; NON-FASTING; NON-FAST MAGNESIUM 2.0 1.5-2.5 mg/dL CBC (INCLUDES DIFF/PLT) (639 9) Reviewed date:01/15/2025 09:04:39 AM Interpretation: Performing Lab:BABITA YASA Motorse1355 [address]tu[address]el [employer], [place] NavigationEmjzVN[address] Salvador Pepper Notes/Report: NON-FASTING; NON-FASTING; NON-FASTING; NON-FASTING; [...] MPV 10.0 7.5-12.5 fL ABSOLUTE NEUTROPHILS [phone] cells/uL ABSOLUTE LYMPHOCYTES 4558 053-8295 cells/uL ABSOLUTE MONOCYTES 496 200-950 cells/uL ABSOLUTE EOSINOPHILS 353 15-500 cells/uL ABSOLUTE BASOPHILS 67 0-200 cells/uL NEUTROPHILS 72.1 LYMPHOCYTES 17.0 MONOCYTES 5.9 EOSINOPHILS 4.2 BASOPHILS 0.8 CBC (INCLUDES DIFF/PLT) (639 9) Reviewed date:07/22/2024 10:08:18 AM Interpretation: Performing Lab:BABITA, Piqniq-[facility] Hospitale1355 [facility], [facility] HospitalEpsmQK[address] Salvador Pepper Notes/Report: NON-FASTING; NON-FASTING; NON-FASTING; NON-FASTING; NON-FAST WHITE BLOOD CELL COUNT 9.0 3.8-10.8 Thousand/ uL RED BLOOD CELL COUNT 3.74 4.20-5.80 Million/uL HEMOGLOBIN 11.7 13.2-17.1 g/dL HEMATOCRIT 35.1 38.5-50.0 % MCV 93.9 80.0-100.0 fL MCH 31.3 27.0-33.0 pg MCHC 33.3 32.0-36.0 g/dL For adults, a slight decrease in the calculated MCHC value (in the range of 30 to 32 g/dL) is most likely not clinically significant; however, it should be interpreted with caution in correlation with other red cell parameters and the patient's clinical condition. RDW 11.6 11.0-15.0 % PLATELET COUNT 237 140-400 Thousand/uL MPV 10.4 7.5-12.5 fL ABSOLUTE NEUTROPHILS 5526 9946-8458 cells/uL ABSOLUTE LYMPHOCYTES 2241 850-3900 cells/uL ABSOLUTE MONOCYTES 729 200-950 cells/uL ABSOLUTE EOSINOPHILS 432 15-500 cells/uL ABSOLUTE BASOPHILS 72 0-200 cells/uL NEUTROPHILS 61.4 LYMPHOCYTES 24.9 MONOCYTES 8.1 EOSINOPHILS 4.8 BASOPHILS 0.8 RPR (DX) W/REFL TITER AND CO NFIRMATORY TESTING (21462) Reviewed date:07/22/2024 10:08:18 AM Interpretation: Performing Lab:BABITA Piqniq-Dianxin [address], [place] DeZtnyZS[address] Salvador Pepper Notes/Report: NON-FASTING; NON-FASTING; NON-FASTING; NON-FASTING; NON-FAST RPR (DX) W/REFL TITER AND CONFIRMATORY TESTING NON-REACTIVE NON-REACTIVE No laboratory evidence of syphilis. If recent exposure is suspected, submit a new sample in 2-4 weeks. HEMOGLOBIN A1c (496) Reviewed date:07/22/2024 10:08:18 AM Interpretation: Performing Lab:BABITA Piqniq-[address], [place] DeSimsXR[address] Salvador Pepper Notes/Report: NON-FASTING; NON-FASTING; NON-FASTING; NON-FASTING; NON-FAST HEMOGLOBIN A1c 5.5 <5.7 % of total Hgb For the purpose of screening for the presence of diabetes: <5.7% Consistent with the absence of diabetes 5.7-6.4% Consistent with increased risk for diabetes (prediabetes) > or =6.5% Consistent with diabetes This assay result is consistent with a decreased risk of diabetes. Currently, no consensus exists regarding use of hemoglobin A1c for diagnosis of diabetes in children. According to [place] [employer] (ADA) guidelines, hemoglobin A1c <7.0% represents optimal control in non- diabetic patients. Different metrics may apply to specific patient populations. Standards of Medical Care in Diabetes(ADA). VITAMIN B12/FOLATE, SERUM PA LEONORA (9319) Reviewed date:07/22/2024 10:08:18 AM Interpretation: Performing Lab:BABITA Piqniq-Dianxin [address], [place] IbfaRD[address] Salvador Pepper Notes/Report: NON-FASTING; NON-FASTING; NON-FASTING; NON-FASTING; NON-FAST VITAMIN B12 419 929-9865 pg/mL FOLATE, SERUM 13.9 Reference Range Low: <3.4 Borderline: 3.4-5.4 Normal: >5.4 VITAMIN D,25-OH,TOTAL,IA (17 306) Reviewed date:07/22/2024 10:08:18 AM Interpretation: Performing Lab:BABITA Piqniq-Dianxin [address], [place] ZficSE[address] Salvador Pepper Notes/Report: NON-FASTING; NON-FASTING; NON-FASTING; NON-FASTING; NON-FAST VITAMIN D,25-OH,TOTAL,IA 45 30-100 ng/mL Vitamin D Status 25-OH Vitamin D: Deficiency: <20 ng/mL Insufficiency: 20 - 29 ng/mL Optimal: > or = 30 ng/mL For 25-OH Vitamin D testing on patients on D2-supplementation and patients for whom quantitation of D2 and D3 fractions is required, the QuestAssureD(TM) 25-OH VIT D, (D2,D3), LC/MS/MS is recommended: order code 10694 (patients >2yrs). See Note 1 Note 1 For additional information, please refer to http://education.Ludic Labs/faq/GJF822 (This link is being provided for informational/ educational purposes only.) IRON, TIBC AND FERRITIN VLADIMIR Bermudez (5616) Reviewed date:01/15/2025 09:04:39 AM Interpretation: Performing Lab:BABITA Piqniq-Dianxin Vhdw4206 5151tuanRed Lake Indian Health Services Hospital[address] Salvador Pepper Notes/Report: NON-FASTING; NON-FASTING; NON-FASTING; NON-FASTING; NON-FAST IRON, TOTAL 142 50-180 mcg/dL IRON BINDING CAPACITY 278 250-425 mcg/dL (oren c) % SATURATION 51 20-48 % (calc) FERRITIN 178 24-380 ng/mL VITAMIN D,25-OH,TOTAL,IA (17 306) Reviewed date:01/15/2025 09:04:40 AM Interpretation: Performing Lab:BABITA PiqniqHammerhead Navigatione1355 5151tuanteEncompass Health Rehabilitation Hospital of Reading[address] Salvador Pepper Notes/Report: NON-FASTING; NON-FASTING; NON-FASTING; NON-FASTING; [...] D, (D2,D3), LC/MS/MS is recommended: order code 23362 (patients >2yrs). See Note 1 Note 1 For additional information, please refer to http://[employer] World.[employer] Labs/faq/LTQ530 (This link is being provided for informational/ educational purposes only.) VITAMIN B12/FOLATE, SERUM PA LEONORA (7065) Reviewed date:01/15/2025 09:04:39 AM Interpretation: Performing Lab:BABITA PiqniqHammerhead Navigatione1355 [facility] GroupInsp[facility], [facility] CenterHmgqDR[address] Salvador Pepper Notes/Report: NON-FASTING; NON-FASTING; NON-FASTING; NON-FASTING; NON-FAST VITAMIN B12 834 002-8296 pg/mL FOLATE, SERUM 5.3 Reference Range Low: <3.4 Borderline: 3.4-5.4 Normal: >5.4 LIPID PANEL, STANDARD (7600) Reviewed date:01/15/2025 09:04:39 AM Interpretation: Performing Lab:BABITA PiqniqHammerhead Navigatione1355 5151tuanteInspira Medical Center [place], [facility] CenterAfbjPS[address] Salvador Pepper Notes/Report: NON-FASTING; NON-FASTING; NON-FASTING; NON-FASTING; NON-FAST CHOLESTEROL, TOTAL 139 <200 mg/dL HDL CHOLESTEROL 55 > OR = 40 mg/dL TRIGLYCERIDES 186 <150 mg/dL LDL-CHOLESTEROL 59 Reference range: <100 Desirable range <100 mg/dL for primary prevention; <70 mg/dL for patients with CHD or diabetic patients with > or = 2 CHD risk factors. LDL-C is now calculated using the Reese-Leyla calculation, which is a validated novel method providing better accuracy than the Friedewald equation in the estimation of LDL-C. Reese SUAREZ et al. MANOJ. 2013;310(19): 7910-6269 (http://education.Make Works.Dynamics Direct/faq/FAQ16 4) CHOL/HDLC RATIO 2.5 <5.0 (calc) NON HDL CHOLESTEROL 84 <130 mg/dL (calc) For patients with diabetes plus 1 major ASCVD risk factor, treating to a non-HDL-C goal of <100 mg/dL (LDL-C of <70 mg/dL) is considered a therapeutic option. Medications Medication SIG (Take, Route, Frequency, Duration) Notes Start Date End Date Status Ezetimibe 10 mg TAKE ONE TABLET BY MOUTH EVERY DAY; Duration: 30 Active Proctozone-HC 2.5 % apply topically to affected area(s) twice daily as needed; Duration: 30 days Active Ranolazine ER 500 mg TAKE ONE TABLET BY MOUTH TWICE DAILY; Duration: 30 Active Diclofenac Sodium 75 MG 1 tab(s) orally 2 times a day prn Active Triamcinolone Acetonide 0.1 % 1 mayank applied topically daily; Duration: 7 days 04/01/2024 Active Ubrelvy 100 MG 1 tab(s) orally once as needed for Migraine; Duration: 30 day(s) 01/04/2020 Active Metoprolol Succinate ER 25 MG 1 tab(s) orally at bedtime Active Irbesartan 75 MG 1 tab(s) orally once a day; Duration: 90 days Active Isosorbide Mononitrate ER 60 MG 1 tab(s) orally once a day (in the morning) Active Tamsulosin HCl 0.4 MG 1 cap(s) orally once a day; Duration: 30 day(s) Active dilTIAZem HCl 180 MG/24 HOURS 1 CAP(S) ORALLY ONCE A DAY; Duration: 30 DAY(S) *Please review and pick correct strength-formulati on from [employer] options. If intended option is not shown, discontinue and re-order from Quick Search* Active ALBUTEROL (EQV-PROAIR HFA) 90 MCG/INH INHALE TWO PUFFS BY MOUTH FOUR TIMES DAILY NEEDED - SHAKE WELL BEFORE USE-; Duration: 25 *Please review for potential replacement for e-prescription and drug interaction check* Active Atorvastatin Calcium 80 MG 1 tab(s) orally once a day; Duration: 30 days Active clonazePAM 0.5 MG 1 tab(s) orally 3 times a day prn Active Omeprazole 20 MG 1 cap(s) orally once a day; Duration: 30 day(s) 02/01/2022 Active Flonase Allergy Relief 50 MCG/ACT 1 spray(s) intranasally qd prn Active Plavix 75 MG 1 tab(s) orally once a day; Duration: 90 days Active traZODone HCl 50 MG 1 tab(s) orally QHS Active Lasix 40 MG 1 tab(s) orally once a day; Duration: 90 days Active Ambien 5 MG 1/2 tab(s) orally once a day (at bedtime) Active Spironolactone 25 MG 1/2 tab orally once a day; Duration: 90 days Active Immunizations Vaccine Route Administration Date Status Comme nts Zostavax (Shingles) SC Subcutaneous 02/16/2015 Administered RSV Unknown 04/05/2023 Administered Prevnar PCV-20 (Pneumococcal conjugate 20) Unknown 12/31/2022 Administered Influenza-Fluzone 3+years (NON-MEDICARE) IM Intramuscular 02/16/2015 Administered Given [facility] Influenza-Fluzone 3+years (NON-MEDICARE) IM Intramuscular 03/06/2017 Administered Hep A Adult 2 Dose IM Intramuscular 04/03/2018 Administere d Hep A Adult 2 Dose IM Intramuscular 10/02/2018 Administere d Fluzone High Dose IM Intramuscular 02/12/2018 Administered [place]-Sanofi Pasteur Lot [id number] Exp 09/01/18 Fluzone High Dose IM Intramuscular 03/03/2020 Administered Fluzone High Dose IM Intramuscular 04/04/2023 Administered Fluzone High Dose IM Intramuscular 04/01/2024 Administered Fluvirin--Influenz a vaccine 3+ year IM Intramuscular 03/15/2010 Administered Social History Tobacco Use: Social History Observation Description Date Details (start date - stop date) Current Smoker NA - NA Smoking: Question Answer Notes Are you a: current smoker How often do you smoke cigarettes? every day How many cigarettes a day do you smoke? 6-10 Problems Problem Type SNOMED Code ICD Code Onset Dates Problem Status W/U Status Risk Notes Problem Tobacco user (475146903) Nicotine dependence, cigarettes, uncomplicated (F17.210) Active confirmed Problem Hypertensive heart disease without congestive heart failure (97268039) Hypertensive heart disease without heart failure (I11.9) Active confirmed Problem Acute non-ST segment elevation myocardial infarction (777857467) Non-ST elevation (NSTEMI) myocardial infarction (I21.4) Active confirmed Problem Nicotine dependence (25482830) Personal history of nicotine dependence (Z87.891) Active confirmed Problem Presence of coronary angioplasty implant and graft (Z95.5) Active confirmed Problem Hypertension (21561858) HTN (hypertension) (I10) Active confirmed Problem Osteoarthritis (514016745) Osteoarthritis (M19.90) Active confirmed Problem Coronary artery disease (89744216) CAD (coronary artery disease) (I25.10) Active confirmed Problem Hyperlipidemia (78092477) Hyperlipidemia (E78.5) Active confirmed Problem Irritable bowel syndrome characterized by constipation (728109166) Irritable bowel syndrome with constipation (K58.9) Active confirmed Problem Tubular adenoma of colon (449345191) Tubular adenoma of colon (D12.6) Active confirmed Problem migraine (disorder) (90657142) Migraines (G43.909) Active confirmed Problem Chronic obstructive bronchitis (disorder) (298090642) COPD (chronic obstructive pulmonary disease) with chronic bronchitis (J44.9) Active confirmed Problem Gastroesophageal reflux disease without esophagitis (906038824) Gastroesophageal reflux disease without esophagitis (K21.9) Active confirmed Problem Body mass index 25-29 - overweight (408837621) BMI 28.0-28.9,adult (Z68.28) Active confirmed Problem Obstructive sleep apnea (18938749) Obstructive sleep apnea (G47.33) Active confirmed Problem Unstable angina co-occurrent and due to coronary arteriosclerosis (disorder) (63494511128415565) Atherosclerosis of kashia coronary artery of kashia heart with unstable angina pectoris (I25.110) Active confirmed Problem serum creatinine raised (867033193) Elevated serum creatinine (R79.89) Active confirmed Problem Unstable angina co-occurrent and due to coronary arteriosclerosis (94457500280660810) Coronary artery disease involving kashia coronary artery of kashia heart with unstable angina pectoris (I25.110) Active confirmed Problem Occlusion and stenosis of multiple and bilateral cerebral arteries (469172688) Carotid stenosis, bilateral (I65.23) Active confirmed Problem Acute non-ST segment elevation myocardial infarction (583201932) NSTEMI (non-ST elevated myocardial infarction) (I21.4) Active confirmed Problem Chronic kidney disease stage 2 (664866149) Chronic kidney disease, stage II (mild) (N18.2) Active confirmed Problem Mixed hyperlipidemia (574283536) Hyperlipemia, mixed (E78.2) Active confirmed Problem Preventive treatment (195203304) Preventative health care (Z00.00) Active confirmed Problem Acquired spondylolisthesis (047257576) Spondylolisthesis of lumbar region (M43.16) Active confirmed Problem Adult health examination (386446367) Healthcare maintenance (Z00.00) Active confirmed Problem Hypertensive heart disease without congestive heart failure (84414532) 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) Active confirmed Problem Primary hypertension (06790779) Primary hypertension (I10) Active confirmed Problem Lower urinary tract symptoms due to benign prostatic hypertrophy (93417804890507) Benign prostatic hyperplasia with lower urinary tract symptoms (N40.1) Active confirmed Problem Angina co-occurrent and due to coronary arteriosclerosis (40306898318916787) Coronary artery disease of kashia artery of kashia heart with stable angina pectoris (I25.118) Active confirmed Problem Chronic obstructive pulmonary disease (26504130) Chronic bronchitis with COPD (chronic obstructive pulmonary disease) (J44.9) Active confirmed Problem Inflammatory and toxic neuropathy (021336919) Peripheral polyneuropathy (G62.9) Active confirmed Problem Angina (447369965) Angina concur rent with and due to arteriosclerosis of coronary artery (I25.119) Active confirmed Problem Hyperlipidemia (47318711) Other hyperlipidemia (E78.49) Active confirmed Problem Chronic sinusitis (68960207) Recurrent sinus infections (J32.9) Active confirmed Problem Chronic obstructive pulmonary disease (51078520) Advanced COPD (J44.9) Active confirmed Vital Signs Heart Rate 72 /min 01/13/2025 Temperature 97.7 degrees Fahrenheit 01/13/2025 Blood pressure diastolic 60 mm Hg 01/13/2025 Height 75.75 in 01/13/2025 Blood pressure systolic 116 mm Hg 01/13/2025 Weight 210 lbs 01/13/2025 BMI 25.73 kg/m2 01/13/2025 Encounters Encounter Location Date Provider Diagnosis [facility] [address] [facility] [address] [place], [place] [address] 09/19/2024 Provider Migration Acute bronchitis, unspecified organism J20.9 and Spondylolisthesis of lumbar region M43.16 [facility] [address] [facility] [address] [place], [place] [address] 04/01/2024 Sawyer Besson Seborrhea L21.9 ; CO PD (chronic obstructive pulmonary disease) with chronic bronchitis J44.9 ; Spondylolisthesis of lumbar region M43.16 ; Atherosclerosis of kashia coronary artery of kashia heart with unstable angina pectoris I25.110 ; Routine medical exam Z00.00 and Immunization(s) administered Z23 [facility] [address] [facility] [address] [place] [address] 07/20/2024 Sawyer Aivna Peripheral polyneuropathy G62.9 ; Atherosclerosis of kashia coronary artery of kashia heart with unstable angina pectoris I25.110 and Hyperlipidemia E78.5 [facility] [address] [facility] [address] [place] [address] 09/18/2024 Sawyer Avina Acute bronchitis, unspecified organism J20.9 and Spondylolisthesis of lumbar region M43.16 [facility] [address] [facility] [address] [place] [address] 10/14/2024 Sawyer Avina HTN (hypertension) I 10 ; Preventative health care Z00.00 and Migraines G43.909 [facility] [address] [facility] [address] [place] [address] 01/13/2025 Sawyer Avina Peripheral polyneuropathy G62.9 ; Other hyperlipidemia E78.49 ; Vitamin B12 deficiency E53.8 ; Iron deficiency E61.1 ; Angina concurrent with and due to arteriosclerosis of coronary artery I25.119 ; Chronic kidney disease, stage II (mild) N18.2 and Routine medical exam Z00.00 Assessments Encounter Date Diagnosis (ICD Code) Assessment Notes Treatment Notes Treatment Clinical Notes Section Notes 04/01/2024 COPD (chronic obstructive pulmonary disease) with chronic bronchitis (ICD-10 - J44.9) Stable lung disease. No changes in plans, 07/20/2024 Atherosclerosis of kashia coronary artery of kashia heart with unstable angina pectoris (ICD-10 - I25.110) Will collect and personally review labs. Continue medication as prescribed. 07/20/2024 Peripheral polyneuropathy (ICD-10 - G62.9) Numbness and tingling in feet: Will order and personally review labs to evaluate possible causes of peripheral neuropathy. Will continue to monitor symptoms. 09/18/2024 Acute bronchitis, unspecified organism (ICD-10 - J20.9) 09/18/2024 Spondylolisthesis of lumbar region (ICD-10 - M43.16) 09/19/2024 Acute bronchitis, unspecified organism (ICD-10 - J20.9) 09/19/2024 Spondylolisthesis of lumbar region (ICD-10 - M43.16) 10/14/2024 HTN (hypertension) (ICD-10 - I10) BP well controlled on current regimen itermittently has some chest pain, has a hx of stable angina and multiple stents [facility] reports he has not has to use it, did recommended making sure that it is in date 04/01/2024 Seborrhea (ICD-10 - L21.9) Trial of triamcinolone ointment daily. Follow-up of pigment changes 01/13/2025 Peripheral polyneuropathy (ICD-10 - G62.9) Neuropathy symptoms seem stable, [facility]ab[facility]. Check labs to make sure no further metabolic issues have occurred 01/13/2025 Other hyperlipidemia (ICD-10 - E78.49) Needs tight control given her coronary disease. Will check LDL today. On statin therapy 04/01/2024 Spondylolisthesis of lumbar region (ICD-10 - M43.16) Overall doing well, good functional status. Rare use of narcotic medication for significant activity bursts 07/20/2024 Hyperlipidemia (ICD-10 - E78.5) Continue medications as prescribed. Will collect and personally review labs. Changes will be made as necessary. 10/14/2024 Preventative health care (ICD-10 - Z00.00) Vaccinations up to date reports getting TDaP last fall with his flu and covid vaccines 01/13/2025 Vitamin B12 deficiency (ICD-10 - E53.8) 01/13/2025 Iron deficiency (ICD-10 - E61.1) 04/01/2024 Atherosclerosis of kashia coronary artery of kashia heart with unstable angina pectoris (ICD-10 - I25.110) No evidence of further disease. Continues to follow with cardiology. Will check lipids at next visit in 3 months 10/14/2024 Migraines (ICD-10 - G43.909) no recent flares would like more Ubrelvy samples just in case 04/01/2024 Routine medical exam (ICD-10 - Z00.00) Living will in place, up-to-date with vaccines. Depression screening negative. Colonoscopy up-to-date. Up-to-date with lung cancer screenings. AAA screening in place. No falls, excellent functional status. Cognitive impairment not noted with 3/ word recall. Depression screening negative 01/13/2025 Angina concurrent with and due to arteriosclerosis of coronary artery (ICD-10 - I25.119) Stable on rx... no changes 01/13/2025 Chronic kidney disease, stage II (mild) (ICD-10 - N18.2) Stable creatinine 04/01/2024 Immunization(s) administered (ICD-10 - Z23) 01/13/2025 Routine medical exam (ICD-10 - Z00.00) Aged out of colonoscopy screening. Up-to-date with low-dose CT screenings. Smoking continues but at a reduced pace. No recent falls. Good functional status. Reviewed previous data from Medicare AWV, normal cognitive issues. Depression screening negative. Vaccines up-to-date Plan Of Treatment Pending Test Test Name Order Date Physical Therapy 08/16/2017 Physical Therapy 08/15/2017 Physical Therapy 01/22/2007 H-PSA SCREEN 10/04/2016 C-CMP 03/15/2010 C-CMP 10/13/2015 C-LIPID PANEL 03/15/2010 C-LIPID PANEL 10/13/2015 C-PSA 03/15/2010 C-PSA 10/13/2015 spirometry 12/28/2014 Pulmonary Function Test- Complete 2014 M-Prostate Specific Ag Screen 10/07/2018 Next Appt Details Provider Name:Sawyer Avina, 04/14/2025 10:30:00 AM, [address] [facility] [address] [facility], [address], [place], [address], Insurance Providers Payer Name Payer Address Payer Phone Subscriber Number Group Number Insured Name Patient Relationship to Insured Coverage Start Date Coverage End Date [facility] MED[facility] [address] [address] [place] [address] [id number] Bobby Maddox Self - patient is the insured Medications Administered Medication Instructions Date of Administration Dosage Notes Ceftriaxone 500 06/11/2013 500 mg Cyanocobalamin/B-12 Pt's Own Medication 02/26/2014 Dexamethasone 4mg Injection 09/18/2024 4 mg Kenalog 11/14/2012 1 mL Kenalog 06/11/2013 1 mL Kenalog 02/26/2014 1 Promethazine HCL 03/31/2014 1 mL Medical (General) History Medical History History ICD Code Arthritis hypertension hypercholestrolemia cholecystitis COPD-stopped smoking summer 2013 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
--- OUTSIDE RECORDS SUMMARY | 2025-02-01 09:22 | XMS_ITS | Clinical Summary ---
Author Organization [facility] Address [address] [place] [address] Care Team Providers Care Structural Draftsman Name Role Phone Sawyer Avina MD Primary Care Provider [phone] Allergies Active Allergy Reactions Criticality Noted Date Comments Other Shortness of breath High 01/22/2024 Brillianta Medications zolpidem (Ambien) 5 MG tablet Take 0.5 tablets (2.5 mg) by mouth at night as needed. 3 Active traZODone (Desyrel) 50 MG tablet Take 1 tablet (50 mg) by mouth nightly. 2 Active tamsulosin (Flomax) 0.4 MG 24 hr capsule Take 1 capsule (0.4 mg) by mouth 1 (one) time. 2 Active diclofenac (Voltaren) 75 MG EC tablet 1 tablet (75 mg). 2 Active clopidogrel (Plavix) 75 MG tablet clopidogrel 75 mg tablet TAKE ONE TABLET BY MOUTH EVERY DAY Active clonazePAM (KlonoPIN) 0.5 MG tablet clonazepam 0.5 mg tablet As needed 3 Active atorvastatin (Lipitor) 80 MG tablet Take 1 tablet (80 mg) by mouth daily. 2 Active albuterol 108 (90 Base) MCG/ACT inhaler INHALE 2 PUFFS BY MOUTH EVERY 6 HOURS NEEDED FOR SHORTNESS OF BREATH 2 Active isosorbide mononitrate ER (Imdur) 60 MG 24 hr tablet Take 1 tablet (60 mg) by mouth daily. Do not crush or chew. Active metoprolol succinate XL (Toprol-XL) 25 MG 24 hr tablet Take 1 tablet (25 mg) by mouth daily. Do not crush or chew. Active dilTIAZem CD (Cardizem CD) 180 MG 24 hr capsule Take 1 capsule (180 mg) by mouth daily. Active fluticasone (Flonase) 50 MCG/ACT nasal spray Administer 1 spray into each nostril daily. Shake gently. Before first use, prime pump. After use, clean tip and replace cap. Active ubrogepant (Ubrelvy) 100 MG tablet Take 1 tablet (100 mg) by mouth 1 (one) time as needed for migraine. After 2 hours, a second dose may be taken if needed. Maximum dose: 200 mg in 24-hour period. Active tobramycin-dexam ethasone (Tobradex) ophthalmic ointment 0.5 inches 3 (three) times a day. Active irbesartan (Avapro) 75 MG tablet Take 1 tablet (75 mg) by mouth daily. Active spironolactone (Aldactone) 25 MG tablet Take 1 tablet (25 mg) by mouth daily. Active furosemide (Lasix) 40 MG tablet Take 1 tablet (40 mg) by mouth daily. Active ezetimibe (Zetia) 10 MG tablet Take 1 tablet (10 mg) by mouth daily. Active ranolazine (Ranexa) 500 MG 12 hr tablet Take 1 tablet (500 mg) by mouth 2 (two) times a day. Do not crush, chew, or split. Active Ascorbic Acid (vitamin C) 250 MG tablet Take 1 tablet (250 mg) by mouth daily. Active ferrous sulfate 325 (65 Fe) MG EC tablet Take 1 tablet (325 mg) by mouth 3 (three) times a day with meals. Do not crush, chew, or split. Active Immunizations Immunization Administration Dates Next Due DTP 01/30/2016,03/24/2014 Hep A, Adult 10/02/2018,04/03/2018 Influenza Vaccine, Quadrival ent, Adjuvanted 04/10/2021 Influenza, Unspecified 03/17/2022,2015,05/26/2014,03/24,03/25/2011,03/16/2010,03/22/2009 ,03/22/2008,04/02/2007,06/17/2006,06/2005,04/17/2004,03/24/2002, 0 Influenza, high-dose, quadrivalent 04/04,03/03/2020,02/12/2018,03/12 Influenza, injectable, quadr ivalent, preservative free 03/06/2017 Influenza, seasonal, injectable 05/17/2018,03/18 Influenza, seasonal, injecta ble, preservative free 03/03/2020 Novel [id number], all formulations 06/16/2009 Pneumococcal 20-denton Conj Vaccine 12/31/2022 Pneumococcal Conjugate PCV 13 01/30/2016 Pneumococcal Polysaccharide PPV23 01/31/2018 Pneumococcal, Unspecified 04/02/2008 Rsv, Bivalent, Protein Subun it Rsvpref, Diluent Reconstituted, 0.5mL, PF 04/05/2023 Tdap 01/30/2016 Tetanus Toxoid, Unspecified 04/02/2008, 7 Zoster, Recombinant 04/29/2018,01/31/2018 Zoster, Unspecified 04/29/2018,01/31/2018 Family History Medical History Relation Name Comments Liver cancer Mother Relation Name Status Comments Father Mother Social History Tobacco Use Types Packs/Day Years Used Date Smoking Tobacco: Every Day Cigarettes Cigars Smokeless Tobacco: Current Tobacco Cessation:Ready to Q uit: Not Asked; Counseling Given: Not Answered Alcohol Use Standard Drinks/Week Comments Yes 0 (1 standard drink = 0.6 oz pur e alcohol) socially Sex and Gender Information Value Date Recorded Sex Assigned at Not on file Legal Sex Male 8:01 PM EDT Gender Identity Not on file Sexual Orientation Not on file Last Filed Vital Signs Vital Sign Reading Time Taken Comments Blood Pressure 125/52 08/14/2024 10:50 AM EST Pulse 66 08/14/2024 10:50 AM EST Temperature - - Respiratory Rate 18 08/14/2024 10:50 AM EST Oxygen Saturation 95% 08/14/2024 10:50 AM EST Inhaled Oxygen Concentration - - Weight 100 kg (221 lb) 08/14/2024 10:50 AM EST Height 190.5 cm (6' 3 ) 08/14/2024 10:50 AM EST Body Mass Index 27.62 08/14/2024 10:50 AM EST Plan of Treatment Upcoming Encounters Date Type Department Care Team (Late st Contact Info) Description 02/05/2025 11:00 AM EDT Office Visit [facility] [address] [place] [phone] Doris Son, RETAIL SELLING FLOOR LEADER [address] [facility] [address] [place] [address] Health Maintenance Due Date Last Done Comments [facility]-Depression Screening 1945 [facility]-Hepatitis C Screening 1945 [facility]-Medicare Annual Wellness (AWV) 1945 [facility]-Infant/Child/Adol SDOH Screenings 1945 [facility]- SDOH Screenings 11/08/1965 [facility]-Adult SDOH Screenings 11/08/1965 [id number] Vaccine ( season) 2024 12/31/2022, 02/08/2021, 07/24/2020, Additional history exists [facility]-Influenza Vaccine (#1) 02/15/202504/01, 04/04/2023, 03/17/2022, Additional history exists [facility]-DTaP,Tdap,and Td Vaccines (4 - Td or Tdap) 01/29/2026 01/30/2016, 01/30/2016, 03/24/2014 [facility]-Zoster Vaccines Completed 04/29/2018, 04/29/2018, 01/31/2018, Additional history exists [facility]-Hepatitis A Vaccines Aged Out 10/02/2018, 03/17 No longer eligible based on patient's age to complete this topic [facility]-Pneumococcal Vaccine: 50+ Years Completed 12/31/2022, 01/31/2018, 01/30/2016, Additional history exists [facility]-RSV Vaccine: 60+ Years or Completed 04/05/2023 [facility]-Obesity Intervention Completed 08/14/2024, 02/2024 HPV Vaccines Aged Out No longer eligi ble based on patient's age to complete this topic [facility]-HIB Vaccines Aged Out No longer e ligible based on patient's age to complete this topic [facility]-IPV Vaccines Aged Out No longer e ligible based on patient's age to complete this topic [facility]-Rotavirus Vaccines Aged Out No lo nger eligible based on patient's age to complete this topic Insurance [facility] MEDICARE Care Teams Structural Draftsman Relationship Specialty Start Date End Date Sawyer Avina MD [facility] [address] [place] [address] PCP - General Internal Medicine 01/22/24
--- OUTSIDE RECORDS SUMMARY | 2025-02-01 09:22 | XMS_ITS | Clinical Summary ---
Author Organization [facility] Address [address] [place] [address] Care Team Providers Care Luggage Repairer Name Role Phone Sawyer Avina MD Primary Care Provider [phone] Allergies No known active allergies Medications gabapentin (NEURONTIN) 300 MG capsule 06/25/2017 Active LIVALO 4 MG tablet 09/16/2017 Active telmisartan (MICARDIS) 80 MG tablet 09/16/2017 Active ANORO ELLIPTA 62.5-25 MCG/INH aerosol powder inhaler 09/17/2017 Active Active Problems Problem Noted Date Diagnosed Date Facet arthritis, degenerative, lumbar spine 09/15 DDD (degenerative disc disease), lumbar L4-5, L5 -S1 09/26/2017 Family History Medical History Relation Name Comments Cancer Mother Relation Name Status Comments Mother Social History Tobacco Use Types Packs/Day Years Used Date Smoking Tobacco: Former Comments:QUIT 1 yr ago Alcohol Use Standard Drinks/Week Comments No 0 (1 standard drink = 0.6 oz pur e alcohol) Abuse Screen Answer Date Recorded Unsafe at Home or Work/School Not on file Feels Threatened by Someone? Not on file 05/2023 Does Anyone Keep You from Co ntacting Others or Doint Things Outside the Home? Not on file 03/28/2023 Physical Sign of Abuse Present Not on file 1 Housing Stability Answer Date Recorded Current Living Arrangements Not on file 03/17 Potentially Unsafe Housing Conditions Not on anna e 03/28/2023 Family and Community Support Answer Rahul e Recorded Help with Day-to-Day Activities Not on file 03/28/2023 Lonely or Isolated Not on file 03/28/2023 Employment Answer Date Recorded Do you want help finding or keeping work or a aura b? Not on file 03/28/2023 Disabilities Answer Date Recorded Concentrating, Remembering, or Making Decisions Difficulty Not on file 03/28/2023 Doing Errands Independently Difficulty Not on fi le 03/28/2023 Education Answer Date Recorded Help with school or training? Not on file Preferred Language Not on file 03/28/2023 Sex and Gender Information Value Date Recorded Sex Assigned at Not on file Legal Sex Male 10:38 AM EDT Gender Identity Not on file Sexual Orientation Not on file Last Filed Vital Signs Vital Sign Reading Time Taken Comments Blood Pressure - - Pulse - - Temperature 36.7 C (98 F) 09/26/2017 10:49 AM EDT Respiratory Rate - - Oxygen Saturation - - Inhaled Oxygen Concentration - - Weight 106 kg (234 lb) 09/26/2017 10:49 AM EDT Height 190.5 cm (6' 3 ) 09/26/2017 10:49 AM EDT Body Mass Index 29.25 09/26/2017 10:49 AM EDT Plan of Treatment Health Maintenance Due Date Last Done Comments TDAP/TD VACCINES (1 - Tdap) 11/08/1966 COLOGUARD 11/08/1992 COLON CANCER SCREENING 5 YEAR SIGMOIDOSCOPY 11/08/1992 COLONOSCOPY 11/08/1992 COLORECTAL CANCER SCREENING 11/08/1992 CT COLONOGRAPHY 11/08/1992 FECAL OCCULT BLOOD TEST 11/08/1992 FIT Testing (1 year) 11/08/1992 Pneumococcal Vaccine 50+ (1 of 1 - PCV) 11/08/1997 ZOSTER VACCINE (1 of 2) 11/08/1997 ANNUAL PHYSICAL 09/26/2017 HEPATITIS C SCREENING 09/26/2017 RSV Vaccine - Adults (1 - 1-dose 75+ series) COVID-19 Vaccine ( - season) 2024 INFLUENZA VACCINE 03/17/2025 Insurance [facility] Care Teams Luggage Repairer Relationship Specialty Start Date End Date Sawyer Avina MD [facility] [address] [place] [address] PCP - General Adolescent Medicine 09/10/17
--- OUTSIDE RECORDS SUMMARY | 2025-02-01 09:22 | XMS_ITS | Encounter Summary ---
Author Organization [facility] Address [address] [place] [address] Care Team Providers Care Methods Specialist Engineer Name Role Phone Sawyer Avina MD Primary Care Provider [phone] Reason for Referral * Consultation (Routine) - Closed Specialty Diagnoses / Procedures Referred By Contac t Referred To Contact Nephrology Diagnoses Elevated serum creatinine Sawyer Avina MD [address] [facility] [place] [address] Phone: tel: fax: [facility] [address] [address] Phone: tel: fax: Referral ID Status Reason Start Date Expiration Date V isits Requested Visits Authorized [id number] Closed Specialty Services Required 12/25/2023 06/25/2025 1 1 Encounter Details Date Type Department Care Team (Late st Contact Info) Description 12/25/2023 Community Orders [facility] [address] [place] [address] Sawyer Avina MD [address] [place] [address] Elevated serum creatinine (Primary Dx) Social History Tobacco Use Types Packs/Day Years Used Date Smoking Tobacco: Never Assessed Sex and Gender Information Value Date Recorded Sex Assigned at Not on file Legal Sex Male 8:01 PM EDT Gender Identity Not on file Sexual Orientation Not on file documented as of this encounter Plan of Treatment Upcoming Encounters Date Type Department Care Team (Late st Contact Info) Description 02/05/2025 11:00 AM EDT Office Visit [facility] [address] [place] [phone] Doris Son, VERIFICATION MANAGER [address] [address] Scheduled Referrals Name Type Priority Associated Diagnoses Order Schedule Ambulatory referral to Nephrology Outpatient Referral Routine Elevated serum creatinine Ordered: 12/25/2023 documented as of this encounter Visit Diagnoses Diagnosis Elevated serum creatinine- Primary Other nonspecific findings on examination of blood documented in this encounter Care Teams Methods Specialist Engineer Relationship Specialty Start Date End Date Sawyer Avina MD [address] [place] [address] PCP - General Internal Medicine 01/22/24 documented as of this encounter
[2025-02-01 09:23] LABS: Microscopic, Urine URINE MICROSCOPIC (MICROSCOPIC)
[2025-02-01 09:37] LABS: Hematocrit 35.8 % (42.0-52.0); Hemoglobin 12.5 g/dL (14.1-18.0); Mean Corpuscular HGB Conc 34.9 g/dL (31.8-35.4); Mean Corpuscular Hemoglobin 32.1 pg (27.0-31.2); Mean Corpuscular Volume 91.8 fl (80-94); Nucleated Red Blood Cells % 0 %; Platelet Count 226 K/mm3 (142-424); Red Blood Count 3.90 M/mm3 (4.60-6.20); Red Cell Distribution Width-SD 39.4 fL; White Blood Count 9.1 K/mm3 (4.8-10.8)
[2025-02-01 10:23] LABS: Bilirubin,Urine Negative (Negative); Color,Urine YELLOW (Yellow); Glucose,Urine (UA) Negative (Negative); Ketones,Urine Negative (Negative); Leukocyte Esterase,Urine Negative (Negative); PH,Urine 5.5 (5.0-8.5); Protein,Urine Negative (Negative); Urobilinogen,Urine 1.0 EU/dl (0.2)
[2025-02-01 10:39] LABS: Specific Gravity, Urine 1.020 (1.005-1.030)
[2025-02-01 10:45] LABS: Bacteria,Urine Trace /lpf; Mucus,Urine Trace /lpf
[2025-02-01 16:11] LABS: Albumin Level 3.8 g/dl (3.5-5.0); Anion Gap 8.8 mEq/L (5-15); Blood Urea Nitrogen 17 mg/dl (9-20); Calcium 9.0 mg/dl (8.4-10.2); Carbon Dioxide 25 mmol/L (22.0-30.0); Chloride 107 mmol/L (98-107); Creatinine,Serum 1.70 mg/dl (0.66-1.25); Estimated Glomerular Filt Rate 39 ml/min (>60); GFR (African American) 48 ML/MIN (>60); Glucose 106 mg/dl (74-100); Phosphorous 3.5 mg/dl (2.5-4.5); Potassium 3.8 mmoL/L (3.5-5.1); Sodium 137 mmol/L (136-145)
[2025-02-01 16:27] LABS: 25-OH Vitamin D, Total 63.8 ng/mL (30-100)
== END 2025-02-01 23:59 | disposition home or self-care (01) ==
LOC: LAB 09:19
PROVIDERS: PCP Internal Medicine Adolescent Medicine; Visit Provider Nurse Practitioner
DX: N18.32 Chronic kidney disease, stage 3b (principal)
CPT/HCPCS: 36415; 80069; 81001; 82306; 82570; 83970; 84156; 85027

== ENCOUNTER 2025-04-16 08:58 | Outpatient (CLI) | payer MEDICARE, SELFPAY ==
--- OUTSIDE RECORDS SUMMARY | 2025-04-16 09:21 | XMS_ITS | Encounter Summary ---
Author Organization [facility] Address [address] [place] [address] Care Team Providers Care Control Chemist Name Role Phone Sawyer Avina MD Primary Care Provider [phone] Reason for Referral * Consultation (Routine) - Closed Specialty Diagnoses / Procedures Referred By Contac t Referred To Contact Nephrology Diagnoses Elevated serum creatinine Sawyer Avina MD [address] [facility] [place] [address] Phone: tel: fax: [facility] [address] [id number] Phone: tel: fax: Referral ID Status Reason Start Date Expiration Date V isits Requested Visits Authorized [id number] Closed Specialty Services Required 12/25/2023 06/25/2025 1 1 Encounter Details Date Type Department Care Team (Late st Contact Info) Description 12/25/2023 Community Orders Community Practice [address] [place] [address] Sawyer Avina MD [address] [place] [id number] Elevated serum creatinine (Primary Dx) Social [...] Care Team (Late st Contact Info) Description 08/13/2025 8:40 AM EST Office Visit [facility] [address] [place] [phone] Doris Son, LABORATORY TECHNICAL SPECIALIST [address] [facility] [address] [place] [address] Scheduled Referrals Name Type Priority Associated Diagnoses Order Schedule Ambulatory referral to Nephrology Outpatient Referral Routine Elevated serum creatinine Ordered: 12/25/2023 documented as of this encounter Visit Diagnoses Diagnosis Elevated serum creatinine- Primary Other nonspecific findings on examination of blood documented in this encounter Care Teams Control Chemist Relationship Specialty Start Date End Date Sawyer Avina MD [address] [place] [address] PCP - General Internal Medicine 01/22/24 documented as of this encounter
--- OUTSIDE RECORDS SUMMARY | 2025-04-16 09:22 | XMS_ITS | Data Portability ---
Author Organization ANUSHA RASHEEDA [facility] [place] [facility] Address [address] [facility] [place] [address] Care Team Providers Care Bulk Sealer Operator Name Role Phone HAN MARSHALL Referring Provider [phone] Assessment Encounter Date Assessment Date Assessment LastModified by Organization Details LastModified Time 08/16/2016 08/16/2016 70-year-old patient of Dr. Chua's last seen by our office in October 2014 who presents today for reevaluation of ongoing low back pain and internal rectal pain. He is neuro intact with no loss of b/b function and no numbness or tingling. He has no radicular symptoms. GI workup at this point has been negative. He was referred to us to rule out that this rectal pain is not nerve pain. Discussed that we need to proceed with an MRI of the lumbar spine. Will review this imaging with Dr. Chua and give the patient a call back with these results and further treatment recommendations . [email or web address] Not available 08/16/2016 10:53:54 10/11/2016 10/11/2016 Flex/ext x rays performed today show no instability. Discussed with Mr. Odom that based on his MRI and x rays, Dr. Chua would not recommend lumbar surgery at this time. Encouraged him to try the injection. I am optimistic that this may help his back pain. He currently gets a prescription for an oral steroid and [place] prior to his golf trips from his PCP. I agrees that this is a reasonable treatment for his pain. He understands that if his pain worsens or does not improve to contact our office in the future. Follow up PRN. [email or web address] Not available 10/11/2016 09:00:06 Plan of Treatment Reminders Order Date Submit Date Provider Last Modified By Organization Details Last Modified Time Details Appointments None recorded. Lab None recorded. Referral None recorded. Procedures None recorded. Surgeries None recorded. Imaging MRI, lumbar spine, w/o contrast 2017 018 [facility], [address] [place] [address] [address], ANUSHA Farmer, [id number], 8 11:33:37 MRI, lumbar spine, w/o contrast 2016 017 [facility] (X-Ray), [address] [place] [address] [address], [place], [address], 7 15:43:48 Medication Orders None recorded. Patient TargetsNo targets recorded. Patient InstructionsNo instructions recorded. Reason for Referral None Reported. Results Created Date Observation Date Name Description Value Unit Range Abnormal Flag Note LastModifiedBy Organization Detail LastModifiedTime 08/16/19 17 02/01/2016 CT, abdom en + pelvi s, w/ contr ast No observ ation record ed. [facility] , [place], [address], 08/16/2016 09:44:57 08/23/19 17 08/21/2016 MRI, lumba r spine , w/o contr ast No observ ation record ed. [facility] (X-Ray) [address] [place] [address] [address], [place], [address], 09/06/2016 15:43:48 08/23/19 17 08/21/2016 MRI, lumba r spine , w/o contr ast No observ ation record ed. [facility] (Scheduling) [address] [place], [place] [address]y [address], [place], [address], 09/06/2016 15:43:31 10/12/19 17 10/11/2016 XR, lumbo sacra l spine , 2 or 3 view, bendi ng only [facility] [address] [place] [address] [place] [address] Patien t Name: LEILA cooley : 948 Ivan cooley 5 Orderi ng Provid er: KRISTAN CHUA EXAM DATE: 2016 EXAM: XR LUMBAR SPINE FLEX/E XT ONLY CLINIC AL INFORM ATION: Back pain. IMAGES PROVID ED: Latera l views of the lumbar spine in flexio n and extens ion. COMPAR RO: 015 FINDIN GS: Verteb ral body height s are normal . Narrow ing of the L4-5 disc space with degene rative spurri ng L3-L5. No abnorm ality of alignm ent is seen. No instab ility is seen on flexio n or extens ion. No radiog raphic eviden ce of injury is noted. IMPRES PRABHAKAR: Mild to modera te DDD most notabl e at L4-5. No instab ility. Interp reted By: Dedrick Louis MD Electr onical ly Signed By: Dedrick Louis MD on 017 8:20 AM [email or web address] [facility] [address] [place], [address], 10/16/2016 21:26:21 08/11/19 18 08/09/2017 MRI, lumba r spine , w/o contr ast No observ ation record ed. [facility] [email or web address] [address] [place] [address] [address] [place], [id number], 09/09/2017 11:33:47 08/11/19 18 08/09/2017 MRI, lumba r spine , w/o contr ast No observ ation record ed. [facility] [email or web address] [address] [place] [address] [address] [place], [id number], 09/09/2017 11:33:37 08/21/19 18 08/09/2017 MRI, lumba r spine , w/o contr ast No observ ation record ed. [facility] Not Available 2017 09:25:33 Result Notes Documentation Provider Name and Address Organization Details Recorded Time Xr, Lumbosacral Spine, 2 Or 3 View, Bending Only : [facility] [address] [place] [address] Patient Name: LEILA ODOM Patient : [id number] Patient Ordering Provider: CHEYENNE CHUA EXAM DATE: 10/11/2016 EXAM: XR LUMBAR SPINE FLEX/EXT ONLY CLINICAL INFORMATION: Back pain. IMAGES PROVIDED: Lateral views of the lumbar spine in flexion and extension. COMPARISON: 10/04/2014 FINDINGS: Vertebral body heights are normal. Narrowing of the L4-5 disc space with degenerative spurring L3-L5. No abnormality of alignment is seen. No instability is seen on flexion or extension. No radiographic evidence of injury is noted. IMPRESSION: Mild to moderate DDD most notable at L4-5. No instability. Interpreted By: Dedrick Louis MD ENNE CHUA MD [address] [place] [address], [phone] - [facility] 10/16/2016 21:26:21 Procedures Surgical History Date Name Laterality Status Provider Name and Address Organization Details Recorded Time Appendectomy completed Victoria Mark[place] - [place] [facility] 10/11/2016 08:35:09 [facility] [facility] 10/11/2016 08:35:22 Other completed Victoria Markel [place] [facility] 10/11/2016 08:36:57 Imaging Results None recorded. Procedure Notes None recorded. Medical Equipment None Reported. Medications Name Sig Start Date Stop Date Status Note LastModified by Organization Details LastModified Time trazodone 50 mg tablet Daily active Frequen cy: daily;M edicati on Descrip tion: trazodo ne; Route:o ral; refills :0 Not Available Not Available Not Available clonazepam 0.5 mg tablet As needed active Frequen cy: prn;Med ication Descrip tion: clonaze bam; Route:o ral; refills :0; Quantit y:0 tablet Not Available Not Available Not Available amlodipine 5 mg tablet Daily active Frequen cy: daily;M edicati on Descrip tion: amlodip ine; Route:o ral; refills :0 Not Available Not Available Not Available Lortab 10 mg-500 mg tablet As needed active Frequen cy: prn;Med ication Descrip tion: acetami nophen- hydroco done; Route:o ral; refills :0 Not Available Not Available Not Available omeprazole ER 20 mg capsule,exte nded release Daily active Frequen cy: daily; on Descrip tion: omepraz ole; Route:o ral; refills :0 Not Available Not Available Not Available Micardis 40 mg tablet Daily active Frequen cy: daily;ica on Descrip tion: telmisa rtan; Dosage: 1; Route:o ral; refills :5; Quantit y:30 tablet Not Available Not Available Not Available gabapentin 300 mg capsule Daily active Frequen cy: daily; edicati on Descrip tion: gabapen tin; Route:o ral; refills :0 Not Available Not Available Not Available zolpidem 5 mg tablet As needed active Frequen cy: prn;Med ication Descrip tion: zolpide m; Route:o ral; refills :0 Not Available Not Available Not Available naproxen 500 mg tablet As needed active Frequen cy: prn;Med ication Descrip tion: naproxe n; Dosage: 1; Route:o ral; refills :0; Quantit y:0 tablet Not Available Not Available Not Available Crestor 10 mg tablet Daily active Frequen cy: daily; on Descrip tion: rosuvas tatin; Dosage: 1; Route:o ral; refills :5; Quantit y:30 tablet Not Available Not Available Not Available Cialis 5 mg tablet As needed active Frequen cy: prn;Med ication Descrip tion: tadalaf il; Route:o ral; refills :0 Not Available Not Available Not Available buspirone Daily active Instruc tions: 15mg;Fr equency : daily; ed on Descrip tion: bupropi on; Route:o ral; refills :0 Not Available Not Available Not Available Vitals Date Recorded Body height Body mass index (BMI) Body weight Systolic And Diastolic Provider Name and Address Organization Details Last Updated DateTime 08/05/2017 190.5 cm 28.6 kg/m2 138665.65 g 118/78 mm[Hg] Nupur Leija [facility] 08/05/2017 12:49:06 Date Recorded Body weight Heart rate Body height Body mass index (BMI) Systolic And Diastolic Provider Name and Address Organization Details Last Updated DateTime 08/16/2016 262093.2 5 g 110 /min 190.5 cm 28.7 kg/m2 124/78 mm[Hg] Jennifer Treviño [facility] 08/16/2016 10:11:44 Date Recorded Body height Body weight Body mass index (BMI) Heart rate Systolic And Diastolic Provider Name and Address Organization Details Last Updated DateTime 10/11/2016 190.5 cm 501404.6 5 g 28.6 kg/m2 82 /min 120/66 mm[Hg] Victoria Jean Baptiste [facility] 10/11/2016 08:33:00 Social History Question Answer Notes LastModified by Organization D etails LastModified Time How Much Tobacco Do You Smoke? 1 PPD Information not available 08/16/2016 How Many Years Have You Smoked Tobacco? 40 Information not available 08/16/2016 Sex: Unknown Functional Status None recorded. Mental Status None recorded. Family History Relationship Description Onset Age of this Age Resolved Age Notes LastModified by Organization Details LastModified Time Unspecified Relation Malignant neoplastic disease [email or web address] Not available 2016 08:34:51 Medical History Condition Response TENS Unit for current problem N Massage Therapy for current problem N Traction for current problem N Gout N Other N Hyperthyroidism N Emphysema N Narcotic Pain Medication for current pro blem N COPD N Hypothyroidism N Injections for current problem N Deep Vein Thrombosis N Arthritis N Cancer Y Stroke N High Cholesterol Y Liver Disease N Fibromyalgia N Dialysis N Kidney Disease N Neuro-modulating Drugs for current probl em N Black Lung N Steroid Pack for current problem N NSAID Use N Osteoporosis/Osteopenia N Heart Attack ([place]) N Mental Illness N Diabetes N Bleeding Disorder N Tuberculosis N Genetic Disorder N AIDS/HIV N Chiropractor treatment for current probl em N Kidney Failure N Asthma N Ultrasound Treatment for current problem N Epilepsy/Seizures N Sleep Apnea N Thyroid Disorder N Physical Therapy Treatments for current problem N Pulmonary Embolism N Hypertension Y Past Encounters Encounter ID Performer Location Encounter Start Date Encounter Closed Date Diagnosis/Indication Diagnosis SNOMED-CT Code Diagnosis ICD10 Code Diagnosis IMO Codes Diagnosis Note [id number] SHAYNA CHACKO PA-C [facility] [address] [place] [address] 08/16/2016 09:51:18 08/17/2016 14:51:09 Rectal pain 72657098 K62.89 [id number] BRADLEY DOUGLAS PA-C [facility] [address] [place] [address] 10/11/2016 07:47:38 10/11/2016 15:29:47 Lumbar spondylosis 224783118 M47.577 [id number] VALENTINA DANIELSON PA-C [facility] [address] [place] [address] 08/05/2017 12:35:55 08/09/2017 15:53:47 Lumbar radiculopathy 147899754 M54.16 Chronic axial low back pain with some new left radicular leg pain. Describes an L5/S1 dermatomal pattern. Given the new radicular findings, will proceed with a lumbar MRI without contrast to see if there is any nerve root compressio n that correlates with his symptoms. I discussed that if this is the case, any potential surgical interventi on may or may not have much help with his chronic low back issues. He would like to get the MRI done in [place]. I told him to be sure we get the CD of the images to review. We will call him with our findings and further recommenda tions. He is happy with this plan. Health Concerns Section Related Observation LastModified by Organization Detai ls LastModified Time None Recorded Concern Status LastModified by Organization Details LastModified Time None Recorded Advance Directives Directive None Recorded Payers Insurance Date Sequence Insurance Name Policy Number Policy Allan Covered Member ID Allan Member ID Guarantor Name 08/03/2017 1 [employer] (MEDICARE REPLACEMENT/A DVANTAGE - PPO) Leila E Coppage [id number] Leila E Coppage Notes Date Note Type Note Provider Name and Address Organization Details Recorded Time 08/16/2016 text/html ROS as noted in the HPI 70-year-old patient of Dr. Chua's last seen by our office in October 2014 who presents today for reevaluation of ongoing low back pain and internal rectal pain. At his last visit, there were no surgical recommendations because most of his pains were central and not radicular. Today, he still has no radicular complaints. He localizes the majority of his pain to the left lumbar spine. In October, he was on a golf trip when he began having rectal pain. He saw an urgent care provider who diagnosed him with an anal fissure. He has been taking daily MiraLAX with some improvement. He then saw his primary care physician who referred him to a GI specialist. The GI specialist is concerned that his internal anal sphincter pain is related to a nerve issue. He was sent here for further evaluation. He has had no previous back surgeries. He denies any weakness in his legs. He has had no loss of bowel or bladder function. He has occasional right anterior thigh numbness that is been ongoing for 20 years. Pain in the low back and rectum is constant. He has tried meloxicam, [place], Neurontin 300 mg daily at bedtime, and sees a chiropractor with minimal relief of his symptoms. SHAYNA CHACKO PA-C [address] [place], [address], [facility] 08/16/2016 10:54:32 10/11/2016 text/html ROS as noted in the HPI Mr. Odom is here to discuss his MRI and flex/ext films. He continues to report low back pain and rectal pain. Back pain is his biggest complaint. He does a large golf trip twice a year and wants to make sure he is able to continue this.He is scheduled to have an epidural injection with Dr. Bassett's office next week. BRADLEY DOUGLAS PA-C [address] [place], [address], [facility] 10/11/2016 09:00:44 08/05/2017 text/html ROS as noted in the HPI Mr. Odom presents to clinic for re-evaluation of continued low back pain. He is a pleasant 71 y/o who was last seen by use in September 2016 for evaluation of chronic axial low back pain. He did not have any surgical findings on his imaging and was referred for injection therapy with Dr. Bassett. He states no significant or lasting relief after 1 WILLY, 2 facet blocks and a rhizotomy. The character and intensity of his pain is similar to last time. Describes axial low back pain, but states he's started to have some radiating pain down the left lateral leg. Denies any focal leg weakness, foot drop, b/b changes, or saddle anesthesia. He does not have any recent lumbar imaging. VALENTINA DANIELSON PA-C [address] [place], [address], [facility] 08/09/2017 13:30:41
--- OUTSIDE RECORDS SUMMARY | 2025-04-16 09:22 | XMS_ITS | Clinical Summary ---
Author Organization [facility] Address [address] [place] [address] Care Team Providers Care Polisher Implant Name Role Phone Sawyer Avina MD Primary Care Provider [phone] Allergies Active Allergy Reactions Criticality Noted Date [...] Do not crush, chew, or split. Active Encounters Date Type Department Care Team Description 02/05/2025 11:00 AM EDT Office Visit [facility] [address] [place] [address] Doris Son APRN Stage 3b chronic kidney disease (CMS/HCC) (Primary Dx); Anemia, unspecified type; Essential hypertension; Chronic kidney disease-mineral and bone disorder; NSAID long-term use 02/05/2025 Travel from Last 3 Months Immunizations Immunization Administration Dates Next Due DTP 01/30/2016,03/24/2014 Hep A, Adult 10/02/2018,04/03/2018 Influenza Vaccine, Quadrival ent, Adjuvanted 04/10/2021 Influenza, High-dose, Split Virus, Trivalent, Injectable, preservative free 04/01/2024,04/04/2023,02/12/2018,03/12 Influenza, Unspecified 03/17/2022,2015,05/26/2014,03/24,03/25/2011,03/16/2010,03/22/2009 ,03/22/2008,04/02/2007,06/17/2006,06/2005,04/17/2004,03/24/2002, 0 Influenza, high-dose, quadrivalent 04/04,03/03/2020,02/12/2018,03/12 Influenza, injectable, quadr ivalent, preservative free 03/06/2017 Influenza, seasonal, injectable 05/17/2018,03/18 Influenza, seasonal, injecta ble, preservative free 03/03/2020 Novel [id number], all formulations 06/16/2009 Pneumococcal 20-ednton Conj Vaccine 12/31/2022 Pneumococcal Conjugate PCV 13 [...] Sign Reading Time Taken Comments Blood Pressure 123/64 02/05/2025 10:53 AM EDT Pulse 74 02/05/2025 10:53 AM EDT Temperature - - Respiratory Rate 18 02/05/2025 10:53 AM EDT Oxygen Saturation 96% 02/05/2025 10:53 AM EDT Inhaled Oxygen Concentration - - Weight 99.3 kg (219 lb) 02/05/2025 10:53 AM EDT Height 190.5 cm (6' 3 ) 02/05/2025 10:53 AM EDT Body Mass Index 27.37 02/05/2025 10:53 AM EDT Plan of Treatment Upcoming Encounters Date Type Department Care Team (Late st Contact Info) Description 08/13/2025 8:40 AM EST Office Visit [facility] [address] [place] [address] Doris Son, MANAGER BIOLOGICS [address] [address] Health Maintenance Due Date Last Done Comments [facility]-Depression Screening 1945 [facility]-Hepatitis C Screening 1945 [facility]-Medicare Annual Wellness (AWV) 1945 [facility]-Infant/Child/Adol SDOH Screenings 1945 [facility]- SDOH Screenings 11/08/1965 [facility]-Adult SDOH Screenings 11/08/1965 [id number] Vaccine ( season) 2025 12/31/2022, 02/08/2021, 07/24/2020, Additional history exists [facility]-Influenza Vaccine (#1) 02/15/202504/01, 04/04/2023, 04/04/2023, Additional history exists [facility]-DTaP,Tdap,and Td Vaccines (4 - Td or Tdap) 01/29/2026 01/30/2016, 01/30/2016, 03/24/2014 [facility]-Zoster Vaccines Completed 04/29/2018, 04/29/2018, 01/31/2018, Additional history exists [facility]-Hepatitis A Vaccines Aged Out 10/02/2018, 03/17 No longer eligible based on patient's age to complete this topic [facility]-Pneumococcal Vaccine: 50+ Years Completed 12/31/2022, 01/31/2018, 01/30/2016, Additional history exists [facility]-RSV Vaccine: 60+ Years or Completed 04/05/2023 [facility]-Obesity Intervention Completed 025, 08/14/2024, 01/24/2024 HPV Vaccines Aged Out No longer eligi [...] patient's age to complete this topic Insurance Care Teams Polisher Implant Relationship Specialty Start Date End Date Sawyer Avina MD [address] [place] [address] PCP - General Internal Medicine 01/22/24
--- OUTSIDE RECORDS SUMMARY | 2025-04-16 09:22 | XMS_ITS | Clinical Summary ---
Author Organization [facility] Address [address] [place] [address] Care Team Providers Care Patrol Agent Name Role Phone Sawyer Avina MD Primary Care Provider [phone] Allergies No known active allergies Medications gabapentin [...] - Adults (1 - 1-dose 75+ series) INFLUENZA VACCINE 01/15/2025 COVID-19 Vaccine ( - season) [address] [place] [address] [address] [place] [address] MEDICARE ADVANTAGE Care Teams Patrol Agent Relationship Specialty Start Date End Date Sawyer Avina MD [facility] [address] [place] [address] PCP - General Adolescent Medicine 09/10/17
== END 2025-04-16 23:59 | disposition home or self-care (01) ==
LOC: LAB 08:59
PROVIDERS: PCP Internal Medicine Adolescent Medicine; Visit Provider Nurse Practitioner Family
DX: Z51.81 Encounter for therapeutic drug level monitoring (principal); Z79.891 Long term (current) use of opiate analgesic
CPT/HCPCS: 36415